=== PATIENT | female | born 1930 | race Caucasian/White ===

== ENCOUNTER 2016-11-30 07:34 | Inpatient (IN) | payer MEDICARE ==
[~2016-11-30] VITALS: Ht 165.1 cm; Wt 72.3 kg
[2016-11-30] VITALS (22 sets, daily range): BP systolic 83–147; BP diastolic 44–88; PULSE 89–102; RESP 12–39; TEMP 97.7–99.1; O2SAT 95–100
[~2016-11-30 07:34] MED LIST: ALPR.25 PO; CETI5CHW PO; FERR324T4 PO; LIPI10TA PO; LISI10 PO; PANT40IN3 PO; SERT100 PO
[2016-11-30] MEDS ORDERED: SERT-129 PO (08:14)
[2016-11-30] MEDS ORDERED: ALPR.25 PO (08:14)
[2016-11-30] MEDS ORDERED: CETI10 PO (08:14)
[2016-11-30] MEDS ORDERED: LISI10TA3 PO (08:14)
[2016-11-30] MEDS ORDERED: PROT40TA PO (08:14)
[2016-11-30] MEDS ORDERED: LIPI10TA PO (08:14)
[2016-11-30 08:30] LABS: BASOPHIL # 0.5 TH/MM3 (0-0.2); BASOPHIL % 4.1 % (0.0-2.0); EOSINOPHIL % 0.4 % (0.0-4.0); LYMPH % 16.6 % (9.0-44.0); LYMPHOCYTE # 1.9 TH/MM3 (1.0-4.8); MEAN CELL VOLUME 90.7 FL (80.0-100.0); MEAN CORPUSCULAR HEMOGLOBIN 28.4 PG (27.0-34.0); MEAN CORPUSCULAR HGB CONC 31.3 % (32.0-36.0); MONO % 6.8 % (0.0-8.0); NEUT % 72.1 % (16.0-70.0); PLATELET COUNT 384 TH/MM3 (150-450); RED BLOOD COUNT 1.63 MIL/MM3 (4.00-5.30); RED CELL DISTRIBUTION WIDTH 17.5 % (11.6-17.2); WHITE BLOOD COUNT 11.2 TH/MM3 (4.0-11.0)
[2016-11-30 08:32] LABS: HEMATOCRIT 14.7 % (35.0-46.0); HEMO FLAGS AUTO DIFF
[2016-11-30 08:33] LABS: CHLORIDE 107 MEQ/L (98-107); POTASSIUM 3.6 MEQ/L (3.5-5.1); SODIUM (NA) 140 MEQ/L (136-145)
[2016-11-30 08:37] LABS: ANION GAP 9 MEQ/L (5-15); BICARBONATE 23.6 MEQ/L (21.0-32.0)
[2016-11-30 08:38] LABS: BLOOD UREA NITROGEN 30 MG/DL (7-18); MAGNESIUM 2.4 MG/DL (1.5-2.5)
[2016-11-30 08:40] LABS: ALT (GPT) 17 U/L (10-53); AST (GOT) 15 U/L (15-37); GLOMERULAR FILTRATION RATE 47 ML/MIN (>89)
[2016-11-30 08:42] LABS: TOTAL BILIRUBIN ADULT 0.4 MG/DL (0.2-1.0)
[2016-11-30 08:43] LABS: ALKALINE PHOSPHATASE 61 U/L (45-117)
[2016-11-30 08:44] LABS: APTT (PATIENT) 19.8 SEC (24.3-30.1); INTERNATIONAL NORMALIZED RATIO 0.9 RATIO; PROTHROMBIN TIME - PATIENT 10.4 SEC (9.8-11.6)
[2016-11-30 08:45] LABS: CREATINE KINASE 42 U/L (26-192)
[2016-11-30] MEDS ORDERED: SODIUM CHLOR 0.9% 250 ML INJ 250 ML IV ONE (08:45)
[2016-11-30 08:53] LABS: ROULEAUX PRESENT (NORMAL); SCAN/DIFF AUTO DIFF CONFIRMED
[2016-11-30] MEDS ORDERED: PANTOPRAZOLE INJ 80 MG in SODIUM CHLORIDE 0.9% INJ 35 ML IV ONE (09:00)
[2016-11-30] MEDS ORDERED: SODIUM CHLORID 0.9% 500 ML INJ 500 ML IV ONE (09:00)
--- NOTE | 2016-11-30 09:05 | RADHPO ---
EXAM DATE/TIME: 11/30/2016 08:36 [facility] COMPARISON: CHEST PA & LAT, March 23, 2016, 15:09. INDICATIONS : Cough, short of breath. MEDICAL HISTORY : None. SURGICAL HISTORY : None. ENCOUNTER: Initial ACUITY: 1 week PAIN SCORE: 0/10 LOCATION: Bilateral chest FINDINGS: There are some increased interstitial markings bilaterally with some prominence of the pulmonary vasc ulature. This is new compared to the prior study. This is suggestive of some mild pulmonary edema. Th e heart size is mildly prominent. There is no pleural effusions. No evidence of pneumothorax. The bon y structures are stable. CONCLUSION: Mild pulmonary edema. Brian Merida MD on November 30, 2016 at 9:03 Board Certified Radiologist. This report was verified electronically.
[2016-11-30 09:10] LABS: BLOOD, URINE NEG (NEG); GLUCOSE,URINE NEG (NEG); KETONE, URINE NEG (NEG); NITRITE,URINE NEG (NEG)
[2016-11-30 09:14] LABS: METHOD OF COLLECTION CLEAN CATCH; URINE COLOR YELLOW (YELLW/STRAW)
--- NOTE | 2016-11-30 09:14 | PD ---
HPI Chief Complaint: Cold / Flu Symptoms Time Seen by Provider: 07:56 Travel History International Travel<30 days: No Contact w/Intl Traveler<30days: No Traveled to known affect area: No History of Present Illness HPI Patient is an 86-year-old female with history of iron deficiency anemia requiring blood transfusions in the past, hypertension, hyperlipidemia, anxiety , depression, GERD who presents to emergency room with multiple complaints. Patient reports that for the past 3 weeks, she has been feeling short of breath on exertion as well as been having generalized weakness. She reports that she has had no energy and for the past few days and has been lying in bed because of her weakness. Reports that she has overall decreased PO intake over the past few days. Patient reports no fevers or chills or any sick contacts. Patient denies any chest pain, reports shortness of breath on exertion. Denies chest pain. Denies abdominal pain. Denies n/v. Denies fever/chills. Reports that she does have a history of anemia, reports that her primary care doctor recently took her off her iron pills as "I did not need them anymore and my labs were fine." Patient also reports that she had a colonoscopy as well as endoscopy last year, reports that everything was negative PFSH Past Medical History Anemia: Yes Arthritis: Yes Autoimmune Disease: No Anxiety: Yes Depression: Yes Heart Rhythm Problems: No Cancer: No Cardiovascular Problems: Yes High Cholesterol: Yes Congestive Heart Failure: No Developmental Delay: Yes Diabetes: No Diminished Hearing: No Endocrine: No GERD: Yes Glaucoma: No Genitourinary: No Hepatitis: No Hiatal Hernia: No Hypertension: Yes Immune Disorder: No Implanted Vascular Access Dvce: Yes Medical other: Yes (arthritis) Musculoskeletal: Yes Neurologic: No Psychiatric: Yes Reproductive: No Respiratory: No Immunizations Current: Yes Thyroid Disease: No Tetanus Vaccination: Unknown Influenza Vaccination: Yes ?: Not Menopausal: Yes Past Surgical History Abdominal Surgery: Yes (HYSTERECTOMY) Body Medical Devices: MARIXA EYE LENS Cardiac Surgery: No Ear Surgery: No Endocrine Surgery: No Eye Surgery: Yes (BILATERAL CATARACT SX; LEFT RETINA SX x2) Genitourinary Surgery: No Gynecologic Surgery: Yes (HYSTERECTOMY) Hysterectomy: Yes Joint Replacement: Yes (Bilateral Knee) Oral Surgery: No Thoracic Surgery: No Other Surgery: Yes (LEFT TOTAL KNEE REPLACEMENT) Social History Alcohol Use: Yes (occas) Tobacco Use: No (QUIT 30 YRS) Substance Use: No Allergies-Medications (Allergen,Severity, Reaction): Coded Allergies: Morphine (Verified Allergy, Intermediate, 11/30/16) Reported Meds & Prescriptions Reported Meds & Active Scripts Active Reported Cetirizine (Cetirizine HCl) 10 Mg Tab 10 Mg PO DAILY Xanax (Alprazolam) 0.25 Mg Tab 0.25 Mg PO DIRECTED PRN Lipitor (Atorvastatin Calcium) 10 Mg Tab 10 Mg PO HS Lisinopril 10 Mg Tab 10 Mg PO DAILY Sertraline (Sertraline HCl) 100 Mg Tab 100 Mg PO DAILY Protonix (Pantoprazole Sodium) 40 Mg Tab 40 Mg PO DAILY Review of Systems General / Constitutional: No: Fever, Chills Eyes: No: Visual changes HENT: No: Headaches, Vertigo, Lightheadedness, Sore Throat Cardiovascular: Positive: Dyspnea on exertion, No: Chest Pain or Discomfort, Palpitations, Irregular Rhythm, Tachycardia, Diaphoresis Respiratory: Positive: Shortness of Breath, No: Cough, Wheezing Gastrointestinal: No: Nausea, Vomiting, Abdominal Pain Genitourinary: No: Dysuria Musculoskeletal: No: Pain Skin: No Rash Neurologic: Positive: Weakness, Dizziness, No: Headache Psychiatric: No: Depression Endocrine: No: Polydipsia Hematologic/Lymphatic: No: Easy Bruising Physical Exam Narrative GENERAL: Moderate distress SKIN: Focused skin assessment warm/dry. Patient pale-appearing HEAD: Atraumatic. Normocephalic. EYES: Pupils equal and round. No scleral icterus. No injection or drainage. ENT: No nasal bleeding or discharge. Mucous membranes pink and moist. NECK: Trachea midline. No JVD. CARDIOVASCULAR: Regular rate and rhythm. No murmur appreciated. RESPIRATORY: No accessory muscle use. Clear to auscultation. Breath sounds equal bilaterally. GASTROINTESTINAL: Abdomen soft, non-tender, nondistended. Hepatic and splenic margins not palpable. Patient with heme positive, black tarry stool MUSCULOSKELETAL: No obvious deformities. No clubbing. No cyanosis. No edema. NEUROLOGICAL: Awake and alert. No obvious cranial nerve deficits. Motor grossly within normal limits. Normal speech. PSYCHIATRIC: Appropriate mood and affect; insight and judgment normal. Data Data Last Documented VS Vital Signs Date Time Temp Pulse Resp B/P Pulse Ox O2 Delivery O2 Flow Rate FiO2 11/30/16 10:26 89 16 96/53 100 Nasal Cannula 2 11/30/16 07:50 97.7 Orders Complete Blood Count With Diff (11/30/16 08:04) Comprehensive Metabolic Panel (11/30/16 08:04) Prothrombin Time / Inr (Pt) (11/30/16 08:04) Act Partial Throm Time (Ptt) (11/30/16 08:04) Lactic Acid Sepsis Protocol (11/30/16 08:04) Magnesium (Mg) (11/30/16 08:04) Lipase (11/30/16 08:04) Ckmb (Isoenzyme) Profile (11/30/16 08:04) Troponin I (11/30/16 08:04) Urinalysis - C+S If Indicated (11/30/16 08:04) Influenzae A/B Antigen (11/30/16 08:04) Blood Culture (11/30/16 08:04) Chest, Single Ap (11/30/16 08:04) Type And Screen (11/30/16 08:04) Red Blood Cells (Rbc) (11/30/16 08:45) Blood Product Administration .UPON TRANSFUSION (11/30/16 08:45) Sodium Chlor 0.9% 250 Ml Inj (Ns 250 Ml (11/30/16 08:45) Sodium Chlorid 0.9% 500 Ml Inj (Ns 500 M (11/30/16 09:00) Pantoprazole Inj (Protonix Inj) (11/30/16 09:00) Pantoprazole Inj (Protonix Inj) (11/30/16 09:00) Electrocardiogram (11/30/16 ) Labs Laboratory Tests Test 11/30/16 11/30/16 11/30/16 11/30/16 07:50 08:25 08:45 09:05 White Blood Count 11.2 TH/MM3 Red Blood Count 1.63 MIL/MM3 Hemoglobin 4.6 GM/DL Hematocrit 14.7 % Mean Corpuscular Volume 90.7 FL Mean Corpuscular Hemoglobin 28.4 PG Mean Corpuscular Hemoglobin 31.3 % Concent Red Cell Distribution Width 17.5 % Platelet Count 384 TH/MM3 Mean Platelet Volume 8.6 FL Neutrophils (%) (Auto) 72.1 % Lymphocytes (%) (Auto) 16.6 % Monocytes (%) (Auto) 6.8 % Eosinophils (%) (Auto) 0.4 % Basophils (%) (Auto) 4.1 % Neutrophils # (Auto) 8.0 TH/MM3 Lymphocytes # (Auto) 1.9 TH/MM3 Monocytes # (Auto) 0.8 TH/MM3 Eosinophils # (Auto) 0.0 TH/MM3 Basophils # (Auto) 0.5 TH/MM3 CBC Comment AUTO DIFF Differential Comment AUTO DIFF CONFIRMED Rouleau PRESENT Prothrombin Time 10.4 SEC Prothromb Time International 0.9 RATIO Ratio Activated Partial 19.8 SEC Thromboplast Time Sodium Level 140 MEQ/L Potassium Level 3.6 MEQ/L Chloride Level 107 MEQ/L Carbon Dioxide Level 23.6 MEQ/L Anion Gap 9 MEQ/L Blood Urea Nitrogen 30 MG/DL Creatinine 1.10 MG/DL Estimat Glomerular Filtration 47 ML/MIN Rate Random Glucose 147 MG/DL Calcium Level 8.2 MG/DL Magnesium Level 2.4 MG/DL Total Bilirubin 0.4 MG/DL Aspartate Amino Transf 15 U/L (AST/SGOT) Alanine Aminotransferase 17 U/L (ALT/SGPT) Alkaline Phosphatase 61 U/L Total Creatine Kinase 42 U/L Troponin I 0.21 NG/ML Total Protein 6.4 GM/DL Albumin 3.1 GM/DL Lipase 84 U/L Blood Type O NEGATIVE Antibody Screen NEGATIVE Lactic Acid Level 2.3 mmol/L Crossmatch Leukocyte-Reduced Red Blood Cells Blood Bank Comment Urine Collection Type CLEAN CATCH Urine Color YELLOW Urine Turbidity CLEAR Urine pH 5.0 Urine Specific Sebastian 1.027 Urine Protein NEG mg/dL Urine Glucose (UA) NEG mg/dL Urine Ketones NEG mg/dL Urine Occult Blood NEG Urine Nitrite NEG Urine Bilirubin NEG Urine Leukocyte Esterase NEG Urine WBC 0-2 /hpf Microscopic Urinalysis Comment CULT NOT INDICATED MDM Medical Decision Making Medical Screen Exam Complete: Yes Emergency Medical Condition: Yes Interpretation(s) EKG at 0749: NSR at 93bpm, qt/qtc: 398/455, nonspecific ST and T-wave changes Vital Signs Date Time Temp Pulse Resp B/P Pulse Ox O2 Delivery O2 Flow Rate FiO2 11/30/16 07:55 90 16 98 Room Air 11/30/16 07:50 97.7 95 16 102/59 98 Room Air 11/30/16 07:36 98.0 94 20 83/44 99 Differential Diagnosis GI bleed, colitis, anemia, esophagitis, pneumonia, ACS, arrhythmia Narrative Course Patient is an 86-year-old female who presents to emergency room with complaints of generalized weakness for the past 3 weeks. Patient reports that she has been having increasingly short of breath on exertion, reports nonproductive cough and malaise weakness. On exam, patient is pale-appearing, she is hypotensive with a blood pressure 83/44 with a pulse ox of 94%. Labs including blood cultures and lactic acid ordered. Patient does have extensive testing T-wave changes on EKG which are nonspecific , cardiac enzymes ordered as well. Patient's hemoglobin is 4.6, hematocrit 14.7, patient does have dark tarry stools which are heme positive. Patient with most likely GI bleed. Patient was started protonix as well as a protonix gtt. 2 units of blood ordered. Patient did give verbal as well as written consent for blood transfusion. Patient's troponin is 0.21, patient with nonspecific ST and T-wave changes on EKG, it is most likely from symptomatic anemia from GI bleed. Lactic acid is 2.3 - patient has been pancultured, elevated lactate most likely from hypoperfusion. Case reviewed with Dr. Brush who accepts pt to service Critical Care Narrative Aggregate critical care time was 30 minutes. Time to perform other separately billable procedures was not included in the critical care time. My time did not include minutes spent treating any other patients simultaneously or on activities that did not directly contribute to the patient's treatment. The services I provided to this patient were to treat and/or prevent clinically significant deterioration that could result in: , decompensation, deterioration I provided critical care services requiring my management, as noted below: Chart data review, documentation time, medication orders and management, vital sign assessments/reviewing monitor data, ordering and reviewing lab tests, ordering and interpreting/reviewing x-rays and diagnostic studies, care of the patient and discussion of the patient with the admitting physicians. Diagnosis Primary Impression: GI bleed Qualified Code: K92.1 - Gastrointestinal hemorrhage with melena Additional Impressions: Anemia Qualified Code: D64.9 - Anemia, unspecified type NSTEMI (non-ST elevation myocardial infarction) Admitting Information Admitting Physician Requests: Mariel Fernandez DO November 30, 2016 09:14
[2016-11-30 09:15] LABS: COMMENT (UR) CULT NOT INDICATED; CULTURE IF INDICATED CULT NOT INDICATED; WBC, URINE 0-2 /hpf (0-5)
[2016-11-30] MEDS: PANTOPRAZOLE INJ 80 MG in SODIUM CHLORIDE 0.9% INJ 100 ML IV SCH (09:43)
[2016-11-30 10:32] LABS: LACTIC ACID GHOST NOT REPORTABLE
--- NOTE | 2016-11-30 10:54 | EKG ---
Date Performed: 11/30/2016 Time Performed: 07:49:34 PTAGE: 86 years EKG: Sinus rhythm Extensive ST-T changes are nonspecific Borderline ECG PREVIOUS TRACING : 03/23/2016 18.57 Compared to previous tracing, nonspecific ST/T changes are now present. DOCTOR: Benji Ayon Interpretating Date/Time 11/30/2016 10:53:18
[2016-11-30] MEDS ORDERED: OCUVTAB PO (11:53)
[2016-11-30] MEDS ORDERED: SODIUM CHLORIDE 0.9% FLUSH 10 ML FLUSH IV FLUSH PRN (12:45)
[2016-11-30] MEDS ORDERED: ONDANSETRON HCL 4 MG/2 ML VIAL IVP PRN (12:45)
[2016-11-30] MEDS ORDERED: NALOXONE HCL 0.4 MG/ML AMP IV PRN (12:45)
[2016-11-30] MEDS ORDERED: CHLORHEXIDINE GLUCONATE 2 % 1 PACK (2 CLOTHS)(extra cloths) TOPICAL PRN (14:00)
[2016-11-30] MEDS ORDERED: ALPRAZolam 0.25 MG TAB PO ONE (14:15)
--- NOTE | 2016-11-30 16:20 | MH ---
cc: KYLE LYLE DATE OF ADMISSION: 11/30/2016 ADMITTING DIAGNOSIS: GI bleed. HISTORY OF PRESENT ILLNESS The patient is a very pleasant 86-year-old female who states that she just has not been feeling well for the last month. She had been having some work done in her house that she attributed it for mold and she attributed her feeling of not feeling quite well secondary to that. She also states that she tripped and fell approximately two weeks, was a little bit sore but really had no obvious bruising at the time. She also at that time had developed a cough that was not improving despite [id number] medications. She did have two nights of sweats that she attributed to her soaked pajamas. She presented to the emergency room secondary to the generalized weakness and the cough. The history is being obtained while her nephew is in the room. He volunteers that she also had been complaining of some shortness of breath while she had the cough and some lightheadedness. She does have a history of iron deficiency anemia in the past requiring transfusions. When I asked her about any abdominal pain or nausea, she denied. She has been eating less but according to her it is because she has been feeling fairly depressed and has just not wanted to cook. She does state that she has an occasional abdominal pain and cramping but according to her she understands that she has irritable bowel and she attributes it to that. She will occasionally sporadically have some diarrhea. She will take some Immodium. She denies noticing any black or tarry stools or blood in her stools. She had been on iron pills which we had stopped earlier in the year as she apparently had been doing better with her anemia. PAST MEDICAL HISTORY: Significant for: 1. Anemia. 2. Diverticulosis. 3. Garcia's esophagus 4. Colon polyps. 5. Hypertension. 6. Hyperlipidemia. 7. She does have lumbar stenosis and macular degeneration. 8. She does have major depressive disorder and is under the care of a psychiatrist. 9. She does have a thyroid nodule that is being investigated. PAST SURGICAL HISTORY: 1. Total abdominal hysterectomy with BSO. 2. Total knee arthroplasty. 3. Cataract surgery. ALLERGIES: MORPHINE. MEDICATIONS: 1. Atorvastatin 20 milligrams daily. 2. Lisinopril 20 milligrams daily. 3. Pantoprazole 40 milligrams daily. 4. Sertraline 150 milligrams daily. 5. Alprazolam 0.25 as needed twice a day. HABITS: She does not smoke. She will have an occasional beer or vodka once or twice a day. 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 She lives by herself in [facility]. REVIEW OF SYSTEMS: See HPI. She denies any chest pain or palpitations, or any lower extremity edema or swelling, just this cough that was nonproductive that would not improve. She does state that she has been urinating well. Aside from some weakness, has essentially also just being feeling depressed with the loss of her partner and the relocation of her friends in the community that she lives in. LABORATORY DATA: On admission, included a white count of 11.2, hemoglobin of 4.6, hematocrit 14.7, platelet count of 384. Sodium 140, potassium 3.6, BUN was 30, creatinine 1.1, lactic acid was 2.3, troponin was 0.21. Albumin was 3.1. INR was 0.9, urine was clear. EKG showed sinus rhythm with extensive nonspecific ST changes. Chest x-ray, some increased interstitial markings with some prominence of the pulmonary vasculature, that was new. PHYSICAL EXAMINATION: VITAL SIGNS: Temperature 98.7, pulse 91, respiratory rate 23, blood pressure was 116/53, pulse ox 99%. She is lying in the ICU. She looks pale. She is alert, and does not appear to be in any acute distress. She is wearing oxygen. She has a clear moist oral mucosa. NECK: Supple. LUNGS: Clear to auscultation. She has no rales, rhonchi or wheezing. HEART: She does have a 2/6 systolic ejection murmur over her precordium. ABDOMEN: Good bowel sounds in all four quadrants. No rebound or guarding. EXTREMITIES: No clubbing, cyanosis or edema. ASSESSMENT AND PLAN: The patient is an 86 year-old female with prior history of iron deficiency anemia with GI bleed. On prior admissions we were not able to identify the source of her bleed. She did have extensive diverticulosis. I am not sure if we may be dealing with repeated diverticular bleed. At this point I have asked GI to see her. She is not too thrilled about undergoing another endoscopy or colonoscopy. For the elevated troponin, I will go ahead and repeat that. That may be secondary to the strain of the anemia on her heart. Will have to see how she does. Again monitor her volume status closely. She may need some diuretics after her transfusion. For her depression, continue her sertraline or alprazolam. We were taking about perhaps relocating once she is done with this hospital admission. She is to continue on a PPI particularly with her history of Garcia's esophagus. She does have hypertension. Will obviously halt her antihypertensives. Further recommendations as the case develops. MD AQUILES Riggs/DAVID /2:15 PM /3:14 PM
[2016-11-30] MEDS: ACETAMINOPHEN 325 MG TAB PO PRN (16:59)
[2016-11-30 18:28] LABS: HEMATOCRIT 22.5 % (35.0-46.0); REVIEW FLAG FINAL
[2016-11-30] MEDS ORDERED: FUROSEMIDE 20 MG/2 ML VIAL IV PUSH ONE (20:45)
[2016-11-30] MEDS: ATORVASTATIN 10 MG TAB PO SCH (20:51)
[2016-11-30] MEDS: DOCUSATE SODIUM 50 MG/SENNA 8.6 MG TAB PO SCH (20:52)
[2016-11-30] MEDS: SODIUM CHLORIDE 0.9% FLUSH 10 ML FLUSH IV FLUSH SCH (20:52)
[2016-11-30] MEDS: ALPRAZolam 0.25 MG TAB PO PRN (20:52)
[2016-12-01] VITALS (28 sets, daily range): BP systolic 107–200; BP diastolic 52–181; PULSE 82–100; RESP 16–43; TEMP 97.3–98.6; O2SAT 93–100
[2016-12-01] MEDS ORDERED: FUROSEMIDE 40 MG/4 ML VIAL ONE (00:40)
[2016-12-01] MEDS ORDERED: FUROSEMIDE 40 MG/4 ML VIAL IV PUSH SCH (00:45)
[2016-12-01 02:16] LABS: HEMATOCRIT 23.7 % (35.0-46.0); REVIEW FLAG FINAL
[2016-12-01] MEDS: ACETAMINOPHEN 325 MG TAB PO PRN (03:51)
[2016-12-01] MEDS: ALPRAZolam 0.25 MG TAB PO PRN ×3 (03:51→23:00)
[2016-12-01] MEDS: CHLORHEXIDINE GLUCONATE 2 % 1 PACK (2 CLOTHS)(taper/protocol) TOPICAL SCH (03:52)
[2016-12-01 04:58] LABS: AUTOMATED NEUTROPHIL # 10.7 TH/MM3 (1.8-7.7); BASOPHIL # 0.6 TH/MM3 (0-0.2); EOSINOPHIL # 0.1 TH/MM3 (0-0.4); EOSINOPHIL % 0.5 % (0.0-4.0); HEMATOCRIT 22.8 % (35.0-46.0); LYMPH % 10.1 % (9.0-44.0); LYMPHOCYTE # 1.4 TH/MM3 (1.0-4.8); MEAN CELL VOLUME 85.5 FL (80.0-100.0); MEAN CORPUSCULAR HEMOGLOBIN 27.9 PG (27.0-34.0); MEAN CORPUSCULAR HGB CONC 32.6 % (32.0-36.0); MONO % 7.9 % (0.0-8.0); NEUT % 77.5 % (16.0-70.0); PLATELET COUNT 307 TH/MM3 (150-450); RED BLOOD COUNT 2.66 MIL/MM3 (4.00-5.30); RED CELL DISTRIBUTION WIDTH 16.4 % (11.6-17.2); WHITE BLOOD COUNT 13.9 TH/MM3 (4.0-11.0)
[2016-12-01 05:03] LABS: CHLORIDE 104 MEQ/L (98-107); HEMO FLAGS DIFF FINAL; POTASSIUM 3.4 MEQ/L (3.5-5.1); SODIUM (NA) 138 MEQ/L (136-145)
[2016-12-01 05:07] LABS: ANION GAP 7 MEQ/L (5-15); BICARBONATE 27.2 MEQ/L (21.0-32.0); BLOOD UREA NITROGEN 25 MG/DL (7-18)
[2016-12-01 05:10] LABS: ALT (GPT) 21 U/L (10-53)
[2016-12-01] MEDS: PANTOPRAZOLE INJ 80 MG in SODIUM CHLORIDE 0.9% INJ 100 ML IV SCH ×2 (05:16→18:34)
[2016-12-01 05:34] LABS: ALKALINE PHOSPHATASE 66 U/L (45-117); AST (GOT) 31 U/L (15-37); GLOMERULAR FILTRATION RATE 60 ML/MIN (>89); TOTAL BILIRUBIN ADULT 1.4 MG/DL (0.2-1.0)
[2016-12-01] MEDS ORDERED: POTASSIUM CHLORIDE 20 MEQ CONTROLLED RELEASE TAB PO ONE ×2 (08:45→13:00)
[2016-12-01] MEDS ORDERED: SERTRALINE HCL 100 MG TAB PO SCH (09:00)
--- NOTE | 2016-12-01 09:48 | RADHPO ---
EXAM DATE/TIME: 12/01/2016 09:26 [facility] COMPARISON: CHEST SINGLE AP, November 30, 2016, 8:36. INDICATIONS : Cough, short of breath. MEDICAL HISTORY : None. SURGICAL HISTORY : None. ENCOUNTER: Subsequent ACUITY: 1 week PAIN SCORE: 0/10 LOCATION: Bilateral chest FINDINGS: Cardiac silhouette is minimally enlarged. Pulmonary vascularity is indistinct with diffuse interstiti al prominence similar to prior exam. There is subtle airspace disease in the left lower lung zone wit h. No significant pleural effusion. Remainder of exam is unchanged. CONCLUSION: 1. Mild cardiomegaly with trace positive fluid balance. 2. Minimal left lower lobe airspace disease, likely atelectasis. However, developing aspiration/pneum onia may have a similar appearance. Saul Fallon MD on December 01, 2016 at 9:44 Board Certified Radiologist. This report was verified electronically.
[2016-12-01] MEDS: MULTIVITAMIN-OPHTHALMIC 1 TAB PO SCH (10:04)
[2016-12-01] MEDS: SERTRALINE HCL 100 MG TAB PO SCH (10:06)
[2016-12-01] MEDS: SODIUM CHLORIDE 0.9% FLUSH 10 ML FLUSH IV FLUSH SCH ×2 (10:10→21:00)
--- NOTE | 2016-12-01 10:58 | MB ---
cc: NOHEMI MCCURDY MD DATE OF CONSULTATION: 12/01/2016 HISTORY OF PRESENT ILLNESS This is an 86-year-old woman who was admitted to the hospital after having problems with fatigue, tiredness and mild confusion. Her niece insisted that she come to the hospital and upon admission to the hospital she was found to have be rather profoundly anemic with a hemoglobin of 4.6. She actually feels that this may have started six weeks ago when her water heater broke and she had been inhaling mold. This was repaired. We have been asked to see her in that two troponins were done with values of 0.21 and 0.38 with normal CPKs. The patient denies any problems with chest pains or shortness of breath. No lightheadedness or dizziness has been present. She denies any palpitations and no prior history of any heart problems have been present. She has had a history of anemia in the past which was felt to be iron deficiency requiring transfusions. She denies any problems with nausea or vomiting. No melena or hematochezia has been present. PAST MEDICAL HISTORY Otherwise significant for: 1. Hypertension. 2. Hyperlipidemia. ALLERGIES MORPHINE. MEDICATIONS Medications at home have included: 1. Atorvastatin 20 mg daily. 2. Lisinopril 20 mg daily. 3. Pantoprazole 40 mg daily. 4. Sertraline 150 mg daily. 5. Alprazolam as needed. SOCIAL HISTORY The patient is a nonsmoker. She occasionally drinks alcohol. She does not use recreational drugs. PHYSICAL EXAMINATION GENERAL: She is awake and alert. She is in no acute distress. VITAL SIGNS: Blood pressure 120/70, pulse 88. NECK: There is no neck vein distension. Carotids are normal. LUNGS: Clear. CARDIOVASCULAR: Regular rate and rhythm. There is a 2/6 systolic murmur at the apex. No diastolic murmur is present. ABDOMEN: Soft. There is no tenderness or organomegaly. EXTREMITIES: No edema. ASSESSMENT AND RECOMMENDATIONS The patient has had elevated troponin. This is likely demand mediated due to her profound anemia. At this point in time she is asymptomatic and resting comfortably. At some point in the future we will entertain an ischemic work-up, but at this point in time she certainly would not be a good candidate for cardiac catheterization and in the absence of significant symptoms do not feel that she urgently needs that work-up. Would favor getting her anemia stable and pursue outpatient examination unless symptoms intervene. I have ordered an echocardiogram to evaluate her murmur. MD HANNA Castaneda/JENI /10:27 AM /10:38 AM
[2016-12-01 12:36] LABS: REVIEW FLAG FINAL
[2016-12-01 12:37] LABS: CHLORIDE 104 MEQ/L (98-107); POTASSIUM 3.3 MEQ/L (3.5-5.1); SODIUM (NA) 140 MEQ/L (136-145)
[2016-12-01 12:41] LABS: ANION GAP 11 MEQ/L (5-15); BICARBONATE 25.4 MEQ/L (21.0-32.0); BLOOD UREA NITROGEN 21 MG/DL (7-18)
[2016-12-01 12:44] LABS: ALT (GPT) 19 U/L (10-53); AST (GOT) 22 U/L (15-37); GLOMERULAR FILTRATION RATE 55 ML/MIN (>89)
[2016-12-01 12:45] LABS: TOTAL BILIRUBIN ADULT 0.8 MG/DL (0.2-1.0)
[2016-12-01 12:47] LABS: ALKALINE PHOSPHATASE 63 U/L (45-117)
--- NOTE | 2016-12-01 12:57 | HHI.PR ---
Subjective Remarks No new complaints, feels good this am Objective Vitals Vital Signs Date Time Temp Pulse Resp B/P Pulse Ox O2 Delivery O2 Flow Rate FiO2 12/01/16 10:39 93 21 12/01/16 06:00 88 12/01/16 06:00 88 25 118/54 100 12/01/16 05:00 90 24 121/54 99 12/01/16 04:00 97.7 92 27 135/63 98 12/01/16 04:00 92 12/01/16 03:00 92 26 137/68 99 12/01/16 02:00 98 28 138/71 99 12/01/16 02:00 98 12/01/16 01:00 100 34 148/74 95 12/01/16 00:00 98.6 98 43 123/66 98 12/01/16 00:00 98 11/30/16 23:25 97 Nasal Cannula 2.00 11/30/16 23:00 102 36 147/75 98 11/30/16 22:00 100 26 140/70 96 11/30/16 22:00 100 11/30/16 21:15 96 27 140/78 95 11/30/16 20:13 99.1 94 12 144/75 98 11/30/16 20:00 96 11/30/16 18:52 96 27 140/85 99 11/30/16 18:00 98.0 96 22 141/73 100 11/30/16 17:59 18 11/30/16 17:00 95 22 145/88 100 11/30/16 16:00 94 26 132/87 100 11/30/16 15:05 100 Nasal Cannula 3.00 11/30/16 15:00 90 26 125/80 100 11/30/16 14:00 98.7 92 39 115/76 100 11/30/16 13:00 92 22 109/56 100 11/30/16 11/30/16 12/01/16 14:59 22:59 06:59 Intake Total 600 ml 390 ml Output Total 450 ml 1850 ml Balance 600 ml -450 ml -1460 ml Intake Oral 240 ml IV Total 600 ml 150 ml Output Urine Total 450 ml 1850 ml # Bowel Movements 1 Result Diagram: 12/01/16 1220 12/01/16 1220 Other Results Last Impressions Chest X-Ray 5/31/17 0000 Signed Impressions: Service Date/Time: Thursday, December 01, 2016 09:26 - CONCLUSION: 1. Mild cardiomegaly with trace positive fluid balance. 2. Minimal left lower lobe airspace disease, likely atelectasis. However, developing aspiration/pneumonia may have a similar appearance. Saul Fallon MD Objective Remarks Lying in bed looks comfortable , off oxygen cta efe 3/6 +bs nontender no edema A/P Problem List: (1) Symptomatic anemia Status: Acute Plan: recieved 2 units of blood last nite, became sob and required diuresis, in view of elevated troponin and murmur, 3rd units was held, her hgb has stablized though it is still low, she is off oxygen will transfurs one more unit followed by furosemide (2) GI bleed Status: Acute Plan: she has had recurrent gi bleeds , she has severe diverticulosis, she denies abdominal pain except for occasional cramping follwed by diarrhea, this is chronic consult pending, cont PP (3) Anxiety Status: Chronic Plan: mouring loss of her and friends, neighbores relocating case management assisting with obtaining help at home, discussed ASSISTED (4) Troponin level elevated Status: Acute Plan: Asked cardiology to see her though suspect related to stress from anemia , they have ordered echo and outpatient ischemic w/u. For now work on correcting anemia Problem Qualifiers (1) GI bleed: Qualified Code: K92.1 - Gastrointestinal hemorrhage with melena Aminata Morales MD December 01, 2016 12:57
[2016-12-01] MEDS ORDERED: FUROSEMIDE 20 MG/2 ML VIAL IV PUSH ONE (13:00)
[2016-12-01] MEDS: DOCUSATE SODIUM 50 MG/SENNA 8.6 MG TAB PO SCH ×2 (14:49→21:01)
[2016-12-01] MEDS ORDERED: PEG (High)/E-LYTE SOLN 4000 ML BTL PO ONE (17:00)
--- NOTE | 2016-12-01 17:22 | EC ---
Study Study Date:12/01/2016 STUDY CONCLUSIONS SUMMARY - Left ventricle: The cavity size was normal. Wall thickness was increased in a pattern of moderate LVH. Systolic function was normal. The estimated ejection fraction was in the range of 55% to 60%. Wall motion was normal; there were no regional wall motion abnormalities. - Aortic valve: Valve area: 0.61cm^2(VTI). Valve area: 0.53cm^2 (Vmax). - Mitral valve: Mildly calcified annulus. Mild regurgitation. - Tricuspid valve: Mild regurgitation. - Pulmonary arteries: PA peak pressure: 41mm Hg (S). If LV function is below 40, please consider prescribing an ACEI or ARB or document rationale for non-use. PROCEDURE DATA STUDY STATUS: Elective. Procedure: Transthoracic echocardiography. Image quality was good. Scanning was performed from the parasternal, apical, and subcostal acoustic windows. Study completion: The patient tolerated the procedure well. Transthoracic echocardiography. M-mode, complete 2D, complete spectral Doppler, and color Doppler. Height: Height: 65in. Weight: Weight: 161.7lb. Body mass index: BMI: 27kg/m^2. Body surface area: BSA: 1.81m^2. Patient status: Inpatient. CARDIAC ANATOMY LEFT VENTRICLE: The cavity size was normal. Wall thickness was increased in a pattern of moderate LVH. Systolic function was normal. The estimated ejection fraction was in the range of 55% to 60%. Wall motion was normal; there were no regional wall motion abnormalities. AORTIC VALVE: thickened, calcified leaflest with restricted motion and mean gradient = 64 mm hg c/w severe aortic valve stenosis Trileaflet; normal thickness leaflets. Doppler: Transvalvular velocity was within the normal range. There was no stenosis. Trace to mild regurgitation. Valve area: 0.61cm^2(VTI). Indexed valve area: 0.34cm^2/m^2 (VTI). Valve area: 0.53cm^2 (Vmax). Indexed valve area: 0.29cm^2/m^2 (Vmax). Mean gradient: 63mm Hg (S). Peak gradient: 113mm Hg (S). AORTA: Aortic root: The aortic root was normal in size. MITRAL VALVE: peak gradient = 6 mm hg suggestive of mild mitral valve stenosis Mildly calcified annulus. Doppler: Transvalvular velocity was within the normal range. There was no evidence for stenosis. Mild regurgitation. Peak gradient: 6mm Hg (D). LEFT ATRIUM: The atrium was normal in size. RIGHT VENTRICLE: The cavity size was normal. Wall thickness was normal. PULMONIC VALVE: Doppler: Transvalvular velocity was within the normal range. There was no evidence for stenosis. No regurgitation. TRICUSPID VALVE: Structurally normal valve. Doppler: Transvalvular velocity was within the normal range. Mild regurgitation. PULMONARY ARTERY: The main pulmonary artery was normal-sized. Systolic pressure was within the normal range. RIGHT ATRIUM: The atrium was normal in size. PERICARDIUM: There was no pericardial effusion. SYSTEMIC VEINS: Inferior vena cava: The vessel was normal in size. Patient weight: 161.7lb _Ejection fraction:_ 65-75% _Fractional shortening:_ 32% up to 5Kg 5-11.5Kg 11.6-22.9Kg 23-45Kg 45-57Kg Aortic Root 7-13 <17 13-22 17-27 17-27 LA diam 6-13 <23 24-38 33-47 37-40 RVID 10-17 7-15 7-15 7-18 8-17 LVIDd 12-22 <32 24-38 33-47 37-40 LVPW 2-4 3-6 5-7 6-8 7-8 IVS 2-4 3-6 5-7 6-8 7-8 BASIC MEASUREMENTS ADULT NORMAL Left ventricle LV internal dimension, ED, chordal *42.6 mm 43-52 level, PLAX LV internal dimension, ES, chordal 31.1 mm 23-38 level, PLAX Fractional shortening, chordal level, *27 % >29 PLAX LV posterior wall thickness, ED 17.2 mm IVS/LVPW ratio, ED 1 <1.3 Ventricular septum Septal thickness, ED 17.2 mm Aorta Root diameter, ED 29 mm Left atrium Anterior-posterior dimension 37 mm Anterior-posterior dimension index 2.04 cm/m^2 <2.2 DOPPLER MEASUREMENTS ADULT NORMAL Main pulmonary artery Pressure, S *41 mm Hg =30 Aortic valve Peak velocity, S 506 cm/s Mean velocity, S 368 cm/s VTI, S 114 cm Mean gradient, S 63 mm Hg Peak gradient, S 113 mm Hg Valve area, VTI 0.61 cm^2 Valve area index, VTI 0.34 cm^2/m^2 Valve area, Vmax 0.53 cm^2 Valve area index, Vmax 0.29 cm^2/m^2 Mitral valve Peak E-wave velocity 118 cm/s Peak A-wave velocity 103 cm/s Deceleration time 165 ms 150-230 Peak gradient, D 6 mm Hg Peak E/A ratio 1.1 Tricuspid valve Regurgitant peak velocity 292 cm/s Peak RV-RA gradient, S 34 mm Hg Maximal regurgitant velocity 292 cm/s Systemic veins Estimated CVP 10 mm Hg Right ventricle RV pressure, S *44 mm Hg <30 Pulmonic valve Peak velocity, S 91.1 cm/s LEGEND: Mean values are shown as u=mean value. Asterisk (*) law values outside specified normal range. Prepared and signed by Grady Willis [id number]
[2016-12-01] MEDS: ATORVASTATIN 10 MG TAB PO SCH (21:01)
[2016-12-01 21:43] LABS: HEMATOCRIT 32.5 % (35.0-46.0); REVIEW FLAG FINAL
[2016-12-01 21:51] LABS: POTASSIUM 3.5 MEQ/L (3.5-5.1)
[2016-12-02] VITALS (21 sets, daily range): BP systolic 103–148; BP diastolic 55–77; PULSE 86–102; RESP 20–41; TEMP 97.7–98.6; O2SAT 93–98
[2016-12-02] MEDS: CHLORHEXIDINE GLUCONATE 2 % 1 PACK (2 CLOTHS)(taper/protocol) TOPICAL SCH ×2 (04:00→22:51)
[2016-12-02] MEDS: PANTOPRAZOLE INJ 80 MG in SODIUM CHLORIDE 0.9% INJ 100 ML IV SCH (04:58)
[2016-12-02 05:07] LABS: HEMATOCRIT 27.3 % (35.0-46.0); MEAN CELL VOLUME 85.7 FL (80.0-100.0); MEAN CORPUSCULAR HEMOGLOBIN 27.9 PG (27.0-34.0); MEAN CORPUSCULAR HGB CONC 32.5 % (32.0-36.0); PLATELET COUNT 281 TH/MM3 (150-450); RED BLOOD COUNT 3.18 MIL/MM3 (4.00-5.30); RED CELL DISTRIBUTION WIDTH 15.6 % (11.6-17.2); WHITE BLOOD COUNT 13.9 TH/MM3 (4.0-11.0)
[2016-12-02 05:18] LABS: HEMO FLAGS AUTO DIFF
[2016-12-02 05:26] LABS: BICARBONATE 27.6 MEQ/L (21.0-32.0)
[2016-12-02 05:30] LABS: BANDS 1 % (0-6); CORRECTED NUCLEATED RBC 1 /100 WBC (0-0); NEUTROPHIL # MANUAL DIFF 11.5 TH/MM3 (1.8-7.7); PLATELET ESTIMATE SMEAR NORMAL (NORMAL); PLATELET MORPHOLOGY NORMAL (NORMAL); POLYS (SEG NEUTROPHILS) 82 % (16-70); SCAN/DIFF FINAL DIFF MANUAL; WBC DIFF SAMPLE 100
[2016-12-02 05:33] LABS: POTASSIUM 2.8 MEQ/L (3.5-5.1)
--- NOTE | 2016-12-02 06:16 | MB ---
cc: TRIPP BONNER M.D. DATE OF [address] Morales. DATE OF CONSULTATION 12/01/2016 REASON FOR REFERRAL Anemia. Thank you for the consultation. HISTORY OF PRESENT ILLNESS An 86-year-old lady who has been doing well until last month. The patient started having weakness and then she was told by her friend that she was very pale. She was short of breath and she came to the emergency room because of that and was found to have severe anemia. She was complaining of shortness breath, dyspnea on exertion and fatigue, found to have hemoglobin of less than 5. The patient is known to have recurrent GI bleed. She had an upper endoscopy and a colonoscopy in the past which was unrevealing. She was supposed to have capsule endoscopy but then she never followed up and apparently, according to her, her colonoscopy was not very clean at the time she was done. The patient stated that she did not see any blood in her stool. She did not have any hematochezia, no nausea, no vomiting, no hematemesis. PAST SURGICAL HISTORY Significant for - 1. Arthroscopy. 2. Cataract surgery. 3. Hysterectomy. PAST MEDICAL HISTORY Significant for - 1. Diverticular disease. 2. Chronic anemia. 3. Garcia esophagus. 4. Colon polyps. 5. Hypertension. 6. Hyperlipidemia. 7. Lumbar stenosis. 8. Major depression. ALLERGIES MORPHINE. MEDICATIONS Reviewed in the chart. SOCIAL HISTORY No tobacco. Rare alcohol. REVIEW OF SYSTEMS All 12-points negative except HPI. PHYSICAL EXAMINATION GENERAL: Alert, oriented, in no acute distress at this time. She feels better since she received 2 units of blood. VITAL SIGNS: Stable. No hypertension. HEENT: Pupils are round, reactive to light. NECK: Supple. CHEST: Clear to auscultation and precaution. CARDIAC: Regular rate and rhythm with a 2/6 systolic ejection murmur. ABDOMEN: Soft, nondistended. Positive bowel sounds. EXTREMITIES: No edema, clubbing or cyanosis. NEUROLOGIC: Intact. PSYCHOLOGIC: Appropriate. LABORATORY DATA White count 13.9, hemoglobin 7.4, on admission was 4.6, platelets 307. INR 0.9. Liver function tests normal. ASSESSMENT AND PLAN 1. An 86-year-old lady with severe anemia causing her to have elevation of troponin. She was seen by Cardiology and felt that the troponin elevation is secondary to stress from the anemia. 2. This could be from the GI source of small bowel but also it could be from upper or the colon. I had a discussion with the patient about doing upper endoscopy and colonoscopy. She is agreeable to have it done. She will have the prep done and we will plan on doing the procedures tomorrow. She feels much better since she received the blood and no chest pain, no shortness of breath and we will proceed with the procedure. MD MARY Shahid/CASE /7:22 PM /6:06 AM
[2016-12-02] MEDS ORDERED: PROPOFOL 200 MG/20 ML AMP IV ONE (07:15)
--- NOTE | 2016-12-02 07:53 | GIPROC ---
[facility] [address] [place] [address], [id number] COLONOSCOPY PROCEDURE REPORT EXAM DATE: 12/02/2016 PATIENT NAME: Ashley Buchanan MR #: [id number] BIRTHDATE: 1930 ENDOSCOPIST: Chandler Carr MD ORDER #: [id number] LIBRARY MEDIA ASSISTANT: Beatris Hanson and Kandice Nelson STATUS: inpatient INDICATIONS: The patient is a 86 yr old female here for a colonoscopy due to anemia, non-specific PROCEDURE PERFORMED: Colonoscopy, incomplete MEDICATIONS: None and Per Anesthesia. PREP QUALITY: good ESTIMATED BLOOD LOSS: None CONSENT: The patient understands the risks and benefits of the procedure and understands that these risks include, but are not limited to: sedation, allergic reaction, infection, perforation and/or bleeding. Alternative means of evaluation and treatment include, among others: physical exam, x-rays, and/or surgical intervention. The patient elects to proceed with this endoscopic procedure. medical equipment was checked for proper function. Hand hygiene and appropriate measures for infection prevention was taken. After the risks, benefits and alternatives of the procedure were thoroughly explained, Informed consent was verified, confirmed and timeout was successfully executed by the treatment team. A digital exam revealed no abnormalities of the rectum The Pentax EC-[id number] endoscope was introduced through the anus and advanced to the sigmoid colon. The instrument was then slowly withdrawn as the colon was fully examined. COLON FINDINGS: I was not able to pass scope byond the sigmoid 25 cm secondary to either twisted colon, spazem or external compression, I did not feel safe to push the scope without seeing the lumen because of fear of perforation so endoscopy was terminated. Retroflexed views revealed no abnormalities The scope was then completely withdrawn from the patient and the procedure terminated. ADVERSE EVENTS: There were no complications. IMPRESSIONS: 1. I was not able to pass scope byond the sigmoid 25 cm secondary to either twisted colon, spazem or external compression, I did not feel safe to push the scope without seeing the lumen because of fear of perforation so endoscopy was terminated 2. Retroflexed views revealed no abnormalities 3. Revealed no abnormalities of the rectum RECOMMENDATIONS: Clear liquid CT of abdomen with IV and PO contrast RECALL: Chandler Carr MD eSigned: Chandler Carr MD 12/02/2016 7:53 AM cc:
--- NOTE | 2016-12-02 07:57 | GIPROC ---
[facility] [address] [place] [address], [id number] ENTEROSCOPY PROCEDURE REPORT EXAM DATE: 12/02/2016 PATIENT NAME: Ashley Buchanan MR#: [id number] BIRTHDATE: 1930 ATTENDING: Chandler Carr MD ORDER #: [id number] SHIRT IRONER: Beatris Hanson and Kandice Nelson STATUS: inpatient INDICATIONS: The patient is a 86 yr old female here for an enteroscopy procedure due to anemia PROCEDURE PERFORMED: Small bowel enteroscopy with biopsy MEDICATIONS: None and Per Anesthesia. CONSENT: The patient understands the risks and benefits of the procedure and understands that these risks include, but are not limited to: sedation, allergic reaction, infection, perforation and/or bleeding. Alternative means of evaluation and treatment include, among others: physical exam, x-rays, and/or surgical intervention. The patient elects to proceed with this endoscopic procedure. medical equipment was checked for proper function. Hand hygiene and appropriate measures for infection prevention was taken. After the risks, benefits and alternatives of the procedure were thoroughly explained, Informed consent was verified, confirmed and timeout was successfully executed by the treatment team. The [id number] (Pedi C) endoscope was introduced through the mouth and advanced to the jejunum. The prep was good. The instrument was then slowly withdrawn while examining the mucosa circumferentially. The scope was then completely withdrawn from the patient and the procedure terminated. The pulse, BP, and O2 saturation were monitored and documented by the physician and the nursing staff throughout the entire procedure. The patient was cared for as planned according to standard protocol, then discharged to recovery in stable condition and with appropriate post procedure care. thickened fold in the duodenum Bx done otherwise normal ADVERSE EVENTS: There were no complications. IMPRESSIONS: RECOMMENDATIONS: Await biopsy results RECALL: procedure as needed Chandler Carr MD eSigned: Chandler Carr MD 12/02/2016 7:56 AM cc:
[2016-12-02] MEDS: SERTRALINE HCL 100 MG TAB PO SCH (08:30)
[2016-12-02] MEDS: DOCUSATE SODIUM 50 MG/SENNA 8.6 MG TAB PO SCH ×2 (08:30→21:00)
[2016-12-02] MEDS: MULTIVITAMIN-OPHTHALMIC 1 TAB PO SCH (08:30)
[2016-12-02] MEDS: SODIUM CHLORIDE 0.9% FLUSH 10 ML FLUSH IV FLUSH SCH ×2 (08:31→22:51)
[2016-12-02] MEDS: ALPRAZolam 0.25 MG TAB PO PRN (08:37)
[2016-12-02] MEDS ORDERED: DO NOT ADM ANY ANTICOAGULANT DRUGS PRN (09:00)
[2016-12-02] MEDS ORDERED: DIATRIZOATE MEGLUM/DIATRIZOATE SOD 9 ML CUP PO ONE ×2 (09:00→17:00)
[2016-12-02] MEDS: POTASSIUM CHLOR 20 MEQ PREMIX 100 ML IV SCH ×2 (10:00→12:00)
[2016-12-02] MEDS ORDERED: POTASSIUM CHLORIDE 20 MEQ CONTROLLED RELEASE TAB PO ONE (12:00)
[2016-12-02 16:56] LABS: AUTOMATED NEUTROPHIL # 7.9 TH/MM3 (1.8-7.7); BASOPHIL # 0.2 TH/MM3 (0-0.2); EOSINOPHIL # 0.3 TH/MM3 (0-0.4); EOSINOPHIL % 2.7 % (0.0-4.0); HEMATOCRIT 26.8 % (35.0-46.0); LYMPH % 10.4 % (9.0-44.0); MEAN CELL VOLUME 86.9 FL (80.0-100.0); MEAN CORPUSCULAR HEMOGLOBIN 27.7 PG (27.0-34.0); MEAN CORPUSCULAR HGB CONC 31.9 % (32.0-36.0); MONO % 6.3 % (0.0-8.0); NEUT % 78.6 % (16.0-70.0); PLATELET COUNT 276 TH/MM3 (150-450); RED BLOOD COUNT 3.09 MIL/MM3 (4.00-5.30); WHITE BLOOD COUNT 10.1 TH/MM3 (4.0-11.0)
[2016-12-02 16:58] LABS: HEMO FLAGS DIFF FINAL
--- NOTE | 2016-12-02 17:05 | HHI.PR ---
Subjective Remarks no new complaints Objective Vitals Vital Signs Date Time Temp Pulse Resp B/P Pulse Ox O2 Delivery O2 Flow Rate FiO2 12/02/16 15:00 86 21 137/63 12/02/16 14:00 90 21 121/68 12/02/16 14:00 90 12/02/16 13:00 90 23 103/55 93 12/02/16 12:00 92 12/02/16 12:00 98.5 92 22 111/62 97 12/02/16 11:00 90 22 132/60 94 12/02/16 10:00 102 12/02/16 10:00 102 12/02/16 09:00 94 41 108/65 12/02/16 08:00 98.0 92 23 132/62 98 12/02/16 08:00 92 12/02/16 06:00 96 12/02/16 06:00 96 30 131/67 97 12/02/16 05:00 92 24 139/72 12/02/16 04:00 94 12/02/16 04:00 98.6 94 22 144/71 12/02/16 03:00 94 25 137/64 12/02/16 02:00 96 12/02/16 02:00 96 26 148/62 97 12/02/16 01:21 92 24 140/64 12/02/16 00:28 88 21 131/59 12/02/16 00:00 96 12/01/16 23:27 98.3 90 24 135/67 95 12/01/16 23:00 88 12/01/16 23:00 88 24 138/77 98 12/01/16 22:15 97 21 12/01/16 22:09 84 21 147/63 96 12/01/16 22:00 90 12/01/16 22:00 90 24 200/181 97 12/01/16 20:00 88 12/01/16 19:21 97.3 88 28 133/67 98 12/01/16 18:00 92 38 114/55 94 12/01/16 18:00 92 12/01/16 17:00 86 29 112/58 96 12/01/16 12/01/16 12/02/16 15:00 23:00 07:00 Intake Total 742 ml 2351 ml 80 ml Output Total 1050 ml 600 ml Balance -308 ml 1751 ml 80 ml Intake Oral 650 ml 2000 ml 0 ml IV Total 92 ml 101 ml 80 ml Packed Cells 250 ml Output Urine Total 1050 ml 600 ml # Voids 3 4 9 # Bowel Movements 1 4 9 Result Diagram: 12/02/16 0440 12/02/16 0440 Imaging Last Impressions Chest X-Ray 12/01/16 0000 Signed Impressions: Service Date/Time: Thursday, December 01, 2016 09:26 - CONCLUSION: 1. Mild cardiomegaly with trace positive fluid balance. 2. Minimal left lower lobe airspace disease, likely atelectasis. However, developing aspiration/pneumonia may have a similar appearance. Saul Fallon MD Objective Remarks Lying in bed looks comfortable , off oxygen cta efe 3/6 +bs nontender no edema A/P Problem List: (1) Symptomatic anemia Status: Acute Plan: received total of 3 units, feels better and stronger , egd/enteroscopsy/ colonoscopy done today, Colonoscopy incomplete and ct scan of abdomen pending h/h dropped this am after prep, repeating cbc , clinically much improved (2) GI bleed Status: Acute Plan: she has had recurrent gi bleeds , she has severe diverticulosis, she denies abdominal pain except for occasional cramping follwed by diarrhea, this is chronic ct scan pending (3) Anxiety Status: Chronic Plan: mouring loss of her and friends, neighbores relocating case management assisting with obtaining help at home, discussed S[facility]IOR [facility]IVING (4) Troponin level elevated Status: Acute Plan: Asked cardiology to see her though suspect related to stress from anemia , they have ordered echo and outpatient ischemic w/u. For now work on correcting anemia (5) Hypokalemia Status: Acute Plan: potassium 2.8 this am, replaced , will recheck to ensure correction Problem Qualifiers (1) GI bleed: Qualified Code: K92.1 - Gastrointestinal hemorrhage with melena Aminata Morales MD Dec 02, 2016 17:05
[2016-12-02] MEDS: ACETAMINOPHEN 325 MG TAB PO PRN (17:10)
[2016-12-02 17:33] LABS: BICARBONATE 26.9 MEQ/L (21.0-32.0); POTASSIUM 4.1 MEQ/L (3.5-5.1)
[2016-12-02] MEDS ORDERED: IOHEXOL 350 MG/ML 10 ML VIAL (for RAD DIAG) IV ONE (21:00)
--- NOTE | 2016-12-02 21:45 | RADHPO ---
EXAM DATE/TIME: 12/02/2016 20:43 [facility] COMPARISON: CT ABDOMEN & PELVIS W CONTRAST, March 26, 2016, 19:35. INDICATIONS : Adhesions in colon IV CONTRAST: 94 cc Omnipaque 350 (iohexol) IV ORAL CONTRAST: Prescribed oral contrast ingested. RADIATION DOSE: 11.53 CTDIvol (mGy) MEDICAL HISTORY : Cardiovascular disease. Hypothyroidism. SURGICAL HISTORY : Hysterectomy. Colonoscopy ENCOUNTER: Initial ACUITY: 1 day PAIN SCALE: 5/10 LOCATION: Abdomen/pelvis TECHNIQUE: Volumetric scanning of the abdomen and pelvis was performed. Using automated exposure control and ad justment of the mA and/or kV according to patient size, radiation dose was kept as low as reasonably achievable to obtain optimal diagnostic quality images. FINDINGS: LOWER LUNGS: A small right-sided pleural effusion and tiny left-sided pleural effusion. There is associated atelec tasis bilaterally. LIVER: There is a 2.1 cm cyst involving the left lobe. Hounsfield units are zero. This is stable from the pr ior study. No solid lesions. Portal vein is patent. Several calcified gallstones are layering within an otherwise normal-appearing gallbladder SPLEEN: A 1.5 cm low-density lesion is stable within the spleen. The spleen is otherwise unremarkable. PANCREAS: Within normal limits. KIDNEYS: Normal in size and shape. There is no mass, stone or hydronephrosis. A 6.2 cm cyst involving the rig ht kidney. ADRENAL GLANDS: Within normal limits. VASCULAR: Diffuse calcified plaque of the aorta and major branches. No aneurysmal change. BOWEL/MESENTERY: Because of thickening is seen involving the sigmoid colon without stranding of the adjacent fat. This is unchanged in the prior study. Numerous colonic diverticuli within the sigmoid region and scattere d throughout the remaining aspects the colon. No free air or free fluid. No dilatation of the bowel. Small bowel is unremarkable. ABDOMINAL WALL: Within normal limits. RETROPERITONEUM: There is no lymphadenopathy. BLADDER: No wall thickening or mass. REPRODUCTIVE: Within normal limits. INGUINAL: There is no lymphadenopathy or hernia. MUSCULOSKELETAL: A degenerative and scoliotic spine. CONCLUSION: 1. No dilatation of the bowel. 2. Chronic wall thickening involving the sigmoid colon with numerous diverticuli. This likely relates to scarring from prior diverticulitis. 3. Cholelithiasis. 4. Tiny left and small right pleural effusion with associated atelectasis. 5. Stable hepatic and splenic cysts. Roosevelt Berg Jr., MD on December 02, 2016 at 21:39 Board Certified Radiologist. This report was verified electronically.
[2016-12-02] MEDS: ATORVASTATIN 10 MG TAB PO SCH (22:51)
[2016-12-03] VITALS (7 sets, daily range): BP systolic 142–146; BP diastolic 76–88; PULSE 86–99; RESP 18; TEMP 96.6–98.2; O2SAT 94–96
[2016-12-03 06:19] LABS: AUTOMATED NEUTROPHIL # 6.9 TH/MM3 (1.8-7.7); BASOPHIL # 0.1 TH/MM3 (0-0.2); BASOPHIL % 1.1 % (0.0-2.0); EOSINOPHIL # 0.4 TH/MM3 (0-0.4); EOSINOPHIL % 4.5 % (0.0-4.0); HEMATOCRIT 26.3 % (35.0-46.0); HEMO FLAGS DIFF FINAL; LYMPH % 15.2 % (9.0-44.0); LYMPHOCYTE # 1.4 TH/MM3 (1.0-4.8); MEAN CELL VOLUME 86.8 FL (80.0-100.0); MEAN CORPUSCULAR HEMOGLOBIN 29.1 PG (27.0-34.0); MEAN CORPUSCULAR HGB CONC 33.5 % (32.0-36.0); MONO % 6.6 % (0.0-8.0); NEUT % 72.6 % (16.0-70.0); PLATELET COUNT 295 TH/MM3 (150-450); RED BLOOD COUNT 3.03 MIL/MM3 (4.00-5.30); RED CELL DISTRIBUTION WIDTH 15.8 % (11.6-17.2); WHITE BLOOD COUNT 9.4 TH/MM3 (4.0-11.0)
[2016-12-03 06:27] LABS: POTASSIUM 3.8 MEQ/L (3.5-5.1)
[2016-12-03 06:32] LABS: BICARBONATE 26.3 MEQ/L (21.0-32.0)
--- NOTE | 2016-12-03 07:44 | PD.CARD.PN ---
Subjective Subjective Remarks Feels well. No chest pain. Echo shows normal LV function with mild MR and TR Objective Vital Signs / I&O Vital Signs Date Time Temp Pulse Resp B/P Pulse Ox O2 Delivery O2 Flow Rate FiO2 12/03/16 04:00 98.2 86 18 142/84 96 12/03/16 00:00 97.7 92 18 144/80 96 12/02/16 20:00 97.7 93 20 131/77 98 12/02/16 20:00 96 12/02/16 19:30 97 21 12/02/16 18:00 90 12/02/16 17:48 94 21 12/02/16 16:00 92 12/02/16 16:00 98.6 92 34 147/75 12/02/16 15:00 86 21 137/63 12/02/16 14:00 90 21 121/68 12/02/16 14:00 90 12/02/16 13:00 90 23 103/55 93 12/02/16 12:00 92 12/02/16 12:00 98.5 92 22 111/62 97 12/02/16 11:00 90 22 132/60 94 12/02/16 10:00 102 12/02/16 10:00 102 12/02/16 09:00 94 41 108/65 12/02/16 08:00 98.0 92 23 132/62 98 12/02/16 08:00 92 I/O 12/02/16 12/02/16 12/02/16 12/03/16 12/03/16 12/03/16 07:00 15:00 23:00 07:00 15:00 23:00 Intake Total 80 ml 320 ml 480 ml 480 ml Balance 80 ml 320 ml 480 ml 480 ml Intake Oral 0 ml 120 ml 480 ml 480 ml IV Total 80 ml 200 ml # Voids 9 4 3 3 # Bowel Movements 9 3 3 3 Physical Exam Lungs clear RRR 1/6 systolic murmur Laboratory Laboratory Tests Test 12/02/16 12/03/16 16:45 05:55 White Blood Count 10.1 TH/MM3 9.4 TH/MM3 Red Blood Count 3.09 MIL/MM3 3.03 MIL/MM3 Hemoglobin 8.5 GM/DL 8.8 GM/DL Hematocrit 26.8 % 26.3 % Mean Corpuscular Volume 86.9 FL 86.8 FL Mean Corpuscular Hemoglobin 27.7 PG 29.1 PG Mean Corpuscular Hemoglobin 31.9 % 33.5 % Concent Red Cell Distribution Width 17.0 % 15.8 % Platelet Count 276 TH/MM3 295 TH/MM3 Mean Platelet Volume 8.7 FL 8.4 FL Neutrophils (%) (Auto) 78.6 % 72.6 % Lymphocytes (%) (Auto) 10.4 % 15.2 % Monocytes (%) (Auto) 6.3 % 6.6 % Eosinophils (%) (Auto) 2.7 % 4.5 % Basophils (%) (Auto) 2.0 % 1.1 % Neutrophils # (Auto) 7.9 TH/MM3 6.9 TH/MM3 Lymphocytes # (Auto) 1.0 TH/MM3 1.4 TH/MM3 Monocytes # (Auto) 0.6 TH/MM3 0.6 TH/MM3 Eosinophils # (Auto) 0.3 TH/MM3 0.4 TH/MM3 Basophils # (Auto) 0.2 TH/MM3 0.1 TH/MM3 CBC Comment DIFF FINAL DIFF FINAL Differential Comment Sodium Level 138 MEQ/L 139 MEQ/L Potassium Level 4.1 MEQ/L 3.8 MEQ/L Chloride Level 104 MEQ/L 106 MEQ/L Carbon Dioxide Level 26.9 MEQ/L 26.3 MEQ/L Anion Gap 7 MEQ/L 7 MEQ/L Blood Urea Nitrogen 11 MG/DL 9 MG/DL Creatinine 0.68 MG/DL 0.66 MG/DL Estimat Glomerular Filtration 82 ML/MIN 85 ML/MIN Rate Random Glucose 111 MG/DL 94 MG/DL Calcium Level 8.1 MG/DL 8.4 MG/DL Assessment and Plan Assessment and Plan Stable CV. Feel troponin elevation secondary to demand. Once patient stable will plan out-patient stress test to r/o occult CAD. Feel intensity of murmur on admission due to hyperdynamic state from her profound anemia. Will sign off and plan to see as out-patient Kingston Moon MD Dec 03, 2016 07:44
[2016-12-03] MEDS: DOCUSATE SODIUM 50 MG/SENNA 8.6 MG TAB PO SCH (09:00)
[2016-12-03] MEDS ORDERED: PANTOPRAZOLE SOD 40 MG DELAYED RELEASE TAB PO SCH (09:00)
[2016-12-03] MEDS: SERTRALINE HCL 100 MG TAB PO SCH (11:05)
[2016-12-03] MEDS: SODIUM CHLORIDE 0.9% FLUSH 10 ML FLUSH IV FLUSH SCH (11:06)
--- NOTE | 2016-12-03 12:29 | HHI.PR ---
Subjective Remarks Hungry, no other complaints. Objective Vitals Vital Signs Date Time Temp Pulse Resp B/P Pulse Ox O2 Delivery O2 Flow Rate FiO2 12/03/16 08:00 96.6 99 18 144/76 94 12/03/16 04:00 98.2 86 18 142/84 96 12/03/16 00:00 97.7 92 18 144/80 96 12/02/16 20:00 97.7 93 20 131/77 98 12/02/16 20:00 96 12/02/16 19:30 97 21 12/02/16 18:00 90 12/02/16 17:48 94 21 12/02/16 16:00 92 12/02/16 16:00 98.6 92 34 147/75 12/02/16 15:00 86 21 137/63 12/02/16 14:00 90 21 121/68 12/02/16 14:00 90 12/02/16 13:00 90 23 103/55 93 12/02/16 12/02/16 12/03/16 15:00 23:00 07:00 Intake Total 320 ml 480 ml 480 ml Balance 320 ml 480 ml 480 ml Intake Oral 120 ml 480 ml 480 ml IV Total 200 ml # Voids 4 3 3 # Bowel Movements 3 3 3 Result Diagram: 12/03/16 0555 12/03/16 0555 Imaging Last Impressions Abdomen/Pelvis CT 12/02/16 0000 Signed Impressions: Service Date/Time: December 20:43 - CONCLUSION: 1. No dilatation of the bowel. 2. Chronic wall thickening involving the sigmoid colon with numerous diverticuli. This likely relates to scarring from prior diverticulitis. 3. Cholelithiasis. 4. Tiny left and small right pleural effusion with associated atelectasis. 5. Stable hepatic and splenic cysts. Roosevelt Berg Jr., MD Chest X-Ray 12/01/16 0000 Signed Impressions: Service Date/Time: Thursday, December 01, 2016 09:26 - CONCLUSION: 1. Mild cardiomegaly with trace positive fluid balance. 2. Minimal left lower lobe airspace disease, likely atelectasis. However, developing aspiration/pneumonia may have a similar appearance. Saul Fallon MD Last Impressions Chest X-Ray 12/01/16 0000 Signed Impressions: Service Date/Time: Thursday, December 01, 2016 09:26 - CONCLUSION: 1. Mild cardiomegaly with trace positive fluid balance. 2. Minimal left lower lobe airspace disease, likely atelectasis. However, developing aspiration/pneumonia may have a similar appearance. Saul Fallon MD Objective Remarks Lying in bed looks comfortable , cta efe 2/6 +bs nontender no edema A/P Problem List: (1) Symptomatic anemia Status: Resolved Plan: received total of 3 units, feels better and stronger , egd/enteroscopsy/ colonoscopy done today, Colonoscopy incomplete and ct scan of abdomen pending h/h dropped this am after prep, cbc stable, ct scan showed colonic wall thickening in sigmoid, gi wants her to get pill endoscopy and she has agreed (2) GI bleed Status: Resolved Plan: she has had recurrent gi bleeds , she has severe diverticulosis, she denies abdominal pain except for occasional cramping follwed by diarrhea, this is chronic ct scan colonic wall thickening, gallstones, small pleural effusions, h/h stable no active bleeding was seen by GI. Will need pill endoscopy as outpatient (3) Anxiety Status: Chronic Plan: mouring loss of her and friends, neighbores relocating case management assisting with obtaining help at home, discussed TANMAY (4) Troponin level elevated Status: Acute Plan: Asked cardiology to see her though suspect related to stress from anemia , they have ordered echo and outpatient ischemic w/u. For now work on correcting anemia (5) Hypokalemia Status: Resolved Plan: potassium 2.8 this am, replaced , potassium 3.8 today Problem Qualifiers (1) GI bleed: Qualified Code: K92.1 - Gastrointestinal hemorrhage with melena Aminata Morales MD Dec 03, 2016 12:29
[2016-12-03] MEDS ORDERED: SERT-129 PO (13:48)
[2016-12-03] MEDS ORDERED: NU-IRON PO (13:48)
[2016-12-03] MEDS ORDERED: POLYSACCHARIDE IRON COMPLEX 150 MG CAP PO ONE (15:00)
--- NOTE | 2016-12-24 18:22 | HHI.DS ---
Discharge Summary Admission Date November 30, 2016 at 10:34 Discharge Date: Dec 03, 2016 Admitting Diagnosis GI Bleed (1) Symptomatic anemia Diagnosis: Principal (2) GI bleed Diagnosis: Principal (3) Anxiety Diagnosis: Secondary (4) Troponin level elevated Diagnosis: Secondary (5) Hypokalemia Diagnosis: Secondary Consultants Dr Moon cardiology Dr Carr G[facility] Procedures colonoscopy Brief History 86 y/o female brought to Er byu family for generalized weakness and cough with sob and decrease oral intake. Prior hx of iron deficiency anemia and gi bleed. In ER found to have hgb of 4.6. Shewas admitted for transfusions and evaluation of possible gi source. She had an initial troponin of .21. Imaging Last Impressions Abdomen/Pelvis CT 12/02/16 0000 Signed Impressions: Service Date/Time: December 20:43 - CONCLUSION: 1. No dilatation of the bowel. 2. Chronic wall thickening involving the sigmoid colon with numerous diverticuli. This likely relates to scarring from prior diverticulitis. 3. Cholelithiasis. 4. Tiny left and small right pleural effusion with associated atelectasis. 5. Stable hepatic and splenic cysts. Roosevelt Berg Jr., MD Chest X-Ray 12/01/16 0000 Signed Impressions: Service Date/Time: Thursday, December 01, 2016 09:26 - CONCLUSION: 1. Mild cardiomegaly with trace positive fluid balance. 2. Minimal left lower lobe airspace disease, likely atelectasis. However, developing aspiration/pneumonia may have a similar appearance. Saul Fallon MD PE at Discharge Lying in bed looks comfortable , cta efe 2/6 +bs nontender no edema Hospital Course Patient admitted to the ICU. Transfused PRBC's. Required diuresis after transfusion due to volume overload. GI was consulted and patient agreed to colonoscopy thart was performed. Incomplete due to narrow lumen. CT scan abd/ pelvis showed thickening of the bowel wall unchanged from before. GI agreed to discharge with outpatient f/u for pill endoscopy. Her second troponin was slievghtly elevated as well .She was seen by cardiology who ordered echo and felt this could be followed up as outpatient once her anemia stabilized. Her echo showed ef of 55-60 with no regional wall motion abnormalities.Her potassium dropped with the diuresis and this required correction prior to discharge. Pt Condition on Discharge: Fair Discharge Disposition: Discharge Home Discharge Instructions DIET: Follow Instructions for: Heart Healthy Diet Activities you can perform: Regular-No Restrictions Follow up Referrals: [facility] - 1 Week with Chandler Carr MD PCP Follow-up - 12/08/16 with Aminata Morales MD New Medications: Polysaccharide Iron Complex (Poly-Iron 150) 150 Mg Cap 150 MG PO ONCE anemia #30 CAP Changed Medications: Sertraline (Sertraline) 100 Mg Tab 150 MG PO DAILY depression #30 Ref 0 TAB (Changed from: 100 MG) Continued Medications: Alprazolam (Xanax) 0.25 Mg Tab 0.25 MG PO DIRECTED PRN ANXIETY Ref 0 TAB Atorvastatin (Lipitor) 10 Mg Tab 10 MG PO HS Cholesterol Management #30 Ref 0 TAB Cetirizine (Cetirizine) 10 Mg Tab 10 MG PO DAILY Allergies Ref 0 TAB Lisinopril (Lisinopril) 10 Mg Tab 10 MG PO DAILY #30 Ref 0 TAB Multiple Vitamins W/ Minerals (Ocuvite) 1 Tab 1 TAB PO DAILY Nutritional Supplement Ref 0 TAB Pantoprazole (Protonix) 40 Mg Tab 40 MG PO DAILY Reflux #30 Ref 0 TAB Aminata Morales MD Dec 24, 2016 18:22
== END 2016-12-03 15:20 | disposition home or self-care (01) | DRG 378 ==
LOC: PHED 07:34 → PHEDA 10:34 → PH3A 12:05 → PHICU 13:15 → PH3A 12-02 20:05
PROVIDERS: ADMIT Legal Medicine; ATTEND Legal Medicine
PROC: 30233N1 Transfusion of Nonautologous Red Blood Cells into Peripheral Vein, Percutaneous Approach (ICD-10-PCS; principal; 2016-11-30)
PROC: 0DJD8ZZ Inspection of Lower Intestinal Tract, Via Natural or Artificial Opening Endoscopic (ICD-10-PCS; 2016-12-02)
PROC: 0DB98ZX Excision of Duodenum, Via Natural or Artificial Opening Endoscopic, Diagnostic (ICD-10-PCS; 2016-12-02 07:00)
DX: K92.1 Melena (principal); J90 Pleural effusion, not elsewhere classified; D50.0 Iron deficiency anemia secondary to blood loss (chronic); K22.70 Barrett's esophagus without dysplasia; I10 Essential (primary) hypertension; E78.00 Pure hypercholesterolemia, unspecified; E78.5 Hyperlipidemia, unspecified; K21.9 Gastro-esophageal reflux disease without esophagitis; M19.90 Unspecified osteoarthritis, unspecified site; F41.9 Anxiety disorder, unspecified; E04.1 Nontoxic single thyroid nodule; F32.9 Major depressive disorder, single episode, unspecified; Z96.653 Presence of artificial knee joint, bilateral; H35.30 Unspecified macular degeneration; M48.06 Spinal stenosis, lumbar region; R74.8 Abnormal levels of other serum enzymes; R01.1 Cardiac murmur, unspecified; E87.6 Hypokalemia; K80.20 Calculus of gallbladder without cholecystitis without obstruction; Z87.891 Personal history of nicotine dependence; Z86.010 Personal history of colon polyps
CPT/HCPCS: 36430; 71010; 74177; 80048; 80053; 81001; 82272; 82550; 83605; 83690; 83735; 84484; 85007; 85014; 85018; 85025; 85027; 85610; 85730; 86850; 86900; 86901; 86920; 87040; 87641; 87804; 88305; 93005; 93306; 96365; C9113; J1940; J3480; J7040; J7050; P9016; P9021; Q9963; Q9967

== ENCOUNTER 2017-01-20 09:24 | Observation (INO) | payer MEDICARE ==
[~2017-01-20] VITALS: Ht 162.6 cm; Wt 74.2 kg
[~2017-01-20 09:24] MED LIST changes: +CETI10 PO; -CETI5CHW PO; -FERR324T4 PO; -LISI10 PO; +LISI10TA3 PO; +NU-IRON PO; +OCUVTAB PO; -PANT40IN3 PO; +PROT40TA PO; +SERT-129 PO; -SERT100 PO
[2017-01-20 09:27] VITALS: BP 131/60; PULSE 100; RESP 17; TEMP 98.1; O2SAT 100
[2017-01-20] MEDS ORDERED: OMEP20TA PO (09:40)
[2017-01-20] MEDS ORDERED: SERT25TA83 PO (09:40)
[2017-01-20] MEDS ORDERED: TRIA1CAP PO (09:40)
--- NOTE | 2017-01-20 09:47 | PD ---
HPI Chief Complaint: Abnormal Results Time Seen by Provider: 09:45 Travel History International Travel<30 days: No Contact w/Intl Traveler<30days: No Traveled to known affect area: No History of Present Illness HPI 86-year-old female patient with previous history of anemia of uncertain etiology with history of transfusion previously, has recently been approved for a GI Study to evaluate for possible causes, presents to the ER today because she has been sent in by her primary care physician due to a follow-up lab work showing hemoglobin of 6. Patient admits she has been having some dyspnea on exertion recently. She denies any current chest pains, dizziness, or other symptoms. She denies any black stools or blood in the stools. Modifying Factors: None Associated Signs & Symptoms: Anemia, shortness of breath Risk Factors: History of previous anemia PFSH Past Medical History Anemia: Yes Arthritis: Yes Autoimmune Disease: No Anxiety: Yes Depression: Yes Heart Rhythm Problems: No Cancer: No Cardiovascular Problems: Yes High Cholesterol: Yes Congestive Heart Failure: No Developmental Delay: Yes Diabetes: No Diminished Hearing: No Endocrine: No GERD: Yes Glaucoma: No Genitourinary: No Hepatitis: No Hiatal Hernia: No Hypertension: Yes Immune Disorder: No Implanted Vascular Access Dvce: Yes Medical other: Yes (arthritis) Musculoskeletal: Yes Neurologic: No Psychiatric: Yes Reproductive: No Respiratory: No Immunizations Current: Yes Thyroid Disease: No Influenza Vaccination: Yes ?: Not Menopausal: Yes Past Surgical History Abdominal Surgery: Yes (HYSTERECTOMY) Body Medical Devices: MARIXA EYE LENS Cardiac Surgery: No Ear Surgery: No Endocrine Surgery: No Eye Surgery: Yes (BILATERAL CATARACT SX; LEFT RETINA SX x2) Genitourinary Surgery: No Gynecologic Surgery: Yes (HYSTERECTOMY) Hysterectomy: Yes Joint Replacement: Yes (Bilateral Knee) Oral Surgery: No Thoracic Surgery: No Other Surgery: Yes (LEFT TOTAL KNEE REPLACEMENT) Social History Alcohol Use: Yes (occas) Tobacco Use: No (QUIT 30 YRS) Substance Use: No Allergies-Medications (Allergen,Severity, Reaction): Coded Allergies: Morphine (Verified Allergy, Intermediate, 01/20/17) Reported Meds & Prescriptions Reported Meds & Active Scripts Active Poly-Iron 150 (Polysaccharide Iron Complex) 150 Mg Cap 150 Mg PO ONCE Reported Triamterene-Hydrochlorothiazide 50-25 Mg Cap 1 Cap PO DAILY Omeprazole 20 Mg Tab 20 Mg PO DAILY Sertraline (Sertraline HCl) 25 Mg Tab 25 Mg PO DAILY Ocuvite (Multiple Vitamins W/ Minerals) 1 Tab 1 Tab PO DAILY Cetirizine (Cetirizine HCl) 10 Mg Tab 10 Mg PO DAILY Xanax (Alprazolam) 0.25 Mg Tab 0.25 Mg PO DIRECTED PRN Lipitor (Atorvastatin Calcium) 10 Mg Tab 10 Mg PO HS Review of Systems Except as stated in HPI: all other systems reviewed are Neg Physical Exam Narrative GENERAL: Well-developed elderly white female patient currently in mild distress. Awake and oriented 3. SKIN: Focused skin assessment warm/dry. HEAD: Atraumatic. Normocephalic. EYES: Pupils equal and round. No scleral icterus. No injection or drainage. ENT: No nasal bleeding or discharge. Mucous membranes pink and moist. NECK: Trachea midline. No JVD. CARDIOVASCULAR: Regular rate and rhythm. No murmur appreciated. RESPIRATORY: No accessory muscle use. Clear to auscultation. Breath sounds equal bilaterally. GASTROINTESTINAL: Abdomen soft, non-tender, nondistended. Hepatic and splenic margins not palpable. MUSCULOSKELETAL: No obvious deformities. No clubbing. No cyanosis. No edema. NEUROLOGICAL: Awake and alert. No obvious cranial nerve deficits. Motor grossly within normal limits. Normal speech. PSYCHIATRIC: Appropriate mood and affect; insight and judgment normal. Data Data Last Documented VS Vital Signs Date Time Temp Pulse Resp B/P Pulse Ox O2 Delivery O2 Flow Rate FiO2 01/20/17 09:27 98.1 100 17 131/60 100 Orders Complete Blood Count With Diff (01/20/17 09:36) Comprehensive Metabolic Panel (01/20/17 09:36) Prothrombin Time / Inr (Pt) (01/20/17 09:36) Act Partial Throm Time (Ptt) (01/20/17 09:36) Type And Screen (01/20/17 09:36) Red Blood Cells (Rbc) (01/20/17 11:32) Blood Product Administration .UPON TRANSFUSION (01/20/17 11:32) Sodium Chlor 0.9% 250 Ml Inj (Ns 250 Ml (01/20/17 11:45) Admit Order (Ed Use Only) (01/20/17 11:43) Labs Laboratory Tests Test 01/20/17 01/20/17 01/20/17 10:10 10:30 11:15 Blood Type O NEGATIVE Antibody Screen NEGATIVE Prothrombin Time 10.0 SEC Prothromb Time International 0.9 RATIO Ratio Activated Partial 22.4 SEC Thromboplast Time White Blood Count 5.6 TH/MM3 Red Blood Count 2.37 MIL/MM3 Hemoglobin 5.8 GM/DL Hematocrit 18.5 % Mean Corpuscular Volume 77.8 FL Mean Corpuscular Hemoglobin 24.3 PG Mean Corpuscular Hemoglobin 31.2 % Concent Red Cell Distribution Width 15.9 % Platelet Count 347 TH/MM3 Mean Platelet Volume 7.9 FL Neutrophils (%) (Auto) 78.0 % Lymphocytes (%) (Auto) 13.1 % Monocytes (%) (Auto) 6.9 % Eosinophils (%) (Auto) 1.6 % Basophils (%) (Auto) 0.4 % Neutrophils # (Auto) 4.4 TH/MM3 Lymphocytes # (Auto) 0.7 TH/MM3 Monocytes # (Auto) 0.4 TH/MM3 Eosinophils # (Auto) 0.1 TH/MM3 Basophils # (Auto) 0.0 TH/MM3 CBC Comment AUTO DIFF Differential Comment AUTO DIFF CONFIRMED Tear Drop Cells 1+ Keratocytes OCC Sodium Level 140 MEQ/L Potassium Level 3.9 MEQ/L Chloride Level 106 MEQ/L Carbon Dioxide Level 26.8 MEQ/L Anion Gap 7 MEQ/L Blood Urea Nitrogen 19 MG/DL Creatinine 0.91 MG/DL Estimat Glomerular Filtration 59 ML/MIN Rate Random Glucose 97 MG/DL Calcium Level 8.2 MG/DL Total Bilirubin 0.3 MG/DL Aspartate Amino Transf 15 U/L (AST/SGOT) Alanine Aminotransferase 17 U/L (ALT/SGPT) Alkaline Phosphatase 67 U/L Total Protein 6.5 GM/DL Albumin 3.2 GM/DL Crossmatch Leukocyte-Reduced Red Blood Cells Blood Bank Comment MDM Medical Decision Making Medical Screen Exam Complete: Yes Emergency Medical Condition: Yes Medical Record Reviewed: Yes Interpretation(s) Laboratory Tests Test 01/20/17 01/20/17 10:30 11:15 Activated Partial 22.4 SEC Thromboplast Time (24.3-30.1) Red Blood Count 2.37 MIL/MM3 (4.00-5.30) Hemoglobin 5.8 GM/DL (11.6-15.3) Hematocrit 18.5 % (35.0-46.0) Mean Corpuscular Volume 77.8 FL (80.0-100.0) Mean Corpuscular Hemoglobin 24.3 PG (27.0-34.0) Mean Corpuscular Hemoglobin 31.2 % Concent (32.0-36.0) Neutrophils (%) (Auto) 78.0 % (16.0-70.0) Lymphocytes # (Auto) 0.7 TH/MM3 (1.0-4.8) Tear Drop Cells 1+ (NORMAL) Keratocytes OCC (NORMAL) Blood Urea Nitrogen 19 MG/DL (7-18) Estimat Glomerular Filtration 59 ML/MIN (>89) Rate Calcium Level 8.2 MG/DL (8.5-10.1) Albumin 3.2 GM/DL (3.4-5.0) Differential Diagnosis Anemiarule out GI bleeding Narrative Course Patient's fecal called was negative. She is severely anemic with hemoglobin of 5. Transfusion order was made for her. At this point, case was discussed with Dr. Quinn for admission. Diagnosis Primary Impression: Anemia Admitting Information Admitting Physician Requests: Admit Yamil Aldrich MD Jan 20, 2017 09:47
[2017-01-20 10:52] LABS: APTT (PATIENT) 22.4 SEC (24.3-30.1); INTERNATIONAL NORMALIZED RATIO 0.9 RATIO
[2017-01-20 11:24] LABS: AUTOMATED NEUTROPHIL # 4.4 TH/MM3 (1.8-7.7); BASOPHIL % 0.4 % (0.0-2.0); EOSINOPHIL # 0.1 TH/MM3 (0-0.4); EOSINOPHIL % 1.6 % (0.0-4.0); LYMPH % 13.1 % (9.0-44.0); LYMPHOCYTE # 0.7 TH/MM3 (1.0-4.8); MEAN CELL VOLUME 77.8 FL (80.0-100.0); MEAN CORPUSCULAR HEMOGLOBIN 24.3 PG (27.0-34.0); MEAN CORPUSCULAR HGB CONC 31.2 % (32.0-36.0); MONO % 6.9 % (0.0-8.0); PLATELET COUNT 347 TH/MM3 (150-450); RED BLOOD COUNT 2.37 MIL/MM3 (4.00-5.30); RED CELL DISTRIBUTION WIDTH 15.9 % (11.6-17.2); WHITE BLOOD COUNT 5.6 TH/MM3 (4.0-11.0)
[2017-01-20 11:28] LABS: HEMO FLAGS AUTO DIFF
[2017-01-20 11:29] LABS: HEMATOCRIT 18.5 % (35.0-46.0)
[2017-01-20 11:32] LABS: CHLORIDE 106 MEQ/L (98-107); POTASSIUM 3.9 MEQ/L (3.5-5.1); SODIUM (NA) 140 MEQ/L (136-145)
[2017-01-20 11:36] LABS: ANION GAP 7 MEQ/L (5-15); BICARBONATE 26.8 MEQ/L (21.0-32.0); BLOOD UREA NITROGEN 19 MG/DL (7-18)
[2017-01-20 11:39] LABS: ALT (GPT) 17 U/L (10-53); AST (GOT) 15 U/L (15-37); GLOMERULAR FILTRATION RATE 59 ML/MIN (>89)
[2017-01-20 11:40] LABS: TOTAL BILIRUBIN ADULT 0.3 MG/DL (0.2-1.0)
[2017-01-20 11:42] LABS: ALKALINE PHOSPHATASE 67 U/L (45-117)
[2017-01-20] MEDS ORDERED: SODIUM CHLOR 0.9% 250 ML INJ 250 ML IV ONE (11:45)
[2017-01-20 11:47] VITALS: BP 138/73; PULSE 94; RESP 18; O2SAT 99
[2017-01-20 11:51] LABS: KERATOCYTES OCC (NORMAL); SCAN/DIFF AUTO DIFF CONFIRMED; TEARDROP RBCS 1+ (NORMAL)
[2017-01-20] MEDS ORDERED: ONDANSETRON HCL 4 MG/2 ML VIAL IVP PRN (12:45)
[2017-01-20] MEDS ORDERED: NALOXONE HCL 0.4 MG/ML AMP IV PRN (12:45)
[2017-01-20] MEDS ORDERED: SENNOSIDES 8.6 MG TAB PO PRN (12:45)
[2017-01-20] MEDS ORDERED: SODIUM CHLORIDE 0.9% FLUSH 10 ML FLUSH IV FLUSH PRN (12:45)
[2017-01-20] MEDS ORDERED: LACTULOSE SYRUP 20 GM/30 ML CUP PO PRN (12:45)
[2017-01-20] MEDS ORDERED: BISACODYL 10 MG SUPP RECTAL PRN (12:45)
[2017-01-20] MEDS ORDERED: MAGNESIUM HYDROXIDE SUSP 30 ML CUP PO PRN (12:45)
--- NOTE | 2017-01-20 12:51 | HHI.HP ---
HPI Service CP Hospitalists Primary Care Physician Aminata Morales MD Admission Diagnosis severe anemia Chief Complaint: sent to hospital from PCP for blood transfusion Travel History International Travel<30 Days: No Contact w/Intl Traveler <30 Da: No Traveled to Known Affected Are: No History of Present Illness 86-year-old female patient with previous history of anemia of uncertain etiology with history of transfusion previously, has recently been approved for a GI Study to evaluate for possible causes, presents to the ER today because she has been sent in by her primary care physician due to a follow-up lab work showing hemoglobin of 6. Patient admits she has been having some dyspnea on exertion recently. She denies any current chest pains, dizziness, or other symptoms. She denies any black stools or blood in the stools. Patient had endoscopy and colon test with some twist in colon and only was able to view to sigmoid and is scheduled for capsle endoscopy to look at small bowel. Has had lightheadedness and has low hemoglobin will transfuse recheck cbc am. Review of Systems Constitutional: COMPLAINS OF: Fatigue Past Family Social History Past Medical History djd ,anemia,hypertension,gerd,hyperlipidemia Past Surgical History hysterectomy,cataract knees Reported Medications xanax .25 prn,atrovastatin 20,[id number] protonix 40,sertraline 50 Allergies: Coded Allergies: Morphine (Verified Allergy, Intermediate, 01/20/17) Social History former smoker,no etoh Physical Exam Vital Signs Vital Signs Date Time Temp Pulse Resp B/P Pulse Ox O2 Delivery O2 Flow Rate FiO2 01/20/17 11:47 94 18 138/73 99 Room Air 01/20/17 09:27 98.1 100 17 131/60 100 Physical Exam GENERAL: This is a well-nourished, well-developed patient, in no apparent distress. SKIN: No rashes, ecchymoses or lesions. Cool and dry. HEAD: Atraumatic. Normocephalic. No temporal or scalp tenderness. EYES: Pupils equal round and reactive. Extraocular motions intact. No scleral icterus. No injection or drainage. ENT: Nose without bleeding, purulent drainage or septal hematoma. Throat without erythema, tonsillar hypertrophy or exudate. Uvula midline. Airway patent. NECK: Trachea midline. No JVD or lymphadenopathy. Supple, nontender, no meningeal signs. CARDIOVASCULAR: Regular rate and rhythm without murmurs, gallops, or rubs. RESPIRATORY: Clear to auscultation. Breath sounds equal bilaterally. No wheezes , rales, or rhonchi. GASTROINTESTINAL: Abdomen soft, non-tender, nondistended. No hepato-splenomegaly , or palpable masses. No guarding. MUSCULOSKELETAL: Extremities without clubbing, cyanosis, or edema. No joint tenderness, effusion, or edema noted. No calf tenderness. Negative Homans sign bilaterally. NEUROLOGICAL: Awake and alert. Cranial nerves II through XII intact. Motor and sensory grossly within normal limits. Five out of 5 muscle strength in all muscle groups. Normal speech. Laboratory Laboratory Tests Test 01/20/17 01/20/17 01/20/17 10:10 10:30 11:15 Blood Type O NEGATIVE Antibody Screen NEGATIVE Prothrombin Time 10.0 Prothromb Time International 0.9 Ratio Activated Partial 22.4 Thromboplast Time White Blood Count 5.6 Red Blood Count 2.37 Hemoglobin 5.8 Hematocrit 18.5 Mean Corpuscular Volume 77.8 Mean Corpuscular Hemoglobin 24.3 Mean Corpuscular Hemoglobin 31.2 Concent Red Cell Distribution Width 15.9 Platelet Count 347 Mean Platelet Volume 7.9 Neutrophils (%) (Auto) 78.0 Lymphocytes (%) (Auto) 13.1 Monocytes (%) (Auto) 6.9 Eosinophils (%) (Auto) 1.6 Basophils (%) (Auto) 0.4 Neutrophils # (Auto) 4.4 Lymphocytes # (Auto) 0.7 Monocytes # (Auto) 0.4 Eosinophils # (Auto) 0.1 Basophils # (Auto) 0.0 CBC Comment AUTO DIFF Differential Comment AUTO DIFF CONFIRMED Tear Drop Cells 1+ Keratocytes OCC Sodium Level 140 Potassium Level 3.9 Chloride Level 106 Carbon Dioxide Level 26.8 Anion Gap 7 Blood Urea Nitrogen 19 Creatinine 0.91 Estimat Glomerular Filtration 59 Rate Random Glucose 97 Calcium Level 8.2 Total Bilirubin 0.3 Aspartate Amino Transf 15 (AST/SGOT) Alanine Aminotransferase 17 (ALT/SGPT) Alkaline Phosphatase 67 Total Protein 6.5 Albumin 3.2 Crossmatch Leukocyte-Reduced Red Blood Cells Blood Bank Comment Result Diagram: 01/20/17 1115 01/20/17 111 Course in er arranging for blood transfusion Assessment and Plan Problem List: (1) Symptomatic anemia Status: Chronic Plan: hgb down to 5.8 will transfuse and follow up hgb does have outpatient procedure scheduled also note has negative CEA once hgb better discharge Assessment and Plan as above Code Status full Discussed Condition With patient Rashard Antonio MD Jan 20, 2017 12:51
[2017-01-20 13:00] VITALS: BP 121/67; PULSE 95; RESP 18; TEMP 97.9; O2SAT 98
[2017-01-20] MEDS: ALPRAZolam 0.25 MG TAB PO PRN (13:37)
[2017-01-20] MEDS ORDERED: PILL SPLITTER OTHER PRN (13:45)
[2017-01-20] MEDS ORDERED: FUROSEMIDE 20 MG/2 ML VIAL IV PUSH SCH (14:15)
[2017-01-20 16:00] VITALS: BP 129/69; PULSE 91; RESP 20; TEMP 98.3; O2SAT 100
[2017-01-20 19:27] VITALS: BP 116/59; PULSE 59; RESP 18; TEMP 98.6; O2SAT 94
[2017-01-20 20:00] VITALS: BP 129/70; PULSE 100; RESP 18; TEMP 97.4; O2SAT 96
[2017-01-20] MEDS: DOCUSATE SODIUM 50 MG/SENNA 8.6 MG TAB PO SCH (21:29)
[2017-01-20] MEDS: ATORVASTATIN 10 MG TAB PO SCH (21:29)
[2017-01-20] MEDS: SODIUM CHLORIDE 0.9% FLUSH 10 ML FLUSH IV FLUSH SCH (21:29)
[2017-01-21] VITALS (12 sets, daily range): BP systolic 109–166; BP diastolic 63–79; PULSE 18–105; RESP 17–20; TEMP 97.2–98.4; O2SAT 92–98
[2017-01-21 06:33] LABS: AUTOMATED NEUTROPHIL # 4.3 TH/MM3 (1.8-7.7); BASOPHIL % 0.5 % (0.0-2.0); EOSINOPHIL # 0.2 TH/MM3 (0-0.4); EOSINOPHIL % 2.7 % (0.0-4.0); HEMATOCRIT 25.6 % (35.0-46.0); HEMO FLAGS DIFF FINAL; LYMPH % 24.2 % (9.0-44.0); LYMPHOCYTE # 1.6 TH/MM3 (1.0-4.8); MEAN CELL VOLUME 79.3 FL (80.0-100.0); MEAN CORPUSCULAR HEMOGLOBIN 26.1 PG (27.0-34.0); MEAN CORPUSCULAR HGB CONC 32.9 % (32.0-36.0); MONO % 9.7 % (0.0-8.0); NEUT % 62.9 % (16.0-70.0); PLATELET COUNT 334 TH/MM3 (150-450); RED BLOOD COUNT 3.24 MIL/MM3 (4.00-5.30); RED CELL DISTRIBUTION WIDTH 15.3 % (11.6-17.2); WHITE BLOOD COUNT 6.8 TH/MM3 (4.0-11.0)
[2017-01-21] MEDS: SERTRALINE HCL 50 MG TAB PO SCH (08:42)
[2017-01-21] MEDS: MULTIVITAMIN-OPHTHALMIC 1 TAB PO SCH (08:42)
[2017-01-21] MEDS: DOCUSATE SODIUM 50 MG/SENNA 8.6 MG TAB PO SCH ×2 (08:42→21:00)
[2017-01-21] MEDS: PANTOPRAZOLE SOD 20 MG DELAYED RELEASE TAB PO SCH (08:42)
[2017-01-21] MEDS: SODIUM CHLORIDE 0.9% FLUSH 10 ML FLUSH IV FLUSH SCH ×2 (08:43→21:12)
[2017-01-21] MEDS: ALPRAZolam 0.25 MG TAB PO PRN ×2 (08:48→21:12)
[2017-01-21] MEDS ORDERED: TRIAMTERENE HYDROCHLOROTHIAZIDE PO SCH (09:00)
--- NOTE | 2017-01-21 11:44 | HHI.PR ---
Subjective Remarks Patient has slight headache hgb improved to 8.4 will give additional unit blood and recheck hgb. Objective Vitals GENERAL: SKIN: Warm and dry. HEAD: Atraumatic. Normocephalic. EYES: Pupils equal and round. No scleral icterus. No injection or drainage. ENT: No nasal bleeding or discharge. Mucous membranes pink and moist. NECK: Trachea midline. No JVD. CARDIOVASCULAR: Regular rate and rhythm. RESPIRATORY: No accessory muscle use. Clear to auscultation. Breath sounds equal bilaterally. GASTROINTESTINAL: Abdomen soft, non-tender, nondistended. Hepatic and splenic margins not palpable. MUSCULOSKELETAL: Extremities without clubbing, cyanosis, or edema. No obvious deformities. NEUROLOGICAL: Awake and alert. No obvious cranial nerve deficits. Motor grossly within normal limits. Five out of 5 muscle strength in the arms and legs. Normal speech. PSYCHIATRIC: Appropriate mood and affect; insight and judgment normal. Vital Signs Date Time Temp Pulse Resp B/P Pulse Ox O2 Delivery O2 Flow Rate FiO2 01/21/17 08:00 97.9 94 17 136/71 92 01/21/17 00:18 98.1 86 20 131/66 94 01/21/17 00:04 98.4 86 18 109/69 95 01/21/17 00:00 97.5 86 18 133/67 96 01/20/17 20:00 97.4 100 18 129/70 96 01/20/17 19:27 98.6 59 18 116/59 94 01/20/17 16:00 98.3 91 20 129/69 100 01/20/17 13:00 97.9 95 18 121/67 98 01/20/17 11:47 94 18 138/73 99 Room Air 01/20/17 01/20/17 01/21/17 14:59 22:59 06:59 Intake Total 425 ml Balance 425 ml Intake Oral 425 ml # Voids 1 Result Diagram: 01/21/17 0620 01/20/17 1115 A/P Problem List: (1) Symptomatic anemia Status: Chronic Plan: hgb down to 5.8 will transfuse and follow up hgb does have outpatient procedure scheduled also note has negative CEA ,hgb up to 8 will give one more unit blood add tylenol for headache Rashard Antonio MD Jan 21, 2017 11:44
[2017-01-21] MEDS ORDERED: FUROSEMIDE 20 MG/2 ML VIAL IV PUSH ONE (11:45)
[2017-01-21] MEDS ORDERED: HYDROmorphone HCL PF 1 MG/ML VIAL IV PUSH ONE (11:45)
[2017-01-21] MEDS: ACETAMINOPHEN 325 MG TAB PO PRN (14:56)
[2017-01-21] MEDS ORDERED: FUROSEMIDE 40 MG/4 ML VIAL ONE (20:41)
[2017-01-21 20:44] LABS: AUTOMATED NEUTROPHIL # 4.8 TH/MM3 (1.8-7.7); BASOPHIL # 0.3 TH/MM3 (0-0.2); BASOPHIL % 4.3 % (0.0-2.0); EOSINOPHIL # 0.2 TH/MM3 (0-0.4); HEMATOCRIT 31.3 % (35.0-46.0); HEMO FLAGS DIFF FINAL; LYMPH % 20.3 % (9.0-44.0); LYMPHOCYTE # 1.5 TH/MM3 (1.0-4.8); MEAN CELL VOLUME 80.9 FL (80.0-100.0); MEAN CORPUSCULAR HEMOGLOBIN 25.7 PG (27.0-34.0); MEAN CORPUSCULAR HGB CONC 31.8 % (32.0-36.0); NEUT % 63.4 % (16.0-70.0); PLATELET COUNT 287 TH/MM3 (150-450); RED BLOOD COUNT 3.87 MIL/MM3 (4.00-5.30); RED CELL DISTRIBUTION WIDTH 15.6 % (11.6-17.2); WHITE BLOOD COUNT 7.6 TH/MM3 (4.0-11.0)
[2017-01-21] MEDS: TEMAZEPAM 15 MG CAP PO PRN (21:12)
[2017-01-21] MEDS: ATORVASTATIN 10 MG TAB PO SCH (21:12)
[2017-01-22] VITALS: BP 114/81; PULSE 89; RESP 20; TEMP 96.9; O2SAT 98
[2017-01-22 08:00] VITALS: BP 165/72; PULSE 96; RESP 18; TEMP 97; O2SAT 98
[2017-01-22] MEDS: PANTOPRAZOLE SOD 20 MG DELAYED RELEASE TAB PO SCH (09:25)
[2017-01-22] MEDS: DOCUSATE SODIUM 50 MG/SENNA 8.6 MG TAB PO SCH ×2 (09:25→21:00)
[2017-01-22] MEDS: MULTIVITAMIN-OPHTHALMIC 1 TAB PO SCH (09:26)
[2017-01-22] MEDS: SERTRALINE HCL 50 MG TAB PO SCH (09:26)
[2017-01-22] MEDS: SODIUM CHLORIDE 0.9% FLUSH 10 ML FLUSH IV FLUSH SCH ×2 (09:26→21:10)
[2017-01-22] MEDS: ALPRAZolam 0.25 MG TAB PO PRN (09:31)
[2017-01-22] MEDS: ACETAMINOPHEN 325 MG TAB PO PRN ×2 (09:31→21:10)
[2017-01-22 12:00] VITALS: BP 129/78; PULSE 86; RESP 18; TEMP 97.9; O2SAT 96
[2017-01-22 13:18] LABS: AUTOMATED NEUTROPHIL # 3.7 TH/MM3 (1.8-7.7); BASOPHIL % 0.8 % (0.0-2.0); EOSINOPHIL # 0.2 TH/MM3 (0-0.4); EOSINOPHIL % 3.9 % (0.0-4.0); HEMATOCRIT 34.7 % (35.0-46.0); HEMO FLAGS DIFF FINAL; LYMPHOCYTE # 1.6 TH/MM3 (1.0-4.8); MEAN CELL VOLUME 80.3 FL (80.0-100.0); MEAN CORPUSCULAR HEMOGLOBIN 25.8 PG (27.0-34.0); MEAN CORPUSCULAR HGB CONC 32.1 % (32.0-36.0); MONO % 9.7 % (0.0-8.0); NEUT % 59.6 % (16.0-70.0); PLATELET COUNT 310 TH/MM3 (150-450); POTASSIUM 3.5 MEQ/L (3.5-5.1); RED BLOOD COUNT 4.32 MIL/MM3 (4.00-5.30); RED CELL DISTRIBUTION WIDTH 15.8 % (11.6-17.2); WHITE BLOOD COUNT 6.1 TH/MM3 (4.0-11.0)
--- NOTE | 2017-01-22 13:20 | HHI.PR ---
Subjective Remarks headache, some cough , has not had her allergy medications, decreased appetite ambulating to bathroom on recheck states she has nausea and that her stools are dark feeling weak,not sure she is strong enough to go home Objective Vitals Vital Signs Date Time Temp Pulse Resp B/P Pulse Ox O2 Delivery O2 Flow Rate FiO2 01/22/17 12:00 97.9 86 18 129/78 96 01/22/17 10:31 20 01/22/17 08:00 97.0 96 18 165/72 98 01/22/17 00:00 96.9 89 20 114/81 98 01/21/17 20:00 97.2 87 20 138/71 97 01/21/17 18:55 97.5 105 18 135/72 98 01/21/17 16:05 97.2 18 18 141/75 97 01/21/17 16:00 97.8 85 18 134/79 93 01/21/17 15:35 98.3 91 20 124/72 97 01/21/17 15:20 98.0 89 18 118/63 97 01/21/17 15:05 97.5 91 18 128/66 97 01/21/17 01/21/17 01/22/17 15:00 23:00 07:00 Intake Total 520 ml 700 ml 60 ml Balance 520 ml 700 ml 60 ml Intake Oral 520 ml 700 ml 60 ml # Voids 5 4 # Bowel Movements 1 0 Result Diagram: 01/21/17201901/20/17 1115 Objective Remarks lying in bed NAD lungs cta heart rrr efe 2/6 through precordium +bs no rebound A/P Problem List: (1) Symptomatic anemia Status: Chronic Plan: hgb imprved last pm after 3 units of blood if hgb repeat at 12 hrs is stable should be able to discharge home with f/u with gi for schedule pill cam. has had egds/colonoscopies w/o source of bleed check potassium as she had furosemide on recheck h/h stable but now complaining og nausea,dark stools will have PT see her recheck h/h, hemocult (2) Hypertension Status: Chronic Plan: blood pressure has been good off medications will continue to hold and f/u in office on tuesday (3) Anxiety Status: Chronic Plan: on alprazolam but has not been on home dose of sertraline will resume Discharge Planning plan for d/c later today or am tommorrAminata Bee MD Jan 22, 2017 13:20
[2017-01-22 13:21] LABS: BICARBONATE 27.4 MEQ/L (21.0-32.0)
[2017-01-22] MEDS: FLUTICASONE PROPIONATE 50 MCG/ACT 16 GM NASAL SPRAY EACH NARE SCH (13:30)
[2017-01-22] MEDS ORDERED: CETIRIZINE HCL 10 MG TAB PO ONE (13:30)
[2017-01-22] MEDS ORDERED: SERTRALINE HCL 100 MG TAB PO ONE (15:30)
[2017-01-22] MEDS ORDERED: ZOLO50TA PO (15:47)
[2017-01-22 16:00] VITALS: BP 133/73; PULSE 86; RESP 18; TEMP 97.1; O2SAT 95
--- NOTE | 2017-01-22 16:31 | RADRPT ---
EXAM DATE/TIME: 01/22/2017 16:13 [facility] COMPARISON: CHEST PA & LAT, March 23, 2016, 15:09. INDICATIONS : Cough for two months. MEDICAL HISTORY : None. SURGICAL HISTORY : None. ENCOUNTER: Initial ACUITY: 2 months PAIN SCORE: 0/10 LOCATION: Bilateral chest FINDINGS: PA and lateral views of the chest demonstrate the lungs to be symmetrically aerated without evidence of mass, infiltrate or effusion. The cardiomediastinal contours are unremarkable. Osseous structure s are intact. CONCLUSION: No acute disease. Vel Gonzalez MD on January 22, 2017 at 16:29 Board Certified Radiologist. This report was verified electronically.
[2017-01-22 20:53] VITALS: BP 144/86; PULSE 85; RESP 18; TEMP 98.1; O2SAT 96
[2017-01-22] MEDS: TEMAZEPAM 15 MG CAP PO PRN (21:09)
[2017-01-22] MEDS: ATORVASTATIN 10 MG TAB PO SCH (21:09)
[2017-01-23 00:04] VITALS: BP 90/72; PULSE 80; RESP 16; TEMP 98.7; O2SAT 97
[2017-01-23 08:00] VITALS: BP 167/75; PULSE 84; RESP 20; TEMP 97; O2SAT 99
[2017-01-23 08:38] LABS: AUTOMATED NEUTROPHIL # 3.4 TH/MM3 (1.8-7.7); BASOPHIL # 0.1 TH/MM3 (0-0.2); BASOPHIL % 0.8 % (0.0-2.0); EOSINOPHIL # 0.3 TH/MM3 (0-0.4); EOSINOPHIL % 3.7 % (0.0-4.0); HEMATOCRIT 35.9 % (35.0-46.0); HEMO FLAGS DIFF FINAL; LYMPH % 35.1 % (9.0-44.0); LYMPHOCYTE # 2.5 TH/MM3 (1.0-4.8); MEAN CELL VOLUME 80.9 FL (80.0-100.0); MEAN CORPUSCULAR HEMOGLOBIN 25.9 PG (27.0-34.0); MONO % 10.1 % (0.0-8.0); NEUT % 50.3 % (16.0-70.0); PLATELET COUNT 319 TH/MM3 (150-450); RED BLOOD COUNT 4.44 MIL/MM3 (4.00-5.30); RED CELL DISTRIBUTION WIDTH 16.1 % (11.6-17.2)
[2017-01-23] MEDS ORDERED: SERTRALINE HCL 50 MG TAB PO SCH (09:00)
[2017-01-23] MEDS: SODIUM CHLORIDE 0.9% FLUSH 10 ML FLUSH IV FLUSH SCH (09:00)
[2017-01-23] MEDS: PANTOPRAZOLE SOD 20 MG DELAYED RELEASE TAB PO SCH (10:09)
[2017-01-23] MEDS: FLUTICASONE PROPIONATE 50 MCG/ACT 16 GM NASAL SPRAY EACH NARE SCH (10:09)
[2017-01-23] MEDS: DOCUSATE SODIUM 50 MG/SENNA 8.6 MG TAB PO SCH (10:10)
[2017-01-23] MEDS: MULTIVITAMIN-OPHTHALMIC 1 TAB PO SCH (10:11)
[2017-01-23] MEDS: ACETAMINOPHEN 325 MG TAB PO PRN (10:16)
[2017-01-23] MEDS: ALPRAZolam 0.25 MG TAB PO PRN (10:17)
[2017-01-23 11:16] VITALS: RESP 20
--- NOTE | 2017-01-23 11:16 | HHI.PR ---
Subjective Remarks No nausea, some headache Objective Vitals Vital Signs Date Time Temp Pulse Resp B/P Pulse Ox O2 Delivery O2 Flow Rate FiO2 01/23/17 08:00 97.0 84 20 167/75 99 01/23/17 04:00 01/23/17 00:04 98.7 80 16 90/72 97 01/22/17 20:53 98.1 85 18 144/86 96 01/22/17 16:00 97.1 86 18 133/73 95 01/22/17 12:00 97.9 86 18 129/78 96 01/22/17 01/22/17 01/23/17 15:00 23:00 07:00 Intake Total 1045 ml Balance 1045 ml Intake Oral 1045 ml # Voids 8 2 3 # Bowel Movements 1 0 Result Diagram: 01/23/17 0834 01/22/17 1253 Objective Remarks lying in bed NAD lungs cta heart rrr efe 2/6 through precordium +bs no rebound A/P Problem List: (1) Symptomatic anemia Status: Chronic Plan: hgb imprved last pm after 3 units of blood if hgb repeat at 12 hrs is stable should be able to discharge home with f/u with gi for schedule pill cam. has had egds/colonoscopies w/o source of bleed no further nausea, tolerating po, h/h stable reassured, did well with PT will use a cane (2) Hypertension Status: Chronic Plan: blood pressure has been good off medications will continue to hold and f/u in office (3) Anxiety Status: Chronic Plan: on alprazolam but has not been on home dose of sertraline will resume she gets very anxious , cont alprazolam reassured follow up with her psychiatrist as outpatient Discharge Planning plan for d/c today Problem Qualifiers (1) Hypertension: Qualified Code: I10 - Essential hypertension Aminata Morales MD Jan 23, 2017 11:16
[2017-01-23 11:17] VITALS: BP 128/70
--- NOTE | 2017-01-23 11:39 | HHI.DS ---
Discharge Summary Admission Date Jan 20, 2017 at 11:45 Discharge Date: Jan 23, 2017 Admitting Diagnosis severe anemia (1) Symptomatic anemia Diagnosis: Principal (2) Hypertension Diagnosis: Secondary (3) Anxiety Diagnosis: Secondary Brief History 86-year-old female patient with previous history of anemia of uncertain etiology with history of transfusion previously, has recently been approved for a GI Study to evaluate for possible causes, presents to the ER today because she has been sent in by her primary care physician due to a follow-up lab work showing hemoglobin of 6. Patient admits she has been having some dyspnea on exertion recently. She denies any current chest pains, dizziness, or other symptoms. She denies any black stools or blood in the stools. Patient had endoscopy and colon test with some twist in colon and only was able to view to sigmoid and is scheduled for capsle endoscopy to look at small bowel. Has had lightheadedness hgb was 5.8 in ER CBC/BMP: 01/23/17 0834 01/22/17 1253 Significant Findings Laboratory Tests Test 01/21/17 01/21/17 01/22/17 01/23/17 06:20 20:20 12:53 08:34 Red Blood Count 3.24 MIL/MM3 3.87 MIL/MM3 (4.00-5.30) (4.00-5.30) Hemoglobin 8.4 GM/DL 10.0 GM/DL 11.1 GM/DL 11.5 GM/DL (11.6-15.3) (11.6-15.3) (11.6-15.3) (11.6-15.3) Hematocrit 25.6 % 31.3 % 34.7 % (35.0-46.0) (35.0-46.0) (35.0-46.0) Mean Corpuscular Volume 79.3 FL (80.0-100.0) Mean Corpuscular Hemoglobin 26.1 PG 25.7 PG 25.8 PG 25.9 PG (27.0-34.0) (27.0-34.0) (27.0-34.0) (27.0-34.0) Monocytes (%) (Auto) 9.7 % (0.0-8.0) 10.0 % 9.7 % (0.0-8.0) 10.1 % (0.0-8.0) (0.0-8.0) Mean Corpuscular Hemoglobin 31.8 % Concent (32.0-36.0) Basophils (%) (Auto) 4.3 % (0.0-2.0) Basophils # (Auto) 0.3 TH/MM3 (0-0.2) Blood Urea Nitrogen 19 MG/DL (7-18) Estimat Glomerular Filtration 65 ML/MIN (>89) Rate Random Glucose 108 MG/DL (74-106) Imaging Last Impressions Chest X-Ray 01/22/17 0000 Signed Impressions: Service Date/Time: Tuesday, January 22, 2017 16:13 - CONCLUSION: No acute disease. Vel Gonzalez MD PE at Discharge lying in bed NAD lungs cta heart rrr efe 2/6 through precordium +bs no rebound Hospital Course Was admitted and transfused 3 units of PRBC's. Her hgb came up nicely . Her lisinopril was held on presentation and her blood pressure remained fairly well controlled. She had complaints of cough and congestion and chest xray was done and showed nothing acute. She was continued on her zyrtec and flonase. She was concerned about dark stools but in view of iron usage and stable h/h opted for discharge w/o obtaining the stool fobt ordered. She will be followed in 2 days with repeat cbc and blood pressure check. She is under the care of a psychiatrist for her anxiety and depression. Her alprazolam and sertraline were continued at her outpatient dosage. Pt Condition on Discharge: Stable Discharge Disposition: Discharge Home Discharge Instructions DIET: Follow Instructions for: Heart Healthy Diet Activities you can perform: Regular-No Restrictions Aminata Morales MD Jan 23, 2017 11:39
== END 2017-01-23 13:24 | disposition home or self-care (01) ==
LOC: PHED 09:24 → PHEDA 11:45 → INTOOBSV 11:45 → PH3A 12:39
PROVIDERS: ADMIT Legal Medicine; ATTEND Legal Medicine
DX: D64.9 Anemia, unspecified (principal); I10 Essential (primary) hypertension; F41.9 Anxiety disorder, unspecified; M19.90 Unspecified osteoarthritis, unspecified site; F32.9 Major depressive disorder, single episode, unspecified; K21.9 Gastro-esophageal reflux disease without esophagitis; E78.00 Pure hypercholesterolemia, unspecified; Z79.899 Other long term (current) drug therapy; Z87.891 Personal history of nicotine dependence
CPT/HCPCS: 36430; 71020; 76937; 80048; 80053; 85025; 85610; 85730; 86850; 86900; 86901; 86920; 97161; 99285; G0378; J1940; J7050; P9016

== ENCOUNTER 2017-02-18 23:16 | Inpatient (IN) | payer MEDICARE ==
[~2017-02-18] VITALS: Ht 165.1 cm; Wt 72.0 kg
[~2017-02-18 23:16] MED LIST changes: -LISI10TA3 PO; +OMEP20TA PO; -PROT40TA PO; -SERT-129 PO; +ZOLO50TA PO
--- NOTE | 2017-02-18 23:21 | PD ---
HPI Chief Complaint: shortness of breath Time Seen by Provider: 23:18 Travel History International Travel<30 days: No Contact w/Intl Traveler<30days: No Traveled to known affect area: No History of Present Illness HPI This 86-year-old female is complaining of shortness of breath. She says she went to bed and was feeling okay. She woke up coughing and was very short of breath. She has not had trouble like this before. She has not smoked for many years. She has a history of hypertension and was recently taken off of her blood pressure medicine. She is not having any chest pain. She was admitted to this hospital in January of this year with severe anemia and a hemoglobin of 5.8. She was transfused at that time. She has been told recently that she has some fluid in her lungs. She had an x-ray at [facility] on Tuesday she She had her hemoglobin checked about a week ago and was told it was 10. Her oxygen saturation at home was 90% PFSH Past Medical History Anemia: Yes Arthritis: Yes Autoimmune Disease: No Anxiety: Yes Depression: Yes Heart Rhythm Problems: No Cancer: No Cardiovascular Problems: Yes High Cholesterol: Yes Chest Pain: No Congestive Heart Failure: No Developmental Delay: Yes Diabetes: No Diminished Hearing: No Endocrine: No GERD: Yes Glaucoma: No Genitourinary: No Hepatitis: No Hiatal Hernia: No Hypertension: Yes Immune Disorder: No Implanted Vascular Access Dvce: Yes Kidney Stones: No Musculoskeletal: Yes Neurologic: No Psychiatric: Yes Reproductive: No Respiratory: No Immunizations Current: Yes Renal Failure: No Thyroid Disease: No Ulcer: No Menopausal: Yes Past Surgical History Abdominal Surgery: Yes (HYSTERECTOMY) Body Medical Devices: MARIXA EYE LENS Cardiac Surgery: No Ear Surgery: No Endocrine Surgery: No Eye Surgery: Yes (BILATERAL CATARACT SX; LEFT RETINA SX x2) Genitourinary Surgery: No Gynecologic Surgery: Yes (HYSTERECTOMY in 1981) Hysterectomy: Yes Joint Replacement: Yes (Bilateral Knee) Oral Surgery: No Thoracic Surgery: No Other Surgery: Yes (LEFT TOTAL KNEE REPLACEMENT) Social History Alcohol Use: Yes (occas) Tobacco Use: No (QUIT 30 YRS) Substance Use: No Allergies-Medications (Allergen,Severity, Reaction): Coded Allergies: morphine (Unverified Allergy, Intermediate, 02/18/17) Reported Meds & Prescriptions Reported Meds & Active Scripts Active Zoloft (Sertraline HCl) 50 Mg Tab 150 Mg PO DAILY Poly-Iron 150 (Polysaccharide Iron Complex) 150 Mg Cap 150 Mg PO ONCE Reported Omeprazole 20 Mg Tab 20 Mg PO DAILY Ocuvite (Multiple Vitamins W/ Minerals) 1 Tab 1 Tab PO DAILY Cetirizine (Cetirizine HCl) 10 Mg Tab 10 Mg PO DAILY Xanax (Alprazolam) 0.25 Mg Tab 0.25 Mg PO DIRECTED PRN Lipitor (Atorvastatin Calcium) 10 Mg Tab 10 Mg PO HS Review of Systems General / Constitutional: No: Fever, Chills Eyes: No: Diploplia, Blurred Vision HENT: No: Headaches, Vertigo Cardiovascular: No: Chest Pain or Discomfort Respiratory: Positive: Cough, Shortness of Breath Gastrointestinal: No: Nausea, Vomiting Genitourinary: No: Urgency, Frequency Musculoskeletal: No: Myalgias Skin: No Rash Neurologic: No: Weakness, Dizziness Hematologic/Lymphatic: No: Easy Bruising Physical Exam Narrative GENERAL: [-] Patient arrives in marked respiratory distress. She is receiving supplemental oxygen. Initial blood pressure is 208/112 SKIN: Focused skin assessment warm/dry. HEAD: Atraumatic. Normocephalic. EYES: Pupils equal and round. No scleral icterus. No injection or drainage. ENT: No nasal bleeding or discharge. Mucous membranes pink and moist. NECK: Trachea midline. No JVD. CARDIOVASCULAR: Regular rate and rhythm. No murmur appreciated. RESPIRATORY: There is accessory muscle use. She has coarse rales bilaterally. There are occasional wheezes GASTROINTESTINAL: Abdomen soft, non-tender, nondistended. Hepatic and splenic margins not palpable. MUSCULOSKELETAL: No obvious deformities. No clubbing. No cyanosis. No edema. NEUROLOGICAL: Awake and alert. No obvious cranial nerve deficits. Motor grossly within normal limits. Normal speech. PSYCHIATRIC: Appropriate mood and affect; insight and judgment normal. Data Data Last Documented VS Vital Signs Date Time Temp Pulse Resp B/P Pulse Ox O2 Delivery O2 Flow Rate FiO2 02/18/17 23:51 103 24 184/90 95 Nasal Cannula 4 02/18/17 23:23 98.0 Orders Complete Blood Count With Diff (02/18/17 23:19) Comprehensive Metabolic Panel (02/18/17 23:19) B-Type Natriuretic Peptide (02/18/17 23:19) Act Partial Throm Time (Ptt) (02/18/17 23:19) Prothrombin Time / Inr (Pt) (02/18/17 23:19) Magnesium (Mg) (02/18/17 23:19) Troponin I (02/18/17 23:19) Ua Includes Microscopic (02/18/17 23:19) Iv Access Insert/Monitor (02/18/17 23:19) Electrocardiogram (02/18/17 23:) Ecg Monitoring (02/18/17 23:) Oximetry (02/18/17 23:) Oxygen Administration (02/18/17 23:19) Chest, Single Ap (02/18/17 23:19) Sodium Chloride 0.9% Flush (Ns Flush) (02/18/17 23:30) Furosemide Inj (Lasix Inj) (02/18/17 23:30) Nitroglycerin 2% Oint (Nitroglycerin 2% (02/18/17 23:30) MDM Medical Decision Making Medical Screen Exam Complete: Yes Emergency Medical Condition: Yes Medical Record Reviewed: Yes Differential Diagnosis Differential includes CHF, acute pulmonary edema, COPD exacerbation, pneumonia Narrative Course EKG shows sinus rhythm. There are nonspecific ST-T wave changes. The EKG is similar to an EKG that was done on November 30, 2016. EKG shows cardiomegaly with bilateral interstitial infiltrates consistent with CHF. EKG is progressed from an EKG of 01/20/17 Diagnosis Primary Impression: Acute pulmonary edema Admitting Information Admitting Physician Requests: Admit Macario Greco MD Feb 18, 2017 23:21
[2017-02-18 23:23] VITALS: BP 208/112; PULSE 112; RESP 30; TEMP 98; O2SAT 90
[2017-02-18 23:29] VITALS: RESP 30; O2SAT 96
[2017-02-18] MEDS ORDERED: SODIUM CHLORIDE 0.9% FLUSH 10 ML FLUSH IVF PRN (23:30)
[2017-02-18] MEDS ORDERED: NITROGLYCERIN 2% OINT 1 GM PACKET TOPICAL ONE (23:30)
[2017-02-18] MEDS ORDERED: FUROSEMIDE 40 MG/4 ML VIAL IVP ONE (23:30)
[2017-02-18 23:50] LABS: AUTOMATED NEUTROPHIL # 6.9 TH/MM3 (1.8-7.7); BASOPHIL % 0.4 % (0.0-2.0); EOSINOPHIL # 0.1 TH/MM3 (0-0.4); EOSINOPHIL % 1.3 % (0.0-4.0); HEMATOCRIT 32.8 % (35.0-46.0); HEMO FLAGS DIFF FINAL; LYMPH % 28.1 % (9.0-44.0); MEAN CELL VOLUME 80.3 FL (80.0-100.0); MEAN CORPUSCULAR HEMOGLOBIN 25.5 PG (27.0-34.0); MEAN CORPUSCULAR HGB CONC 31.8 % (32.0-36.0); MONO % 5.3 % (0.0-8.0); NEUT % 64.9 % (16.0-70.0); PLATELET COUNT 353 TH/MM3 (150-450); RED BLOOD COUNT 4.08 MIL/MM3 (4.00-5.30); RED CELL DISTRIBUTION WIDTH 18.7 % (11.6-17.2); WHITE BLOOD COUNT 10.6 TH/MM3 (4.0-11.0)
[2017-02-18 23:51] VITALS: BP 184/90; PULSE 103; RESP 24; O2SAT 95
--- NOTE | 2017-02-18 23:55 | RADRPT ---
EXAM DATE/TIME: 02/18/2017 23:35 [place] COMPARISON: CHEST SINGLE AP, December 01, 2016, 9:26. INDICATIONS : Shortness of breath. MEDICAL HISTORY : Cardiovascular disease. Hypothyroidism SURGICAL HISTORY : Hysterectomy. Colonoscopy ENCOUNTER: Initial ACUITY: 1 day PAIN SCORE: 0/10 LOCATION: Bilateral chest FINDINGS: Heart size enlarged. Mild edema pattern with small effusions. No pneumothorax. CONCLUSION: 1. Mild congestive heart failure. Hilario Bedolla MD on February 18, 2017 at 23:53 Board Certified Radiologist. This report was verified electronically.
[2017-02-18 23:57] LABS: CHLORIDE 101 MEQ/L (98-107); POTASSIUM 3.5 MEQ/L (3.5-5.1); SODIUM (NA) 135 MEQ/L (136-145)
[2017-02-19] VITALS (14 sets, daily range): BP systolic 109–175; BP diastolic 61–87; PULSE 82–102; RESP 16–22; TEMP 96.4–97.8; O2SAT 94–99
[2017-02-19] LABS: ANION GAP 9 MEQ/L (5-15); BICARBONATE 24.8 MEQ/L (21.0-32.0)
[2017-02-19 00:01] LABS: BLOOD UREA NITROGEN 23 MG/DL (7-18)
[2017-02-19 00:02] LABS: APTT (PATIENT) 23.3 SEC (24.3-30.1); INTERNATIONAL NORMALIZED RATIO 0.9 RATIO; PROTHROMBIN TIME - PATIENT 10.3 SEC (9.8-11.6)
[2017-02-19 00:03] LABS: ALT (GPT) 39 U/L (10-53); AST (GOT) 31 U/L (15-37); GLOMERULAR FILTRATION RATE 57 ML/MIN (>89)
[2017-02-19 00:05] LABS: TOTAL BILIRUBIN ADULT 0.4 MG/DL (0.2-1.0)
[2017-02-19 00:06] LABS: ALKALINE PHOSPHATASE 91 U/L (45-117)
--- NOTE | 2017-02-19 00:24 | PD ---
Physical Exam Time Seen by Provider: 00:[address] Phillips left this patient with me to check the laboratory work, chest x-ray and make a dispositionhe suggested admission. Apparently, Dr. Gonsalo Monique called in a prescription for Lasix at 5 PM yesterday but the patient could not get it filled because [facility] pharmacy closed at about 6. She was unable to fill the prescription. Data Data Last Documented VS Vital Signs Date Time Temp Pulse Resp B/P Pulse Ox O2 Delivery O2 Flow Rate FiO2 02/19/17 00:10 102 20 174/85 96 Nasal Cannula 4 02/18/17 23:23 98.0 Orders Complete Blood Count With Diff (02/18/17 23:19) Comprehensive Metabolic Panel (02/18/17 23:19) B-Type Natriuretic Peptide (02/18/17 23:19) Act Partial Throm Time (Ptt) (02/18/17 23:19) Prothrombin Time / Inr (Pt) (02/18/17 23:19) Magnesium (Mg) (02/18/17 23:19) Troponin I (02/18/17 23:19) Ua Includes Microscopic (02/18/17 23:19) Iv Access Insert/Monitor (02/18/17 23:19) Electrocardiogram (02/18/17 23:19) Ecg Monitoring (02/18/17 23:19) Oximetry (02/18/17 23:19) Oxygen Administration (02/18/17 23:19) Chest, Single Ap (02/18/17 23:19) Sodium Chloride 0.9% Flush (Ns Flush) (02/18/17 23:30) Furosemide Inj (Lasix Inj) (02/18/17 23:30) Nitroglycerin 2% Oint (Nitroglycerin 2% (02/18/17 23:30) Labs Laboratory Tests Test 02/18/17 23:35 White Blood Count 10.6 TH/MM3 Red Blood Count 4.08 MIL/MM3 Hemoglobin 10.4 GM/DL Hematocrit 32.8 % Mean Corpuscular Volume 80.3 FL Mean Corpuscular Hemoglobin 25.5 PG Mean Corpuscular Hemoglobin 31.8 % Concent Red Cell Distribution Width 18.7 % Platelet Count 353 TH/MM3 Mean Platelet Volume 9.0 FL Neutrophils (%) (Auto) 64.9 % Lymphocytes (%) (Auto) 28.1 % Monocytes (%) (Auto) 5.3 % Eosinophils (%) (Auto) 1.3 % Basophils (%) (Auto) 0.4 % Neutrophils # (Auto) 6.9 TH/MM3 Lymphocytes # (Auto) 3.0 TH/MM3 Monocytes # (Auto) 0.6 TH/MM3 Eosinophils # (Auto) 0.1 TH/MM3 Basophils # (Auto) 0.0 TH/MM3 CBC Comment DIFF FINAL Differential Comment Prothrombin Time 10.3 SEC Prothromb Time International 0.9 RATIO Ratio Activated Partial 23.3 SEC Thromboplast Time Sodium Level 135 MEQ/L Potassium Level 3.5 MEQ/L Chloride Level 101 MEQ/L Carbon Dioxide Level 24.8 MEQ/L Anion Gap 9 MEQ/L Blood Urea Nitrogen 23 MG/DL Creatinine 0.93 MG/DL Estimat Glomerular Filtration 57 ML/MIN Rate Random Glucose 157 MG/DL Calcium Level 8.6 MG/DL Magnesium Level 2.0 MG/DL Total Bilirubin 0.4 MG/DL Aspartate Amino Transf 31 U/L (AST/SGOT) Alanine Aminotransferase 39 U/L (ALT/SGPT) Alkaline Phosphatase 91 U/L Troponin I 0.06 NG/ML B-Type Natriuretic Peptide 638 PG/ML Total Protein 7.3 GM/DL Albumin 3.6 GM/DL [facility] Medical Record Reviewed: Yes Supervised Visit with AMI: Yes Interpretation(s) The chest x-ray shows mild edema pattern with small effusions and enlarged heart. Impression is congestive heart failure. The complete metabolic profile shows a sodium of 135, BUN of 23, GFR 57, glucose 157 but is otherwise normal. The CBC shows a hemoglobin of 10.4 and hematocrit of 32.8 but is otherwise unremarkable. The troponin I is 0.06 and the BNP is 638. Differential Diagnosis Congestive heart failure, acute coronary syndrome, electrolyte disorder, pulmonary edema Narrative Course The patient has congestive heart failure. She was fairly severely short of breath when she came in now is doing much better. Physician Communication Physician Communication I discussed the patient with Dr. oGnsalo Monique, she states that she has a chronically elevated troponin I. Also, the patient does have a history of anxiety. We will 23 hour observation the patient and the patient will likely go home tomorrow. The patient does not want to go home now, she is anxious and states she is all alone. Diagnosis Primary Impression: Acute pulmonary edema Additional Impressions: Anxiety Elevated troponin I level Admitting Information Admitting Physician Requests: Observation Kuldeep Ramirez MD Feb 19, 2017 00:24
[2017-02-19 00:43] LABS: BLOOD, URINE NEG (NEG); GLUCOSE,URINE NEG (NEG); KETONE, URINE NEG (NEG); NITRITE,URINE NEG (NEG); PH, URINE 5.5 (5.0-8.5)
[2017-02-19 00:47] LABS: RBC, URINE 0-3 /hpf (0-3); SQUAMOUS EPITHELIAL CELL URINE 0-5 /hpf (0-5); URINE COLOR YELLOW (YELLW/STRAW)
[2017-02-19] MEDS ORDERED: SODIUM CHLORIDE 0.9% FLUSH 10 ML FLUSH IV FLUSH PRN (01:00)
[2017-02-19] MEDS ORDERED: NALOXONE HCL 0.4 MG/ML AMP IV PRN (01:00)
[2017-02-19] MEDS ORDERED: POLYSACCHARIDE IRON COMPLEX 150 MG CAP PO SCH (01:00)
[2017-02-19] MEDS ORDERED: ACETAMINOPHEN 325 MG TAB PO PRN (01:00)
[2017-02-19] MEDS ORDERED: ONDANSETRON HCL 4 MG/2 ML VIAL IVP PRN (01:00)
[2017-02-19] MEDS: LISINOPRIL 10 MG TAB PO SCH ×2 (01:36→08:57)
[2017-02-19] MEDS: ATORVASTATIN 10 MG TAB PO SCH ×2 (01:37→21:06)
[2017-02-19] MEDS: POTASSIUM CHLORIDE 20 MEQ CONTROLLED RELEASE TAB PO SCH ×2 (01:38→09:08)
[2017-02-19 01:52] LABS: MAGNESIUM 1.8 MG/DL (1.5-2.5)
[2017-02-19] MEDS: ALPRAZolam 0.25 MG TAB PO PRN ×2 (02:24→16:05)
[2017-02-19] MEDS: SODIUM CHLORIDE 0.9% FLUSH 10 ML FLUSH IV FLUSH SCH ×2 (07:56→21:07)
[2017-02-19] MEDS ORDERED: FUROSEMIDE 40 MG TAB PO SCH (09:00)
[2017-02-19] MEDS: MULTIVITAMIN-OPHTHALMIC 1 TAB PO SCH (09:00)
[2017-02-19] MEDS: PANTOPRAZOLE SOD 20 MG DELAYED RELEASE TAB PO SCH (09:07)
[2017-02-19] MEDS: CETIRIZINE HCL 10 MG TAB PO SCH (09:07)
[2017-02-19] MEDS: SERTRALINE HCL 50 MG TAB PO SCH (09:08)
[2017-02-19 13:43] LABS: POTASSIUM 3.4 MEQ/L (3.5-5.1)
[2017-02-19 13:46] LABS: BICARBONATE 28.6 MEQ/L (21.0-32.0)
[2017-02-19] MEDS ORDERED: FUROSEMIDE 20 MG TAB PO ONE (14:15)
--- NOTE | 2017-02-19 14:29 | MH ---
cc: KYLE LYLE M.D. DATE OF ADMISSION 02/19/2017 ADMISSION DIAGNOSIS Congestive heart failure, pulmonary edema. HISTORY OF PRESENT ILLNESS The patient is a very pleasant 86-year-old female well known to me for a prior admission for recurrent GI bleeds. Over the several months she has had admissions for profound anemia secondary to GI bleed of which the source is unknown despite colonoscopy, endoscopy, pill endoscopy. The patient typically when she becomes anemic starts complaining of weakness and cough at which time an evaluation her hemoglobin is usually found to be decreased and she is treated with supportive care and transfusions. On prior admission she developed some volume overload during the transfusion. She also had an elevation of her troponin at that time. She was seen by cardiology and secondary to her profound anemia of hemoglobin of 4 it was felt that her cardiac evaluation could take place once she was stabilized in terms of her anemia and possibly determining the source of her GI bleed. At that time an echocardiogram was also done that showed a normal ejection fraction, however, it was read as having severe aortic stenosis. The patient has remained fairly stable with her anemia with hemoglobins at approximately 10, however, this week she presented to the office again complaining of a cough. No shortness of breath, chest pain or lightheadedness. Her blood count at that time was stable. We did discuss getting an x-ray in the office. However, she did not want to do that as she was concerned about spending too much time, so she went home. However, her cough persisted during the rest of the week and a close friend called the office concerned so the x-ray order was placed and the friend made sure she came into the office to get the x-ray. At that time the x-ray showed some mild pulmonary edema. We went ahead and placed orders for Lasix and a repeat echocardiogram as well. However, the patient was not able to obtain the Lasix and that night developed worsening cough and actually shortness of breath. She does suffer from anxiety and this panicked her a great deal. She was brought to the emergency room were her pulse ox was 90%, her blood pressure was elevated 208/112 with respiratory rate of 30 and pulse of 112. Chest x-ray in the emergency room again showed mild pulmonary edema as well as an enlarged heart. She was admitted. On initial troponin that was done was 0.06. She has been admitted for diuresis and evaluation of her cardiac status. She states that aside from the cough she has been doing relatively well. She has had no abdominal pain or change in her bowel movements. However, she does state that since admission during the night she has had some three episodes of diarrhea. She has not noticed any increased weight or swelling of her extremities. PAST MEDICAL HISTORY Past medical history is significant for the iron deficiency anemia, diverticulosis, Garcia's esophagus, colon polyps, hypertension, hyperlipidemia, lumbar stenosis. She also has macular degeneration, major depressive disorder with a significant amount of anxiety, is under the care with psychiatrist. PAST SURGICAL HISTORY Surgical history includes total abdominal hysterectomy with BSO. A total knee arthroplasty, cataract surgeries. ALLERGIES SHE IS ALLERGIC TO MORPHINE. MEDICATIONS Medications include: 1. Atorvastatin 20 milligrams daily. 2. Omeprazole 20 milligrams daily. 3. Sertraline 150 milligrams daily. 4. Alprazolam 0.25 3 times a day. HABITS She has occasionally a beer or vodka. She does not smoke. SOCIAL HISTORY She lives by herself in [facility]. She has friends who are very attentive to her. 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 She is currently . She has a daughter who will be visiting in town shortly. REVIEW OF SYSTEMS See history of present illness. PHYSICAL EXAMINATION VITAL SIGNS: By the time on I see her in the hospital her vital signs her temperature is 97, pulse is 82, respirations 17, blood pressure is 112/70, pulse ox is 96% on 2 liters. She is actually lying flat that in the hospital bed at this point. HEENT: She is normocephalic, atraumatic. EOM is intact. She is wearing glasses. She has a moist oral mucosa. NECK: Her neck is supple. LUNGS: Lungs were clear to auscultation. I hear no rales. HEART: Her heart is regular. She has a holosystolic murmur across her precordium. ABDOMEN: Abdomen has good bowel sounds in all four quadrants. No rebound or guarding. EXTREMITIES: Show no clubbing, cyanosis or edema LABORATORY DATA Lab work that was done when she came in showed a white count of 10.6, hemoglobin of 10.4, hematocrit of 32.8, platelet count of 353. Sodium was 135 with a potassium of 3.5, BUN was 23 with a creatinine of 0.93, random glucose was 157. Electrolytes and liver enzymes were normal. They did initial CK as stated was 0.06. They did a BNP that was 638. PT was 10.3, INR was 0.9. UA was negative except for trace leukocyte esterase. IMAGING STUDIES Chest x-ray read as mild congestive heart failure. ASSESSMENT/PLAN 1. An 86-year-old female presenting to the emergency room with congestive heart failure with mild elevation of troponins. At this time she has been admitted. I have ordered a repeat echocardiogram on her. Will consult cardiology to see if they feel at this point they need to intervene with further cardiac evaluation. 2. For her iron-deficiency anemia and prior GI bleed, at this point her H&H has been stable. She has had some diarrhea today which is a little bit concerning. It might be the potassium that she has been receiving. Will continue to monitor her blood count. 3. For her anxiety will continue on her sertraline and her alprazolam. 4. Hypertension, on prior visits her lisinopril was stopped as her blood pressure was running low. At this time with the Lasix her blood pressure is down to the low 100s. Will monitor prior to resuming her dose of lisinopril. Further recommendations as the case develops. MD AQUILES Riggs/LINA /1:51 PM /2:08 PM TREMAYNE
--- NOTE | 2017-02-19 14:58 | ECHRPT ---
Indication: HEART FAILURE CONCLUSIONS Normal left ventricular size. Mild concentric left ventricular hypertrophy. The left ventricular systolic function is normal with an estimated ejection fraction in the range of 55-60%. No regional wall motion abnormalities are present. Severe aortic valve stenosis. AV Peak Gr AV Mean Gr44.0 mmHg Mild aortic valve regurgitation. Efyk-ha-rnxghmvc mitral valve regurgitation. Mitral annular calcification is present. Severe thickening of the aortic valve leaflets. There is mild tricuspid valve regurgitation. There is estimated mild pulmonary hypertension present (range 40-50 mmHg). The pulmonary valve is not well visualized. BP: / HR: Rhythm: Sinus MEASUREMENTS (Male / Female) Normal Values Technical Quality:Good 2D ECHO LV Diastolic Diameter PLAX 5.0 cm 4.2 - 5.9 / 3.9 - 5.3 cm LV Systolic Diameter PLAX 3.4 cm IVS Diastolic Thickness 1.2 cm 0.6 - 1.0 / 0.6 - 0.9 cm LVPW Diastolic Thickness 1.2 cm 0.6 - 1.0 / 0.6 - 0.9 cm LV Relative Wall Thickness 0.5 RV Internal Dim ED PLAX 2.3 cm LVOT Diameter 1.9 cm MV Area Planimetry 24.3 cm LV Ejection Fraction MOD 4C 57.5 % LV Ejection Fraction 4C AL 57.9 % M-MODE Aortic Root Diameter MM 2.4 cm LA Systolic Diameter MM 4.9 cm LA Ao Ratio MM 2.0 AV Cusp Separation MM 0.6 cm DOPPLER AV Peak Velocity 438.0 cm/s AV Peak Gradient 76.7 mmHg AV Mean Gradient 44.0 mmHg AV Velocity Time Integral 102.4 cm LVOT Peak Velocity 95.8 cm/s LVOT Peak Gradient 3.7 mmHg LVOT Velocity Time Integral 23.6 cm AV Area Cont Eq vti 0.7 cm AV Area Cont Eq pk 0.6 cm MV Area PHT 4.0 cm Mitral E Point Velocity 143.0 cm/s Mitral A Point Velocity 87.9 cm/s Mitral E to A Ratio 1.6 TR Peak Velocity 288.0 cm/s TR Peak Gradient 33.2 mmHg PV Peak Velocity 107.0 cm/s PV Peak Gradient 4.6 mmHg FINDINGS LEFT VENTRICLE Normal left ventricular size. Mild concentric left ventricular hypertrophy. The left ventricular systolic function is normal with an estimated ejection fraction in the range of 55-60%. No regional wall motion abnormalities are present. RIGHT VENTRICLE Normal right ventricular size and systolic function. LEFT ATRIUM The left atrial size is normal. RIGHT ATRIUM The right atrial size is normal. ATRIAL SEPTUM Normal atrial septal thickness without atrial level shunting by limited color doppler interrogation. AORTA The aortic root and proximal ascending aorta are normal in size on limited imaging. MITRAL VALVE Rxym-aj-[id number] mitral valve regurgitation. Mitral annular calcification is present. AORTIC VALVE Mild aortic valve regurgitation. Severe thickening of the aortic valve leaflets. Severe aortic valve stenosis. Aortic valve area is 0.65 cm. TRICUSPID VALVE There is mild tricuspid valve regurgitation. There is estimated mild pulmonary hypertension present (range 40-50 mmHg). PULMONARY VALVE The pulmonary valve is not well visualized. VESSELS The inferior vena cava is normal in size. PERICARDIUM No pericardial effusion. Neville Galeana MD (Electronically Signed) Final Date:19 February 2017 14:57
--- NOTE | 2017-02-19 15:16 | EKG ---
Date Performed: 02/18/2017 Time Performed: 23:34:49 PTAGE: 86 years EKG: SINUS TACHYCARDIA Atrial abnormality Diffuse nonspecific ST-T change Compared to previous t racing, no significant change ABNORMAL ECG PREVIOUS TRACING : 11/30/2016 07.49 DOCTOR: Selvin Field Interpretating Date/Time 02/19/2017 15:15:32
--- NOTE | 2017-02-19 15:16 | EKG ---
Date Performed: 02/19/2017 Time Performed: 01:08:10 PTAGE: 86 years EKG: SINUS TACHYCARDIA Atrial Abnormality Diffuse nonspecific ST-T wave change Compared to prior tracing no significant change ABNORMAL ECG PREVIOUS TRACING : 02/18/2017 23.34 DOCTOR: Selvin Field Interpretating Date/Time 02/19/2017 15:15:58
--- NOTE | 2017-02-19 16:45 | MB ---
cc: NEVILLE ELLIOTT MD DATE OF CONSULTATION: 02/19/2017. REASON FOR CONSULTATION: Congestive heart failure and aortic stenosis. HISTORY OF PRESENT ILLNESS: The patient is a very pleasant 86-year-old woman who had no prior cardiac history but presented with worsening shortness of breath. This was complicated by anemia previously; however, she was found to have a notable murmur and an echocardiogram was ordered, which showed severe aortic stenosis. The patient has been given Lasix, which has made her feel much better. She is now completely asymptomatic denying any residual shortness of breath. She notes chest pain, lightheadedness, dizziness or syncope. PAST MEDICAL HISTORY: 1. Iron deficiency anemia. 2. Diverticulosis. 3. Garcia's esophagus. 4. Hypertension. 5. Hyperlipidemia. 6. Anxiety. CURRENT MEDICATIONS: 1. Zyrtec. 2. Protonix. 3. Potassium. 4. Xanax. 5. Lipitor. ALLERGIES: MORPHINE. PHYSICAL EXAMINATION: VITAL SIGNS: Afebrile, pulse 82, respiratory rate 17, blood pressure 112/70, satting 96 on two liters. GENERAL: A pleasant elderly woman in no distress. NECK: No jugular venous distention. LUNGS: Clear to auscultation bilaterally. CARDIOVASCULAR: Regular rate and rhythm. A 3/6 systolic murmur is appreciated. ABDOMEN: Benign. EXTREMITIES: No edema. LABORATORY DATA: Sodium 137, potassium 3.4, chloride 99, bicarb 20.6, BUN 21, creatinine 0.87, glucose 104. Troponins are flat at 0.06 x3. BNP is 638. CARDIOLOGY TESTING: Echocardiogram is notable for an ejection fraction of 55-60% with severe aortic stenosis with a mean gradient of 44 mmHg. IMPRESSION: CHF with severe stenosis. The patient is now compensated but she will require aortic valve replacement due to the severe nature and now CHF requiring hospitalization. I discussed this at length with the patient and she agrees to being transferred to the [facility] for an AVR workup. This will require cardiac catheterization, which likely will be performed on Tuesday by one my partners. Further recommendations will be based on her clinical course. She does seem well-compensated now from a CHF standpoint. NevilleMD EVERT Sanchez/ASHLYN /4:28 PM /4:38 PM
[2017-02-20] VITALS (29 sets, daily range): BP systolic 104–127; BP diastolic 70–77; PULSE 75–100; RESP 16–17; TEMP 97.3–98.2; O2SAT 92–98
[2017-02-20] MEDS: ALPRAZolam 0.25 MG TAB PO PRN ×3 (00:30→20:12)
[2017-02-20] MEDS: PANTOPRAZOLE SOD 20 MG DELAYED RELEASE TAB PO SCH (09:37)
[2017-02-20] MEDS: SODIUM CHLORIDE 0.9% FLUSH 10 ML FLUSH IV FLUSH SCH ×2 (09:37→20:12)
[2017-02-20] MEDS: POTASSIUM CHLORIDE 20 MEQ CONTROLLED RELEASE TAB PO SCH (09:37)
[2017-02-20] MEDS: CETIRIZINE HCL 10 MG TAB PO SCH (09:37)
[2017-02-20] MEDS: MULTIVITAMIN-OPHTHALMIC 1 TAB PO SCH (09:37)
[2017-02-20] MEDS: SERTRALINE HCL 50 MG TAB PO SCH (09:37)
[2017-02-20] MEDS ORDERED: FUROSEMIDE 20 MG TAB ONE (10:23)
[2017-02-20] MEDS: FUROSEMIDE 20 MG TAB PO SCH (10:30)
--- NOTE | 2017-02-20 15:23 | EKG ---
Date Performed: 02/19/2017 Time Performed: 06:32:32 PTAGE: 86 years EKG: Sinus rhythm Diffuse nonspecific ST-T wave change Atrial abnormality Compared to previous tracing, T wave changes are slightly more prominent anterolaterally, otherwise no significant change ABNORMAL ECG PREVIOUS TRACING : 02/19/2017 01.08 DOCTOR: Selvin Field Interpretating Date/Time 02/20/2017 15:22:16
[2017-02-20 16:42] LABS: AUTOMATED NEUTROPHIL # 5.5 TH/MM3 (1.8-7.7); BASOPHIL # 0.1 TH/MM3 (0-0.2); BASOPHIL % 0.8 % (0.0-2.0); EOSINOPHIL # 0.4 TH/MM3 (0-0.4); EOSINOPHIL % 4.5 % (0.0-4.0); HEMATOCRIT 34.1 % (35.0-46.0); HEMO FLAGS DIFF FINAL; LYMPH % 23.6 % (9.0-44.0); LYMPHOCYTE # 2.1 TH/MM3 (1.0-4.8); MEAN CELL VOLUME 80.6 FL (80.0-100.0); MEAN CORPUSCULAR HEMOGLOBIN 25.2 PG (27.0-34.0); MEAN CORPUSCULAR HGB CONC 31.3 % (32.0-36.0); MONO % 9.8 % (0.0-8.0); NEUT % 61.3 % (16.0-70.0); PLATELET COUNT 330 TH/MM3 (150-450); RED BLOOD COUNT 4.24 MIL/MM3 (4.00-5.30); RED CELL DISTRIBUTION WIDTH 19.5 % (11.6-17.2)
--- NOTE | 2017-02-20 16:48 | HHI.PR ---
Subjective Remarks 86 y/o F admitted with SOB d/t CHF. Pt found to have severe AV stenosis on echocardiogram. Pt transferred from [facility] to [facility]. Pt will need further w/u for consideration of AVR. Today pt's SOB is much improved from admission. Objective Vitals Vital Signs Date Time Temp Pulse Resp B/P (MAP) Pulse Ox O2 Delivery O2 Flow Rate FiO2 02/20/17 15:30 98.0 88 16 117/70 (86) 96 02/20/17 11:30 98.0 80 16 118/77 (91) 96 02/20/17 07:55 97 Nasal Cannula 2.00 02/20/17 07:25 97.3 82 17 104/75 (85) 95 02/20/17 06:38 75 02/20/17 05:16 80 02/20/17 04:29 79 02/20/17 03:00 76 02/20/17 03:00 97.3 84 117/72 (87) 92 02/20/17 02:00 86 02/20/17 01:00 84 02/20/17 00:00 86 02/19/17 23:40 97.7 89 124/76 (92) 94 02/19/17 23:00 90 02/19/17 22:49 95 Nasal Cannula 2.00 02/19/17 20:08 97.8 96 22 111/68 (82) 95 Result Diagram: 02/18/17 9663 02/19/17 1330 Imaging Last Impressions Chest X-Ray 02/18/17 2319 Signed Impressions: Service Date/Time: Saturday, February 18, 2017 23:35 - CONCLUSION: 1. Mild congestive heart failure. Hilario Bedolla MD Objective Remarks GENERAL: This is a well-nourished, well-developed patient, in no apparent distress. CARDIOVASCULAR: Regular rate and rhythm without murmurs, gallops, or rubs. RESPIRATORY: Clear to auscultation. Breath sounds equal bilaterally. No wheezes , rales, or rhonchi. GASTROINTESTINAL: Abdomen soft, non-tender, nondistended. Normal active bowel sounds MUSCULOSKELETAL: Extremities without clubbing, cyanosis, or edema. NEURO: Alert & Oriented x4 to person, place, time, situation. Moves all ext x4 A/P Problem List: (1) CHF (congestive heart failure) ICD Codes: I50.9 - Heart failure, unspecified Status: Acute Plan: - Pt admitted with SOB - Pt clinically improved with lasix - Echocardiogram (02/19/17) --> severe Aortic Valve Stenosis - Pt will require Aortic Valve repair - Pt transferred from formerly [facility] to [facility] - Pt will require C, likely 02/21/17 - NPO after MN - supportive care - SCDs for DVT prophylaxis (2) Aortic valve stenosis, severe ICD Codes: I35.0 - Nonrheumatic aortic (valve) stenosis Status: Acute Plan: - see above (3) Anxiety ICD Codes: F41.9 - Anxiety disorder, unspecified Status: Chronic Plan: - zoloft, xanax (4) H/O: GI bleed ICD Codes: Z87.19 - Personal history of other diseases of the digestive system Plan: - continued PPI - observe Problem Qualifiers (1) CHF (congestive heart failure): Qualified Codes: I50.9 - Heart failure, unspecified Kam Jansen DO Feb 20, 2017 16:48
[2017-02-20] MEDS ORDERED: POTASSIUM CHLORIDE 20 MEQ CONTROLLED RELEASE TAB PO ONE (17:00)
[2017-02-20 17:05] LABS: BICARBONATE 29.2 MEQ/L (21.0-32.0); POTASSIUM 4.1 MEQ/L (3.5-5.1)
[2017-02-20] MEDS: ATORVASTATIN 10 MG TAB PO SCH (20:12)
[2017-02-21] VITALS (27 sets, daily range): BP systolic 119–134; BP diastolic 77–85; PULSE 78–93; RESP 16–18; TEMP 97.8–98; O2SAT 96–99
[2017-02-21 06:51] LABS: AUTOMATED NEUTROPHIL # 3.5 TH/MM3 (1.8-7.7); BASOPHIL % 0.2 % (0.0-2.0); EOSINOPHIL # 0.3 TH/MM3 (0-0.4); EOSINOPHIL % 4.4 % (0.0-4.0); HEMATOCRIT 32.9 % (35.0-46.0); HEMO FLAGS DIFF FINAL; LYMPH % 34.6 % (9.0-44.0); LYMPHOCYTE # 2.3 TH/MM3 (1.0-4.8); MEAN CELL VOLUME 80.4 FL (80.0-100.0); MEAN CORPUSCULAR HEMOGLOBIN 25.6 PG (27.0-34.0); MEAN CORPUSCULAR HGB CONC 31.8 % (32.0-36.0); MONO % 9.4 % (0.0-8.0); NEUT % 51.4 % (16.0-70.0); PLATELET COUNT 277 TH/MM3 (150-450); RED BLOOD COUNT 4.09 MIL/MM3 (4.00-5.30); RED CELL DISTRIBUTION WIDTH 19.9 % (11.6-17.2); WHITE BLOOD COUNT 6.8 TH/MM3 (4.0-11.0)
--- NOTE | 2017-02-21 07:57 | PD.CARD.PN ---
Subjective Subjective Remarks denies chest pain or shortness of breath (Ignacio Barker) Objective Vital Signs / I&O Vital Signs Date Time Temp Pulse Resp B/P (MAP) Pulse Ox O2 Delivery O2 Flow Rate FiO2 02/21/17 06:16 80 02/21/17 05:09 88 02/21/17 04:43 82 02/21/17 04:17 97.8 90 130/77 (94) 96 02/21/17 03:00 88 02/21/17 02:00 84 02/21/17 01:00 84 02/21/17 00:00 88 02/20/17 23:48 98.2 90 116/70 (85) 96 02/20/17 23:34 98 Nasal Cannula 2.00 02/20/17 23:00 89 02/20/17 21:00 88 02/20/17 20:00 100 02/20/17 20:00 98.2 88 127/74 (91) 98 02/20/17 19:00 88 02/20/17 18:13 78 02/20/17 17:00 90 02/20/17 16:00 86 02/20/17 15:30 98.0 88 16 117/70 (86) 96 02/20/17 15:00 85 02/20/17 14:00 90 02/20/17 13:00 94 02/20/17 12:00 80 02/20/17 11:30 98.0 80 16 118/77 (91) 96 02/20/17 11:00 81 02/20/17 10:00 86 02/20/17 09:00 84 02/20/17 08:00 78 02/20/17 07:55 97 Nasal Cannula 2.00 I/O 02/20/17 02/20/17 02/20/17 02/21/17 02/21/17 02/21/17 06:59 14:59 22:59 06:59 14:59 22:59 Intake Total 240 ml 720 ml 240 ml Output Total 400 ml 400 ml Balance 240 ml 320 ml -160 ml Intake Oral 240 ml 720 ml 240 ml Output Urine Total 400 ml 400 ml # Voids 2 Physical Exam GENERAL: Well-nourished, well-developed patient in no apparent distress. NECK: No JVD. No carotid bruit. CARDIOVASCULAR: Regular rate and rhythm. S1/S2, II/ FUNMILAYO LSB, no rub or gallop RESPIRATORY: No accessory muscle use. Clear to auscultation. Breath sounds equal bilaterally. GASTROINTESTINAL: Abdomen soft, non-tender, nondistended. MUSCULOSKELETAL: Extremities without clubbing, cyanosis, or edema. Laboratory Laboratory Tests Test 02/20/17 16:32 02/21/17 03:45 White Blood Count 9.0 TH/MM3 6.8 TH/MM3 Red Blood Count 4.24 MIL/MM3 4.09 MIL/MM3 Hemoglobin 10.7 GM/DL 10.4 GM/DL Hematocrit 34.1 % 32.9 % Mean Corpuscular Volume 80.6 FL 80.4 FL Mean Corpuscular Hemoglobin 25.2 PG 25.6 PG Mean Corpuscular Hemoglobin Concent 31.3 % 31.8 % Red Cell Distribution Width 19.5 % 19.9 % Platelet Count 330 TH/MM3 277 TH/MM3 Mean Platelet Volume 8.1 FL 9.0 FL Neutrophils (%) (Auto) 61.3 % 51.4 % Lymphocytes (%) (Auto) 23.6 % 34.6 % Monocytes (%) (Auto) 9.8 % 9.4 % Eosinophils (%) (Auto) 4.5 % 4.4 % Basophils (%) (Auto) 0.8 % 0.2 % Neutrophils # (Auto) 5.5 TH/MM3 3.5 TH/MM3 Lymphocytes # (Auto) 2.1 TH/MM3 2.3 TH/MM3 Monocytes # (Auto) 0.9 TH/MM3 0.6 TH/MM3 Eosinophils # (Auto) 0.4 TH/MM3 0.3 TH/MM3 Basophils # (Auto) 0.1 TH/MM3 0.0 TH/MM3 CBC Comment DIFF FINAL DIFF FINAL Differential Comment Blood Urea Nitrogen 28 MG/DL Creatinine 0.96 MG/DL Random Glucose 88 MG/DL Calcium Level 8.5 MG/DL Sodium Level 137 MEQ/L Potassium Level 4.1 MEQ/L Chloride Level 99 MEQ/L Carbon Dioxide Level 29.2 MEQ/L Anion Gap 9 MEQ/L Estimat Glomerular Filtration Rate 55 ML/MIN Magnesium Level 2.3 MG/DL (Ignacio Barker) Assessment and Plan Problem List: (1) NSTEMI (non-ST elevation myocardial infarction) ICD Codes: I21.4 - Non-ST elevation (NSTEMI) myocardial infarction Status: Acute (2) Aortic valve stenosis, severe ICD Codes: I35.0 - Nonrheumatic aortic (valve) stenosis Status: Acute (3) Hypertension ICD Codes: I10 - Essential (primary) hypertension Status: Chronic (4) Hyperlipidemia ICD Codes: E78.5 - Hyperlipidemia, unspecified Status: Chronic Assessment and Plan NSTEMI/ - Mean gradient 44 mmHg, schedule left heart cath this afternoon, further recommendations will depend on that outcome Her blood pressure is well controlled (Ignacio Barker) Assessment and Plan newly diagnosed CHF with preserved EF secondary to valular heart disease and severe aortic stenosis clinically improved now. borderline elevated troponin may be demand mediated recent anemia - iron def suggests GI bleeding. Extensive workup negative. will need to determine if it is safe for heparin or antiplatelet therapy should we need it. May need GI input/clearance. severe aortic stenosis - discussed options of AVR vs TAVR. will gather more information and consult CT surgery. plan for [facility] today (Luis Enrique Martínez MD) Ignacio Barker Feb 21, 2017 07:57 Luis Enrique Martínez MD Feb 21, 2017 09:51
[2017-02-21] MEDS ORDERED: MIDAZOLAM HCL 2 MG/2 ML VIAL IV SCH (08:00)
[2017-02-21] MEDS ORDERED: ASPIRIN 325 MG TAB PO SCH (08:00)
[2017-02-21] MEDS: SODIUM CHLOR 0.9% 1000 ML INJ 1,000 ML IV SCH (08:00)
--- NOTE | 2017-02-21 08:06 | HHI.PR ---
Subjective Remarks no cp or sob. nervous about her heart condition Objective Vitals heart reg. efe lung good air entry abd s/nt ext no edema Vital Signs Date Time Temp Pulse Resp B/P (MAP) Pulse Ox O2 Delivery O2 Flow Rate FiO2 02/21/17 06:16 80 02/21/17 05:09 88 02/21/17 04:43 82 02/21/17 04:17 97.8 90 130/77 (94) 96 02/21/17 03:00 88 02/21/17 02:00 84 02/21/17 01:00 84 02/21/17 00:00 88 02/20/17 23:48 98.2 90 116/70 (85) 96 02/20/17 23:34 98 Nasal Cannula 2.00 02/20/17 23:00 89 02/20/17 21:00 88 02/20/17 20:00 100 02/20/17 20:00 98.2 88 127/74 (91) 98 02/20/17 19:00 88 02/20/17 18:13 78 02/20/17 17:00 90 02/20/17 16:00 86 02/20/17 15:30 98.0 88 16 117/70 (86) 96 02/20/17 15:00 85 02/20/17 14:00 90 02/20/17 13:00 94 02/20/17 12:00 80 02/20/17 11:30 98.0 80 16 118/77 (91) 96 02/20/17 11:00 81 02/20/17 10:00 86 02/20/17 09:00 84 Result Diagram: 02/21/17 0345 02/20/17 1632 Imaging Last Impressions Chest X-Ray 02/18/17 2319 Signed Impressions: Service Date/Time: Saturday, February 18, 2017 23:35 - CONCLUSION: 1. Mild congestive heart failure. Hilario Bedolla MD A/P Problem List: (1) CHF (congestive heart failure) ICD Codes: I50.9 - Heart failure, unspecified Status: Acute Plan: - Pt admitted with SOB and felt to have acute chf symptoms related to severe AVS - Echocardiogram (02/19/17) --> severe Aortic Valve Stenosis she was diureses and looks compensated now transferred to [facility] for C and consideration for AVR Pt will require Aortic Valve repair await cardiology decisions scd's (2) Aortic valve stenosis, severe ICD Codes: I35.0 - Nonrheumatic aortic (valve) stenosis Status: Acute Plan: - see above (3) Anxiety ICD Codes: F41.9 - Anxiety disorder, unspecified Status: Chronic Plan: - zoloft, xanax (4) H/O: GI bleed ICD Codes: Z87.19 - Personal history of other diseases of the digestive system Plan: - continued PPI - observe Problem Qualifiers (1) CHF (congestive heart failure): Qualified Codes: I50.9 - Heart failure, unspecified Selvin Juarez MD Feb 21, 2017 08:06
[2017-02-21] MEDS: POTASSIUM CHLORIDE 20 MEQ CONTROLLED RELEASE TAB PO SCH (08:58)
[2017-02-21] MEDS: FUROSEMIDE 20 MG TAB PO SCH (08:58)
[2017-02-21] MEDS: CETIRIZINE HCL 10 MG TAB PO SCH (08:58)
[2017-02-21] MEDS: SERTRALINE HCL 50 MG TAB PO SCH (08:59)
[2017-02-21] MEDS: PANTOPRAZOLE SOD 20 MG DELAYED RELEASE TAB PO SCH (09:00)
[2017-02-21] MEDS: MULTIVITAMIN-OPHTHALMIC 1 TAB PO SCH (09:02)
[2017-02-21] MEDS: SODIUM CHLORIDE 0.9% FLUSH 10 ML FLUSH IV FLUSH SCH ×2 (09:03→20:39)
[2017-02-21] MEDS: ALPRAZolam 0.25 MG TAB PO PRN ×2 (10:59→20:39)
[2017-02-21] MEDS ORDERED: IOHEXOL 350 MG/ML 50 ML BTL (for Cath Lab) OTHER ONE (13:15)
[2017-02-21] MEDS ORDERED: HEPARIN-NS/PF INJ 500 ML ONE (13:26)
[2017-02-21] MEDS ORDERED: MIDAZOLAM HCL 2 MG/2 ML VIAL ONE ×2 (13:26→13:44)
[2017-02-21] MEDS ORDERED: LIDOCAINE HCL 1% 50 ML VIAL INFIL PRN (14:30)
[2017-02-21] MEDS ORDERED: ATROPINE SULFATE 1 MG/ML VIAL IV PRN (14:30)
[2017-02-21] MEDS ORDERED: MISC INFORMATION XX ONE (14:30)
[2017-02-21] MEDS ORDERED: SODIUM CHLOR 0.9% 250 ML INJ 250 ML IV PRN (14:30)
--- NOTE | 2017-02-21 14:39 | CATHPROC ---
[employer] HIS Report Study Information Study Number Admission Scheduled Start Study Start [id number] Feb 20 2017 3:21PM 02/21/2017 Feb 21 2017 12:49PM [facility] Service Cardiac Catheterization Admit Source Facility Department Other [facility] - Business Office Representative Physician and Clinical Staff Initial Luis Enrique Gonsalez Welding Machine Operator Electro Gas Anni Spence,GINGER Recorder Jannie Matthews,(R) Recorder Lorrie Bhatia RCIS TECH2 Scrub Yaya Zhao RCIS(BS) Procedures Performed Procedure Location (Site) Vessel Name Coronary Angiograms LCA Left Coronary Coronary Angiograms RCA Right Coronary Wire insertion Fem Art (right) Femoral Art Equipment Time Family Educator Description Size Mfg Part Number Used/Scraped ARROW INTERNATIONAL CATHETER, FR.7 BALLOON [id number] 13:48 FR 7 Used INC. WEDGE PRESSURE *[id number] TRANSDUCER, TRProximal DataAVE [id number] 13:48 DE [place] ROSA FINN * Used W/STOCKCOCK *[id number] 534-645T *[id number] 534-520T *[id number] 534-620T *2646938 534-521T *[id number] 534-621T *[id number] WIRE, STRT MOVEABLE CORE 502-581 .035 *[id number] 13:48 MEDLINE INDUSTRIES PACK, CCL CUSTOM * Used *[id number] 13:48 MEDLINE PACER PEN, SKIN DUAL W/ RULER * Used *[id number] 13:48 KoolSpan MEDICAL WIRE, 3MMJ .035 180CM 180CM Used *[id number] 13:54 MERIT MEDICAL WIRE, EXCHANGE 260CM 3MMJ 260CM Used *[id number] 13:48 NAMIC MANIFOLD, 2 PORT * Used *[id number] 13:48 NAMIC MANIFOLD, 4 PORT * Used *[id number] 13:48 NYCOMED OMNIPAQUE, 350 MG, 150ML 150ML [id number] Used [id number] 13:48 [employer]AS[employer] MEDICAL BLANKET,WARM AIR CCL * Used *[id number] 13:48 TERUMO MEDICAL SHEATH, FR5 TERUMO (10CM) FR 5 Used *[id number] 13:36 TERUMO MEDICAL SHEATH, FR6 TERUMO (10CM) FR 6 Used *[id number] 13:48 TERUMO MEDICAL SHEATH, FR7 TERUMO (10CM) FR 7 Used *[id number] 14:00 VASCULAR SOLUTIONS PIGTAIL DUAL LUMEN CATHETER FR 6 5540 *[id number] Used History: Current Medications Medication Dosage/Unit Route Frequency Last Date/Time Taken Statins (any) ASA LASIX History: Allergies Allergy Reaction morphine History: Risk Factors Family History of Hypertension Dyslipidemia Previous PR Previous Heart Failure Premature CAD Yes Yes No No No Prior Valve Prior PCI Prior CABG Surgery No No No Cerebrovascular Peripheral Artery Chronic Lung On Dialysis Diabetes Disease Disease Disease No No No No No History: Symptoms/Diagnosis Selection Items SOB History: Stress Tests Stress or Imaging Studies Performed No History: Other Disease Selection Items CHF HTN History: Other Current Smoker Quit No 37 Years Ago Labs Hgb (g/dl) Hct (%) WBC (l/cumm) Platelets (thousands) 11.60-17.00 35.00-51.00 4.00-11.00 150.00-450.00 10.4 32.9 6.8 277 Glucose (mg/dl) BUN (mg/dl) Creatinine (mg/dl) BUN:Creatinine (1:x) 74.00-106.00 7.00-18.00 0.50-1.30 10.00-20.00 88 28 0.9 31.1 Na (meq/l) K (meq/l) 136.00-145.00 3.50-5.10 137 4.1 INR (PTT:PT) 0.90-1.10 0.9 Troponin I (ng/ml) CPK (u/l) CPK-MB (ng/ML) 0.02-0.05 26.00-308.00 0.50-3.60 0.06 104 Not Drawn Medication Medication Total Dose (Bolus/Oral) Medication Total Dosage/Unit 1% XYLOCAINE 20 mL FENTANYL 75 mcg VERSED 2 mg Medications (Bolus/Oral) Medication Time Given Dosage/Unit Administered By Reason FENTANYL 02/21/2017 1:35:57 PM 50 mcg Anni Spence 50 mcg FENTANYL given in lab by Anni Spence RN in Left Forearm via Peripheral IV. Ordered by Luis Enrique Laguna. VERSED 02/21/2017 1:35:59 PM 2 mg Anni Spence 2 mg VERSED given in lab by [place], Anni, RN in Left Forearm via Peripheral IV. Ordered by Luis Enrique Martínez. 1% XYLOCAINE 02/21/2017 1:42:50 PM 20 mL Luis Enrique Martínez 20 mL 1% XYLOCAINE given in lab by Luis Enrique Martínez in Right Groin via Subcutaneous. Ordered by Luis Enrique Martínez. FENTANYL 02/21/2017 1:44:44 PM 25 mcg Anni Spence 25 mcg FENTANYL given in lab by Anni Spence RN in Left Forearm via Peripheral IV. Ordered by Luis Enrique Laguna. Initial Case Assessment Cardiovascular HR Rhythm NIBP Chest Pain 88 sr 159/91 0 Edema Present Skin color Skin None Normal Warm Circulatory - Right Pulses Femoral 1 Scale (0,1,2,3,4,d) Circulatory - Left Pulses Femoral 1 Scale (0,1,2,3,4,d) Neurological State Oriented to time-place- Alert Moves all extremities person Respiration - General Respiration Rate SpO2 (%) (B/min) 13 99 Final Case Assessment Cardiovascular HR Rhythm NIBP Chest Pain 85 sr 140/76 0 Edema Present Skin color Skin None Normal Warm Circulatory - Right Pulses Femoral 1 Scale (0,1,2,3,4,d) Circulatory - Left Pulses Femoral 1 Scale (0,1,2,3,4,d) Neurological State Oriented to time-place- Alert Moves all extremities person Respiration - General Respiration Rate SpO2 (%) (B/min) 15 96 Chronological Log Time Study Chronological Log 13:17:23 Patient arrived via Bed. 13:17:24 Patient Name, D.O.B, / Armband Verified By R.N. 13:17:26 Consent signed by the physician and the patient and verified by the Business Office Representative staff. 13:17:30 Pre-op and post- op instructions given; patient acknowledges understanding of instructions. 13:17:34 Presedation assessment performed by Business Office Representative RN. 13:17:54 Patient has been NPO for More than 6Hrs. 13:17:56 Skin Breakdown- 13:17:57 Patient Warmer Placed on the Table. 13:18:00 Chi Prominences Protected 13:18:04 A # 22 IV was noted in the Forearm (left). Grade = 0 13:18:08 History and physical on the chart or being dictated. Assessment: Initial Case, HR=88 BPM, Rhythm=sr, COGJ=286/91 mmhg, Chest Pain=0, Edema=None, Col or=Normal, Skin = Warm Right Pulses: Femoral=1 13:18:09 Left Pulses: Femoral=1 Neurological: State=Alert, Ox3, THOMPSON Respiration: Resp=13 B/min, SpO2=99 % Vitals capture started with the following parameters, Patient=Adult, Interval=5 min, Initial Pr bxhued=411 mmHg, 13:29:12 Deflation Rate=5 mmHg, Cuff placed on Right Arm 13:29:51 HR=88 bpm, FUWT=233/93 mmhg, SpO2=99.0 %, Resp=18 B/min, Pain=0, Elan=10, Melendez=2 13:34:24 MD arrived. 13:34:54 HR=87 bpm, IUVJ=500/88 mmhg, SpO2=99.0 %, Resp=15 B/min, Pain=0, Elan=10, Melendez=2 13:35:57 50 mcg FENTANYL given in lab by Anni Spence, GINGER in Left Forearm via Peripheral IV. Orde red by Luis Enrique Martínez. 13:35:59 2 mg VERSED given in lab by Anni Spence, GINGER in Left Forearm via Peripheral IV. Ordered by Luis Enrique Martínez. Time Out. Correct patient, correct procedure,correct physician, power injector not loaded with contrast with surgical 13:39:04 team present. Time Out Concurred by MD, individual staff in procedure 13:39:53 HR=88 bpm, UHCV=173/82 mmhg, SpO2=98.0 %, Resp=17 B/min, Pain=0, Elan=10, Melendez=2 13:42:20 Pressure channel 1 zeroed. 13:42:27 Pressure channel 2 zeroed. 13:42:40 Case Start 13:42:50 20 mL 1% XYLOCAINE given in lab by Luis Enrique Martínez in Right Groin via Subcutaneous. Ordered by Luis Enrique Martínez. 13:44:44 25 mcg FENTANYL given in lab by Anni Spence, GINGER in Left Forearm via Peripheral IV. Orde red by Luis Enrique Martínez. 13:44:50 HR=85 bpm, PCSJ=849/77 mmhg, SpO2=97.0 %, Resp=12 B/min, Pain=0, Elan=10, Melendez=2 13:45:52 Access site was Right Femoral Vein. 13:46:43 A SHEATH, FR7 TERUMO (10CM) FR 7 was advanced into the Fem Vein (right) using the Percutane ous technique. 13:49:53 HR=82 bpm, ZZYM=400/71 mmhg, SpO2=93.0 %, Resp=20 B/min, Pain=0, Elan=10, Melendez=2 13:50:39 Access site was Right Femoral Artery. 13:50:48 A SHEATH, FR6 TERUMO (10CM) FR 6 was advanced into the Fem Art (right) using the Percutaneo us technique. 13:51:39 A CATHETER, FR.7 BALLOON WEDGE PRESSURE FR 7 was inserted via Fem Vein (right) Recorded Pressure: RA, HR=82, Condition=Condition 1 13:52:10 (Right Atrium) RA 8/7/6 Recorded Pressure: Ao, RV, HR=83, Condition=Condition 1 13:52:26 (Aorta) Ao 119/119/119, (Right Ventricle) RV 34/7/7 Recorded Pressure: MPA, HR=83, Condition=Condition 1 13:53:23 (Main Pulmonary Artery) MPA 30/06/19 Recorded Pressure: PCW, HR=84, Condition=Condition 1 13:54:18 (Pulmonary Capillary Wedge) PCW 16/06/11 13:54:20 Saturation: Site=FA (Femoral Artery) , O2=88.4 %, Hgb=10.4 gm/dl, Condition=Condition 1. Us ed in calculation. 13:54:52 Saturation: Site=PA (Pulmonary Artery) , O2=62.6 %, Hgb=10.4 gm/dl, Condition=Condition 1. Used in calculation. 13:55:25 HR=84 bpm, OMWP=049/73 mmhg, SpO2=89.0 %, Resp=14 B/min, Pain=0, Elan=10, Melendez=2 A AL 1 INFINITI CATHETER FR 6 was advanced over a wire. OMNIPAQUE, 350 MG, 150ML 150ML was used for 13:56:10 injections. 13:58:40 A WIRE, STRT MOVEABLE CORE .035 * was inserted via Fem Art (right). 13:58:50 Wire removed 13:59:11 A WIRE, EXCHANGE 260CM 3MMJ 260CM was inserted via Fem Art (right). After removing the current catheter a PIGTAIL DUAL LUMEN CATHETER FR 6 was advanced over a WIRE , EXCHANGE 13:59:23 260CM 3MMJ 260CM. 13:59:51 HR=89 bpm, OFJO=015/68 mmhg, SpO2=92.0 %, Resp=16 B/min, Pain=0, Elan=10, Melendez=2 13:59:51 [place] Tory Catheter Removed 14:02:56 Pressure channel 1 zeroed. Recorded Pressure: LV, HR=87, Condition=Condition 1 14:03:35 (Left Ventricle) LV 184/9/15 Recorded Pressure: LV, Ao, HR=88, Condition=Condition 1 14:04:03 (Left Ventricle) LV 184/10/14, (Aorta) Ao 127/64/90 Recorded Pressure: LV, Ao, Ao, HR=88, Condition=Condition 1 (Left Ventricle) LV 186/11/15, 14:04:32 (Aorta) Ao 143/70/99, (Aorta) Ao 135/68/95 14:04:50 HR=87 bpm, HXKI=862/76 mmhg, SpO2=92.0 %, Resp=18 B/min, Pain=0, Elan=10, Melendez=2 After removing the current catheter a JL 4.0 INFINITI CATHETER FR 6 was advanced over a WIRE, 3 MMJ .035 180CM 14:08:44 180CM. 14:09:06 The LCA was injected and visualized at various angles. OMNIPAQUE, 350 MG, 150ML 150ML used . After removing the current catheter a JR 4.0 INFINITI CATHETER FR 6 was advanced over a WIRE, 3 MMJ .035 180CM 14:09:44 180CM. 14:09:51 HR=89 bpm, OEHQ=657/72 mmhg, SpO2=93.0 %, Resp=16 B/min, Pain=0, Elan=10, Melendez=2 14:13:10 The RCA was injected and visualized at various angles. OMNIPAQUE, 350 MG, 150ML 150ML used . 14:13:37 Catheter was removed 14:13:42 Case End 14:14:52 HR=87 bpm, CSVS=495/80 mmhg, SpO2=94.0 %, Resp=13 B/min, Pain=0, Elan=10, Melendez=2 14:19:51 HR=85 bpm, IIIC=386/70 mmhg, SpO2=93.0 %, Resp=12 B/min, Pain=0, Elan=10, Melendez=2 14:24:53 HR=84 bpm, PZFV=509/73 mmhg, SpO2=96.0 %, Resp=19 B/min, Pain=0, Elan=10, Melendez=2 14:29:52 HR=82 bpm, QSUB=085/76 mmhg, SpO2=94.0 %, Resp=15 B/min, Pain=0, Elan=10, Melendez=2 14:30:58 In the Fem Art (right) the sheath was sutured in place by Luis Enrique Martínez. 14:31:02 Sterile dressing applied to site 14:31:04 No case complications noted. 14:31:06 Cine recording checked. 14:31:09 Bedside Report will be given. 14:31:14 Contrast Scanned 14:31:21 A Left and Right Heart Cath was performed. 14:31:23 Patient moved to [facility] Assessment: Final Case, HR=85 BPM, Rhythm=sr, NZBP=808/76 mmhg, Chest Pain=0, Edema=None, Color =Normal, Skin = Warm Right Pulses: Femoral=1 14:31:31 Left Pulses: Femoral=1 Neurological: State=Alert, Ox3, THOMPSON Respiration: Resp=15 B/min, SpO2=96 % 14:35:48 Vitals capture stopped. End Study - Contrast Media Used In Study Contrast Total Opened (mL) Total Used (mL) Total Wasted (mL) Omnipaque 30 30 0 End Study - Maximum Contrast Load Max Contrast Load (mL) 404.5 End Study - Radiation Exposure Fluoro Time (minutes) 4.2 End Study - Patient Disposition Complications Transferred To Interventional Outcome No Telemetry Bed No attempt made
--- NOTE | 2017-02-21 15:02 | MA ---
cc: PRINCETOMMY DATE: 02/21/2017 INDICATION Aortic stenosis. PROCEDURE PERFORMED 1. Fluoroscopy with interpretation. 2. Left heart catheterization. 3. Coronary angiography. 4. Right heart catheterization. METHOD Risks, benefits, and alternatives were discussed with the patient. The patient understood and consented to the procedure. The patient was brought to the catheterization lab and placed on the catheterization table. Right groin was prepped and draped in sterile fashion. Right groin was anesthetized with 2% lidocaine. The right common femoral artery was cannulated and a 6-[place] Islander 11 cm sheath was placed without difficulty. Right femoral vein was accessed and a 7-[place] Island[place] sheath was placed without difficulty. RIGHT HEART CATHETERIZATION A 7-[place] pulmonary arterial catheter was advanced to the right femoral venous sheath to the level of the right atrium under fluoroscopic guidance. Hemodynamics were performed in all chambers while advancing to the pulmonary capillary wedge position. HEMODYNAMIC RESULTS 1. Right atrial pressure measured 8 mmHg. 2. Right ventricular pressure measured 34/7 mmHg. 3. Pulmonary arterial pressure measured 28/12 mmHg. 4. Pulmonary capillary wedge pressure 14 mmHg. 5. Cardiac output 6.4 liters per minute. 6. Cardiac index 3.4 liters per minute per meter squared. LEFT HEART CATHETERIZATION 6-[place] Island[place] AL-1 catheter was advanced to ascending aorta, straight tipped wire was used to navigate across the aortic valve, AL-1 was advanced into the left ventricle and exchanged and J-wire used to exchanged for 6-[place] Islander length and dual-lumen pigtail catheter. Left ventricular pressures measured at 186/11 mmHg, left anterior end-diastolic pressure of 15 mmHg. Simultaneous left ventricular and aortic pressure waveforms were analyzed. There was a mean gradient of 52 mmHg with a calculated aortic valve area at 0.7 cm2. CORONARY ANGIOGRAPHY 1. Left main coronary is angiographically normal. 2. Left anterior descending coronary has mild luminal irregularities throughout its proximal course. Diagonal branch has minor luminal irregularities. 3. Left circumflex is tortuous, has a 30% ostial stenosis and otherwise minor luminal irregularities. 4. Right coronary is a dominant vessel giving rise to posterior descending branch. Right coronary has minor luminal irregularities. CONCLUSION 1. Critical aortic stenosis. 2. Mild nonobstructive coronary disease. 3. Normal left and right-sided filling pressures. 4. Normal pulmonary pressures. 5. Normal cardiac output and index. PLAN Will further discuss options regarding her severe aortic stenosis which includes surgical aortic valve replacement versus percutaneous transcatheter aortic valve replacement. MD NATALYA Mcguire/TONIO /2:23 PM /2:39 PM TREMAYNE
--- NOTE | 2017-02-21 17:27 | PD.CAR.PN ---
CVT Progress Note Subjective/Hospital Course: pt seen and evaluated , full note dictated sts discussed with pt RISK SCORES About the STS Risk Calculator Procedure: AV Replacement Risk of Mortality: 4.887% Morbidity or Mortality: 20.95% Long Length of Stay: 12.424% Short Length of Stay: 19.457% Permanent Stroke: 2.207% Prolonged Ventilation: 15.8% DSW Infection: 0.339% Renal Failure: 4.437% Reoperation: 8.196% Objective: Vital Signs Date Time Temp Pulse Resp B/P (MAP) Pulse Ox O2 Delivery O2 Flow Rate FiO2 02/21/17 17:10 78 02/21/17 16:24 83 02/21/17 15:22 84 02/21/17 15:22 97.9 81 18 134/85 (101) 99 02/21/17 14:46 16 02/21/17 12:46 84 02/21/17 11:34 86 02/21/17 11:32 97.9 81 18 134/85 (101) 99 02/21/17 10:21 93 02/21/17 09:21 96 Nasal Cannula 2.00 02/21/17 09:00 87 02/21/17 08:00 86 02/21/17 07:30 81 02/21/17 07:30 97.9 81 18 134/85 (101) 99 02/21/17 06:16 80 02/21/17 05:09 88 02/21/17 04:43 82 02/21/17 04:17 97.8 90 130/77 (94) 96 02/21/17 03:00 88 02/21/17 02:00 84 02/21/17 01:00 84 02/21/17 00:00 88 02/20/17 23:48 98.2 90 116/70 (85) 96 02/20/17 23:34 98 Nasal Cannula 2.00 02/20/17 23:00 89 02/20/17 21:00 88 02/20/17 20:00 100 02/20/17 20:00 98.2 88 127/74 (91) 98 02/20/17 19:00 88 02/20/17 18:13 78 Result Diagram: 02/21/17 0345 02/20/17 3529 (1) NSTEMI (non-ST elevation myocardial infarction) (2) Aortic valve stenosis, severe (3) Hypertension (4) Hyperlipidemia Vivi Ambriz Feb 21, 2017 17:27
--- NOTE | 2017-02-21 19:14 | RADRPT ---
EXAM DATE/TIME: 02/21/2017 18:11 [place] COMPARISON: No previous studies available for comparison. INDICATIONS : Pre-op transcatheter aortic valve replacement/ aortic valve replacement. MEDICAL HISTORY : Congestive heart failure. Hypercholesterolemia. Gastroesophageal reflux disease. Arthritis. Depressio n. Anxiety. Anemia. SURGICAL HISTORY : Hysterectomy. Bilateral cataract surgery. Bilateral knee replacement. ENCOUNTER: Initial ACUITY: 2 days PAIN SCORE: 3/10 LOCATION: Bilateral neck PEAK SYSTOLIC VELOCITIES (cm/sec): ICA/CCA RATIO: Right: 2.1 Left: 1.7 ICA: Right: 111.3 Left: 112.2 CCA: Right: 52.9 Left: 66.8 ECA: Right: 56.8 Left: 58.0 VERTEBRAL: Right: 88.7 antegrade Left: 66.8 antegrade Elevated flow velocities and ICA/CCA ratios have been found to correlate with increased degrees of vessel stenosis, calculated as percentage of diameter relative to a normal segment of distal ICA/CCA FINDINGS: Mild to moderate calcified and noncalcified plaque is identified in the carotid bifurcations. Proximal internal carotid arteries demonstrates significant tortuosity. RIGHT CAROTID: No significant stenosis is visualized. The waveforms are within normal limits. LEFT CAROTID: No significant stenosis is visualized. The waveforms are within normal limits. VERTEBRAL ARTERIES: Antegrade flow is seen in both vertebral arteries. MISCELLANEOUS: None. CONCLUSION: Mild to moderate bilateral calcified plaque. Proximal ICA tortuosity causing mild ICA/CCA elevation. No evidence of hemodynamically significant stenosis. Antegrade flow both vertebral arteries. Uriah Castorena MD on February 21, 2017 at 19:10 Board Certified Radiologist. This report was verified electronically.
[2017-02-21] MEDS: ATORVASTATIN 10 MG TAB PO SCH (20:39)
[2017-02-22] VITALS (16 sets, daily range): BP systolic 107–150; BP diastolic 62–89; PULSE 81–95; RESP 16; TEMP 97.2–98.5; O2SAT 94–100
[2017-02-22] MEDS: SODIUM CHLOR 0.9% 1000 ML INJ 1,000 ML IV SCH (08:00)
--- NOTE | 2017-02-22 08:32 | MB ---
cc: NARDA MAGALLON DATE OF CONSULTATION 02/21/17 HISTORY OF PRESENT ILLNESS An 86-year-old patient of Dr. Morales, Dr. Martínez, also Dr. Wren who over the last 3-month period she has had three admissions for GI bleed, has had a complete workup to include colonoscopy, endoscopy, pill endoscopy. She has received multiple transfusions in the past. She even had an episode where she got some profound anemia with hemoglobin of 4. A consult to cardiology at that time. Echo was done back in November on her admission which showed an EF of 55%. The aortic valve area 0.61, a mean gradient of 64 mmHg, consistent with severe aortic valve stenosis. On this admission she presented to her primary care office with a congested cough. They wanted to do an x-ray and they finally were able to be complete which showed some pulmonary edema. They wanted to start some Lasix and repeat the echocardiogram, however, she was not able to obtain the Lasix and that night developed worsening cough and shortness of breath so she became very anxious and panicked which brought her into the emergency room. O2 sat was 90%, blood pressure was elevated at 208/112, respiratory rate of 30 and pulse heart rate of 112. The x-ray in the ED also showed mild pulmonary edema also with some enlarged heart and cardiomegaly. Initial troponin was 0.06. She was admitted for diuresis and evaluation of her cardiac status. She underwent cardiac cath by Dr. Martínez today. She had a right and left heart cath. Right sided heart pressures did show an RV pressure of 34/7. Pulmonary artery pressure of 28/12 with a wedge pressure 14. Cardiac output of 6.4 with an index of 3.4. There was aortic pressure waveforms showing a mean gradient of 52 mmHg with a valve area 0.7. Coronary angiography showed nonobstructive coronary disease with a 30% ostial stenosis in the left circ. Repeated echocardiogram showed an EF of 55-60%, some mild concentric LVH. Aortic valve mean gradient of 44 with some mild aortic insufficiency, mild to moderate MR, mild tricuspid valve regurgitation and some mild pulmonary hypertension with PA pressures of 40-50. The aortic peak velocity of 438 cm2. Aortic valve peak gradient of 76, the mean gradient of 44. This was calculated with an aortic valve area of 0.65 cm squared. We were consulted to evaluate for aortic valve replacement versus criteria for transcatheter aortic valve replacement. PAST MEDICAL HISTORY The patient's past medical history of history of GI bleed, iron deficiency anemia, Garcia's esophagus, colon polyps, hypertension, hyperlipidemia. She has a history of macular degeneration, major depressive disorder with significant anxiety. She is also under the care of a psychiatrist. 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 She has no longer been driving due to her partial blindness. PAST SURGICAL HISTORY Her surgeries include total abdominal hysterectomy with bilateral salpingo-oophorectomy, bilateral total knee arthroplasty, cataract surgeries. Her left pupil is irregular versus the right. FAMILY HISTORY Mother at 65 of an [place]. Father from sudden , cardiac 76. SOCIAL HISTORY The patient lives alone. She has two children. She is , retired from [employer]. He smoked for approximately 30 years. She quit in 1984. Again, she lives alone. REVIEW OF SYSTEMS GENERAL: No night sweats, fever, heat or cold intolerance. SKIN: No psoriasis, itching, hives. HEENT: No blurred vision, however, she is partially blind in the left eye. RESPIRATORY: Positive for occasional cough, shortness of breath. CARDIOVASCULAR: No chest pain. 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 No syncope. No lower extremity edema. GASTROINTESTINAL: She has occasional diarrhea. No constipation. GENITOURINARY: No burning, frequency, urgency. FOUNDRY SUPERINTENDANT: No history of TIA, CVA, seizure disorder. ENDOCRINOLOGY: No history of hypothyroidism and diabetes. PHYSICAL EXAMINATION VITAL SIGNS: Blood pressure 134/85, heart rate 80, temperature max 97.9. GENERAL: Patient is awake, alert, no acute distress. HEENT: Head is normocephalic, atraumatic. Pupils, the left is approximately 3 to 4 mm irregular, reactive to light, is approximately a 2 to 3 midline reactive. Oral mucosa pink, moist. She has ___ dental caries. No injection, no erythema. NECK: Supple. No JVD. HEART: Sounds S1-S2. Regular rate and rhythm with a grade 3/6 systolic murmur. LUNGS: Clear to auscultation. No wheezes, rales or rhonchi. ABDOMEN: Obese, soft, nontender, no masses or organomegaly. EXTREMITIES: Reveal no cyanosis, clubbing or edema. LABORATORY FINDINGS Shows hemoglobin of 10, hematocrit of 33, white cell count of 6.8, platelet count of 277, sodium 137, potassium 4.1, BUN 28, creatinine 0.96, magnesium level 2.3. Troponin 0.06. INR 0.9. Urinalysis is unremarkable. IMAGING STUDIES Chest x-ray with mild CHF. IMPRESSION This is an 86-year-old patient, somewhat anxious with her family at the bedside. She has undergone heart catheterization with severe aortic stenosis, normal cardiac output. Aortic mean gradient of 44 mmHg, EF of 55%. Peak gradient of 76, peak velocity of 438. The patient's comorbidities include: 1. Age. 2. Some pulmonary dysfunction. 3. GI dysfunction. At this time her STS score is 4.8. Morbidity, mortality at 20%. Frailty test will be done by the TAVR coordinator. In the meantime, we will order a TAVR CTA, carotid ultrasound and pulmonary function testing. Based upon the above data the patient would deem a good candidate for transcatheter aortic valve replacement. She will also need a second opinion by Dr. Сергей Alvarez. Dictated by: PASCALE Seth MD JORGE Montano/LINA /5:31 PM /8:29 AM
--- NOTE | 2017-02-22 08:37 | PD.CARD.PN ---
Subjective Subjective Remarks no events overnight Objective Medications GENERAL: SKIN: Warm and dry. HEAD: Normocephalic. EYES: No scleral icterus. No injection or drainage. NECK: Supple, trachea midline. No JVD or lymphadenopathy. CARDIOVASCULAR: Regular rate and rhythm without murmurs, gallops, or rubs. RESPIRATORY: Breath sounds equal bilaterally. No accessory muscle use. GASTROINTESTINAL: Abdomen soft, non-tender, nondistended. MUSCULOSKELETAL: No cyanosis, or edema. BACK: Nontender without obvious deformity. No CVA tenderness. Vital Signs / I&O Vital Signs Date Time Temp Pulse Resp B/P (MAP) Pulse Ox O2 Delivery O2 Flow Rate FiO2 02/22/17 06:00 81 02/22/17 05:00 85 02/22/17 04:00 97.2 95 16 150/89 (109) 98 02/22/17 04:00 95 02/22/17 03:00 85 02/22/17 02:00 85 02/22/17 01:00 88 02/22/17 00:00 95 02/22/17 00:00 98.5 95 16 125/80 (95) 94 02/21/17 23:00 89 02/21/17 22:00 84 02/21/17 21:00 86 02/21/17 20:00 98.0 79 16 119/77 (91) 97 02/21/17 20:00 90 02/21/17 19:12 98 21 02/21/17 19:00 86 02/21/17 18:27 93 02/21/17 17:10 78 02/21/17 17:00 80 02/21/17 16:24 83 02/21/17 15:22 84 02/21/17 15:22 97.9 81 18 134/85 (101) 99 02/21/17 14:46 16 02/21/17 12:46 84 02/21/17 11:34 86 02/21/17 11:32 97.9 81 18 134/85 (101) 99 02/21/17 10:21 93 02/21/17 09:21 96 Nasal Cannula 2.00 02/21/17 09:00 87 I/O 02/21/17 02/21/17 02/21/17 02/22/17 02/22/17 02/22/17 06:59 14:59 22:59 06:59 14:59 22:59 Intake Total 240 ml 450 ml 480 ml Output Total 400 ml 800 ml 700 ml Balance -160 ml -350 ml -220 ml Intake Oral 240 ml 240 ml 480 ml IV Total 210 ml Output Urine Total 400 ml 800 ml 700 ml # Voids 2 # Bowel Movements 0 Physical Exam GENERAL: SKIN: Warm and dry. HEAD: Normocephalic. EYES: No scleral icterus. No injection or drainage. NECK: Supple, trachea midline. No JVD or lymphadenopathy. CARDIOVASCULAR: Regular rate and rhythm 3/6 SM RESPIRATORY: Breath sounds equal bilaterally. No accessory muscle use. GASTROINTESTINAL: Abdomen soft, non-tender, nondistended. MUSCULOSKELETAL: No cyanosis, or edema. BACK: Nontender without obvious deformity. No CVA tenderness. Laboratory Laboratory Tests Test 02/21/17 21:45 Nasal Screen MRSA (PCR) MRSA NOT DETECTED Imaging Last Impressions Chest X-Ray 02/18/17 3189 Signed Impressions: Service Date/Time: Saturday, February 18, 2017 23:35 - CONCLUSION: 1. Mild congestive heart failure. Hilario Bedolla MD Assessment and Plan Problem List: (1) NSTEMI (non-ST elevation myocardial infarction) ICD Codes: I21.4 - Non-ST elevation (NSTEMI) myocardial infarction Status: Acute (2) Aortic valve stenosis, severe ICD Codes: I35.0 - Nonrheumatic aortic (valve) stenosis Status: Acute (3) Hypertension ICD Codes: I10 - Essential (primary) hypertension Status: Chronic (4) Hyperlipidemia ICD Codes: E78.5 - Hyperlipidemia, unspecified Status: Chronic Assessment and Plan CHF - clinically compensated. low dose lasix. monitor salt and weight NSTEMI - demand mediated. mild CAD. severe - TAVR workup in progress. tentatively planned for Mar. anemia - no clear source. will need asa plavix post TAVR x 6 months. will need trial of asa plavix now to determine if further bleeding and GI FU. FU CBC in 7 days. monitor closely for bleeding. DC home today FU in office in 2 weeks Luis Enrique Martínez MD Feb 22, 2017 08:37
[2017-02-22] MEDS ORDERED: PILL SPLITTER OTHER PRN (08:45)
[2017-02-22] MEDS ORDERED: ASPIRIN EC 81 MG TABEC PO SCH (09:00)
[2017-02-22] MEDS ORDERED: CLOPIDOGREL 75 MG TAB PO SCH (09:00)
[2017-02-22] MEDS ORDERED: LISINOPRIL 5 MG TAB PO SCH (09:00)
[2017-02-22] MEDS ORDERED: PLAV75TA29 PO (09:21)
[2017-02-22] MEDS ORDERED: LISI-519 PO (09:22)
[2017-02-22] MEDS ORDERED: POTA20TA5 PO (09:22)
[2017-02-22] MEDS ORDERED: ASPI-99 PO (09:22)
[2017-02-22] MEDS ORDERED: FURO20TA PO (09:22)
--- NOTE | 2017-02-22 09:23 | HHI.DCPOC ---
Discharge Care Plan Diagnosis: (1) Aortic valve stenosis, severe (2) NSTEMI (non-ST elevation myocardial infarction) Goals to Promote Your Health * To prevent worsening of your condition and complications * To maintain your health at the optimal level Directions to Meet Your Goals Take your medications as prescribed Follow your dietary instruction Follow activity as directed Keep your appointments as scheduled Take your immunizations and boosters as scheduled If your symptoms worsen call your PCP, if no PCP go to Urgent Care Center or Emergency Room Smoking is Dangerous to Your Health. Avoid second hand smoke Call the 24-hour hour crisis hotline for domestic abuse at Selvin Juarez MD Feb 22, 2017 09:23
--- NOTE | 2017-02-22 09:29 | HHI.DS ---
Discharge Summary Admission Date Feb 20, 2017 at 15:21 Discharge Date: Feb 22, 2017 Admitting Diagnosis congestive heart failure with pulmonary edema (1) CHF (congestive heart failure) Diagnosis: Principal ICD Codes: I50.9 - Heart failure, unspecified Status: Acute (2) Aortic valve stenosis, severe Diagnosis: Principal ICD Codes: I35.0 - Nonrheumatic aortic (valve) stenosis Status: Acute (3) Anxiety Diagnosis: Secondary ICD Codes: F41.9 - Anxiety disorder, unspecified Status: Chronic (4) H/O: GI bleed Diagnosis: Secondary ICD Codes: Z87.19 - Personal history of other diseases of the digestive system CBC/BMP: 02/21/17 0345 02/20/17 1632 Significant Findings Laboratory Tests Test 02/19/17 13:30 02/20/17 16:32 02/21/17 03:45 02/21/17 21:45 Blood Urea Nitrogen 21 MG/DL (7-18) 28 MG/DL (7-18) Calcium Level 8.4 MG/DL (8.5-10.1) Potassium Level 3.4 MEQ/L (3.5-5.1) Estimat Glomerular Filtration Rate 62 ML/MIN (>89) 55 ML/MIN (>89) Hemoglobin 10.7 GM/DL (11.6-15.3) 10.4 GM/DL (11.6-15.3) Hematocrit 34.1 % (35.0-46.0) 32.9 % (35.0-46.0) Mean Corpuscular Hemoglobin 25.2 PG (27.0-34.0) 25.6 PG (27.0-34.0) Mean Corpuscular Hemoglobin Concent 31.3 % (32.0-36.0) 31.8 % (32.0-36.0) Red Cell Distribution Width 19.5 % (11.6-17.2) 19.9 % (11.6-17.2) Monocytes (%) (Auto) 9.8 % (0.0-8.0) 9.4 % (0.0-8.0) Eosinophils (%) (Auto) 4.5 % (0.0-4.0) 4.4 % (0.0-4.0) Hospital Course (1) CHF (congestive heart failure) - Pt admitted with SOB and felt to have acute chf symptoms related to severe AVS - Echocardiogram (02/19/17) --> severe Aortic Valve Stenosis -she was diureses and looks compensated now -transferred to [facility] for LHC and consideration for AVR -LHC on 02/21 showed critical but nonobstructive cad -She was seen by CTS who did the initial evaluation for TAVR vs traditional AVR. -Pt will be sent home on daphne/diuretic....asa/plavix and monitored for bleeding as she has a hx of gib in the past. AVR will be scheduled for later date. f/u 1 week with cardiology and should have a bmp at that time. (2) Aortic valve stenosis, severe see above (3) Anxiety - zoloft, xanax (4) H/O: GI bleed - continued PPI Pt Condition on Discharge: Stable Discharge Disposition: Discharge Home Discharge Instructions DIET: Follow Instructions for: Heart Healthy Diet Activities you can perform: Regular-No Restrictions Follow up Referrals: Cardiology - [address] parker cano PCP Follow-up - [address] mary mejía New Medications: Aspirin (Adult Aspirin EC Low Strength) 81 Mg Tabec 81 MG PO DAILY for heart disease for 90 Days, TAB Clopidogrel (Plavix) 75 Mg Tab 75 MG PO DAILY for heart disease, #30 TAB 3 Refills Furosemide (Furosemide) 20 Mg Tab 20 MG PO DAILY for heart disease, #30 TAB 3 Refills Lisinopril (Lisinopril) 5 Mg Tab 2.5 MG PO DAILY for heart disease, #30 TAB 3 Refills Potassium Chloride Microencaps (Potassium Chloride Microencaps) 20 Meq Tab 20 MEQ PO DAILY for supplement, #30 TAB 3 Refills Continued Medications: Alprazolam (Xanax) 0.25 Mg Tab 0.25 MG PO DIRECTED PRN for ANXIETY, TAB 0 Refills Atorvastatin (Lipitor) 10 Mg Tab 10 MG PO HS for Cholesterol Management, #30 TAB 0 Refills Cetirizine (Cetirizine) 10 Mg Tab 10 MG PO DAILY for Allergies, TAB 0 Refills Multiple Vitamins W/ Minerals (Ocuvite) 1 Tab 1 TAB PO DAILY for Nutritional Supplement, TAB 0 Refills Omeprazole (Omeprazole) 20 Mg Tab 20 MG PO DAILY, #30 TAB 0 Refills Polysaccharide Iron Complex (Poly-Iron 150) 150 Mg Cap 150 MG PO ONCE for anemia, #30 CAP Sertraline (Zoloft) 50 Mg Tab 150 MG PO DAILY for anxiety, #30 TAB Selvin Juarez MD Feb 22, 2017 09:29
[2017-02-22] MEDS: ALPRAZolam 0.25 MG TAB PO PRN (09:54)
[2017-02-22] MEDS: PANTOPRAZOLE SOD 20 MG DELAYED RELEASE TAB PO SCH (09:56)
[2017-02-22] MEDS: CETIRIZINE HCL 10 MG TAB PO SCH (09:56)
[2017-02-22] MEDS: SERTRALINE HCL 50 MG TAB PO SCH (09:56)
[2017-02-22] MEDS: MULTIVITAMIN-OPHTHALMIC 1 TAB PO SCH (09:59)
[2017-02-22] MEDS: POTASSIUM CHLORIDE 20 MEQ CONTROLLED RELEASE TAB PO SCH (09:59)
[2017-02-22] MEDS: SODIUM CHLORIDE 0.9% FLUSH 10 ML FLUSH IV FLUSH SCH (10:00)
[2017-02-22] MEDS: FUROSEMIDE 20 MG TAB PO SCH (10:00)
--- NOTE | 2017-02-22 11:24 | MB ---
cc: LUIS ENRIQUE MARTÍNEZ BEATRICE S. M.D. SERRANO-LOPEZ, CARMEN KHANNA,JUSTIN Douglas MD DATE OF CONSULTATION 02/22/[address] Luis Enrique Martínez REASON FOR CONSULTATION Surgical opinion regarding aortic valve. HISTORY Ms. Buchanan is a very pleasant 86-year-old lady with a known history of significant anemia and GI bleed who has undergone an extensive workup including a colonoscopy, upper endoscopy, as well as pill endoscopy with no identifiable primary source of bleeding, who was admitted with anemia, shortness of breath and a cough with a hemoglobin of 4. She has received a six unit transfusion with resultant rise in her hemoglobin. Further workup including an echocardiogram, has revealed severe aortic stenosis with preserved ventricular function. Her peak aortic valve gradient is 76 with a mean gradient of 44 and an aortic peak velocity of 4.4 mm/sec squared. She has been seen by Dr. Oliver for surgical evaluation of aortic valve and has been given the option of open surgical repair versus TAVR. I am now seeing her for further discussion regarding the above findings. At the present time, she does have significant exertional dyspnea, as well as, her underlying pulmonary edema with congestive heart failure which resulted in her current admission. She also has the above-mentioned anemia which is stable for the current time being. PAST MEDICAL HISTORY Significant for: 1. Significant GI bleed as described above. 2. Iron-deficiency anemia. 3. Garcia's esophagus 4. Diverticulosis 5. Hypertension 6. Hyperlipidemia 7. Macular degeneration 8. Major depressive disorder 9. Anxiety 10. Colonic polyps 11. Aortic stenosis as described above. PAST SURGICAL HISTORY Remarkable for: 1. Total abdominal hysterectomy and bilateral salpingo-oophorectomy. 2. Bilateral total knee arthroplasty 3. Cataract surgeries ALLERGIES The patient reports allergies to MORPHINE. MEDICATIONS ON ADMISSION Include: 1. Cetirizine 2. Iron 3. Clopidogrel 4. Atorvastatin 5. Lisinopril 6. Aspirin 7. Sertraline 8. Alprazolam 9. Potassium 10. Lasix 11. Omeprazole 12. Multivitamins REVIEW OF SYSTEMS The review of systems is as above. All other parameters are negative. PHYSICAL EXAM Today she is 165 cm tall and weighs 72 kg, blood pressure 147/84 with a heart rate 86 and regular, respiratory 18 and she is afebrile. HEENT: Normocephalic, atraumatic. Pupils round and reactive. Extraocular muscles intact. NECK: No cervical lymphadenopathy, carotid bruits or JVD. CARDIOVASCULAR: Regular rate with normal S1 and S2 without gallops or rubs. There is a 4/6 systolic ejection murmur at the right parasternal border. LUNGS: Relatively clear to auscultation with some basilar crackles improving with coughing. ABDOMEN: Obese, otherwise soft, nontender, and nondistended with normoactive bowel sounds. No hepatosplenomegaly. EXTREMITIES: Bilateral femoral pulses are intact with no palpable pedal pulses. No cyanosis, clubbing or edema. No venous varicosities. NEUROLOGIC: Intact with no focal deficit. IMPRESSION 1. Severe aortic stenosis. 2. GI bleed 3. Congestive heart failure with pulmonary edema 4. Hypertension 5. Hyperlipidemia 6. Garcia's esophagus 7. Diverticulosis 8. Depression/anxiety PLAN The clinical and echo findings were reviewed and discussed with the patient. I agree with her provided physicians that she will maximally benefit from aortic valve replacement therapy. Given her significant medical comorbidities, advanced age, as well as her frailty, I think the best option in her case will be TAVR consideration. I think open surgical risk will carry a prohibitive risk in her case because of the above findings. Thank you for allowing me to participate in the care of this patient. Justin KUMARI /10:47 AM /11:07 AM TREMAYNE
[2017-02-22] MEDS ORDERED: IOHEXOL 350 MG/ML 10 ML VIAL (for RAD DIAG) IVCONTRAST ONE (11:57)
[2017-02-22 12:58] LABS: AUTOMATED NEUTROPHIL # 3.9 TH/MM3 (1.8-7.7); BASOPHIL % 0.4 % (0.0-2.0); EOSINOPHIL # 0.2 TH/MM3 (0-0.4); EOSINOPHIL % 4.1 % (0.0-4.0); HEMATOCRIT 31.7 % (35.0-46.0); HEMO FLAGS DIFF FINAL; LYMPH % 19.4 % (9.0-44.0); LYMPHOCYTE # 1.1 TH/MM3 (1.0-4.8); MEAN CELL VOLUME 81.2 FL (80.0-100.0); MEAN CORPUSCULAR HEMOGLOBIN 25.5 PG (27.0-34.0); MEAN CORPUSCULAR HGB CONC 31.4 % (32.0-36.0); NEUT % 67.1 % (16.0-70.0); PLATELET COUNT 245 TH/MM3 (150-450); RED BLOOD COUNT 3.91 MIL/MM3 (4.00-5.30); RED CELL DISTRIBUTION WIDTH 19.8 % (11.6-17.2); WHITE BLOOD COUNT 5.9 TH/MM3 (4.0-11.0)
[2017-02-22 13:25] LABS: BICARBONATE 28.4 MEQ/L (21.0-32.0); POTASSIUM 3.7 MEQ/L (3.5-5.1)
--- NOTE | 2017-02-22 16:32 | RADRPT ---
EXAM DATE/TIME: 02/22/2017 10:53 [facility] COMPARISON: No previous studies available for comparison. INDICATIONS : Congestive heart failure. TAVR evaluation. IV CONTRAST: 100 cc Omnipaque 350 (iohexol) IV RADIATION DOSE: 11.94 CTDIvol (mGy) MEDICAL HISTORY : Congestive heart failure. Hypertension. Gastroesophageal reflux disease. SURGICAL HISTORY : Hysterectomy. ENCOUNTER: Initial ACUITY: 1 day PAIN SCALE: 0/10 LOCATION: chest TECHNIQUE: Volumetric scanning was performed using a multi-row detector CT scanner. The data was post processed with a variety of visualization algorithms including full volume maximum intensity projection, multi -planar sliding thin slab reformation, curved planar reformation, and surface rendering techniques. Using automated exposure control and adjustment of the mA and/or kV according to patient size, radiat ion dose was kept as low as reasonably achievable to obtain optimal diagnostic quality images. DIC OM format image data is available electronically for review and comparison. FINDINGS: CARDIAC: The coronary system is right dominant. Scattered coronary artery atherosclerotic calcifications. The re is no pericardial effusion AORTIC ROOT/VALVE: 3 cusps are evident with calcifications. The sinus of Valsalva measures 2.9 cm in diameter. The sinotubular junction 2.7 cm in diameter. Mid thoracic aorta measures 3.4 cm with no calcifications. THORACIC AORTA: Origin of the great vessels is normal. No evidence of aneurysm, mural thrombus, dissection, mural ca lcification, or stenosis. ABDOMINAL AORTA: No evidence of aneurysm, mural thrombus, dissection, mural calcification, or stenosis. CELIAC ARTERY: Celiac artery is widely patent. SMA: Superior mesenteric artery is widely patent. RIGHT RENAL ARTERY: Calcified plaque involving the origin without hemodynamically significant stenosis.. LEFT RENAL ARTERY: Calcified plaque involving the origin without hemodynamically significant stenosis.. RIGHT COMMON ILIAC: No evidence of aneurysm, mural thrombus, dissection, mural calcification, or stenosis. The common fe moral measures 5 mm at its narrowest point due to an asymmetric calcified plaque. LEFT COMMON ILIAC: No evidence of aneurysm, mural thrombus, dissection, mural calcification, or stenosis. An ulcerated p laque is seen involving the distal left common iliac artery. This does not generate a significant marta nosis. The common femoral measures 5 mm at its narrowest point due to an asymmetric calcified plaque . THORAX: Note is made of an azygos lobe. A small right pleural effusion posteriorly layering with adjacent dep endent atelectasis. Two 6 mm smoothly marginated pulmonary nodules within the right middle lobe. ABDOMEN: A 2 cm cyst is seen involving the left lobe of the liver. Multiple calcified gallstones within an oth erwise normal-appearing gallbladder. A solitary cyst exophytic from the right kidney measuring 6.6 cm . Colonic diverticulosis. No acute inflammatory change observed. Stranding involving the subcutaneous fat of the right groin. PELVIS: Stranding of the subcutaneous fat involving the right groin. Uterus is surgically absent. A degenerat gabriella and scoliotic lumbar spine. CONCLUSION: 1. Measurements as given above. 2. Two 6 mm nodules within the right middle lobe. Current Алек[place]р guidelines suggest a repeat CT of the thorax in 6-12 months. 3. Ulcerated plaque involving the left common iliac artery without significant luminal narrowing. 4. Small right effusion with associated atelectasis. 5. Cholelithiasis. 6. Hepatic and right renal cysts. Roosevelt Berg Jr., MD on February 22, 2017 at 15:07 Board Certified Radiologist. This report was verified electronically.
--- NOTE | 2017-02-24 09:06 | RSPPFT ---
DATE OF PROCEDURE: 02/22/17 COMMENTS: The forced vital capacity is mildly reduced. The FEV1 is mildly reduced. The FEV1/FVC ratio and FEF 25-75 are both normal. IMPRESSION: This is compatible with mild restrictive lung disease.
== END 2017-02-22 14:20 | disposition home or self-care (01) | DRG 282 ==
LOC: PHED 23:16 → PHEDA 02-19 00:52 → PH3B 02-19 02:04 → HCIN 02-19 23:21 → OBSVTOIN 02-20 15:21 → HCIS 02-21 13:01 → HCIN 02-21 13:03 → HCIS 02-22 08:20 → HCIN 02-22 08:23
PROVIDERS: ADMIT Hospitalist; ATTEND Hospitalist
PROC: B2111ZZ Fluoroscopy of Multiple Coronary Arteries using Low Osmolar Contrast (ICD-10-PCS; 2017-02-21)
PROC: 4A023N8 Measurement of Cardiac Sampling and Pressure, Bilateral, Percutaneous Approach (ICD-10-PCS; principal; 2017-02-21 16:00)
DX: I21.4 Non-ST elevation (NSTEMI) myocardial infarction (principal); I11.0 Hypertensive heart disease with heart failure; I27.2 Other secondary pulmonary hypertension; I50.9 Heart failure, unspecified; I35.0 Nonrheumatic aortic (valve) stenosis; F32.9 Major depressive disorder, single episode, unspecified; F41.9 Anxiety disorder, unspecified; Z96.653 Presence of artificial knee joint, bilateral; K21.9 Gastro-esophageal reflux disease without esophagitis; M19.90 Unspecified osteoarthritis, unspecified site; E78.5 Hyperlipidemia, unspecified; K57.90 Diverticulosis of intestine, part unspecified, without perforation or abscess without bleeding; I25.10 Atherosclerotic heart disease of native coronary artery without angina pectoris; K22.70 Barrett's esophagus without dysplasia; M48.06 Spinal stenosis, lumbar region; R19.7 Diarrhea, unspecified; R54 Age-related physical debility; I35.1 Nonrheumatic aortic (valve) insufficiency; I07.1 Rheumatic tricuspid insufficiency; Z87.891 Personal history of nicotine dependence
CPT/HCPCS: 71010; 74174; 76937; 80048; 80053; 81001; 82550; 82810; 83735; 83880; 84484; 85025; 85610; 85730; 87641; 93005; 93306; 93456; 93880; 94010; 96374; C1769; C1893; G0378; J1644; J1940; J2250; J3010; J7030; Q9967

== ENCOUNTER 2017-02-28 16:03 | Inpatient (IN) | payer MEDICARE ==
[~2017-02-28] VITALS: Ht 162.6 cm; Wt 72.5 kg
[2017-02-28] VITALS (7 sets, daily range): BP systolic 117–134; BP diastolic 53–67; PULSE 90–102; RESP 18–20; TEMP 98.4–98.5; O2SAT 95–99
[~2017-02-28 16:03] MED LIST changes: +ASPI-99 PO; +FURO20TA PO; +LISI-519 PO; +PLAV75TA29 PO; +POTA20TA5 PO
[2017-02-28] MEDS ORDERED: SODIUM CHLORIDE 0.9% FLUSH 10 ML FLUSH IVF PRN (16:30)
--- NOTE | 2017-02-28 16:37 | PD ---
HPI Chief Complaint: General Weakness Time Seen by Provider: 16:22 Travel History International Travel<30 days: No Contact w/Intl Traveler<30days: No Traveled to known affect area: No History of Present Illness HPI Patient comes in complaining of weakness and dyspnea on exertion that began yesterday. Patient states she felt dizzy when she was using her walker but has resolved. Patient denies any chest pain, numbness or tingling anywhere, back pain, loss or change in bowel or bladder. States she does have dark stools but she is on iron for anemia. Patient reports she had a cardiac cath done a week ago had no stents placed but recommend aortic valve replacement. Patient states she contacted her insurance manager Dr. Martínez who recommended patient get a chest x-ray. Patient states her completion engineer would not drive her to the emergency department and had to come in by EMS. Patient states she symptoms resolve with rest. He has a chest pain, fevers, headache, numbness or tingling anywhere, or abdominal pain. PFSH Past Medical History Hx Anticoagulant Therapy: Yes Anemia: Yes Arthritis: Yes Autoimmune Disease: No Anxiety: Yes Depression: Yes Heart Rhythm Problems: No Cancer: No Cardiovascular Problems: Yes (HTN) High Cholesterol: Yes Chest Pain: No Congestive Heart Failure: Yes (THIS ADMIT) Developmental Delay: Yes Diabetes: No Diminished Hearing: No Endocrine: No GERD: Yes Glaucoma: No Genitourinary: No Hepatitis: No Hiatal Hernia: No Hypertension: Yes Immune Disorder: No Implanted Vascular Access Dvce: Yes Kidney Stones: No Medical other: Yes (arthritis) Musculoskeletal: Yes Neurologic: No Psychiatric: Yes Reproductive: No Respiratory: No Immunizations Current: Yes Renal Failure: No Thyroid Disease: No Ulcer: No Menopausal: Yes Past Surgical History Abdominal Surgery: Yes (HYSTERECTOMY) Body Medical Devices: MARIXA EYE LENS Cardiac Surgery: No Ear Surgery: No Endocrine Surgery: No Eye Surgery: Yes (BILATERAL CATARACT SX; LEFT RETINA SX x2) Genitourinary Surgery: No Gynecologic Surgery: Yes (HYSTERECTOMY in 1981) Hysterectomy: Yes Joint Replacement: Yes (Bilateral Knee) Oral Surgery: No Thoracic Surgery: No Other Surgery: Yes (BILAT. TOTAL KNEE REPLACEMENTS) Social History Alcohol Use: Yes (occas) Tobacco Use: No (QUIT 30 YRS) Substance Use: No Allergies-Medications (Allergen,Severity, Reaction): Coded Allergies: morphine (Unverified Allergy, Intermediate, 02/28/17) Reported Meds & Prescriptions Reported Meds & Active Scripts Active Potassium Chloride Microencaps 20 Meq Tab 20 Meq PO DAILY Furosemide 20 Mg Tab 20 Mg PO DAILY Adult Aspirin EC Low Strength (Aspirin) 81 Mg Tabec 81 Mg PO DAILY 90 Days Lisinopril 5 Mg Tab 2.5 Mg PO DAILY Plavix (Clopidogrel Bisulfate) 75 Mg Tab 75 Mg PO DAILY Zoloft (Sertraline HCl) 50 Mg Tab 150 Mg PO DAILY Reported Pantoprazole (Pantoprazole Sodium) 40 Mg Tab 40 Mg PO DAILY Poly-Iron 150 (Polysaccharide Iron Complex) 150 Mg Iron Cap 150 Mg PO DAILY Atorvastatin (Atorvastatin Calcium) 20 Mg Tab 20 Mg PO HS Ocuvite (Multiple Vitamins W/ Minerals) 1 Tab 1 Tab PO DAILY Cetirizine (Cetirizine HCl) 10 Mg Tab 10 Mg PO DAILY Xanax (Alprazolam) 0.25 Mg Tab 0.25 Mg PO TID PRN Review of Systems Except as stated in HPI: all other systems reviewed are Neg Physical Exam Narrative GENERAL: Well-developed, well nourished, in no acute distress, and non-ill appearing. SKIN: Focused skin assessment warm and dry. HEAD: Atraumatic. Normocephalic. EYES: Pupils equal and round. EOMI. No scleral icterus. No injection or drainage. ENT: No nasal bleeding or discharge. Mucous membranes pink and moist. NECK: Trachea midline. Supple. No nuclear rigidity. CARDIOVASCULAR: Regular rate and rhythm. Murmur appreciated. RESPIRATORY: No accessory muscle use. No respiratory distress. Decreased breath sounds throughout. MUSCULOSKELETAL: No obvious deformities. No clubbing. No cyanosis. No edema. Full range of motion. NEUROLOGICAL: Awake and alert. No obvious cranial nerve deficits. Motor grossly within normal limits. Normal speech. PSYCHIATRIC: Appropriate mood and affect; insight and judgment normal. Data Data Last Documented VS Vital Signs Date Time Temp Pulse Resp B/P (MAP) Pulse Ox O2 Delivery O2 Flow Rate FiO2 02/28/17 16:20 98.4 90 20 119/53 (75) 97 Room Air Orders Orders Complete Blood Count With Diff (02/28/17 16:29) Basic Metabolic Panel (Bmp) (02/28/17 16:29) B-Type Natriuretic Peptide (02/28/17 16:29) Act Partial Throm Time (Ptt) (02/28/17 16:29) Prothrombin Time / Inr (Pt) (02/28/17 16:29) Magnesium (Mg) (02/28/17 16:29) Urinalysis - C+S If Indicated (02/28/17 16:29) Iv Access Insert/Monitor (02/28/17 16:29) Electrocardiogram (02/28/17 16:29) Ecg Monitoring (02/28/17 16:29) Oximetry (02/28/17 16:29) Oxygen Administration (02/28/17 16:29) Chest, Single Ap (02/28/17 16:29) Sodium Chloride 0.9% Flush (Ns Flush) (02/28/17 16:30) Type And Screen (02/28/17 17:18) Red Blood Cells (Rbc) (02/28/17 17:18) Blood Product Administration .UPON TRANSFUSION (02/28/17 17:18) Sodium Chlor 0.9% 250 Ml Inj (Ns 250 Ml (02/28/17 17:30) Admit To Inpatient (02/28/17 ) Code Status (02/28/17 17:33) Vital Signs (Adult) Q4H (02/28/17 17:33) Activity Oob With Assistance (02/28/17 17:33) [employer] Tender / Telemetry .CONTINUOUS (02/28/17 17:33) Diet Heart Healthy (02/28/17 Dinner) Sodium Chloride 0.9% Flush (Ns Flush) (02/28/17 17:45) Sodium Chloride 0.9% Flush (Ns Flush) (02/28/17 21:00) Acetaminophen (Tylenol) (02/28/17 17:45) Ondansetron Inj (Zofran Inj) (02/28/17 17:45) Temazepam (Restoril) (02/28/17 17:45) Basic Metabolic Panel (Bmp) (03/01/17 06:00) Electrocardiogram (02/28/17 17:33) Pt Request For Service (02/28/17 17:33) Scd Bilateral/Knee High HEATHER.BID (02/28/17 17:33) Naloxone Inj (Narcan Inj) (02/28/17 17:45) Magnesium Hydroxide Liq (Milk Of Magnesi (02/28/17 17:45) Inpatient Certification (02/28/17 ) Complete Blood Count With Diff (02/28/17 17:36) Complete Blood Count With Diff (03/01/17 17:36) Consult Gastroenterology (02/28/17 ) Alprazolam (Xanax) (02/28/17 17:45) Aspirin Ec (Ecotrin Ec) (03/01/17 09:00) Atorvastatin (Lipitor) (02/28/17 21:00) Cetirizine (Zyrtec) (03/01/17 09:00) Clopidogrel (Plavix) (03/01/17 09:00) Furosemide (Lasix) (03/01/17 09:00) Lisinopril (Prinivil) (03/01/17 09:00) Multivit Opth (Ocuvite) (03/01/17 09:00) Polysaccharide Iron Complex (Nu-Iron) (03/01/17 09:00) Potassium Chloride (Kcl) (03/01/17 09:00) Sertraline (Zoloft) (03/01/17 09:00) Pantoprazole Inj (Protonix Inj) (02/28/17 17:45) Admit Order (Ed Use Only) (02/28/17 17:47) Labs Laboratory Tests Test 02/28/17 16:37 White Blood Count 9.2 TH/MM3 Red Blood Count 2.16 MIL/MM3 Hemoglobin 5.6 GM/DL Hematocrit 17.4 % Mean Corpuscular Volume 80.5 FL Mean Corpuscular Hemoglobin 26.0 PG Mean Corpuscular Hemoglobin Concent 32.3 % Red Cell Distribution Width 19.9 % Platelet Count 252 TH/MM3 Mean Platelet Volume 8.7 FL Neutrophils (%) (Auto) 82.3 % Lymphocytes (%) (Auto) 12.3 % Monocytes (%) (Auto) 4.9 % Eosinophils (%) (Auto) 0.1 % Basophils (%) (Auto) 0.4 % Neutrophils # (Auto) 7.6 TH/MM3 Lymphocytes # (Auto) 1.1 TH/MM3 Monocytes # (Auto) 0.5 TH/MM3 Eosinophils # (Auto) 0.0 TH/MM3 Basophils # (Auto) 0.0 TH/MM3 CBC Comment DIFF FINAL Differential Comment Prothrombin Time 10.3 SEC Prothromb Time International Ratio 0.9 RATIO Activated Partial Thromboplast Time 22.6 SEC Blood Urea Nitrogen 45 MG/DL Creatinine 0.84 MG/DL Random Glucose 110 MG/DL Calcium Level 8.1 MG/DL Magnesium Level 2.2 MG/DL Sodium Level 136 MEQ/L Potassium Level 4.2 MEQ/L Chloride Level 103 MEQ/L Carbon Dioxide Level 25.0 MEQ/L Anion Gap 8 MEQ/L Estimat Glomerular Filtration Rate 65 ML/MIN MDM Medical Decision Making Medical Screen Exam Complete: Yes Emergency Medical Condition: Yes Interpretation(s) Chest x-ray read by the radiologist shows: No acute disease. Differential Diagnosis CHF exacerbation, anemia, electrolyte abnormality, UTI, pneumonia, other Narrative Course Patient seen and examined. Initial laboratory radiologic studies were ordered. After patient was found to be a severe anemic. Type and screen along with transfusion was ordered by Dr. Danielle. Discussed patient with Dr. Jansen, who is agreeable to admit the patient. Discussed all findings and plan care of patient who is agreeable for admission. All questions were answered. Physician Communication Physician Communication [id number] Jansen, who is agreeable to admit the patient. Diagnosis Primary Impression: Symptomatic anemia Admitting Information Admitting Physician Requests: Admit Condition: Stable Johnny Zhao Feb 28, 2017 16:37
[2017-02-28] MEDS ORDERED: ATOR20TA15 PO (16:56)
[2017-02-28] MEDS ORDERED: NU-IRON PO (16:56)
[2017-02-28] MEDS ORDERED: PANT40TA3 PO (16:57)
[2017-02-28 17:02] LABS: AUTOMATED NEUTROPHIL # 7.6 TH/MM3 (1.8-7.7); BASOPHIL % 0.4 % (0.0-2.0); EOSINOPHIL % 0.1 % (0.0-4.0); LYMPH % 12.3 % (9.0-44.0); LYMPHOCYTE # 1.1 TH/MM3 (1.0-4.8); MEAN CELL VOLUME 80.5 FL (80.0-100.0); MEAN CORPUSCULAR HGB CONC 32.3 % (32.0-36.0); MONO % 4.9 % (0.0-8.0); NEUT % 82.3 % (16.0-70.0); PLATELET COUNT 252 TH/MM3 (150-450); RED BLOOD COUNT 2.16 MIL/MM3 (4.00-5.30); RED CELL DISTRIBUTION WIDTH 19.9 % (11.6-17.2); WHITE BLOOD COUNT 9.2 TH/MM3 (4.0-11.0)
--- NOTE | 2017-02-28 17:10 | RADRPT ---
EXAM DATE/TIME: 02/28/2017 16:44 [facility] COMPARISON: CHEST SINGLE AP, February 18, 2017, 23:35. INDICATIONS : Shortness of breath. MEDICAL HISTORY : Congestive heart failure. Hypertension Gastroesophageal reflux disease. SURGICAL HISTORY : Hysterectomy. ENCOUNTER: Initial ACUITY: 2 days PAIN SCORE: 0/10 LOCATION: Bilateral chest FINDINGS: A single view of the chest demonstrates the lungs to be symmetrically aerated without evidence of mas s, infiltrate or effusion. The cardiomediastinal contours are unremarkable. Osseous structures are intact. CONCLUSION: No acute disease. Marquis Shields MD FACR on February 28, 2017 at 17:08 Board Certified Radiologist. This report was verified electronically.
[2017-02-28 17:16] LABS: HEMO FLAGS DIFF FINAL
[2017-02-28 17:18] LABS: HEMATOCRIT 17.4 % (35.0-46.0)
[2017-02-28 17:23] LABS: APTT (PATIENT) 22.6 SEC (24.3-30.1); INTERNATIONAL NORMALIZED RATIO 0.9 RATIO; PROTHROMBIN TIME - PATIENT 10.3 SEC (9.8-11.6)
[2017-02-28 17:24] LABS: MAGNESIUM 2.2 MG/DL (1.5-2.5); POTASSIUM 4.2 MEQ/L (3.5-5.1)
[2017-02-28] MEDS ORDERED: SODIUM CHLOR 0.9% 250 ML INJ 250 ML IV ONE (17:30)
[2017-02-28] MEDS ORDERED: NALOXONE HCL 0.4 MG/ML AMP IV PRN (17:45)
[2017-02-28] MEDS ORDERED: MAGNESIUM HYDROXIDE SUSP 30 ML CUP PO PRN (17:45)
[2017-02-28] MEDS ORDERED: ONDANSETRON HCL 4 MG/2 ML VIAL IVP PRN (17:45)
[2017-02-28] MEDS ORDERED: SODIUM CHLORIDE 0.9% FLUSH 10 ML FLUSH IV FLUSH PRN (17:45)
[2017-02-28] MEDS ORDERED: TEMAZEPAM 15 MG CAP PO PRN (17:45)
--- NOTE | 2017-02-28 18:06 | HHI.HP ---
HPI Service [facility] Primary Care Physician Dr. Morales Admission Diagnosis severe anemia, generalized weakness Chief Complaint: SOB, weakness Travel History International Travel<30 Days: No Contact w/Intl Traveler <30 Da: No Traveled to Known Affected Are: No History of Present Illness Mrs. Buchanan is a pleasant 86 y/o WF with iron deficiency anemia/GIB/SB angioectasia, severe aortic stenosis, hx of CHF, HTN, and hyperlipidemia. She has had multiple recent admissions. Her last admission was from 02/18-02/21 for SOB and felt to have acute CHF symptoms related to severe AVS. She had an echocardiogram (02/19/17) which noted severe aortic valve stenosis and she was initially decompensated. Pt was diuresed with improvement. She was evaluated with a LHC and consideration for AVR and this was performed on 02/21 and showed critical but nonobstructive CAD. She was seen by CTS who did the initial evaluation for TAVR vs traditional AVR. It was decided to send the pt home on MEME/diuretic/ASA/Plavix and monitored for bleeding as she has a hx of previous GIB. Pt has had ongoing issues with anemia and possible GIB. She was previously admitted in December 2016 and underwent Small bowel enteroscopy/incomplete colonoscopy (12/02/16) which noted thickened fold in the duodenum, otherwise normal enteroscopy and unfortunately the scope was unable to be passed beyond the sigmoid 25 cm secondary to either twisted colon, spasm or external compression, it was felt to not be safe to push the scope without seeing the lumen because of fear of perforation so endoscopy was terminated. As an outpt she had Capsule endoscopy (02/01/17) which noted multiple angiectasia with active bleeding and pt was sent for antegrade single balloon enteroscopy (02/07/17) but unfortunately there was no active bleeding found and the enteroscopy was found to be normal except for a hiatal hernia. Pts outpt labs had been stable with Hgb ranging between 9-10. Her last labs on 02/24 noted Hgb 9.3. She reports that she developed increased SOB which started yesterday with increased weakness and has required the use of her walker. Pt reports that her stools are always dark as she takes iron supplements. Her labs in the ED noted a drop in her H/H to 5.6 /17.4. She denies any change in her bowel habits, nausea/vomiting, reflux, dysphagia, or BRBPR. Review of Systems Constitutional: DENIES: Fever, Chills Eyes: DENIES: Blurred vision Ears, nose, mouth, throat: DENIES: Hearing loss Respiratory: COMPLAINS OF: Shortness of breath, DENIES: Cough Cardiovascular: COMPLAINS OF: Dyspnea on Exertion, DENIES: Chest pain, Palpitations Gastrointestinal: COMPLAINS OF: Black stools, DENIES: Abdominal pain, Constipation, Diarrhea, Nausea, Reflux, Vomiting Musculoskeletal: DENIES: Back pain, Neck pain Integumentary: DENIES: Rash Neurologic: DENIES: Headache Psychiatric: DENIES: Confusion Past Family Social History Past Medical History Iron deficiency anemia/GIB/SB angiectasia Severe aortic stenosis Barretts esophagus CHF Diverticulosis HTN Hyperlipidemia Lumbar stenosis Macular degeneration Depression/Anxiety Past Surgical History Antegrade single balloon enteroscopy (02/07/17) --> Normal enteroscopy except for a hiatal hernia Capsule endoscopy (02/01/17) --> Multiple angiectasia with active bleeding Small bowel enteroscopy (12/02/16) --> thickened fold in the duodenum Bx done otherwise normal Colonoscopy (12/02/16) --> Scope was unable to be passed beyond the sigmoid 25 cm secondary to either twisted colon, spasm or external compression, it was felt to not be safe to push the scope without seeing the lumen because of fear of perforation so endoscopy was terminated Colonoscopy (03/26/16) --> Severe diverticulosis in the left colon, colitis, hemorrhoids, small polyp EGD/colonoscopy (03/24/16) --> gastritis, HH, esophagitis, diverticulosis, hemorrhoids, polyps, incomplete colonoscopy Colonoscopy (08/13/15) --> Very tortuous, edematous sigmoid colon, possible diverticular colitis, diminutive polyps in the ascending colon, sigmoid diverticulosis, grade I hemorrhoids, decreased sphincter tone. Cataract surgery Knee arthroscopy/arthroplasty KEILA Reported Medications Potassium Chloride Microencaps 20 Meq Tab 20 Meq PO DAILY Furosemide 20 Mg Tab 20 Mg PO DAILY Adult Aspirin EC Low Strength (Aspirin) 81 Mg Tabec 81 Mg PO DAILY 90 Days Lisinopril 5 Mg Tab 2.5 Mg PO DAILY Plavix (Clopidogrel Bisulfate) 75 Mg Tab 75 Mg PO DAILY Zoloft (Sertraline HCl) 50 Mg Tab 150 Mg PO DAILY Pantoprazole (Pantoprazole Sodium) 40 Mg Tab 40 Mg PO DAILY Poly-Iron 150 (Polysaccharide Iron Complex) 150 Mg Iron Cap 150 Mg PO DAILY Atorvastatin (Atorvastatin Calcium) 20 Mg Tab 20 Mg PO HS Ocuvite (Multiple Vitamins W/ Minerals) 1 Tab 1 Tab PO DAILY Cetirizine (Cetirizine HCl) 10 Mg Tab 10 Mg PO DAILY Xanax (Alprazolam) 0.25 Mg Tab 0.25 Mg PO TID PRN Allergies: Coded Allergies: morphine (Unverified Allergy, Intermediate, 02/28/17) Family History Noncontributory Social History Denies any tobacco use Occasionally drinks beer or vodka Pt lives alone, she is a Her children live out of town She has a family friend who looks after her here locally Physical Exam Vital Signs Vital Signs Date Time Temp Pulse Resp B/P (MAP) Pulse Ox O2 Delivery O2 Flow Rate FiO2 02/28/17 16:20 98.4 90 20 119/53 (75) 97 Room Air 02/28/17 16:20 90 20 97 Room Air 02/28/17 16:16 98.4 91 18 119/53 (75) 97 Physical Exam GENERAL: This is a well-nourished, well-developed patient, in no apparent distress. HEENT: Atraumatic. Normocephalic. No temporal or scalp tenderness. Pale conjunctiva. Airway patent. NECK: Trachea midline, supple, nontender. CARDIO: Regular. 4/6 FUNMILAYO RESP: CTA bilaterally. No wheezes, rales, or rhonchi. ABD: +BS, soft, non-tender, nondistended. EXT: Extremities without clubbing, cyanosis, or edema. NEURO: Awake and alert. Motor and sensory grossly within normal limits. Normal speech. Laboratory Laboratory Tests Test 02/28/17 16:37 White Blood Count 9.2 Red Blood Count 2.16 Hemoglobin 5.6 Hematocrit 17.4 Mean Corpuscular Volume 80.5 Mean Corpuscular Hemoglobin 26.0 Mean Corpuscular Hemoglobin Concent 32.3 Red Cell Distribution Width 19.9 Platelet Count 252 Mean Platelet Volume 8.7 Neutrophils (%) (Auto) 82.3 Lymphocytes (%) (Auto) 12.3 Monocytes (%) (Auto) 4.9 Eosinophils (%) (Auto) 0.1 Basophils (%) (Auto) 0.4 Neutrophils # (Auto) 7.6 Lymphocytes # (Auto) 1.1 Monocytes # (Auto) 0.5 Eosinophils # (Auto) 0.0 Basophils # (Auto) 0.0 CBC Comment DIFF FINAL Differential Comment Prothrombin Time 10.3 Prothromb Time International Ratio 0.9 Activated Partial Thromboplast Time 22.6 Blood Urea Nitrogen 45 Creatinine 0.84 Random Glucose 110 Calcium Level 8.1 Magnesium Level 2.2 Sodium Level 136 Potassium Level 4.2 Chloride Level 103 Carbon Dioxide Level 25.0 Anion Gap 8 Estimat Glomerular Filtration Rate 65 Result Diagram: 02/28/17 1637 02/28/17 163 Septic Shock Reassessment Heart: Regular rate and rhythm Lungs: Clear Skin: Warm Caprini VTE Risk Assessment Caprini VTE Risk Assessment: Mod/High Risk (score >= 2) VTE Pharm Contraindication: obscure GIB Caprini Risk Assessment Model Point Value = 1 Point Value = 2 Point Value = 3 Point Value = 5 Age 41-60 Minor surgery BMI > 25 kg/m2 Swollen legs Varicose veins or History of unexplained or recurrent spontaneous Oral contraceptives or hormone replacement Sepsis (< 1 month) Serious lung disease, including pneumonia (< 1 month) Abnormal pulmonary function Acute myocardial infarction Congestive heart failure (< 1 month) History of inflammatory bowel disease Medical patient at bed rest Age 61-74 Arthroscopic surgery Major open surgery (> 45 min) Laparoscopic surgery (> 45 min) Malignancy Confined to bed (> 72 hours) Immobilizing plaster cast Central venous access Age >= 75 History of VTE Family history of VTE Factor V Leiden Prothrombin [id number] Lupus anticoagulant Anticardiolipin antibodies Elevated serum homocysteine Heparin-induced thrombocytopenia Other congenital or acquired thrombophilia Stroke (< 1 month) Elective arthroplasty Hip, pelvis, or leg fracture Acute spinal cord injury (< 1 month) Prophylaxis Regimen Total Risk Factor Score Risk Level Prophylaxis Regimen 0-1 Low Early ambulation 2 Moderate Order ONE of the following: *Sequential Compression Device (SCD) *Heparin 5000 units SQ BID 3-4 Higher Order ONE of the following medications: *Heparin 5000 units SQ TID *Enoxaparin/Lovenox 40 mg SQ daily (WT < 150 kg, CrCl > 30 mL/min) *Enoxaparin/Lovenox 30 mg SQ daily (WT < 150 kg, CrCl > 10-29 mL/min) *Enoxaparin/Lovenox 30 mg SQ BID (WT < 150 kg, CrCl > 30 mL/min) AND/OR *Sequential Compression Device (SCD) 5 or more Highest Order ONE of the following medications: *Heparin 5000 units SQ TID (Preferred with Epidurals) *Enoxaparin/Lovenox 40 mg SQ daily (WT < 150 kg, CrCl > 30 mL/min) *Enoxaparin/Lovenox 30 mg SQ daily (WT < 150 kg, CrCl > 10-29 mL/min) *Enoxaparin/Lovenox 30 mg SQ BID (WT < 150 kg, CrCl > 30 mL/min) AND *Sequential Compression Device (SCD) Assessment and Plan Problem List: (1) Symptomatic anemia ICD Codes: D64.9 - Anemia, unspecified Status: Chronic Plan: - Pt is an 86 y/o WF with iron deficiency anemia/GIB/SB angioectasia, severe aortic stenosis, hx of CHF, HTN, and hyperlipidemia. - Pt has had ongoing issues with anemia and obscure GIB. - She was previously admitted in December 2016 and underwent Small bowel enteroscopy /incomplete colonoscopy (12/02/16) which noted thickened fold in the duodenum, otherwise normal enteroscopy and unfortunately the scope was unable to be passed beyond the sigmoid 25 cm secondary to either twisted colon, spasm or external compression, it was felt to not be safe to push the scope without seeing the lumen because of fear of perforation so endoscopy was terminated. - As an outpt she had Capsule endoscopy (02/01/17) which noted multiple angiectasia with active bleeding and pt was sent for antegrade single balloon enteroscopy (02/07/17) but unfortunately there was no active bleeding found and the enteroscopy was found to be normal except for a hiatal hernia. - Pts outpt labs had been stable with Hgb ranging between 9-10. Her last labs on 02/24 noted Hgb 9.3. - She reports that she developed increased SOB which started yesterday with increased weakness and has required the use of her walker. Pt reports that her stools are always dark as she takes iron supplements. - Her labs in the ED noted a drop in her H/H to 5.6/17.4. - Check iron studies prior to transfusion - Pt to be transfused with 2 units of PRBCs - Monitor H/H - GI consult - Hematology consult requested by family - Monitor closely for any signs of volume overload with transfusion - Hold ASA/Plavix which were started during last admission for severe in anticipation for AV replacement - Supportive care - DVT prophylaxis with SCDs (2) GI bleed ICD Codes: K92.2 - Gastrointestinal hemorrhage, unspecified Status: Resolved Plan: - See above (3) Aortic valve stenosis, severe ICD Codes: I35.0 - Nonrheumatic aortic (valve) stenosis Status: Acute Plan: - Her last admission was from 02/18-02/21 for SOB and felt to have acute CHF symptoms related to severe AVS. - 2D echocardiogram (02/19/17) which noted severe aortic valve stenosis and she was initially decompensated. Pt was diuresed with improvement. - She was evaluated with a LHC and consideration for AVR and this was performed on 02/21 and showed critical but nonobstructive CAD. - She was seen by CTS who did the initial evaluation for TAVR vs traditional AVR. - It was decided to send the pt home on MEME/diuretic/ASA/Plavix and monitored for bleeding as she has a hx of previous GIB. (4) Hypertension ICD Codes: I10 - Essential (primary) hypertension Status: Chronic Plan: - Home meds continued - Monitor (5) Hyperlipidemia ICD Codes: E78.5 - Hyperlipidemia, unspecified Status: Chronic Plan: - Home meds continued (6) CHF (congestive heart failure) ICD Codes: I50.9 - Heart failure, unspecified Status: Acute Assessment and Plan Patient examined. Assessment and plan formulated with Mariel De Luna PA-C. I agree with the above. Physician Certification 2 Midnight Certification Type: Admission for Inpatient Services Order for Inpatient Services The services are ordered in accordance with Medicare regulations or non- Medicare payer requirements, as applicable. In the case of services not specified as inpatient-only, they are appropriately provided as inpatient services in accordance with the 2-midnight benchmark. Estimated LOS (days): 3 3 days is the estimated time the patient will need to remain in the hospital, assuming treatment plan goals are met and no additional complications. Post-Hospital Plan: Not yet determined Problem Qualifiers (1) CHF (congestive heart failure): Mariel De Luna Feb 28, 2017 18:06 Kam Jansen DO Mar 03, 2017 01:36
[2017-02-28 18:27] LABS: BACTERIA, URINE RARE /hpf; BLOOD, URINE SMALL (NEG); COMMENT (UR) CULT NOT INDICATED; CULTURE IF INDICATED CULT NOT INDICATED; GLUCOSE,URINE NEG (NEG); KETONE, URINE NEG (NEG); NITRITE,URINE NEG (NEG); PH, URINE 5.5 (5.0-8.5); SQUAMOUS EPITHELIAL CELL URINE <1 /hpf (0-5); TRANSITIONAL EPI CELLS, URINE 1 /hpf; URINE COLOR YELLOW (YELLW/STRAW)
[2017-02-28] MEDS: PANTOPRAZOLE SODIUM 40 MG VIAL IV PUSH SCH (20:00)
[2017-02-28 20:09] LABS: TRANSFERRIN IRON PROFILE 297 MG/DL (200-360)
[2017-02-28 20:12] LABS: FERRITIN 20 NG/ML (8-252)
[2017-02-28] MEDS: SODIUM CHLORIDE 0.9% FLUSH 10 ML FLUSH IV FLUSH SCH (21:00)
[2017-03-01] VITALS (8 sets, daily range): BP systolic 96–126; BP diastolic 54–71; PULSE 90–93; RESP 17–18; TEMP 95.4–98.1; O2SAT 95–98
[2017-03-01] MEDS: ATORVASTATIN 20 MG TAB PO SCH ×2 (01:27→20:43)
[2017-03-01] MEDS: ALPRAZolam 0.25 MG TAB PO PRN ×3 (01:27→21:40)
[2017-03-01 08:06] LABS: BASOPHIL % 0.5 % (0.0-2.0); EOSINOPHIL # 0.1 TH/MM3 (0-0.4); EOSINOPHIL % 1.5 % (0.0-4.0); HEMATOCRIT 23.1 % (35.0-46.0); HEMO FLAGS DIFF FINAL; LYMPH % 20.4 % (9.0-44.0); LYMPHOCYTE # 1.8 TH/MM3 (1.0-4.8); MEAN CELL VOLUME 83.6 FL (80.0-100.0); MEAN CORPUSCULAR HEMOGLOBIN 28.4 PG (27.0-34.0); MONO % 7.9 % (0.0-8.0); NEUT % 69.7 % (16.0-70.0); PLATELET COUNT 210 TH/MM3 (150-450); RED BLOOD COUNT 2.76 MIL/MM3 (4.00-5.30); RED CELL DISTRIBUTION WIDTH 18.4 % (11.6-17.2); WHITE BLOOD COUNT 8.6 TH/MM3 (4.0-11.0)
[2017-03-01 08:20] LABS: BICARBONATE 23.3 MEQ/L (21.0-32.0); POTASSIUM 3.6 MEQ/L (3.5-5.1)
[2017-03-01] MEDS ORDERED: ASPIRIN EC 81 MG TABEC PO SCH (09:00)
[2017-03-01] MEDS: SODIUM CHLORIDE 0.9% FLUSH 10 ML FLUSH IV FLUSH SCH ×2 (09:00→20:44)
[2017-03-01] MEDS ORDERED: CLOPIDOGREL 75 MG TAB PO SCH (09:00)
[2017-03-01] MEDS: MULTIVITAMIN-OPHTHALMIC 1 TAB PO SCH (09:47)
[2017-03-01] MEDS: SERTRALINE HCL 50 MG TAB PO SCH (09:47)
[2017-03-01] MEDS: POLYSACCHARIDE IRON COMPLEX 150 MG CAP PO SCH (09:48)
[2017-03-01] MEDS: LISINOPRIL 5 MG TAB PO SCH (09:48)
[2017-03-01] MEDS: CETIRIZINE HCL 10 MG TAB PO SCH (09:48)
[2017-03-01] MEDS: FUROSEMIDE 20 MG TAB PO SCH (09:49)
[2017-03-01] MEDS: POTASSIUM CHLORIDE 20 MEQ CONTROLLED RELEASE TAB PO SCH (09:50)
[2017-03-01] MEDS: PANTOPRAZOLE SODIUM 40 MG VIAL IV PUSH SCH ×2 (09:51→20:43)
--- NOTE | 2017-03-01 13:18 | EKG ---
Date Performed: 02/28/2017 Time Performed: 18:22:29 PTAGE: 86 years EKG: Sinus rhythm ST DEVIATION AND MODERATE T-WAVE ABNORMALITY, CONSIDER ANTEROLATERAL ISCHEMIA ABNORMAL ECG PREVIOUS TRACING : 02/19/2017 06.32 Compared to prior tracing no significant change DOCTOR: Vanessa Crump Interpretating Date/Time 03/01/2017 13:16:22
--- NOTE | 2017-03-01 15:18 | HHI.PR ---
Subjective Remarks Pt still feeling quite weak today with ambulation. No active bleeding No abd pain. Objective Vitals Vital Signs Date Time Temp Pulse Resp B/P (MAP) Pulse Ox O2 Delivery O2 Flow Rate FiO2 03/01/17 12:00 97.1 91 17 126/58 (80) 95 03/01/17 08:00 95.4 93 17 126/71 (89) 96 03/01/17 04:00 96.0 90 17 96/54 (68) 96 03/01/17 00:00 97.0 91 17 115/69 (84) 98 02/28/17 21:29 98.4 90 20 131/ 99 02/28/17 21:01 98.4 96 18 134/64 98 02/28/17 20:00 98.5 94 20 122/59 99 02/28/17 19:46 98.5 95 20 117/54 95 02/28/17 19:10 99 Nasal Cannula 2.00 02/28/17 19:10 98.4 102 18 122/67 (85) 99 Room Air 02/28/17 16:20 98.4 90 20 119/53 (75) 97 Room Air 02/28/17 16:20 90 20 97 Room Air 02/28/17 16:16 98.4 91 18 119/53 (75) 97 Result Diagram: 03/01/17 0702 03/01/17 0702 Other Results Laboratory Tests Test 02/28/17 16:37 02/28/17 17:37 03/01/17 07:02 White Blood Count 9.2 TH/MM3 8.6 TH/MM3 Red Blood Count 2.16 MIL/MM3 2.76 MIL/MM3 Hemoglobin 5.6 GM/DL 7.8 GM/DL Hematocrit 17.4 % 23.1 % Mean Corpuscular Volume 80.5 FL 83.6 FL Mean Corpuscular Hemoglobin 26.0 PG 28.4 PG Mean Corpuscular Hemoglobin Concent 32.3 % 34.0 % Red Cell Distribution Width 19.9 % 18.4 % Platelet Count 252 TH/MM3 210 TH/MM3 Mean Platelet Volume 8.7 FL 8.8 FL Neutrophils (%) (Auto) 82.3 % 69.7 % Lymphocytes (%) (Auto) 12.3 % 20.4 % Monocytes (%) (Auto) 4.9 % 7.9 % Eosinophils (%) (Auto) 0.1 % 1.5 % Basophils (%) (Auto) 0.4 % 0.5 % Neutrophils # (Auto) 7.6 TH/MM3 6.0 TH/MM3 Lymphocytes # (Auto) 1.1 TH/MM3 1.8 TH/MM3 Monocytes # (Auto) 0.5 TH/MM3 0.7 TH/MM3 Eosinophils # (Auto) 0.0 TH/MM3 0.1 TH/MM3 Basophils # (Auto) 0.0 TH/MM3 0.0 TH/MM3 CBC Comment DIFF FINAL DIFF FINAL Differential Comment Prothrombin Time 10.3 SEC Prothromb Time International Ratio 0.9 RATIO Activated Partial Thromboplast Time 22.6 SEC Blood Urea Nitrogen 45 MG/DL 48 MG/DL Creatinine 0.84 MG/DL 0.80 MG/DL Random Glucose 110 MG/DL 91 MG/DL Calcium Level 8.1 MG/DL 7.6 MG/DL Magnesium Level 2.2 MG/DL Sodium Level 136 MEQ/L 138 MEQ/L Potassium Level 4.2 MEQ/L 3.6 MEQ/L Chloride Level 103 MEQ/L 105 MEQ/L Carbon Dioxide Level 25.0 MEQ/L 23.3 MEQ/L Anion Gap 8 MEQ/L 10 MEQ/L Estimat Glomerular Filtration Rate 65 ML/MIN 68 ML/MIN Iron Level 35 MCG/DL Total Iron Binding Capacity 416 MCG/DL Percent Iron Saturation 8.4 % Ferritin 20 NG/ML B-Type Natriuretic Peptide 128 PG/ML Urine Color YELLOW Urine Turbidity CLEAR Urine pH 5.5 Urine Specific [place] 1.021 Urine Protein NEG mg/dL Urine Glucose (UA) NEG mg/dL Urine Ketones NEG mg/dL Urine Occult Blood SMALL Urine Nitrite NEG Urine Bilirubin NEG Urine Urobilinogen LESS THAN 2.0 MG/DL Urine Leukocyte Esterase SMALL Urine RBC 1 /hpf Urine WBC 4 /hpf Urine Squamous Epithelial Cells <1 /hpf Urine Transitional Epithelial Cells 1 /hpf Urine Bacteria RARE /hpf Microscopic Urinalysis Comment CULT NOT INDICATED Imaging Last Impressions Chest X-Ray 02/28/17 [id number] Signed Impressions: Service Date/Time: Tuesday, February 28, 2017 16:44 - CONCLUSION: No acute disease. Marquis Shields MD FACR Objective Remarks General: NAD, AAOx3 Chest: CTA Cardiac: Regular Abd: +BS, soft ND/NT Ext: No edema A/P Problem List: (1) Symptomatic anemia ICD Codes: D64.9 - Anemia, unspecified Status: Chronic Plan: - Pt is an 86 y/o WF with iron deficiency anemia/GIB/SB angioectasia, severe aortic stenosis, hx of CHF, HTN, and hyperlipidemia. - Pt has had ongoing issues with anemia and obscure GIB. - She was previously admitted in December 2016 and underwent Small bowel enteroscopy /incomplete colonoscopy (12/02/16) which noted thickened fold in the duodenum, otherwise normal enteroscopy and unfortunately the scope was unable to be passed beyond the sigmoid 25 cm secondary to either twisted colon, spasm or external compression, it was felt to not be safe to push the scope without seeing the lumen because of fear of perforation so endoscopy was terminated. - As an outpt she had Capsule endoscopy (02/01/17) which noted multiple angiectasia with active bleeding and pt was sent for antegrade single balloon enteroscopy (02/07/17) but unfortunately there was no active bleeding found and the enteroscopy was found to be normal except for a hiatal hernia. - Pts outpt labs had been stable with Hgb ranging between 9-10. Her last labs on 02/24 noted Hgb 9.3. - She reports that she developed increased SOB which started yesterday with increased weakness and has required the use of her walker. Pt reports that her stools are always dark as she takes iron supplements. - Her labs in the ED noted a drop in her H/H to 5.6/17.4. - Iron studies prior to transfusion noted Serum Fe 35, TIBC 416, %Sat 8.4, Ferritin 20 - Pt was transfused with 2 units of PRBCs with improvement in her Hgb to 7.8 - Pt to get another 2 units of PRBCs today - Monitor H/H - Await GI consult and Hematology consult - Monitor closely for any signs of volume overload with transfusion - Hold ASA/Plavix which were started during last admission - Supportive care - DVT prophylaxis with SCDs (2) GI bleed ICD Codes: K92.2 - Gastrointestinal hemorrhage, unspecified Status: Resolved Plan: - See above (3) Aortic valve stenosis, severe ICD Codes: I35.0 - Nonrheumatic aortic (valve) stenosis Status: Acute Plan: - Her last admission was from 02/18-02/21 for SOB and felt to have acute CHF symptoms related to severe AVS. Pt was diuresed with improvement. - 2D echocardiogram (02/19/17) which noted severe aortic valve stenosis and she was initially decompensated. - She was evaluated with a C and consideration for AVR and this was performed on 02/21 and showed critical but nonobstructive CAD. - She was seen by CTS who did the initial evaluation for TAVR vs traditional AVR. - It was decided to send the pt home on MEME/diuretic/ASA/Plavix and monitored for bleeding as she has a hx of previous GIB. (4) Hypertension ICD Codes: I10 - Essential (primary) hypertension Status: Chronic Plan: - Home meds continued - Monitor (5) Hyperlipidemia ICD Codes: E78.5 - Hyperlipidemia, unspecified Status: Chronic Plan: - Home meds continued (6) CHF (congestive heart failure) ICD Codes: I50.9 - Heart failure, unspecified Status: Acute Assessment and Plan Patient examined. Assessment and plan formulated with Mariel De Luna PA-C. I agree with the above. Problem Qualifiers (1) CHF (congestive heart failure): Mariel De Luna Mar 01, 2017 15:18 Kam Jansen DO Mar 03, 2017 01:15
--- NOTE | 2017-03-01 16:54 | PD.CONS ---
HPI History of Present Illness This is a 86 year old lady with aortic stenosis, hx SB angioectasia who presented to ER with c/o SOB, weakness, "feeling like my anemia was getting bad again." She was found to have hgb 5.6 on admission. Per her daughter, she has been having black tarry stools for months. She was started on a plavix and ASA combo 1 week ago with subsequent dropping of Hgb from 10 to 9.4 a few days later , and then 2 d ago began feeling tired, SOB. She was so weak she fell yesterday. She was hospitalized in ICU in November for SOB and weakness. She had small bowel enteroscopy 12-02-16 and and incomplete colonoscopy, found thickened fold in duodenmu otherwise normal, limited colonoscopy d/t twisted colon or spasm or external compression. She had capsule endoscopy 02-01-17 found multiple angioectasias with active bleeding and then went to [facility] for balloon enteroscopy but this was not done b/c no active bleeding was seen. No prior hx GIB. (Louise Alan) PFSH Past Medical History severe aortic stenosis CHF HTN YONIS Past Surgical History hysterectomy bilat knee replacement 2 x repair retinal detachment (Louise Alan) Coded Allergies: morphine (Unverified Allergy, Intermediate, 02/28/17) Family History none Social History occasional ETOH no tobacco or illicit drug use (Louise Alan) Review of Systems Constitutional: DENIES: Fever, Weight loss Eyes: DENIES: Blurred vision Ears, nose, mouth, throat: DENIES: Throat pain Respiratory: DENIES: Hemoptysis Gastrointestinal: COMPLAINS OF: Black stools, DENIES: Abdominal pain, Bloody stools, Constipation, Diarrhea, Nausea, Vomiting, Hematemesis Genitourinary: DENIES: Hematuria Musculoskeletal: DENIES: Joint Swelling Immunologic/allergic: DENIES: Eczema Neurologic: DENIES: Headache Psychiatric: DENIES: Confusion (Louise Alan) GI Exam Vitals I&O Vital Signs Date Time Temp Pulse Resp B/P (MAP) Pulse Ox O2 Delivery O2 Flow Rate FiO2 03/01/17 12:00 97.1 91 17 126/58 (80) 95 03/01/17 08:00 95.4 93 17 126/71 (89) 96 03/01/17 04:00 96.0 90 17 96/54 (68) 96 03/01/17 00:00 97.0 91 17 115/69 (84) 98 02/28/17 21:29 98.4 90 20 131/ 99 02/28/17 21:01 98.4 96 18 134/64 98 02/28/17 20:00 98.5 94 20 122/59 99 02/28/17 19:46 98.5 95 20 117/54 95 02/28/17 19:10 99 Nasal Cannula 2.00 02/28/17 19:10 98.4 102 18 122/67 (85) 99 Room Air I/O 02/28/17 02/28/17 02/28/17 03/01/17 03/01/17 03/01/17 06:59 14:59 22:59 06:59 14:59 22:59 Intake Total 520 ml 250 ml Balance 520 ml 250 ml Intake Packed Cells 250 ml 250 ml Blood Product IV Normal Saline Flush 270 ml Imaging Last Impressions Chest X-Ray 02/28/17 1629 Signed Impressions: Service Date/Time: Tuesday, February 28, 2017 16:44 - CONCLUSION: No acute disease. Marquis Shields MD FACR Laboratory Test 02/28/17 17:37 03/01/17 07:02 Urine Color YELLOW Urine Turbidity CLEAR Urine pH 5.5 Urine Specific [place] 1.021 Urine Protein NEG mg/dL Urine Glucose (UA) NEG mg/dL Urine Ketones NEG mg/dL Urine Occult Blood SMALL Urine Nitrite NEG Urine Bilirubin NEG Urine Urobilinogen LESS THAN 2.0 MG/DL Urine Leukocyte Esterase SMALL Urine RBC 1 /hpf Urine WBC 4 /hpf Urine Squamous Epithelial Cells <1 /hpf Urine Transitional Epithelial Cells 1 /hpf Urine Bacteria RARE /hpf Microscopic Urinalysis Comment CULT NOT INDICATED White Blood Count 8.6 TH/MM3 Red Blood Count 2.76 MIL/MM3 Hemoglobin 7.8 GM/DL Hematocrit 23.1 % Mean Corpuscular Volume 83.6 FL Mean Corpuscular Hemoglobin 28.4 PG Mean Corpuscular Hemoglobin Concent 34.0 % Red Cell Distribution Width 18.4 % Platelet Count 210 TH/MM3 Mean Platelet Volume 8.8 FL Neutrophils (%) (Auto) 69.7 % Lymphocytes (%) (Auto) 20.4 % Monocytes (%) (Auto) 7.9 % Eosinophils (%) (Auto) 1.5 % Basophils (%) (Auto) 0.5 % Neutrophils # (Auto) 6.0 TH/MM3 Lymphocytes # (Auto) 1.8 TH/MM3 Monocytes # (Auto) 0.7 TH/MM3 Eosinophils # (Auto) 0.1 TH/MM3 Basophils # (Auto) 0.0 TH/MM3 CBC Comment DIFF FINAL Differential Comment Blood Urea Nitrogen 48 MG/DL Creatinine 0.80 MG/DL Random Glucose 91 MG/DL Calcium Level 7.6 MG/DL Sodium Level 138 MEQ/L Potassium Level 3.6 MEQ/L Chloride Level 105 MEQ/L Carbon Dioxide Level 23.3 MEQ/L Anion Gap 10 MEQ/L Estimat Glomerular Filtration Rate 68 ML/MIN Physical Examination HEENT: PERRL; normocephalic; atraumatic; no jaundice. CHEST: CTA CARDIAC: RRR ABDOMEN: Soft, nondistended, nontender; no hepatosplenomegaly; bowel sounds are present in all four quadrants. EXTREMITIES: No clubbing, cyanosis, or edema. SKIN: PALE; no rash; no jaundice. 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 (Louise Alan) Assessment and Plan Plan ASSESSMENT - anemia - 5.6 on admission. Was 10 a week ago when started on plavix and ASA. low iron. 6 SB enteroscopy/colonoscopy --> thickened fold duodenum, limtied d/t twisted colon or spasm or ext compression. 02-01-17 capsule endoscopy foudn multiple angioectasias and active bleeding but subsequent balloon enteroscopy not done b/ c no active bleed found. She is s/p 2x PRBC and Hgb up to 7.8. - black tarry stool - for last 2-3 months. endoscopy as above. denies NSAID use. has been on plavix and ASA PLAN - monitor HH - transfuse as needed - consider balloon enteroscopy - await hematology consult - supportive care This pt seen by myself and Dr Deluca and this note is written on his behalf (Louise Alan) Physician Comments As above, the patient is known to our service, limited options now, embolization for active significant bleeding vs double balloon endoscopy for chronic intermittent bleeding, will consider transfer to a center with double balloon facility. Will follow up with you for now, transfuse as needed, follow up clinically. (Teo Deluca MD) Louise Alan Mar 01, 2017 16:54 Teo Deluca MD Mar 01, 2017 20:36
[2017-03-02] VITALS (7 sets, daily range): BP systolic 90–116; BP diastolic 50–86; PULSE 85–94; RESP 17–18; TEMP 95.1–98.3; O2SAT 94–100
--- NOTE | 2017-03-02 06:54 | MB ---
cc: BO REYNOLDS DATE OF CONSULTATION 02/20/2017 DATE OF 1930 REASON FOR CONSULTATION Patient with acute anemia. HISTORY OF PRESENT ILLNESS Ms. Buchanan is a pleasant 86-year-old female who has a history of severe aortic stenosis, Garcia's esophagus, CHF, diverticulitis, hypertension, hyperlipidemia, lumbar stenosis, macular degeneration, history of iron deficiency and GI bleed who presents to the emergency department after she became short of breath. She was found to have acute CHF related to aortic stenosis. She had an echocardiogram in 02/19/2017 which revealed severe aortic valve stenosis. The patient has undergone left heart cath which confirmed critical . The patient has been evaluated by Cardiothoracic Surgery. She was then discharged from the hospital but then she presented again to the emergency room with severe shortness of breath. In the emergency department she was found to have a very low hemoglobin of 5.6. There was microcytosis. The patient has been given packed red blood cell transfusion. She has had GI evaluation in December of 2016; she had a small bowel enteroscopy and also incomplete colonoscopy. She was noted to have thickened duodenum. The scope was unable to pass beyond the sigmoid colon due twisted colon, spasm or external compression. She also underwent a capsule endoscopy which showed multiple angioectasias with active bleeding. She had an antegrade single balloon enteroscopy which did not show any active bleeding. Hematology has been consulted to make further recommendations pertaining to her anemia. REVIEW OF SYSTEMS A comprehensive 14-point review of systems was completed which is positive for severe dyspnea, lightheadedness, heart palpitations, black stools, dyspnea on exertion. PAST MEDICAL HISTORY 1. Iron deficiency anemia. 2. GI bleeding. 3. Angioectasias in the small bowel. 4. Severe aortic stenosis. 5. Garcia's esophagus. 6. CHF. 7. Diverticulosis. 8. Hypertension. 9. Hyperlipidemia. 10. Lumbar stenosis. 11. Macular degeneration. 12. Depression, anxiety. PAST SURGICAL HISTORY 1. Antegrade sigmoid balloon enteroscopy. 2. Cardiac cath. 3. Capsule endoscopy. 4. Small bowel endoscopy. 5. Colonoscopy. 6. Cataract surgery. 7. Knee arthroscopic/arthroplasty. 8. KEILA. MEDICATIONS 1. Zyrtec 10 mg p.o. daily. 2. Lasix 20 mg p.o. daily. 3. Lisinopril 2.5 mg p.o. daily. 4. Sertraline 150 p.o. daily. 5. Atorvastatin 20 mg p.o. q.h.s. 6. Pantoprazole 40 mg q.12 hours IV. 7. Tylenol 650 mg p.o. q.4 hours p.r.n. 8. Zofran 4 mg IV q.6 hours p.r.n. 9. Restoril 15 mg p.o. q.h.s. p.r.n. 10. Naloxone 0.4 mg IV p.r.n. 11. Milk of magnesia 30 cc p.o. q.12 hours p.r.n. 12. Xanax 0.25 mg p.o. t.i.d. p.r.n. ALLERGIES SHE IS ALLERGIC TO MORPHINE. FAMILY HISTORY Reviewed and it is noncontributory to this admission. SOCIAL HISTORY Does not have a history of tobacco abuse. Occasionally drinks alcohol. She is . PHYSICAL EXAMINATION VITAL SIGNS: Blood pressure is 109/56, pulse is a 90, temperature is 97.8, O2 sats are 97% on room air. GENERAL: Pale-appearing, weak elderly female in no apparent distress. HEENT: Pupils are equal, round, reactive to light. Conjunctivae pale. No oral lesions. No oral thrush. NECK: Supple. No JVD, no bruits, no lymphadenopathy. CHEST: Clear to auscultation bilaterally. CARDIAC: S1-S2, tachycardiac. ABDOMEN: Soft, nontender, nondistended. Bowel sounds are present. EXTREMITIES: Without any edema, erythema or cyanosis. SKIN: Without any petechiae, lesion or bruises. NEURO: No focal deficits. PSYCHIATRIC: Mood and affect is appropriate. LYMPH NODE EXAM: No cervical, epitrochlear, axillary, inguinal or supraclavicular lymphadenopathy on exam. LABORATORY DATA WBC is 8.6, hemoglobin is 7.8, MCV is 83.6, platelet count is 210. Serum chemistries show a sodium of 138, potassium 3.6, chloride 105, CO2 23.3, anion gap 10, BUN 48, creatinine 0.8, GFR 68, calcium is 7.6. Iron is 35, TIBC is 416, % saturation is 8.4, ferritin is 20. BNP is 128. IMAGING STUDIES Chest x-ray Was reviewed and does not show any acute cardiopulmonary disease. ASSESSMENT AND PLAN This is an 86-year-old female who has a past medical history of severe aortic stenosis, hypertension, hyperlipidemia, iron deficiency anemia, history of GI bleed who presents to the emergency department with acute dyspnea and was found to have severe anemia. 1. Severe anemia which appears to be secondary to iron deficiency with a history of GI bleeding. She has been transfused 3 units of packed red blood cells. I have reviewed her iron studies. Her iron levels are low. She had microcytosis. She has symptomatic anemia. I agree with blood transfusions. She will benefit from an iron infusion. We will check LDH and haptoglobin. Check B12 and Folate levels. We have also checked bilirubin fractions. She has severe aortic stenosis which can cause hemolysis and can contribute to anemia. 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 Severe aortic stenosis. Evaluation per Cardiothoracic Surgery. Thank you for allowing me to participate in the care of this patient. I will continue to follow this patient along. MD CESILIA Flynn/CASE /1:18 AM /6:21 AM TREMAYNE
--- NOTE | 2017-03-02 07:31 | RADRPT ---
EXAM DATE/TIME: 03/02/2017 06:22 [facility] COMPARISON: No previous studies available for comparison. INDICATIONS : Short of breath. MEDICAL HISTORY : Congestive heart failure. Hypertension Gastroesophageal reflux disease. SURGICAL HISTORY : Hysterectomy. ENCOUNTER: Subsequent ACUITY: 2 weeks PAIN SCORE: Non-responsive. LOCATION: Bilateral chest FINDINGS: Cardiomegaly. Aortic calcification. Clear lungs. Osseous structures are intact. CONCLUSION: No acute disease. Michael Tate MD on March 02, 2017 at 7:14 Board Certified Radiologist. This report was verified electronically.
[2017-03-02 07:52] LABS: AUTOMATED NEUTROPHIL # 7.1 TH/MM3 (1.8-7.7); BASOPHIL % 0.4 % (0.0-2.0); EOSINOPHIL # 0.2 TH/MM3 (0-0.4); EOSINOPHIL % 1.8 % (0.0-4.0); HEMATOCRIT 25.4 % (35.0-46.0); LYMPH % 16.6 % (9.0-44.0); LYMPHOCYTE # 1.6 TH/MM3 (1.0-4.8); MAGNESIUM 2.2 MG/DL (1.5-2.5); MEAN CELL VOLUME 80.3 FL (80.0-100.0); MEAN CORPUSCULAR HEMOGLOBIN 27.7 PG (27.0-34.0); MEAN CORPUSCULAR HGB CONC 34.5 % (32.0-36.0); MONO % 7.7 % (0.0-8.0); NEUT % 73.5 % (16.0-70.0); PLATELET COUNT 170 TH/MM3 (150-450); POTASSIUM 3.4 MEQ/L (3.5-5.1); RED BLOOD COUNT 3.16 MIL/MM3 (4.00-5.30); RED CELL DISTRIBUTION WIDTH 23.6 % (11.6-17.2); WHITE BLOOD COUNT 9.7 TH/MM3 (4.0-11.0)
[2017-03-02 07:53] LABS: INDIRECT BILIRUBIN 0.9 MG/DL (0.0-0.8); TOTAL BILIRUBIN ADULT 1.2 MG/DL (0.2-1.0)
[2017-03-02 07:59] LABS: HEMO FLAGS AUTO DIFF
--- NOTE | 2017-03-02 08:53 | HHI.PR ---
Subjective Remarks anxious. no bleeding Objective Vitals heart reg/efe lung cta abd s/nt ext no edema Vital Signs Date Time Temp Pulse Resp B/P (MAP) Pulse Ox O2 Delivery O2 Flow Rate FiO2 03/02/17 04:15 97.0 93 17 116/86 100 03/02/17 01:20 98.3 88 18 98/51 97 03/02/17 01:20 98.3 88 18 98/51 (67) 97 03/02/17 00:35 97.6 92 18 106/64 (78) 99 03/02/17 00:35 97.6 92 18 106/64 (78) 99 03/01/17 22:33 97 03/01/17 20:50 98.0 91 18 100/55 96 03/01/17 20:50 98.1 91 18 100/55 (70) 96 03/01/17 20:05 97.8 93 17 109/56 (73) 97 03/01/17 20:05 97.8 93 17 109/56 (73) 97 03/01/17 16:00 97.4 90 17 107/54 (71) 97 03/01/17 12:00 97.1 91 17 126/58 (80) 95 03/02/17 03/02/17 03/03/17 15:00 23:00 07:00 Intake Total 240 ml Balance 240 ml Intake Oral 240 ml # Voids 4 # Bowel Movements 0 Result Diagram: 03/02/17 0715 03/02/17 0715 Imaging Last Impressions Chest X-Ray 02/28/17 1629 Signed Impressions: Service Date/Time: Tuesday, February 28, 2017 16:44 - CONCLUSION: No acute disease. Marquis Shields MD FACR A/P Problem List: (1) Symptomatic anemia ICD Codes: D64.9 - Anemia, unspecified Status: Chronic Plan: - Pt is an 86 y/o WF with iron deficiency anemia/GIB/SB angioectasia, severe aortic stenosis, hx of CHF, HTN, and hyperlipidemia. - Pt has had ongoing issues with anemia and obscure GIB. - She was previously admitted in December 2016 and underwent Small bowel enteroscopy /incomplete colonoscopy (12/02/16) which noted thickened fold in the duodenum, otherwise normal enteroscopy and unfortunately the scope was unable to be passed beyond the sigmoid 25 cm secondary to either twisted colon, spasm or external compression, it was felt to not be safe to push the scope without seeing the lumen because of fear of perforation so endoscopy was terminated. - As an outpt she had Capsule endoscopy (02/01/17) which noted multiple angiectasia with active bleeding and pt was sent for antegrade single balloon enteroscopy (02/07/17) but unfortunately there was no active bleeding found and the enteroscopy was found to be normal except for a hiatal hernia. - Pts outpt labs had been stable with Hgb ranging between 9-10. Her last labs on 02/24 noted Hgb 9.3. - She reports that she developed increased SOB with increased weakness and has required the use of her walker. Pt reports that her stools are always dark as she takes iron supplements. - Her labs in the ED noted a drop in her H/H to 5.6/17.4. - Iron studies prior to transfusion noted Serum Fe 35, TIBC 416, %Sat 8.4, Ferritin 20 - Pt was transfused with 4 units of PRBCs with improvement - Monitor closely for any signs of volume overload with transfusion - Hold ASA/Plavix which were started during last admission for trial before TAVR - Supportive care - DVT prophylaxis with SCDs GI and Hematology following. 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 (2) GI bleed ICD Codes: K92.2 - Gastrointestinal hemorrhage, unspecified Status: Resolved Plan: - See above (3) Aortic valve stenosis, severe ICD Codes: I35.0 - Nonrheumatic aortic (valve) stenosis Status: Acute Plan: - Her last admission was from 02/18-02/21 for SOB and felt to have acute CHF symptoms related to severe AVS. Pt was diuresed with improvement. - 2D echocardiogram (02/19/17) which noted severe aortic valve stenosis and she was initially decompensated. - She was evaluated with a LHC and consideration for AVR and this was performed on 02/21 and showed critical but nonobstructive CAD. - She was seen by CTS who did the initial evaluation for TAVR vs traditional AVR. - It was decided to send the pt home on MEME/diuretic/ASA/Plavix and monitored for bleeding as she has a hx of previous GIB. (4) Hypertension ICD Codes: I10 - Essential (primary) hypertension Status: Chronic Plan: - Home meds continued - Monitor (5) Hyperlipidemia ICD Codes: E78.5 - Hyperlipidemia, unspecified Status: Chronic Plan: - Home meds continued (6) CHF (congestive heart failure) ICD Codes: I50.9 - Heart failure, unspecified Status: Acute Problem Qualifiers (1) CHF (congestive heart failure): Selvin Juarez MD Mar 02, 2017 08:53
[2017-03-02] MEDS: CETIRIZINE HCL 10 MG TAB PO SCH (09:00)
[2017-03-02] MEDS: FUROSEMIDE 20 MG TAB PO SCH (09:00)
[2017-03-02] MEDS: SERTRALINE HCL 50 MG TAB PO SCH (09:00)
[2017-03-02] MEDS: LISINOPRIL 5 MG TAB PO SCH (09:01)
[2017-03-02] MEDS: POTASSIUM CHLORIDE 20 MEQ CONTROLLED RELEASE TAB PO SCH (09:01)
[2017-03-02] MEDS: MULTIVITAMIN-OPHTHALMIC 1 TAB PO SCH (09:01)
[2017-03-02] MEDS: POLYSACCHARIDE IRON COMPLEX 150 MG CAP PO SCH (09:01)
[2017-03-02] MEDS: ALPRAZolam 0.25 MG TAB PO PRN ×2 (09:01→17:22)
[2017-03-02] MEDS: ACETAMINOPHEN 325 MG TAB PO PRN (09:06)
[2017-03-02] MEDS: PANTOPRAZOLE SODIUM 40 MG VIAL IV PUSH SCH ×2 (09:08→20:38)
[2017-03-02] MEDS: SODIUM CHLORIDE 0.9% FLUSH 10 ML FLUSH IV FLUSH SCH ×2 (09:08→20:38)
[2017-03-02 09:18] LABS: ACANTHOCYTES OCC (NORMAL)
[2017-03-02 09:19] LABS: OVALOCYTES 1+ (NORMAL); PLATELET ESTIMATE SMEAR NORMAL (NORMAL); PLATELET MORPHOLOGY ENLARGED (NORMAL); SCAN/DIFF AUTO DIFF CONFIRMED
[2017-03-02] MEDS ORDERED: POTASSIUM CHLORIDE 20 MEQ CONTROLLED RELEASE TAB PO ONE (09:30)
[2017-03-02] MEDS ORDERED: PNEUMOCOCCAL POLYVALENT INJ 25 MCG/0.5 ML SYR IM ONE (10:00)
--- NOTE | 2017-03-02 16:58 | HHI.GIFU ---
Subjective Remarks Pt resting in bed, daughter at bedside. Awaiting iron transfusion. Still with black stool. (Louise Alan) Objective Vitals I&O Vital Signs Date Time Temp Pulse Resp B/P (MAP) Pulse Ox O2 Delivery O2 Flow Rate FiO2 03/02/17 12:00 97.9 85 17 101/53 (69) 98 03/02/17 08:00 95.1 94 17 97/56 (70) 99 03/02/17 04:15 97.0 93 17 116/86 100 03/02/17 01:20 98.3 88 18 98/51 97 03/02/17 01:20 98.3 88 18 98/51 (67) 97 03/02/17 00:35 97.6 92 18 106/64 (78) 99 03/02/17 00:35 97.6 92 18 106/64 (78) 99 03/01/17 22:33 97 03/01/17 20:50 98.0 91 18 100/55 96 03/01/17 20:50 98.1 91 18 100/55 (70) 96 03/01/17 20:05 97.8 93 17 109/56 (73) 97 03/01/17 20:05 97.8 93 17 109/56 (73) 97 I/O 03/01/17 03/01/17 03/01/17 03/02/17 03/02/17 03/02/17 07:00 15:00 23:00 07:00 15:00 23:00 Intake Total 250 ml 250 ml 520 ml 840 ml Balance 250 ml 250 ml 520 ml 840 ml Intake Oral 240 ml 840 ml Packed Cells 250 ml 500 ml Blood Product IV Normal Saline Flush 10 ml 20 ml # Voids 2 6 # Bowel Movements 0 2 Laboratory Laboratory Tests Test 03/02/17 07:15 White Blood Count 9.7 Red Blood Count 3.16 Hemoglobin 8.8 Hematocrit 25.4 Mean Corpuscular Volume 80.3 Mean Corpuscular Hemoglobin 27.7 Mean Corpuscular Hemoglobin Concent 34.5 Red Cell Distribution Width 23.6 Platelet Count 170 Mean Platelet Volume 8.6 Neutrophils (%) (Auto) 73.5 Lymphocytes (%) (Auto) 16.6 Monocytes (%) (Auto) 7.7 Eosinophils (%) (Auto) 1.8 Basophils (%) (Auto) 0.4 Neutrophils # (Auto) 7.1 Lymphocytes # (Auto) 1.6 Monocytes # (Auto) 0.8 Eosinophils # (Auto) 0.2 Basophils # (Auto) 0.0 CBC Comment AUTO DIFF Differential Comment AUTO DIFF CONFIRMED Platelet Estimate NORMAL Platelet Morphology Comment ENLARGED Polychromasia 2.0 Ovalocytes 1+ Acanthocytes OCC Haptoglobin 128 Blood Urea Nitrogen 41 Creatinine 0.70 Random Glucose 97 Calcium Level 7.6 Magnesium Level 2.2 Lactate Dehydrogenase 155 Total Bilirubin 1.2 Direct Bilirubin 0.3 Sodium Level 140 Potassium Level 3.4 Chloride Level 108 Carbon Dioxide Level 23.0 Anion Gap 9 Estimat Glomerular Filtration Rate 80 Indirect Bilirubin 0.9 Imaging Last Impressions Chest X-Ray 03/02/17 0600 Signed Impressions: Service Date/Time: Tuesday, March 02, 2017 06:22 - CONCLUSION: No acute disease. Michael Tate MD Physical Exam HEENT: PERRL; normocephalic; atraumatic; no jaundice. CHEST: CTA CARDIAC: RRR +murmur ABDOMEN: Soft, nondistended, nontender; no hepatosplenomegaly; bowel sounds are present in all four quadrants. EXTREMITIES: No clubbing, cyanosis, or edema. SKIN: Normal; no rash; no jaundice. 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 (Louise Alan [facility]) Assessment and Plan Plan ASSESSMENT - anemia - 5.6 on admission. Was 10 a week ago when started on plavix and ASA. low iron. 12-02-16 SB enteroscopy/colonoscopy --> thickened fold duodenum, limtied d/t twisted colon or spasm or ext compression. 02-01-17 capsule endoscopy foudn multiple angioectasias and active bleeding but subsequent balloon enteroscopy not done b/ c no active bleed found. She is s/p 4 x PRBC and hgb 8.8. hematology now following, iron transfusion pending - black tarry stool - for last 2-3 months. endoscopy as above. denies NSAID use. has been on plavix and ASA PLAN - monitor HH - transfuse as needed - consider double balloon enteroscopy at other facility, can be arranged as outpt - await iron transfusions - embolization for active significant bleeding - supportive care This pt seen by myself and Dr Deluca and this note is written on his behalf (Louise Alan) Physician Comments Plan as above, will follow up with you. (Teo Deluca MD) Louise Alan Mar 02, 2017 16:58 Teo Deluca MD Mar 02, 2017 22:51
--- NOTE | 2017-03-02 18:26 | PD.ONC.PN ---
Subjective Subjective Remarks Pt anxious to find out where she's bleeding from "How are we going to fix it?" Denies dizziness or SOB. Objective Data Date Time Temp Pulse Resp B/P (MAP) Pulse Ox O2 Delivery O2 Flow Rate FiO2 03/02/17 16:00 97.6 88 17 90/51 (64) 94 03/02/17 12:00 97.9 85 17 101/53 (69) 98 03/02/17 08:00 95.1 94 17 97/56 (70) 99 03/02/17 04:15 97.0 93 17 116/86 100 03/02/17 01:20 98.3 88 18 98/51 97 03/02/17 01:20 98.3 88 18 98/51 (67) 97 03/02/17 00:35 97.6 92 18 106/64 (78) 99 03/02/17 00:35 97.6 92 18 106/64 (78) 99 03/01/17 22:33 97 03/01/17 20:50 98.0 91 18 100/55 96 03/01/17 20:50 98.1 91 18 100/55 (70) 96 03/01/17 20:05 97.8 93 17 109/56 (73) 97 03/01/17 20:05 97.8 93 17 109/56 (73) 97 03/02/17 03/02/17 03/02/17 07:00 15:00 23:00 Intake Total 520 ml 840 ml Balance 520 ml 840 ml Result Diagram: 03/02/1715 03/02/17 0715 Laboratory Results Laboratory Tests Test 03/02/17 07:15 White Blood Count 9.7 TH/MM3 Red Blood Count 3.16 MIL/MM3 Hemoglobin 8.8 GM/DL Hematocrit 25.4 % Mean Corpuscular Volume 80.3 FL Mean Corpuscular Hemoglobin 27.7 PG Mean Corpuscular Hemoglobin Concent 34.5 % Red Cell Distribution Width 23.6 % Platelet Count 170 TH/MM3 Mean Platelet Volume 8.6 FL Neutrophils (%) (Auto) 73.5 % Lymphocytes (%) (Auto) 16.6 % Monocytes (%) (Auto) 7.7 % Eosinophils (%) (Auto) 1.8 % Basophils (%) (Auto) 0.4 % Neutrophils # (Auto) 7.1 TH/MM3 Lymphocytes # (Auto) 1.6 TH/MM3 Monocytes # (Auto) 0.8 TH/MM3 Eosinophils # (Auto) 0.2 TH/MM3 Basophils # (Auto) 0.0 TH/MM3 CBC Comment AUTO DIFF Differential Comment AUTO DIFF CONFIRMED Platelet Estimate NORMAL Platelet Morphology Comment ENLARGED Polychromasia 2.0 % Ovalocytes 1+ Acanthocytes OCC Haptoglobin 128 MG/DL Blood Urea Nitrogen 41 MG/DL Creatinine 0.70 MG/DL Random Glucose 97 MG/DL Calcium Level 7.6 MG/DL Magnesium Level 2.2 MG/DL Lactate Dehydrogenase 155 U/L Total Bilirubin 1.2 MG/DL Direct Bilirubin 0.3 MG/DL Sodium Level 140 MEQ/L Potassium Level 3.4 MEQ/L Chloride Level 108 MEQ/L Carbon Dioxide Level 23.0 MEQ/L Anion Gap 9 MEQ/L Estimat Glomerular Filtration Rate 80 ML/MIN Indirect Bilirubin 0.9 MG/DL Vitamin B12 Level 543 PG/ML Folate GREATER THAN 20.0 NG/ML Imaging Studies Last 24 hours Impressions Chest X-Ray 03/02/17 0600 Signed Impressions: Service Date/Time: Thursday, March 02, 2017 06:22 - CONCLUSION: No acute disease. Michael Tate MD Administered Medications Medications (Trade) Dose Ordered Sig/Brian Route PRN Reason Start Time Stop Time Status Last Admin Dose Admin Sodium Chloride (NS Flush) 2 ml BID IV FLUSH 02/28/17 21:00 03/02/17 09:08 Acetaminophen (Tylenol) 650 mg Q4H PRN PO TEMP > 100.4 02/28/17 17:45 03/02/17 09:06 Alprazolam (Xanax) 0.25 mg TID PRN PO ANXIETY 02/28/17 17:45 03/02/17 17:22 Atorvastatin Calcium (Lipitor) 20 mg HS PO 02/28/17 21:00 03/01/17 20:43 Cetirizine HCl (ZyrTEC) 10 mg DAILY PO 03/01/17 09:00 03/02/17 09:00 Furosemide (Lasix) 20 mg DAILY PO 03/01/17 09:00 03/02/17 09:00 Lisinopril (Prinivil) 2.5 mg DAILY PO 03/01/17 09:00 03/02/17 09:01 Vit C/Vit E/Zinc/ Copper/Lutein (Ocuvite) 1 tab DAILY PO 03/01/17 09:00 03/02/17 09:01 Polysaccharide Iron Complex (Nu-Iron) 150 mg DAILY PO 03/01/17 09:00 03/02/17 09:01 Potassium Chloride (KCl) 20 meq DAILY PO 03/01/17 09:00 03/02/17 09:01 Sertraline HCl (Zoloft) 150 mg DAILY PO 03/01/17 09:00 03/02/17 09:00 Pantoprazole Sodium (Protonix Inj) 40 mg Q12H IV PUSH 02/28/17 20:00 03/02/17 09:08 Objective Remarks GENERAL: Pale appearing elderly female resting in bed in no acute distress. SKIN: Warm and dry. HEAD: Normocephalic. EYES: No scleral icterus. No injection or drainage. NECK: Supple, trachea midline. No JVD or lymphadenopathy. CARDIOVASCULAR: Regular rate and rhythm without murmurs. RESPIRATORY: Breath sounds equal bilaterally. No accessory muscle use. GASTROINTESTINAL: Abdomen soft, non-tender, nondistended. EXTREMITIES: No cyanosis, or edema. NEUROLOGICAL: No obvious focal deficit. Awake, alert, and oriented x3. Assessment/Plan Problem List: (1) Anemia ICD Codes: D64.9 - Anemia, unspecified Status: Acute Plan: -- Iron deficiency likely due to GI bleed -- Microcytosis noted -- Will transfuse iron sucrose x 3 days (2) GI bleed ICD Codes: K92.2 - Gastrointestinal hemorrhage, unspecified Status: Resolved Plan: -- GI evaluation in December 2016; she was found to have thickened duodenum. -- Capsule endoscopy showed multiple angiectasia with active bleeding -- After that she had antegrade single enteroscopy that did not show any active bleeding -- GI following (3) Aortic valve stenosis, severe ICD Codes: I35.0 - Nonrheumatic aortic (valve) stenosis Status: Acute Plan: -- Echocardiogram on 02/19/17 showed severe aortic valve stenosis -- The patient has been evaluated by cardiothoracic surgery Assessment 86 y/o female with history of Garcia's esophagus and aortic stenosis presents to the ER with dark stools and SOB and found to have a hgb of 5.6. Plan 1. Check B12, folate. 2. Evidence of iron deficiency; likely secondary to GI bleed. 3. Will iron sucrose x 3 doses. 4. Monitor CBC; transfuse PRBC's as needed to keep hgb greater than 8.0 or for any symptoms of severe anemia. Attending Statement The exam, history, and the medical decision-making described in the above note were completed with the assistance of the mid-level provider. I reviewed and agree with the findings presented. I attest that I had a [id number] encounter with the patient on the same day, and personally performed and documented my assessment and findings in the medical record Anemia of iron deficiency Will give iron sucrose check b12/folate d/w rn o/n events reviewed Cherelle Fernandez Mar 02, 2017 18:26 Darrin Russo MD Mar 02, 2017 22:53
[2017-03-02] MEDS: ATORVASTATIN 20 MG TAB PO SCH (20:36)
[2017-03-02] MEDS: IRON SUCROSE INJ 200 MG in SODIUM CHLORIDE 0.9% INJ 100 ML IV SCH (20:36)
[2017-03-03] VITALS (8 sets, daily range): BP systolic 90–116; BP diastolic 48–60; PULSE 72–92; RESP 16–18; TEMP 96.8–98.8; O2SAT 95–97
[2017-03-03] MEDS: ALPRAZolam 0.25 MG TAB PO PRN ×3 (02:05→20:55)
[2017-03-03] MEDS: LISINOPRIL 5 MG TAB PO SCH (09:00)
[2017-03-03] MEDS: FUROSEMIDE 20 MG TAB PO SCH (09:00)
[2017-03-03] MEDS: SERTRALINE HCL 50 MG TAB PO SCH (09:18)
[2017-03-03] MEDS: MULTIVITAMIN-OPHTHALMIC 1 TAB PO SCH (09:18)
[2017-03-03] MEDS: CETIRIZINE HCL 10 MG TAB PO SCH (09:19)
[2017-03-03] MEDS: POTASSIUM CHLORIDE 20 MEQ CONTROLLED RELEASE TAB PO SCH (09:19)
[2017-03-03] MEDS: IRON SUCROSE INJ 200 MG in SODIUM CHLORIDE 0.9% INJ 100 ML IV SCH (09:19)
[2017-03-03] MEDS: POLYSACCHARIDE IRON COMPLEX 150 MG CAP PO SCH (09:19)
[2017-03-03] MEDS: SODIUM CHLORIDE 0.9% FLUSH 10 ML FLUSH IV FLUSH SCH ×2 (09:20→20:55)
[2017-03-03] MEDS: PANTOPRAZOLE SODIUM 40 MG VIAL IV PUSH SCH ×2 (09:20→20:55)
--- NOTE | 2017-03-03 13:33 | HHI.PR ---
Subjective Remarks Patient frustrated regarding the possibility of further GI workup at tertiary care center for double-balloon enteroscopy Patient reports continued black tarry stools but no bright red blood- also patient on iron PO and IV Denies abdominal pain, shortness of breath, chest pain, feeling lightheaded or dizzy Objective Vitals Vital Signs Date Time Temp Pulse Resp B/P (MAP) Pulse Ox O2 Delivery O2 Flow Rate FiO2 03/03/17 08:00 97.0 85 18 104/53 (70) 96 03/03/17 04:30 97.0 84 17 90/50 (63) 96 03/02/17 19:50 97.1 85 18 99/50 (66) 95 03/02/17 16:00 97.6 88 17 90/51 (64) 94 Result Diagram: 03/02/17 0715 03/02/17 0715 Other Results Laboratory Tests Test 02/28/17 16:37 02/28/17 17:37 03/01/17 07:02 03/02/17 07:15 White Blood Count 9.2 TH/MM3 8.6 TH/MM3 9.7 TH/MM3 Red Blood Count 2.16 MIL/MM3 2.76 MIL/MM3 3.16 MIL/MM3 Hemoglobin 5.6 GM/DL 7.8 GM/DL 8.8 GM/DL Hematocrit 17.4 % 23.1 % 25.4 % Mean Corpuscular Volume 80.5 FL 83.6 FL 80.3 FL Mean Corpuscular Hemoglobin 26.0 PG 28.4 PG 27.7 PG Mean Corpuscular Hemoglobin Concent 32.3 % 34.0 % 34.5 % Red Cell Distribution Width 19.9 % 18.4 % 23.6 % Platelet Count 252 TH/MM3 210 TH/MM3 170 TH/MM3 Mean Platelet Volume 8.7 FL 8.8 FL 8.6 FL Neutrophils (%) (Auto) 82.3 % 69.7 % 73.5 % Lymphocytes (%) (Auto) 12.3 % 20.4 % 16.6 % Monocytes (%) (Auto) 4.9 % 7.9 % 7.7 % Eosinophils (%) (Auto) 0.1 % 1.5 % 1.8 % Basophils (%) (Auto) 0.4 % 0.5 % 0.4 % Neutrophils # (Auto) 7.6 TH/MM3 6.0 TH/MM3 7.1 TH/MM3 Lymphocytes # (Auto) 1.1 TH/MM3 1.8 TH/MM3 1.6 TH/MM3 Monocytes # (Auto) 0.5 TH/MM3 0.7 TH/MM3 0.8 TH/MM3 Eosinophils # (Auto) 0.0 TH/MM3 0.1 TH/MM3 0.2 TH/MM3 Basophils # (Auto) 0.0 TH/MM3 0.0 TH/MM3 0.0 TH/MM3 CBC Comment DIFF FINAL DIFF FINAL AUTO DIFF Differential Comment AUTO DIFF CONFIRMED Prothrombin Time 10.3 SEC Prothromb Time International Ratio 0.9 RATIO Activated Partial Thromboplast Time 22.6 SEC Blood Urea Nitrogen 45 MG/DL 48 MG/DL 41 MG/DL Creatinine 0.84 MG/DL 0.80 MG/DL 0.70 MG/DL Random Glucose 110 MG/DL 91 MG/DL 97 MG/DL Calcium Level 8.1 MG/DL 7.6 MG/DL 7.6 MG/DL Magnesium Level 2.2 MG/DL 2.2 MG/DL Sodium Level 136 MEQ/L 138 MEQ/L 140 MEQ/L Potassium Level 4.2 MEQ/L 3.6 MEQ/L 3.4 MEQ/L Chloride Level 103 MEQ/L 105 MEQ/L 108 MEQ/L Carbon Dioxide Level 25.0 MEQ/L 23.3 MEQ/L 23.0 MEQ/L Anion Gap 8 MEQ/L 10 MEQ/L 9 MEQ/L Estimat Glomerular Filtration Rate 65 ML/MIN 68 ML/MIN 80 ML/MIN Iron Level 35 MCG/DL Total Iron Binding Capacity 416 MCG/DL Percent Iron Saturation 8.4 % Ferritin 20 NG/ML B-Type Natriuretic Peptide 128 PG/ML Urine Color YELLOW Urine Turbidity CLEAR Urine pH 5.5 Urine Specific [place] 1.021 Urine Protein NEG mg/dL Urine Glucose (UA) NEG mg/dL Urine Ketones NEG mg/dL Urine Occult Blood SMALL Urine Nitrite NEG Urine Bilirubin NEG Urine Urobilinogen LESS THAN 2.0 MG/DL Urine Leukocyte Esterase SMALL Urine RBC 1 /hpf Urine WBC 4 /hpf Urine Squamous Epithelial Cells <1 /hpf Urine Transitional Epithelial Cells 1 /hpf Urine Bacteria RARE /hpf Microscopic Urinalysis Comment CULT NOT INDICATED Platelet Estimate NORMAL Platelet Morphology Comment ENLARGED Polychromasia 2.0 % Ovalocytes 1+ Acanthocytes OCC Haptoglobin 128 MG/DL Lactate Dehydrogenase 155 U/L Total Bilirubin 1.2 MG/DL Direct Bilirubin 0.3 MG/DL Indirect Bilirubin 0.9 MG/DL Vitamin B12 Level 543 PG/ML Folate GREATER THAN 20.0 NG/ML Imaging Last Impressions Chest X-Ray 02/28/17 1629 Signed Impressions: Service Date/Time: Tuesday, February 28, 2017 16:44 - CONCLUSION: No acute disease. Marquis Shields MD FACR Objective Remarks General: in NAD Cardiac: Regular rate and rhythm 4/6 systolic ejection murmur Respiratory: cta GI: abd soft nontender Extremities: ext no edema A/P Problem List: (1) Symptomatic anemia ICD Codes: D64.9 - Anemia, unspecified Status: Chronic Plan: - Pt is an 86 y/o WF with iron deficiency anemia/GIB/SB angioectasia, severe aortic stenosis, hx of CHF, HTN, and hyperlipidemia. - Pt has had ongoing issues with anemia and obscure GIB. - She was previously admitted in December 2016 and underwent Small bowel enteroscopy /incomplete colonoscopy (12/02/16) which noted thickened fold in the duodenum, otherwise normal enteroscopy and unfortunately the scope was unable to be passed beyond the sigmoid 25 cm secondary to either twisted colon, spasm or external compression, it was felt to not be safe to push the scope without seeing the lumen because of fear of perforation so endoscopy was terminated. - As an outpt she had Capsule endoscopy (02/01/17) which noted multiple angiectasia with active bleeding and pt was sent for antegrade single balloon enteroscopy (02/07/17) but unfortunately there was no active bleeding found and the enteroscopy was found to be normal except for a hiatal hernia. - Pts outpt labs had been stable with Hgb ranging between 9-10. Her last labs on 02/24 noted Hgb 9.3. - She reports that she developed increased SOB with increased weakness and has required the use of her walker. Pt reports that her stools are always dark as she takes iron supplements. - Her labs in the ED noted a drop in her H/H to 5.6/17.4. - Iron studies prior to transfusion noted Serum Fe 35, TIBC 416, %Sat 8.4, Ferritin 20 - Pt was transfused with 4 units of PRBCs with improvement - Monitor closely for any signs of volume overload with transfusion - Hold ASA/Plavix which were started during last admission for trial before TAVR - Discussed with Dr. Martínez will discontinue aspirin and Plavix - DVT prophylaxis with SCDs - GI and Hematology following also following - GI recommending double balloon enteroscopy at other facility, can be arranged as outpt - Hematology recommending transfuse iron sucrose x 3 days total - repeat CBC for today ordered and pending - recheck labs in AM (2) GI bleed ICD Codes: K92.2 - Gastrointestinal hemorrhage, unspecified Status: Resolved Plan: - See above (3) Aortic valve stenosis, severe ICD Codes: I35.0 - Nonrheumatic aortic (valve) stenosis Status: Acute Plan: - Her last admission was from 02/18-02/21 for SOB and felt to have acute CHF symptoms related to severe AVS. Pt was diuresed with improvement. - 2D echocardiogram (02/19/17) which noted severe aortic valve stenosis and she was initially decompensated. - She was evaluated with a LHC and consideration for AVR and this was performed on 02/21 and showed critical but nonobstructive CAD. - She was seen by CTS who did the initial evaluation for TAVR vs traditional AVR. - It was decided to send the pt home on MEEM/diuretic/ASA/Plavix and monitored for bleeding as she has a hx of previous GIB. (4) Hypertension ICD Codes: I10 - Essential (primary) hypertension Status: Chronic Plan: - Home meds continued with hold parameters - currently with asymptomatic hypotension- request nursing to recheck BP manually with proper size cuff (5) Hyperlipidemia ICD Codes: E78.5 - Hyperlipidemia, unspecified Status: Chronic Plan: - Home meds continued (6) CHF (congestive heart failure) ICD Codes: I50.9 - Heart failure, unspecified Status: Acute Plan: continue lasix 20 mg daily Assessment and Plan Patient examined. Assessment and plan formulated with Elina Bray PA-C. I agree with the above. Problem Qualifiers (1) CHF (congestive heart failure): Elina Bray Mar 03, 2017 13:33 Kam Jansen DO Mar 05, 2017 00:55
[2017-03-03] MEDS ORDERED: PILL SPLITTER OTHER PRN (13:45)
--- NOTE | 2017-03-03 15:01 | PD.ONC.PN ---
Subjective Subjective Remarks Still having dark stools- Pt reports she has always had dark stool because of taking oral iron and did not notice a difference with the bleed Tolerating IV iron Objective Data Date Time Temp Pulse Resp B/P (MAP) Pulse Ox O2 Delivery O2 Flow Rate FiO2 03/03/17 08:00 97.0 85 18 104/53 (70) 96 03/03/17 04:30 97.0 84 17 90/50 (63) 96 03/02/17 19:50 97.1 85 18 99/50 (66) 95 03/02/17 16:00 97.6 88 17 90/51 (64) 94 03/03/17 03/03/17 03/03/17 07:00 15:00 23:00 Intake Total 240 ml Balance 240 ml Result Diagram: 03/02/1771403/02/17 0715 Administered Medications Medications (Trade) Dose Ordered Sig/Brian Route PRN Reason Start Time Stop Time Status Last Admin Dose Admin Sodium Chloride (NS Flush) 2 ml BID IV FLUSH 02/28/17 21:00 03/03/17 09:20 Acetaminophen (Tylenol) 650 mg Q4H PRN PO TEMP > 100.4 02/28/17 17:45 03/02/17 09:06 Alprazolam (Xanax) 0.25 mg TID PRN PO ANXIETY 02/28/17 17:45 03/03/17 11:03 Atorvastatin Calcium (Lipitor) 20 mg HS PO 02/28/17 21:00 03/02/17 20:36 Cetirizine HCl (ZyrTEC) 10 mg DAILY PO 03/01/17 09:00 03/03/17 09:19 Furosemide (Lasix) 20 mg DAILY PO 03/01/17 09:00 03/02/17 09:00 Lisinopril (Prinivil) 2.5 mg DAILY PO 03/01/17 09:00 03/02/17 09:01 Vit C/Vit E/Zinc/ Copper/Lutein (Ocuvite) 1 tab DAILY PO 03/01/17 09:00 03/03/17 09:18 Polysaccharide Iron Complex (Nu-Iron) 150 mg DAILY PO 03/01/17 09:00 03/03/17 09:19 Potassium Chloride (KCl) 20 meq DAILY PO 03/01/17 09:00 03/03/17 09:19 Sertraline HCl (Zoloft) 150 mg DAILY PO 03/01/17 09:00 03/03/17 09:18 Pantoprazole Sodium (Protonix Inj) 40 mg Q12H IV PUSH 02/28/17 20:00 03/03/17 09:20 Iron Sucrose 200 mg/Sodium Chloride 110 ml @ 110 mls/hr DAILY IV 03/02/17 18:00 03/04/17 09:59 03/03/17 09:19 Objective Remarks GENERAL: Elderly female resting in bed in no acute distress. SKIN: Warm and dry. HEAD: Normocephalic. EYES: No scleral icterus. No injection or drainage. NECK: Supple, trachea midline. No JVD or lymphadenopathy. CARDIOVASCULAR: Regular rate and rhythm without murmurs. RESPIRATORY: Breath sounds equal bilaterally. No accessory muscle use. GASTROINTESTINAL: Abdomen soft, non-tender, nondistended. EXTREMITIES: No cyanosis, or edema. NEUROLOGICAL: No obvious focal deficit. Awake, alert, and oriented x3. Assessment/Plan Problem List: (1) Anemia ICD Codes: D64.9 - Anemia, unspecified Status: Acute Plan: -- Iron deficiency likely due to GI bleed -- Microcytosis noted -- Will transfuse iron sucrose x 3 days (2) GI bleed ICD Codes: K92.2 - Gastrointestinal hemorrhage, unspecified Status: Resolved Plan: -- GI evaluation in December 2016; she was found to have thickened duodenum. 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 Plan 1. No evidence of B12 or folate deficiency 2. Patient is tolerating IV iron without difficulty 3. Last dose of iron sucrose tomorrow 4. Continue to monitor CBC Discussed with GI Attending Statement The exam, history, and the medical decision-making described in the above note were completed with the assistance of the mid-level provider. I reviewed and agree with the findings presented. I attest that I had a [id number] encounter with the patient on the same day, and personally performed and documented my assessment and findings in the medical record. tolerating iron being seen by cardiology Hb up f/u in oncology clinic in 2-3 weeks outpatient Cherelle Fernandez Mar 03, 2017 15:01 Darrin Russo MD Mar 03, 2017 23:50
[2017-03-03 15:13] LABS: AUTOMATED NEUTROPHIL # 7.9 TH/MM3 (1.8-7.7); BASOPHIL % 0.5 % (0.0-2.0); EOSINOPHIL # 0.2 TH/MM3 (0-0.4); EOSINOPHIL % 2.3 % (0.0-4.0); HEMATOCRIT 22.1 % (35.0-46.0); LYMPH % 14.6 % (9.0-44.0); LYMPHOCYTE # 1.5 TH/MM3 (1.0-4.8); MEAN CORPUSCULAR HEMOGLOBIN 27.5 PG (27.0-34.0); MEAN CORPUSCULAR HGB CONC 32.7 % (32.0-36.0); MONO % 5.1 % (0.0-8.0); NEUT % 77.5 % (16.0-70.0); PLATELET COUNT 198 TH/MM3 (150-450); RED BLOOD COUNT 2.62 MIL/MM3 (4.00-5.30); RED CELL DISTRIBUTION WIDTH 23.7 % (11.6-17.2); WHITE BLOOD COUNT 10.2 TH/MM3 (4.0-11.0)
[2017-03-03 15:15] LABS: HEMO FLAGS AUTO DIFF
[2017-03-03] MEDS: ACETAMINOPHEN 325 MG TAB PO PRN (15:24)
[2017-03-03 15:46] LABS: SCAN/DIFF AUTO DIFF CONFIRMED
--- NOTE | 2017-03-03 16:43 | HHI.GIFU ---
Subjective Remarks OOB to chair, daughter at bedside. No new complaints. (Louise Alan) Objective Vitals I&O Vital Signs Date Time Temp Pulse Resp B/P (MAP) Pulse Ox O2 Delivery O2 Flow Rate FiO2 03/03/17 12:00 96.8 80 18 98/55 (69) 97 03/03/17 08:00 97.0 85 18 104/53 (70) 96 03/03/17 04:30 97.0 84 17 90/50 (63) 96 03/02/17 19:50 97.1 85 18 99/50 (66) 95 I/O 03/02/17 03/02/17 03/02/17 03/03/17 03/03/17 03/03/17 07:00 15:00 23:00 07:00 15:00 23:00 Intake Total 520 ml 840 ml 780 ml 240 ml Balance 520 ml 840 ml 780 ml 240 ml Intake Oral 840 ml 780 ml 240 ml Packed Cells 500 ml Blood Product IV Normal Saline Flush 20 ml # Voids 6 3 4 # Bowel Movements 2 0 0 Laboratory Laboratory Tests Test 03/03/17 14:45 White Blood Count 10.2 Red Blood Count 2.62 Hemoglobin 7.2 Hematocrit 22.1 Mean Corpuscular Volume 84.0 Mean Corpuscular Hemoglobin 27.5 Mean Corpuscular Hemoglobin Concent 32.7 Red Cell Distribution Width 23.7 Platelet Count 198 Mean Platelet Volume 8.5 Neutrophils (%) (Auto) 77.5 Lymphocytes (%) (Auto) 14.6 Monocytes (%) (Auto) 5.1 Eosinophils (%) (Auto) 2.3 Basophils (%) (Auto) 0.5 Neutrophils # (Auto) 7.9 Lymphocytes # (Auto) 1.5 Monocytes # (Auto) 0.5 Eosinophils # (Auto) 0.2 Basophils # (Auto) 0.0 CBC Comment AUTO DIFF Differential Comment AUTO DIFF CONFIRMED Physical Exam HEENT: PERRL; normocephalic; atraumatic; no jaundice. CHEST: CTA CARDIAC: RRR +murmur ABDOMEN: Soft, nondistended, nontender; no hepatosplenomegaly; bowel sounds are present in all four quadrants. EXTREMITIES: No clubbing, cyanosis, or edema. SKIN: Normal; no rash; no jaundice. LOCAL COORDINATOR: No focal deficits; alert and oriented times three. (Louise Alan) Assessment and Plan Plan ASSESSMENT - anemia - 5.6 on admission. Was 10 a week ago when started on plavix and ASA. low iron. 12-02-16 SB enteroscopy/colonoscopy --> thickened fold duodenum, limtied d/t twisted colon or spasm or ext compression. 02-01-17 capsule endoscopy foudn multiple angioectasias and active bleeding but subsequent balloon enteroscopy not done b/ c no active bleed found. She is s/p 4 x PRBC and hgb up to 8.8 but today dropped to 7.2. hematology now following, s/p iron transfusion - black tarry stool - for last 2-3 months. endoscopy as above. denies NSAID use. has been on plavix and ASA PLAN - monitor HH - transfuse as needed - repeat capsule endoscopy as outpatient - consider double balloon enteroscopy at other facility, can be arranged as outpt - embolization for active significant bleeding - supportive care - further recs to follow - d/w daughter further recs tomorrow, if she is not here she would like us to contact her Mariel [phone] This pt seen by myself and Dr Deluca and this note is written on his behalf (Louise Alan) Physician Comments Seen with Virgie, assessment and plan as above, given the continues drop in HH without gross bleeding, and lack of DBE in [facility], will arrange for reprat capsule endoscopy again and possible enteroscopy. Further recommendations to follow. (Teo Deluca MD) Louise Alan Mar 03, 2017 16:43 Teo Deluca MD Mar 03, 2017 17:51
--- NOTE | 2017-03-03 17:38 | MB ---
cc: TOMMY MORRISON DATE OF CONSULTATION: 03/03/2017 REASON FOR CONSULTATION: Aortic stenosis. HISTORY OF PRESENT ILLNESS: Ashley is a 86-year-old female. She has known severe aortic stenosis and in addition a small bowel angiectasia. We evaluated her recently in the hospital due to progressive shortness of breath, anemia. She has had extensive workup for GI bleed but did not undergo any cauterization due to no active bleeding. We had discuss consideration of a transaortic percutaneous valve replacement, but she would require aspirin and Plavix postprocedurally. Her Hemoglobin had stabilized and was cleared by GI we initiate antiplatelet therapy to see how she would tolerate that and possible anticipation of undergoing a percutaneous valve replacement. Obviously she presented now with progressive shortness of breath and weakness and found to be severely anemic due to the GI bleed. There is discussion with the gastrointestinal hematology for further recommendations from that perspective. We were asked to get involved for any recommendations related to her aortic valve. PAST MEDICAL HISTORY 1. Severe aortic stenosis. 2. Congestive heart terribly 3. Hypertension nightly ALLERGIES MORPHINE FAMILY HISTORY None SOCIAL HISTORY Denies any tobacco or drug use. Occasional alcohol use. REVIEW OF SYSTEMS 12-point review of systems were performed, negative unless otherwise noted in history of present illness. FAMILY HISTORY: Denies any family history of coronary disease and cardiac . REVIEW OF SYSTEMS 12-point review of some was performed unless otherwise noted is present illness. PHYSICAL EXAMINATION VITAL SIGNS: Temperature 97, pulse 85, blood pressure 104/53 mmHg. IN GENERAL: Alert and oriented times three. No acute distress. HEAD, EYES, EARS, NOSE, AND THROAT: Exam shows pupils reactive to light, and accommodation, the extraocular muscles intact, elevation in venous distension. No thyromegaly or lymphadenopathy. No carotid bruits. LUNGS: Clear auscultation bilaterally. CARDIOVASCULAR: Regular rate and rhythm without rubs or gallops. 3/6 crescendo decrescendo murmur in the cardiovascular exam. ABDOMEN: The abdomen is nontender, nondistended. Good bowel sounds. No hepatosplenomegaly. EXTREMITIES: The Extremities showed no clubbing, cyanosis or edema. Good peripheral pulses. NEUROLOGIC: Cranial nerves intact. LABORATORY FINDINGS: WBC 9.7, hemoglobin 8.8, hematocrit 75.4, platelet count 170, INR of 0.9, sodium 140, potassium 3.4, BUN is 41, creatinine 0.7. ASSESSMENT Severe aortic stenosis. GI bleed PLAN Right now she is fairly well-compensated from a cardiac perspective, she has severe aortic stenosis which will require intervention. Unfortunately due to her GI bleed, anemia were not able to move forward. Will have to discuss with GI for what their plan will be, we need to be able to administer antiplatelet therapy. Posterior valve replacement and until she shows stability from that perspective will be unable to proceed from a cardiac procedural standpoint. There is some discussion of either trans for outpatient double enteroscopy. She is currently hemodynamically stable. Hemoglobin is up to 8.8. She will need outpatient followup once she is discharged. Call with any further questions. When she was discharged we will then evaluate her candidacy for transesophageal echocardiogram. MD NATALYA Mcguire/federico /12:37 PM /5:19 PM
[2017-03-03] MEDS: ATORVASTATIN 20 MG TAB PO SCH (20:55)
[2017-03-04] VITALS (8 sets, daily range): BP systolic 99–130; BP diastolic 56–76; PULSE 64–94; RESP 16–18; TEMP 97.1–98.1; O2SAT 94–99
[2017-03-04 07:26] LABS: AUTOMATED NEUTROPHIL # 8.2 TH/MM3 (1.8-7.7); BASOPHIL % 0.5 % (0.0-2.0); EOSINOPHIL # 0.4 TH/MM3 (0-0.4); EOSINOPHIL % 3.5 % (0.0-4.0); HEMATOCRIT 28.6 % (35.0-46.0); LYMPH % 15.8 % (9.0-44.0); LYMPHOCYTE # 1.7 TH/MM3 (1.0-4.8); MEAN CELL VOLUME 85.4 FL (80.0-100.0); MEAN CORPUSCULAR HEMOGLOBIN 29.1 PG (27.0-34.0); MEAN CORPUSCULAR HGB CONC 34.1 % (32.0-36.0); MONO % 6.1 % (0.0-8.0); NEUT % 74.1 % (16.0-70.0); PLATELET COUNT 187 TH/MM3 (150-450); RED BLOOD COUNT 3.35 MIL/MM3 (4.00-5.30); RED CELL DISTRIBUTION WIDTH 22.5 % (11.6-17.2)
[2017-03-04 07:31] LABS: HEMO FLAGS AUTO DIFF
[2017-03-04 08:00] LABS: BICARBONATE 24.1 MEQ/L (21.0-32.0)
[2017-03-04] MEDS: FUROSEMIDE 20 MG TAB PO SCH (09:00)
[2017-03-04] MEDS: LISINOPRIL 5 MG TAB PO SCH (09:00)
[2017-03-04] MEDS: SERTRALINE HCL 50 MG TAB PO SCH (09:05)
[2017-03-04] MEDS: MULTIVITAMIN-OPHTHALMIC 1 TAB PO SCH (09:05)
[2017-03-04] MEDS: POTASSIUM CHLORIDE 20 MEQ CONTROLLED RELEASE TAB PO SCH (09:07)
[2017-03-04] MEDS: ACETAMINOPHEN 325 MG TAB PO PRN ×3 (09:07→21:19)
[2017-03-04] MEDS: POLYSACCHARIDE IRON COMPLEX 150 MG CAP PO SCH (09:08)
[2017-03-04] MEDS: CETIRIZINE HCL 10 MG TAB PO SCH (09:09)
[2017-03-04 09:10] LABS: ACANTHOCYTES OCC (NORMAL); BANDS 6 % (0-6); EOSINOPHILS 3 % (0-4); MYELOCYTES 2 % (0-0); NEUTROPHIL # MANUAL DIFF 8.4 TH/MM3 (1.8-7.7); PLATELET ESTIMATE SMEAR NORMAL (NORMAL); PLATELET MORPHOLOGY NORMAL (NORMAL); POLYS (SEG NEUTROPHILS) 68 % (16-70); SCAN/DIFF FINAL DIFF MANUAL; WBC DIFF SAMPLE 100
[2017-03-04] MEDS: IRON SUCROSE INJ 200 MG in SODIUM CHLORIDE 0.9% INJ 100 ML IV SCH (09:10)
[2017-03-04] MEDS: PANTOPRAZOLE SODIUM 40 MG VIAL IV PUSH SCH ×2 (09:10→21:18)
[2017-03-04] MEDS: SODIUM CHLORIDE 0.9% FLUSH 10 ML FLUSH IV FLUSH SCH ×2 (09:10→21:18)
[2017-03-04] MEDS: ALPRAZolam 0.25 MG TAB PO PRN ×2 (09:10→17:37)
[2017-03-04 09:11] LABS: POLYCHROMASIA 2.9 % (0.0-1.9)
--- NOTE | 2017-03-04 12:02 | PD.ONC.PN ---
Subjective Subjective Remarks feels more energetic GI evaluation ongoing Will need additional iron infusions outpatient Clinic information given to the patient for f/u d/w rn overnight events reviewed Objective Data Date Time Temp Pulse Resp B/P (MAP) Pulse Ox O2 Delivery O2 Flow Rate FiO2 03/04/17 08:00 97.4 64 17 108/68 (81) 94 03/04/17 05:25 97.8 91 16 108/60 99 03/04/17 04:00 97.4 94 17 130/70 (90) 96 03/04/17 02:43 98.1 90 17 104/62 97 03/04/17 02:15 97.6 90 18 99/56 97 03/04/17 02:05 97.6 90 18 99/56 97 03/03/17 23:38 98.2 92 17 94/52 95 03/03/17 23:20 97.9 87 17 97/48 96 03/03/17 20:00 90 03/03/17 19:00 98.8 92 17 99/54 (69) 96 03/03/17 16:00 97.6 86 16 106/60 (75) 96 03/04/17 03/04/17 03/04/17 07:00 15:00 23:00 Intake Total 1010 ml Balance 1010 ml Result Diagram: 03/04/1770503/04/17 07 Laboratory Results Laboratory Tests Test 03/03/17 14:45 03/04/17 07:06 White Blood Count 10.2 TH/MM3 11.0 TH/MM3 Red Blood Count 2.62 MIL/MM3 3.35 MIL/MM3 Hemoglobin 7.2 GM/DL 9.8 GM/DL Hematocrit 22.1 % 28.6 % Mean Corpuscular Volume 84.0 FL 85.4 FL Mean Corpuscular Hemoglobin 27.5 PG 29.1 PG Mean Corpuscular Hemoglobin Concent 32.7 % 34.1 % Red Cell Distribution Width 23.7 % 22.5 % Platelet Count 198 TH/MM3 187 TH/MM3 Mean Platelet Volume 8.5 FL 8.7 FL Neutrophils (%) (Auto) 77.5 % 74.1 % Lymphocytes (%) (Auto) 14.6 % 15.8 % Monocytes (%) (Auto) 5.1 % 6.1 % Eosinophils (%) (Auto) 2.3 % 3.5 % Basophils (%) (Auto) 0.5 % 0.5 % Neutrophils # (Auto) 7.9 TH/MM3 8.2 TH/MM3 Lymphocytes # (Auto) 1.5 TH/MM3 1.7 TH/MM3 Monocytes # (Auto) 0.5 TH/MM3 0.7 TH/MM3 Eosinophils # (Auto) 0.2 TH/MM3 0.4 TH/MM3 Basophils # (Auto) 0.0 TH/MM3 0.0 TH/MM3 CBC Comment AUTO DIFF AUTO DIFF Differential Comment AUTO DIFF CONFIRMED FINAL DIFF MANUAL Differential Total Cells Counted 100 Neutrophils % (Manual) 68 % Band Neutrophils % 6 % Lymphocytes % 16 % Monocytes % 5 % Eosinophils % 3 % Neutrophils # (Manual) 8.4 TH/MM3 Myelocytes 2 % Platelet Estimate NORMAL Platelet Morphology Comment NORMAL Polychromasia 2.9 % Acanthocytes OCC Blood Urea Nitrogen 22 MG/DL Creatinine 0.89 MG/DL Random Glucose 91 MG/DL Calcium Level 8.0 MG/DL Sodium Level 138 MEQ/L Potassium Level 4.0 MEQ/L Chloride Level 106 MEQ/L Carbon Dioxide Level 24.1 MEQ/L Anion Gap 8 MEQ/L Estimat Glomerular Filtration Rate 60 ML/MIN Administered Medications Medications (Trade) Dose Ordered Sig/Brian Route PRN Reason Start Time Stop Time Status Last Admin Dose Admin Sodium Chloride (NS Flush) 2 ml BID IV FLUSH 02/28/17 21:00 03/04/17 09:10 Acetaminophen (Tylenol) 650 mg Q4H PRN PO TEMP > 100.4 02/28/17 17:45 03/04/17 09:07 Alprazolam (Xanax) 0.25 mg TID PRN PO ANXIETY 02/28/17 17:45 03/04/17 09:10 Atorvastatin Calcium (Lipitor) 20 mg HS PO 02/28/17 21:00 03/03/17 20:55 Cetirizine HCl (ZyrTEC) 10 mg DAILY PO 03/01/17 09:00 03/04/17 09:09 Furosemide (Lasix) 20 mg DAILY PO 03/01/17 09:00 03/02/17 09:00 Lisinopril (Prinivil) 2.5 mg DAILY PO 03/01/17 09:00 03/02/17 09:01 Vit C/Vit E/Zinc/ Copper/Lutein (Ocuvite) 1 tab DAILY PO 03/01/17 09:00 03/04/17 09:05 Polysaccharide Iron Complex (Nu-Iron) 150 mg DAILY PO 03/01/17 09:00 03/04/17 09:08 Potassium Chloride (KCl) 20 meq DAILY PO 03/01/17 09:00 03/04/17 09:07 Sertraline HCl (Zoloft) 150 mg DAILY PO 03/01/17 09:00 03/04/17 09:05 Pantoprazole Sodium (Protonix Inj) 40 mg Q12H IV PUSH 02/28/17 20:00 03/04/17 09:10 Objective Remarks GENERAL: nad. SKIN: Warm and dry. LYMPHATIC: No adenopathy. CARDIOVASCULAR: Regular rate and rhythm without murmurs. RESPIRATORY: Breath sounds equal bilaterally. No accessory muscle use. GASTROINTESTINAL: Abdomen soft, non-tender, nondistended. EXTREMITIES: No cyanosis, or edema. Assessment/Plan Problem List: (1) Anemia ICD Codes: D64.9 - Anemia, unspecified Status: Acute Plan: -- Iron deficiency likely due to GI bleed -- Microcytosis noted -- Will transfuse iron sucrose x 3 days (2) GI bleed ICD Codes: K92.2 - Gastrointestinal hemorrhage, unspecified Status: Resolved Plan: -- GI evaluation in December 2016; she was found to have thickened duodenum. -- Capsule endoscopy showed multiple angiectasia with active bleeding -- After that she had antegrade single enteroscopy that did not show any active bleeding -- GI recommend that she has a double balloon enteroscopy as an outpatient at another facility (3) Aortic valve stenosis, severe ICD Codes: I35.0 - Nonrheumatic aortic (valve) stenosis Status: Acute Plan: -- Echocardiogram on 02/19/17 showed severe aortic valve stenosis --Per her software verification engineer, there'll be no intervention until cleared by GI Assessment 86-year-old female who has a past medical history of severe aortic stenosis, hypertension, hyperlipidemia, iron deficiency anemia, history of GI bleed who presents to the emergency department with acute dyspnea and was found to have severe anemia. 1. Severe anemia which secondary to iron deficiency/GI bleeding with a - no evidence of hemolysis - Will give additional iron infusion tomorrow - OK to d/c from hematology standpoint and f/u with me in clinic in 1 week 2. Severe aortic stenosis. Evaluation per Cardiothoracic Surgery. 3. GI bleeding: on going eval Long discussion with patient and her daughter Plan Darrin Rusos MD Mar 04, 2017 12:02
--- NOTE | 2017-03-04 15:35 | HHI.PR ---
Subjective Remarks Pt has not had any active bleeding. She is very upset and frustrated about her issues with the obscure GIB Objective Vitals Vital Signs Date Time Temp Pulse Resp B/P (MAP) Pulse Ox O2 Delivery O2 Flow Rate FiO2 03/04/17 08:00 97.4 64 17 108/68 (81) 94 03/04/17 05:25 97.8 91 16 108/60 99 03/04/17 04:00 97.4 94 17 130/70 (90) 96 03/04/17 02:43 98.1 90 17 104/62 97 03/04/17 02:15 97.6 90 18 99/56 97 03/04/17 02:05 97.6 90 18 99/56 97 03/03/17 23:38 98.2 92 17 94/52 95 03/03/17 23:20 97.9 87 17 97/48 96 03/03/17 20:00 90 03/03/17 19:00 98.8 92 17 99/54 (69) 96 03/03/17 16:00 97.6 86 16 106/60 (75) 96 Result Diagram: 03/04/17 0706 03/04/17 0706 Other Results Laboratory Tests Test 03/03/17 14:45 03/04/17 07:06 White Blood Count 10.2 TH/MM3 11.0 TH/MM3 Red Blood Count 2.62 MIL/MM3 3.35 MIL/MM3 Hemoglobin 7.2 GM/DL 9.8 GM/DL Hematocrit 22.1 % 28.6 % Mean Corpuscular Volume 84.0 FL 85.4 FL Mean Corpuscular Hemoglobin 27.5 PG 29.1 PG Mean Corpuscular Hemoglobin Concent 32.7 % 34.1 % Red Cell Distribution Width 23.7 % 22.5 % Platelet Count 198 TH/MM3 187 TH/MM3 Mean Platelet Volume 8.5 FL 8.7 FL Neutrophils (%) (Auto) 77.5 % 74.1 % Lymphocytes (%) (Auto) 14.6 % 15.8 % Monocytes (%) (Auto) 5.1 % 6.1 % Eosinophils (%) (Auto) 2.3 % 3.5 % Basophils (%) (Auto) 0.5 % 0.5 % Neutrophils # (Auto) 7.9 TH/MM3 8.2 TH/MM3 Lymphocytes # (Auto) 1.5 TH/MM3 1.7 TH/MM3 Monocytes # (Auto) 0.5 TH/MM3 0.7 TH/MM3 Eosinophils # (Auto) 0.2 TH/MM3 0.4 TH/MM3 Basophils # (Auto) 0.0 TH/MM3 0.0 TH/MM3 CBC Comment AUTO DIFF AUTO DIFF Differential Comment AUTO DIFF CONFIRMED FINAL DIFF MANUAL Differential Total Cells Counted 100 Neutrophils % (Manual) 68 % Band Neutrophils % 6 % Lymphocytes % 16 % Monocytes % 5 % Eosinophils % 3 % Neutrophils # (Manual) 8.4 TH/MM3 Myelocytes 2 % Platelet Estimate NORMAL Platelet Morphology Comment NORMAL Polychromasia 2.9 % Acanthocytes OCC Blood Urea Nitrogen 22 MG/DL Creatinine 0.89 MG/DL Random Glucose 91 MG/DL Calcium Level 8.0 MG/DL Sodium Level 138 MEQ/L Potassium Level 4.0 MEQ/L Chloride Level 106 MEQ/L Carbon Dioxide Level 24.1 MEQ/L Anion Gap 8 MEQ/L Estimat Glomerular Filtration Rate 60 ML/MIN Imaging Last Impressions Chest X-Ray 02/28/17 1629 Signed Impressions: Service Date/Time: Tuesday, February 28, 2017 16:44 - CONCLUSION: No acute disease. Marquis Shields MD FACR Objective Remarks General: in NAD Cardiac: Regular rate and rhythm 4/6 systolic ejection murmur Respiratory: cta GI: abd soft nontender Extremities: ext no edema A/P Problem List: (1) Symptomatic anemia ICD Codes: D64.9 - Anemia, unspecified Status: Chronic Plan: - Pt is an 86 y/o WF with iron deficiency anemia/GIB/SB angioectasia, severe aortic stenosis, hx of CHF, HTN, and hyperlipidemia. - Pt has had ongoing issues with anemia and obscure GIB. - She was previously admitted in December 2016 and underwent Small bowel enteroscopy /incomplete colonoscopy (12/02/16) which noted thickened fold in the duodenum, otherwise normal enteroscopy and unfortunately the scope was unable to be passed beyond the sigmoid 25 cm secondary to either twisted colon, spasm or external compression, it was felt to not be safe to push the scope without seeing the lumen because of fear of perforation so endoscopy was terminated. - As an outpt she had Capsule endoscopy (02/01/17) which noted multiple angiectasia with active bleeding and pt was sent for antegrade single balloon enteroscopy (02/07/17) but unfortunately there was no active bleeding found and the enteroscopy was found to be normal except for a hiatal hernia. - Pts outpt labs had been stable with Hgb ranging between 9-10. Her last labs on 02/24 noted Hgb 9.3. - She reports that she developed increased SOB with increased weakness and has required the use of her walker. Pt reports that her stools are always dark as she takes iron supplements. - Her labs in the ED noted a drop in her H/H to 5.6/17.4. - Iron studies prior to transfusion noted Serum Fe 35, TIBC 416, %Sat 8.4, Ferritin 20 - Pt was transfused with 4 units of PRBCs with improvement - Monitor closely for any signs of volume overload with transfusion - Hold ASA/Plavix which were started during last admission for trial before TAVR - Discussed with Dr. Martínez will discontinue aspirin and Plavix - DVT prophylaxis with SCDs - GI and Hematology following also following - GI recommending double balloon enteroscopy to be performed at a tertiary center, can be arranged as outpt - Hematology recommending transfuse iron sucrose x 3 days total - Pt received another 2 units of PRBCs on 03/04/17 - Repeat H/H is 9.8/28.6 - recheck labs in AM (2) GI bleed ICD Codes: K92.2 - Gastrointestinal hemorrhage, unspecified Status: Resolved Plan: - See above (3) Aortic valve stenosis, severe ICD Codes: I35.0 - Nonrheumatic aortic (valve) stenosis Status: Acute Plan: - Her last admission was from 02/18-02/21 for SOB and felt to have acute CHF symptoms related to severe AVS. Pt was diuresed with improvement. - 2D echocardiogram (02/19/17) which noted severe aortic valve stenosis and she was initially decompensated. - She was evaluated with a LHC and consideration for AVR and this was performed on 02/21 and showed critical but nonobstructive CAD. - She was seen by CTS who did the initial evaluation for TAVR vs traditional AVR. - It was decided to send the pt home on MEME/diuretic/ASA/Plavix and monitored for bleeding as she has a hx of previous GIB. (4) Hypertension ICD Codes: I10 - Essential (primary) hypertension Status: Chronic Plan: - Home meds continued with hold parameters - BP better today (5) Hyperlipidemia ICD Codes: E78.5 - Hyperlipidemia, unspecified Status: Chronic Plan: - Home meds continued (6) CHF (congestive heart failure) ICD Codes: I50.9 - Heart failure, unspecified Status: Acute Plan: continue lasix 20 mg daily Assessment and Plan Patient examined. Assessment and plan formulated with Mariel De Luna PA-C. I agree with the above. Pt will need ref[place] [facility] [place] double [place] enter[place]. Can not resume ASA/plavix at this time. If pt's Hg remains stable in AM, then will d/c to home with [facility] repeat CBC with [facility] on 03/07/17 Problem Qualifiers (1) CHF (congestive heart failure): Mariel De Luna Mar 04, 2017 15:35 Kam Jansen DO Mar 05, 2017 00:57
--- NOTE | 2017-03-04 15:51 | HHI.GIFU ---
Subjective Remarks Resting in bed. No n/v. No abdominal pain. C/O dark stool, but otherwise no GI symptoms. (Myrtle Farr) Objective Vitals I&O Vital Signs Date Time Temp Pulse Resp B/P (MAP) Pulse Ox O2 Delivery O2 Flow Rate FiO2 03/04/17 08:00 97.4 64 17 108/68 (81) 94 03/04/17 05:25 97.8 91 16 108/60 99 03/04/17 04:00 97.4 94 17 130/70 (90) 96 03/04/17 02:43 98.1 90 17 104/62 97 03/04/17 02:15 97.6 90 18 99/56 97 03/04/17 02:05 97.6 90 18 99/56 97 03/03/17 23:38 98.2 92 17 94/52 95 03/03/17 23:20 97.9 87 17 97/48 96 03/03/17 20:00 90 03/03/17 19:00 98.8 92 17 99/54 (69) 96 03/03/17 16:00 97.6 86 16 106/60 (75) 96 I/O 03/03/17 03/03/17 03/03/17 03/04/17 03/04/17 03/04/17 07:00 15:00 23:00 07:00 15:00 23:00 Intake Total 240 ml 590 ml 480 ml 1010 ml Balance 240 ml 590 ml 480 ml 1010 ml Intake Oral 240 ml 480 ml 480 ml 480 ml IV Total 110 ml Packed Cells 500 ml Blood Product IV Normal Saline Flush 30 ml # Voids 4 4 3 3 # Bowel Movements 0 1 0 0 Laboratory Laboratory Tests Test 03/04/17 07:06 White Blood Count 11.0 Red Blood Count 3.35 Hemoglobin 9.8 Hematocrit 28.6 Mean Corpuscular Volume 85.4 Mean Corpuscular Hemoglobin 29.1 Mean Corpuscular Hemoglobin Concent 34.1 Red Cell Distribution Width 22.5 Platelet Count 187 Mean Platelet Volume 8.7 Neutrophils (%) (Auto) 74.1 Lymphocytes (%) (Auto) 15.8 Monocytes (%) (Auto) 6.1 Eosinophils (%) (Auto) 3.5 Basophils (%) (Auto) 0.5 Neutrophils # (Auto) 8.2 Lymphocytes # (Auto) 1.7 Monocytes # (Auto) 0.7 Eosinophils # (Auto) 0.4 Basophils # (Auto) 0.0 CBC Comment AUTO DIFF Differential Total Cells Counted 100 Neutrophils % (Manual) 68 Band Neutrophils % 6 Lymphocytes % 16 Monocytes % 5 Eosinophils % 3 Neutrophils # (Manual) 8.4 Myelocytes 2 Differential Comment FINAL DIFF MANUAL Platelet Estimate NORMAL Platelet Morphology Comment NORMAL Polychromasia 2.9 Acanthocytes OCC Blood Urea Nitrogen 22 Creatinine 0.89 Random Glucose 91 Calcium Level 8.0 Sodium Level 138 Potassium Level 4.0 Chloride Level 106 Carbon Dioxide Level 24.1 Anion Gap 8 Estimat Glomerular Filtration Rate 60 Imaging Last Impressions Chest X-Ray 03/02/17 0600 Signed Impressions: Service Date/Time: Tuesday, March 02, 2017 06:22 - CONCLUSION: No acute disease. Michael Tate MD Physical Exam HEENT: Normocephalic; atraumatic CHEST: CTA CARDIAC: RRR, systolic murmur ABDOMEN: Soft, nondistended, nontender; no hepatosplenomegaly; bowel sounds are present in all four quadrants. EXTREMITIES: No clubbing, cyanosis, or edema. SKIN: Normal; no rash; no jaundice. SKILLED LABORER: No focal deficits; alert and oriented times three. ([facility]) Assessment and Plan Plan ASSESSMENT - GIB, Melena. Recent started on plavix/asa. S/P Extensive GI workup. Colonoscopy (08/13/15) --> Very tortuous, edematous sigmoid colon, possible diverticular colitis, diminutive polyps in the ascending colon, sigmoid diverticulosis, grade I hemorrhoids, decreased sphincter tone. EGD/colonoscopy ( 03/24/16) --> gastritis, HH, esophagitis, diverticulosis, hemorrhoids, polyps, incomplete colonoscopy. Colonoscopy (03/26/16) --> Severe diverticulosis in the left colon , colitis, hemorrhoids, small polyp. Colonoscopy (12/02/16) --> Scope was unable to be passed beyond the sigmoid 25 cm secondary to either twisted colon, spasm or external compression, it was felt to not be safe to push the scope without seeing the lumen because of fear of perforation so endoscopy was terminated. Small bowel enteroscopy (12/02/16) --> thickened fold in the duodenum Bx done otherwise normal. Capsule endoscopy (02/01/17) --> Multiple angiectasia with active bleeding. Antegrade single balloon enteroscopy (02/07/17) --> Normal enteroscopy except for a hiatal hernia. Pt continues to have dark stools. Presented with severe anemia, 5.6/17.4 on admission, S/P 6 units PRBC. HH stable 9.8/28.6. On PPI with BID dosing. Off plavix/ASA. - Severe anemia. 5.6/17.4 on admission, S/P 6 units PRBC. HH stable 9.8/28.6. Hematology following - Severe aortic stenosis, CHF, HTN. per cardiology PLAN: - [facility] - Cont. PPI - Monitor HH - If no significant drop in Hgb overnight, okay for patient to be discharged tomorrow with outpt follow up - Plan for referral to tertiary as outpatient for Double balloon enteroscopy - Pt seen and examined by Dr. Parkinson and myself and this note is written on his behalf (Myrtle Farr) Plan I have a contact at [facility]. I will try to contact him tomorrow to arrange for double balloon enteroscopy. (King Parkinson MD) Myrtle Farr Mar 04, 2017 15:51 King Parkinson MD Mar 04, 2017 21:20
[2017-03-04] MEDS: ATORVASTATIN 20 MG TAB PO SCH (21:18)
[2017-03-05 00:26] VITALS: BP 101/57; PULSE 85; RESP 18; TEMP 97; O2SAT 97
[2017-03-05 04:15] VITALS: BP 119/63; PULSE 83; RESP 18; TEMP 96.9; O2SAT 96
[2017-03-05] MEDS ORDERED: IRON SUCROSE INJ 200 MG in SODIUM CHLORIDE 0.9% INJ 100 ML IV ONE (07:00)
[2017-03-05] MEDS: ALPRAZolam 0.25 MG TAB PO PRN (07:30)
[2017-03-05] MEDS: ACETAMINOPHEN 325 MG TAB PO PRN (07:31)
[2017-03-05] MEDS: PANTOPRAZOLE SODIUM 40 MG VIAL IV PUSH SCH (08:00)
[2017-03-05 08:28] VITALS: BP 130/72; PULSE 84; RESP 17; TEMP 97.4; O2SAT 93
[2017-03-05] MEDS: LISINOPRIL 5 MG TAB PO SCH (08:33)
[2017-03-05] MEDS: SERTRALINE HCL 50 MG TAB PO SCH (08:33)
[2017-03-05] MEDS: CETIRIZINE HCL 10 MG TAB PO SCH (08:33)
[2017-03-05] MEDS: MULTIVITAMIN-OPHTHALMIC 1 TAB PO SCH (08:33)
[2017-03-05] MEDS: POLYSACCHARIDE IRON COMPLEX 150 MG CAP PO SCH (08:33)
[2017-03-05] MEDS: FUROSEMIDE 20 MG TAB PO SCH (08:33)
[2017-03-05] MEDS: POTASSIUM CHLORIDE 20 MEQ CONTROLLED RELEASE TAB PO SCH (08:33)
[2017-03-05] MEDS: SODIUM CHLORIDE 0.9% FLUSH 10 ML FLUSH IV FLUSH SCH (08:35)
[2017-03-05 09:16] LABS: AUTOMATED NEUTROPHIL # 6.9 TH/MM3 (1.8-7.7); BASOPHIL % 0.4 % (0.0-2.0); EOSINOPHIL # 0.5 TH/MM3 (0-0.4); EOSINOPHIL % 4.7 % (0.0-4.0); HEMATOCRIT 28.8 % (35.0-46.0); LYMPH % 18.1 % (9.0-44.0); LYMPHOCYTE # 1.8 TH/MM3 (1.0-4.8); MEAN CELL VOLUME 87.2 FL (80.0-100.0); MEAN CORPUSCULAR HEMOGLOBIN 29.9 PG (27.0-34.0); MEAN CORPUSCULAR HGB CONC 34.3 % (32.0-36.0); MONO % 6.6 % (0.0-8.0); NEUT % 70.2 % (16.0-70.0); PLATELET COUNT 205 TH/MM3 (150-450); RED CELL DISTRIBUTION WIDTH 22.6 % (11.6-17.2); WHITE BLOOD COUNT 9.9 TH/MM3 (4.0-11.0)
[2017-03-05 09:17] LABS: HEMO FLAGS AUTO DIFF
--- NOTE | 2017-03-05 09:44 | HHI.GIFU ---
Subjective Remarks Patient is resting in bed, talking on the phone, in no acute distress, no bm today, no N/V or abd pain. She tells me Dr. Parkinson has good news for me " knows some one that can do double balloon enteroscopy" Objective Vitals I&O Vital Signs Date Time Temp Pulse Resp B/P (MAP) Pulse Ox O2 Delivery O2 Flow Rate FiO2 03/05/17 08:28 97.4 84 17 130/72 (91) 93 03/05/17 04:15 96.9 83 18 119/63 (81) 96 03/05/17 00:26 97.0 85 18 101/57 (72) 97 03/04/17 20:35 97.3 88 18 114/60 (78) 98 03/04/17 12:00 97.1 80 17 120/76 (91) 97 I/O 03/04/17 03/04/17 03/04/17 03/05/17 03/05/17 03/05/17 07:00 15:00 23:00 07:00 15:00 23:00 Intake Total 1010 ml 530 ml 240 ml 120 ml Balance 1010 ml 530 ml 240 ml 120 ml Intake Oral 480 ml 420 ml 240 ml 120 ml IV Total 110 ml Packed Cells 500 ml Blood Product IV Normal Saline Flush 30 ml # Voids 3 3 3 3 # Bowel Movements 0 1 1 0 Laboratory Laboratory Tests Test 03/05/17 08:20 White Blood Count 9.9 Red Blood Count 3.30 Hemoglobin 9.9 Hematocrit 28.8 Mean Corpuscular Volume 87.2 Mean Corpuscular Hemoglobin 29.9 Mean Corpuscular Hemoglobin Concent 34.3 Red Cell Distribution Width 22.6 Platelet Count 205 Mean Platelet Volume 8.9 Neutrophils (%) (Auto) 70.2 Lymphocytes (%) (Auto) 18.1 Monocytes (%) (Auto) 6.6 Eosinophils (%) (Auto) 4.7 Basophils (%) (Auto) 0.4 Neutrophils # (Auto) 6.9 Lymphocytes # (Auto) 1.8 Monocytes # (Auto) 0.6 Eosinophils # (Auto) 0.5 Basophils # (Auto) 0.0 CBC Comment AUTO DIFF Imaging Last Impressions Chest X-Ray 03/02/17 0600 Signed Impressions: Service Date/Time: Thursday, March 02, 2017 06:22 - CONCLUSION: No acute disease. Michael Tate MD Physical Exam HEENT: Normocephalic; atraumatic CHEST: CTA CARDIAC: RRR, systolic murmur ABDOMEN: Soft, nondistended, nontender; no hepatosplenomegaly; bowel sounds are present in all four quadrants. EXTREMITIES: No clubbing, cyanosis, or edema. SKIN: Normal; no rash; no jaundice. SUSTAINABLE AGRICULTURE FACULTY: No focal deficits; alert and oriented times three. Assessment and Plan Plan ASSESSMENT - GIB, Melena. Recent started on plavix/asa. S/P Extensive GI workup. Colonoscopy (08/13/15) --> Very tortuous, edematous sigmoid colon, possible diverticular colitis, diminutive polyps in the ascending colon, sigmoid diverticulosis, grade I hemorrhoids, decreased sphincter tone. EGD/colonoscopy ( 03/24/16) --> gastritis, HH, esophagitis, diverticulosis, hemorrhoids, polyps, incomplete colonoscopy. Colonoscopy (03/26/16) --> Severe diverticulosis in the left colon , colitis, hemorrhoids, small polyp. Colonoscopy (12/02/16) --> Scope was unable to be passed beyond the sigmoid 25 cm secondary to either twisted colon, spasm or external compression, it was felt to not be safe to push the scope without seeing the lumen because of fear of perforation so endoscopy was terminated. Small bowel enteroscopy (12/02/16) --> thickened fold in the duodenum Bx done otherwise normal. Capsule endoscopy (02/01/17) --> Multiple angiectasia with active bleeding. Antegrade single balloon enteroscopy (02/07/17) --> Normal enteroscopy except for a hiatal hernia. Presented with severe anemia, 5.6/17.4 on admission, S/P 6 units PRBC. HH stable 9.8/28.6. On PPI with BID dosing. Off plavix/ASA. - Severe anemia. 5.6/17.4 on admission, S/P 6 units PRBC. HH stable 9.9/28.8, no bleeding today. Hematology following - Severe aortic stenosis, CHF, HTN. per cardiology PLAN: - [facility] - Cont. PPI - Monitor HH - Hgb is stable, no melena today. okay to sd home and f/u as an OP in [facility] per Dr. Parkinson recommendations who is going to arrange for double balloon enteroscopy. - Plan for referral to tertiary as outpatient for Double balloon enteroscopy - Pt seen and examined by Dr. Parkinson and myself and this note is written on his behalf Becca Love Mar 05, 2017 09:44
[2017-03-05 09:46] LABS: PLATELET ESTIMATE SMEAR NORMAL (NORMAL); PLATELET MORPHOLOGY NORMAL (NORMAL); SCAN/DIFF AUTO DIFF CONFIRMED
[2017-03-05 11:28] VITALS: BP 100/56; PULSE 87; RESP 16; TEMP 97.7; O2SAT 94
--- NOTE | 2017-03-05 13:24 | HHI.FF ---
Face to Face Verification Diagnosis: (1) Macular degeneration (2) Gastritis (3) Anemia Physical Therapy Order: Evaluate and Treat, Improve ambulation, Strength and gait training Home Health Nursing Order: Medical education Signs/symptoms of disease process Nursing assessment with vital signs I have seen patient Ashley Buchanan on 03/05/17. My clinical findings support the need for the requested home health care services because: Limited ability to care for self high fall risk Limited ability to care for self High risk of falls I certify that my clinical findings support that this patient is homebound because: Unsteady gate/balance Unsteady gait/balance Elina Bray Mar 05, 2017 13:24
--- NOTE | 2017-03-05 13:30 | HHI.PR ---
Subjective Remarks Hgb today 9.9- stable no active signs of bleeding reports feeling well Objective Vitals Vital Signs Date Time Temp Pulse Resp B/P (MAP) Pulse Ox O2 Delivery O2 Flow Rate FiO2 03/05/17 11:28 97.7 87 16 100/56 (71) 94 03/05/17 08:28 97.4 84 17 130/72 (91) 93 03/05/17 04:15 96.9 83 18 119/63 (81) 96 03/05/17 00:26 97.0 85 18 101/57 (72) 97 03/04/17 20:35 97.3 88 18 114/60 (78) 98 Result Diagram: 03/05/17 0820 03/04/17 0706 Other Results Laboratory Tests Test 03/03/17 14:45 03/04/17 07:06 03/05/17 08:20 White Blood Count 10.2 TH/MM3 11.0 TH/MM3 9.9 TH/MM3 Red Blood Count 2.62 MIL/MM3 3.35 MIL/MM3 3.30 MIL/MM3 Hemoglobin 7.2 GM/DL 9.8 GM/DL 9.9 GM/DL Hematocrit 22.1 % 28.6 % 28.8 % Mean Corpuscular Volume 84.0 FL 85.4 FL 87.2 FL Mean Corpuscular Hemoglobin 27.5 PG 29.1 PG 29.9 PG Mean Corpuscular Hemoglobin Concent 32.7 % 34.1 % 34.3 % Red Cell Distribution Width 23.7 % 22.5 % 22.6 % Platelet Count 198 TH/MM3 187 TH/MM3 205 TH/MM3 Mean Platelet Volume 8.5 FL 8.7 FL 8.9 FL Neutrophils (%) (Auto) 77.5 % 74.1 % 70.2 % Lymphocytes (%) (Auto) 14.6 % 15.8 % 18.1 % Monocytes (%) (Auto) 5.1 % 6.1 % 6.6 % Eosinophils (%) (Auto) 2.3 % 3.5 % 4.7 % Basophils (%) (Auto) 0.5 % 0.5 % 0.4 % Neutrophils # (Auto) 7.9 TH/MM3 8.2 TH/MM3 6.9 TH/MM3 Lymphocytes # (Auto) 1.5 TH/MM3 1.7 TH/MM3 1.8 TH/MM3 Monocytes # (Auto) 0.5 TH/MM3 0.7 TH/MM3 0.6 TH/MM3 Eosinophils # (Auto) 0.2 TH/MM3 0.4 TH/MM3 0.5 TH/MM3 Basophils # (Auto) 0.0 TH/MM3 0.0 TH/MM3 0.0 TH/MM3 CBC Comment AUTO DIFF AUTO DIFF AUTO DIFF Differential Comment AUTO DIFF CONFIRMED FINAL DIFF MANUAL AUTO DIFF CONFIRMED Differential Total Cells Counted 100 Neutrophils % (Manual) 68 % Band Neutrophils % 6 % Lymphocytes % 16 % Monocytes % 5 % Eosinophils % 3 % Neutrophils # (Manual) 8.4 TH/MM3 Myelocytes 2 % Platelet Estimate NORMAL NORMAL Platelet Morphology Comment NORMAL NORMAL Polychromasia 2.9 % Acanthocytes OCC Blood Urea Nitrogen 22 MG/DL Creatinine 0.89 MG/DL Random Glucose 91 MG/DL Calcium Level 8.0 MG/DL Sodium Level 138 MEQ/L Potassium Level 4.0 MEQ/L Chloride Level 106 MEQ/L Carbon Dioxide Level 24.1 MEQ/L Anion Gap 8 MEQ/L Estimat Glomerular Filtration Rate 60 ML/MIN Imaging Last Impressions Chest X-Ray 02/28/17 1629 Signed Impressions: Service Date/Time: Tuesday, February 28, 2017 16:44 - CONCLUSION: No acute disease. Marquis Shields MD FACR Objective Remarks General: in NAD Cardiac: Regular rate and rhythm 4/6 systolic ejection murmur Respiratory: cta GI: abd soft nontender Extremities: ext no edema A/P Problem List: (1) Symptomatic anemia ICD Codes: D64.9 - Anemia, unspecified Status: Chronic Plan: - Pt is an 86 y/o WF with iron deficiency anemia/GIB/SB angioectasia, severe aortic stenosis, hx of CHF, HTN, and hyperlipidemia. - Pt has had ongoing issues with anemia and obscure GIB. - She was previously admitted in December 2016 and underwent Small bowel enteroscopy /incomplete colonoscopy (12/02/16) which noted thickened fold in the duodenum, otherwise normal enteroscopy and unfortunately the scope was unable to be passed beyond the sigmoid 25 cm secondary to either twisted colon, spasm or external compression, it was felt to not be safe to push the scope without seeing the lumen because of fear of perforation so endoscopy was terminated. - As an outpt she had Capsule endoscopy (02/01/17) which noted multiple angiectasia with active bleeding and pt was sent for antegrade single balloon enteroscopy (02/07/17) but unfortunately there was no active bleeding found and the enteroscopy was found to be normal except for a hiatal hernia. - Pts outpt labs had been stable with Hgb ranging between 9-10. Her last labs on 02/24 noted Hgb 9.3. - She reports that she developed increased SOB with increased weakness and has required the use of her walker. Pt reports that her stools are always dark as she takes iron supplements. - Her labs in the ED noted a drop in her H/H to 5.6/17.4. - Iron studies prior to transfusion noted Serum Fe 35, TIBC 416, %Sat 8.4, Ferritin 20 - Pt was transfused with 4 units of PRBCs with improvement - Monitor closely for any signs of volume overload with transfusion - Hold ASA/Plavix which were started during last admission for trial before TAVR - Discussed with Dr. Martínez will discontinue aspirin and Plavix - DVT prophylaxis with SCDs - GI and Hematology following also following - GI recommending double balloon enteroscopy to be performed at a tertiary center, can be arranged as outpt - Hematology recommending transfuse iron sucrose x 3 days total - Pt received another 2 units of PRBCs on 03/04/17 - Repeat H/H is 9.9/28.8, stable (2) GI bleed ICD Codes: K92.2 - Gastrointestinal hemorrhage, unspecified Status: Resolved Plan: - See above (3) Aortic valve stenosis, severe ICD Codes: I35.0 - Nonrheumatic aortic (valve) stenosis Status: Acute Plan: - Her last admission was from 02/18-02/21 for SOB and felt to have acute CHF symptoms related to severe AVS. Pt was diuresed with improvement. - 2D echocardiogram (02/19/17) which noted severe aortic valve stenosis and she was initially decompensated. - She was evaluated with a LHC and consideration for AVR and this was performed on 02/21 and showed critical but nonobstructive CAD. - She was seen by CTS who did the initial evaluation for TAVR vs traditional AVR. - It was decided to send the pt home on MEME/diuretic/ASA/Plavix and monitored for bleeding as she has a hx of previous GIB. (4) Hypertension ICD Codes: I10 - Essential (primary) hypertension Status: Chronic Plan: - Initially Home meds continued- lisinopril 2.5 mg daily - hypotensive will DC Lisinopril (5) Hyperlipidemia ICD Codes: E78.5 - Hyperlipidemia, unspecified Status: Chronic Plan: - Home meds continued (6) CHF (congestive heart failure) ICD Codes: I50.9 - Heart failure, unspecified Status: Acute Plan: continue lasix 20 mg daily Assessment and Plan Patient examined. Assessment and plan formulated with Elina Bray PA-C. I agree with the above. Problem Qualifiers (1) CHF (congestive heart failure): Elina Bray Mar 05, 2017 13:30 Kam Jansen DO Mar 05, 2017 22:55
[2017-03-05 13:51] VITALS: BP 87/59
[2017-03-05 14:09] VITALS: BP 100/56; PULSE 61; RESP 18; O2SAT 96
--- NOTE | 2017-03-05 14:27 | HHI.DS ---
Discharge Summary Admission Date Feb 28, 2017 at 17:49 Discharge Date: Mar 05, 2017 Admitting Diagnosis severe anemia, generalized weakness (1) Symptomatic anemia ICD Codes: D64.9 - Anemia, unspecified Status: Chronic (2) GI bleed ICD Codes: K92.2 - Gastrointestinal hemorrhage, unspecified Status: Resolved (3) Aortic valve stenosis, severe ICD Codes: I35.0 - Nonrheumatic aortic (valve) stenosis Status: Acute (4) Hypertension ICD Codes: I10 - Essential (primary) hypertension Status: Chronic (5) Hyperlipidemia ICD Codes: E78.5 - Hyperlipidemia, unspecified Status: Chronic (6) CHF (congestive heart failure) ICD Codes: I50.9 - Heart failure, unspecified Status: Acute Consultants Dr. Russo hematology Dr. Deluca Gastroenterology Dr. Martínez Cardiology Brief History Mrs. Buchanan is a pleasant 86 y/o WF with iron deficiency anemia/GIB/SB angioectasia, severe aortic stenosis, hx of CHF, HTN, and hyperlipidemia. She has had multiple recent admissions. Her last admission was from 02/18-02/21 for SOB and felt to have acute CHF symptoms related to severe AVS. She had an echocardiogram (02/19/17) which noted severe aortic valve stenosis and she was initially decompensated. Pt was diuresed with improvement. She was evaluated with a LHC and consideration for AVR and this was performed on 02/21 and showed critical but nonobstructive CAD. She was seen by CTS who did the initial evaluation for TAVR vs traditional AVR. It was decided to send the pt home on MEME/diuretic/ASA/Plavix and monitored for bleeding as she has a hx of previous GIB. Pt has had ongoing issues with anemia and possible GIB. She was previously admitted in December 2016 and underwent Small bowel enteroscopy/incomplete colonoscopy (12/02/16) which noted thickened fold in the duodenum, otherwise normal enteroscopy and unfortunately the scope was unable to be passed beyond the sigmoid 25 cm secondary to either twisted colon, spasm or external compression, it was felt to not be safe to push the scope without seeing the lumen because of fear of perforation so endoscopy was terminated. As an outpt she had Capsule endoscopy (02/01/17) which noted multiple angiectasia with active bleeding and pt was sent for antegrade single balloon enteroscopy (02/07/17) but unfortunately there was no active bleeding found and the enteroscopy was found to be normal except for a hiatal hernia. Pts outpt labs had been stable with Hgb ranging between 9-10. Her last labs on 02/24 noted Hgb 9.3. She reports that she developed increased SOB which started yesterday with increased weakness and has required the use of her walker. Pt reports that her stools are always dark as she takes iron supplements. Her labs in the ED noted a drop in her H/H to 5.6 /17.4. She denies any change in her bowel habits, nausea/vomiting, reflux, dysphagia, or BRBPR. CBC/BMP: 03/05/17 0820 03/04/17 0706 Significant Findings Laboratory Tests Test 03/03/17 14:45 03/04/17 07:06 03/05/17 08:20 Red Blood Count 2.62 MIL/MM3 (4.00-5.30) 3.35 MIL/MM3 (4.00-5.30) 3.30 MIL/MM3 (4.00-5.30) Hemoglobin 7.2 GM/DL (11.6-15.3) 9.8 GM/DL (11.6-15.3) 9.9 GM/DL (11.6-15.3) Hematocrit 22.1 % (35.0-46.0) 28.6 % (35.0-46.0) 28.8 % (35.0-46.0) Red Cell Distribution Width 23.7 % (11.6-17.2) 22.5 % (11.6-17.2) 22.6 % (11.6-17.2) Neutrophils (%) (Auto) 77.5 % (16.0-70.0) 74.1 % (16.0-70.0) 70.2 % (16.0-70.0) Neutrophils # (Auto) 7.9 TH/MM3 (1.8-7.7) 8.2 TH/MM3 (1.8-7.7) Neutrophils # (Manual) 8.4 TH/MM3 (1.8-7.7) Myelocytes 2 % (0-0) Polychromasia 2.9 % (0.0-1.9) Acanthocytes OCC (NORMAL) Blood Urea Nitrogen 22 MG/DL (7-18) Calcium Level 8.0 MG/DL (8.5-10.1) Estimat Glomerular Filtration Rate 60 ML/MIN (>89) Eosinophils (%) (Auto) 4.7 % (0.0-4.0) Eosinophils # (Auto) 0.5 TH/MM3 (0-0.4) Imaging Last Impressions Chest X-Ray 03/02/17 0600 Signed Impressions: Service Date/Time: Thursday, March 02, 2017 06:22 - CONCLUSION: No acute disease. Michael Tate MD PE at Discharge General: in NAD Cardiac: Regular rate and rhythm 4/6 systolic ejection murmur Respiratory: cta GI: abd soft nontender Extremities: ext no edema Hospital Course Symptomatic anemia - Pt is an 86 y/o WF with iron deficiency anemia/GIB/SB angioectasia, severe aortic stenosis, hx of CHF, HTN, and hyperlipidemia. - Pt has had ongoing issues with anemia and obscure GIB. - She was previously admitted in December 2016 and underwent Small bowel enteroscopy /incomplete colonoscopy (12/02/16) which noted thickened fold in the duodenum, otherwise normal enteroscopy and unfortunately the scope was unable to be passed beyond the sigmoid 25 cm secondary to either twisted colon, spasm or external compression, it was felt to not be safe to push the scope without seeing the lumen because of fear of perforation so endoscopy was terminated. - As an outpt she had Capsule endoscopy (02/01/17) which noted multiple angiectasia with active bleeding and pt was sent for antegrade single balloon enteroscopy (02/07/17) but unfortunately there was no active bleeding found and the enteroscopy was found to be normal except for a hiatal hernia. - Pts outpt labs had been stable with Hgb ranging between 9-10. Her last labs on 02/24 noted Hgb 9.3. - She reports that she developed increased SOB with increased weakness and has required the use of her walker. Pt reports that her stools are always dark as she takes iron supplements. - Her labs in the ED noted a drop in her H/H to 5.6/17.4. - Iron studies prior to transfusion noted Serum Fe 35, TIBC 416, %Sat 8.4, Ferritin 20 - Pt was transfused with 4 units of PRBCs with improvement - Monitor closely for any signs of volume overload with transfusion - Hold ASA/Plavix which were started during last admission for trial before TAVR - Discussed with Dr. Martínez will discontinue aspirin and Plavix - DVT prophylaxis with SCDs - GI and Hematology following also following - GI recommending double balloon enteroscopy to be performed at a tertiary center, can be arranged as outpt - Hematology recommending transfuse iron sucrose x 3 days total - Pt received another 2 units of PRBCs on 03/04/17 - Repeat H/H is 9.9/28.8, stable - Given patient's age, recurrent GI bleed in difficult location and need for double balloon enteroscopy she has a high risk for return to the hospital GI bleed - See above Aortic valve stenosis, severe - Her last admission was from 02/18-02/21 for SOB and felt to have acute CHF symptoms related to severe AVS. Pt was diuresed with improvement. - 2D echocardiogram (02/19/17) which noted severe aortic valve stenosis and she was initially decompensated. - She was evaluated with a LHC and consideration for AVR and this was performed on 02/21 and showed critical but nonobstructive CAD. - She was seen by CTS who did the initial evaluation for TAVR vs traditional AVR. - It was decided to send the pt home on MEME/diuretic/ASA/Plavix and monitored for bleeding as she has a hx of previous GIB. Hypertension - Initially Home meds continued- lisinopril 2.5 mg daily - hypotensive will DC Lisinopril Hyperlipidemia - Home meds continued CHF (congestive heart failure) continue lasix 20 mg daily Pt Condition on Discharge: Stable Discharge Disposition: Disch w/ Home Health Serv Discharge Instructions DIET: Follow Instructions for: Heart Healthy Diet Activities you can perform: Regular-No Restrictions Follow up Referrals: Gastroenterology - [address] Wren Oncology/Hematology - [address] Russo PCP Follow-up - [address] Shantelle Monique Continued Medications: Alprazolam (Xanax) 0.25 Mg Tab 0.25 MG PO TID PRN for ANXIETY, TAB 0 Refills Atorvastatin (Atorvastatin) 20 Mg Tab 20 MG PO HS for Cholesterol Management, #30 TAB 0 Refills Cetirizine (Cetirizine) 10 Mg Tab 10 MG PO DAILY for Allergies, TAB 0 Refills Furosemide (Furosemide) 20 Mg Tab 20 MG PO DAILY for heart disease, #30 TAB 3 Refills Multiple Vitamins W/ Minerals (Ocuvite) 1 Tab 1 TAB PO DAILY for Nutritional Supplement, TAB 0 Refills Pantoprazole (Pantoprazole) 40 Mg Tab 40 MG PO DAILY for Reflux, #30 TAB 0 Refills Polysaccharide Iron Complex (Poly-Iron 150) 150 Mg Iron Cap 150 MG PO DAILY for Nutritional Supplement, #30 CAP 0 Refills Potassium Chloride Microencaps (Potassium Chloride Microencaps) 20 Meq Tab 20 MEQ PO DAILY for supplement, #30 TAB 3 Refills Sertraline (Zoloft) 50 Mg Tab 150 MG PO DAILY for anxiety, #30 TAB Discontinued Medications: Aspirin DR (Adult Aspirin EC Low Strength) 81 Mg Tabec 81 MG PO DAILY for heart disease for 90 Days, TAB Clopidogrel (Plavix) 75 Mg Tab 75 MG PO DAILY for heart disease, #30 TAB 3 Refills Lisinopril (Lisinopril) 5 Mg Tab 2.5 MG PO DAILY for heart disease, #30 TAB 3 Refills Additional Information Patient examined. Assessment and plan formulated with Elina Bray PA-C. I agree with the above. Elina Bray Mar 05, 2017 14:27 Kam Jansen DO Mar 05, 2017 22:56
== END 2017-03-05 16:18 | disposition home health service (06) | DRG 812 ==
LOC: NEPE 16:03 → NEDA 17:49 → N06A 21:55
PROVIDERS: ADMIT Hospitalist; ATTEND Hospitalist
PROC: 30253N1 (ICD-10-PCS; principal; 2017-02-28)
DX: D50.9 Iron deficiency anemia, unspecified (principal); I11.0 Hypertensive heart disease with heart failure; I50.9 Heart failure, unspecified; I35.0 Nonrheumatic aortic (valve) stenosis; E78.5 Hyperlipidemia, unspecified; K44.9 Diaphragmatic hernia without obstruction or gangrene; K21.0 Gastro-esophageal reflux disease with esophagitis; K22.70 Barrett's esophagus without dysplasia; K29.70 Gastritis, unspecified, without bleeding; K52.9 Noninfective gastroenteritis and colitis, unspecified; W19.XXXA Unspecified fall, initial encounter; Z95.2 Presence of prosthetic heart valve; Z96.653 Presence of artificial knee joint, bilateral; H35.30 Unspecified macular degeneration
CPT/HCPCS: 36430; 71010; 76937; 80048; 81001; 82247; 82248; 82607; 82728; 82746; 83010; 83540; 83550; 83615; 83735; 83880; 85007; 85025; 85027; 85610; 85730; 86850; 86900; 86901; 86920; 90471; 90732; 93005; C9113; G0009; J1756; J7050; P9016

== ENCOUNTER 2017-05-29 13:15 | Observation (INO) | payer MEDICARE ==
[~2017-05-29] VITALS: Ht 162.6 cm; Wt 73.0 kg
[2017-05-29] VITALS (10 sets, daily range): BP systolic 102–130; BP diastolic 52–74; PULSE 68–90; RESP 16–18; TEMP 98.2–98.4; O2SAT 93–100
[~2017-05-29 13:15] MED LIST changes: -ASPI-99 PO; +ATOR20TA15 PO; -LIPI10TA PO; -LISI-519 PO; -OMEP20TA PO; +PANT40TA3 PO; -PLAV75TA29 PO; +RESP: ALBUTEROL 2.5 MG/IPRATROPIUM 0.5 MG NEB (PRN) NEB
--- NOTE | 2017-05-29 13:42 | PD ---
HPI Chief Complaint: Cardiac Complaint Time Seen by Provider: 13:27 Travel History International Travel<30 days: No Contact w/Intl Traveler<30days: No Traveled to known affect area: No History of Present Illness HPI 87 y/o female presents with chest pressure over the past day after she's been experiencing cold symptoms over the past week. She states that Dr. Lauren is her commercial appraiser and he catheter recently and found of valve issue and thinks the rest was okay. She states she hasn't had an aspirin yet today because she has history of bleeding. She states that she has no other concurrent complaints. History is limited from patient and given she has difficulty remembering further details. PFSH Past Medical History Hx Anticoagulant Therapy: Yes Anemia: Yes Arthritis: Yes Autoimmune Disease: No Anxiety: Yes Depression: Yes Heart Rhythm Problems: No Cancer: No Cardiovascular Problems: Yes (HTN) High Cholesterol: Yes Chest Pain: No Congestive Heart Failure: Yes (THIS ADMIT) Developmental Delay: Yes Diabetes: No Diminished Hearing: No Endocrine: No GERD: Yes Glaucoma: No Genitourinary: No Hepatitis: No Hiatal Hernia: No Hypertension: Yes Immune Disorder: No Implanted Vascular Access Dvce: Yes Kidney Stones: No Musculoskeletal: Yes Neurologic: No Psychiatric: Yes Reproductive: No Respiratory: No Immunizations Current: Yes Renal Failure: No Thyroid Disease: No Ulcer: No Menopausal: Yes Past Surgical History Abdominal Surgery: Yes (HYSTERECTOMY) Body Medical Devices: MARIXA EYE LENS Cardiac Surgery: No Ear Surgery: No Endocrine Surgery: No Eye Surgery: Yes (BILATERAL CATARACT SX; LEFT RETINA SX x2) Genitourinary Surgery: No Gynecologic Surgery: Yes (HYSTERECTOMY in 1981) Hysterectomy: Yes Joint Replacement: Yes (Bilateral Knee) Oral Surgery: No Thoracic Surgery: No Other Surgery: Yes (BILAT. TOTAL KNEE REPLACEMENTS) Social History Alcohol Use: Yes (occas) Tobacco Use: No (QUIT 30 YRS) Substance Use: No Allergies-Medications (Allergen,Severity, Reaction): Coded Allergies: morphine (Unverified Allergy, Intermediate, 05/29/17) Reported Meds & Prescriptions Reported Meds & Active Scripts Active Potassium Chloride Microencaps 20 Meq Tab 20 Meq PO DAILY Furosemide 20 Mg Tab 20 Mg PO DAILY Zoloft (Sertraline HCl) 50 Mg Tab 150 Mg PO DAILY Reported Vitamin [id number] Acid (Cobalamine Combinations) 500-400 Mcg Tab 1 Tab PO DAILY Pantoprazole (Pantoprazole Sodium) 40 Mg Tab 40 Mg PO DAILY Poly-Iron 150 (Polysaccharide Iron Complex) 150 Mg Iron Cap 150 Mg PO DAILY Atorvastatin (Atorvastatin Calcium) 20 Mg Tab 20 Mg PO HS Ocuvite (Multiple Vitamins W/ Minerals) 1 Tab 1 Tab PO DAILY Cetirizine (Cetirizine HCl) 10 Mg Tab 10 Mg PO DAILY Xanax (Alprazolam) 0.25 Mg Tab 0.25 Mg PO TID PRN Review of Systems Except as stated in HPI: all other systems reviewed are Neg Physical Exam Narrative GENERAL: Well-nourished, well-developed patient. SKIN: Warm and dry. HEAD: Normocephalic and atraumatic. EYES: No injection or drainage. ENT: No nasal drainage noted. NECK: Supple, trachea midline. CARDIOVASCULAR: Regular rate and rhythm RESPIRATORY: Breath sounds equal bilaterally at apices. No accessory muscle use. GASTROINTESTINAL: Abdomen soft, non-tender, nondistended. EXTREMITIES: No edema. NEUROLOGICAL: Awake. moves all extremities and sensory grossly within normal limits. Normal speech. Data Data Last Documented VS Vital Signs Date Time Temp Pulse Resp B/P (MAP) Pulse Ox O2 Delivery O2 Flow Rate FiO2 05/29/17 13:35 98.3 85 16 128/63 (84) 100 Room Air Orders Orders Electrocardiogram (05/29/17 ) Electrocardiogram (05/29/17 13:33) B-Type Natriuretic Peptide (05/29/17 13:33) Ckmb (Isoenzyme) Profile (05/29/17 13:33) Complete Blood Count With Diff (05/29/17 13:33) Comprehensive Metabolic Panel (05/29/17 13:33) Magnesium (Mg) (05/29/17 13:33) Prothrombin Time / Inr (Pt) (05/29/17 13:33) Act Partial Throm Time (Ptt) (05/29/17 13:33) Troponin I (05/29/17 13:33) Lipase (05/29/17 13:33) Chest, Single Ap (05/29/17 13:33) Ecg Monitoring (05/29/17 13:33) Bilateral Bp Monitoring (05/29/17 13:33) Iv Access Insert/Monitor (05/29/17 13:33) Oximetry (05/29/17 13:33) Aspirin (Aspirin) (05/29/17 13:45) Sodium Chloride 0.9% Flush (Ns Flush) (05/29/17 13:45) Admit Order (Ed Use Only) (05/29/17 15:28) Labs Laboratory Tests Test 05/29/17 14:00 White Blood Count 6.4 TH/MM3 Red Blood Count 3.16 MIL/MM3 Hemoglobin 8.6 GM/DL Hematocrit 26.9 % Mean Corpuscular Volume 85.0 FL Mean Corpuscular Hemoglobin 27.2 PG Mean Corpuscular Hemoglobin Concent 32.0 % Red Cell Distribution Width 20.3 % Platelet Count 379 TH/MM3 Mean Platelet Volume 8.3 FL Neutrophils (%) (Auto) 70.0 % Lymphocytes (%) (Auto) 21.1 % Monocytes (%) (Auto) 6.8 % Eosinophils (%) (Auto) 1.5 % Basophils (%) (Auto) 0.6 % Neutrophils # (Auto) 4.5 TH/MM3 Lymphocytes # (Auto) 1.3 TH/MM3 Monocytes # (Auto) 0.4 TH/MM3 Eosinophils # (Auto) 0.1 TH/MM3 Basophils # (Auto) 0.0 TH/MM3 CBC Comment DIFF FINAL Differential Comment Prothrombin Time 10.2 SEC Prothromb Time International Ratio 0.9 RATIO Activated Partial Thromboplast Time 22.2 SEC Blood Urea Nitrogen 19 MG/DL Creatinine 0.81 MG/DL Random Glucose 95 MG/DL Total Protein 6.9 GM/DL Albumin 3.4 GM/DL Calcium Level 8.7 MG/DL Magnesium Level 2.2 MG/DL Alkaline Phosphatase 76 U/L Aspartate Amino Transf (AST/SGOT) 35 U/L Alanine Aminotransferase (ALT/SGPT) 27 U/L Total Bilirubin 0.3 MG/DL Sodium Level 138 MEQ/L Potassium Level 4.6 MEQ/L Chloride Level 103 MEQ/L Carbon Dioxide Level 28.5 MEQ/L Anion Gap 7 MEQ/L Estimat Glomerular Filtration Rate 67 ML/MIN Total Creatine Kinase 64 U/L Troponin I LESS THAN 0.02 NG/ML B-Type Natriuretic Peptide 113 PG/ML Lipase 110 U/L MDM Medical Decision Making Medical Screen Exam Complete: Yes Emergency Medical Condition: Yes Medical Record Reviewed: Yes (pmh confirmed, recent complex hospitalization reviewed, catheter from 2017 noted) Interpretation(s) EKG is sinus rhythm at [address] segment elevation or depression when compared to prior CBC & BMP Diagram 05/29/17 14:00 Total Protein 6.9, Albumin 3.4, Calcium Level 8.7, Magnesium Level 2.2, Alkaline Phosphatase 76, Aspartate Amino Transf (AST/SGOT) 35, Alanine Aminotransferase (ALT/SGPT) 27, Total Bilirubin 0.3 cxr small area ?atelectasis given no fever or URI symptoms Differential Diagnosis Pneumonia, pneumothorax, anemia, renal failure, cardiac Narrative Course Will check blood work, chest x-ray and dose with aspirin and reevaluate ed workup with persistent anemia, first set of cardiac markers are negative, will discuss with her commercial appraiser Will admit to the hospital Physician Communication Physician Communication dr rachael thornton to monitor lab work in the hospital Dr. Juarez agrees to admission Diagnosis Primary Impression: Chest pain Qualified Codes: R07.9 - Chest pain, unspecified Additional Impressions: Anemia Qualified Codes: D64.9 - Anemia, unspecified Aortic valve stenosis, severe Admitting Information Admitting Physician Requests: Lou Cerna MD May 29, 2017 13:42
[2017-05-29] MEDS ORDERED: ASPIRIN 325 MG TAB PO ONE (13:45)
[2017-05-29] MEDS ORDERED: SODIUM CHLORIDE 0.9% FLUSH 10 ML FLUSH IVF PRN (13:45)
[2017-05-29] MEDS ORDERED: VITATAB43 PO (13:49)
[2017-05-29 14:17] LABS: AUTOMATED NEUTROPHIL # 4.5 TH/MM3 (1.8-7.7); BASOPHIL % 0.6 % (0.0-2.0); EOSINOPHIL # 0.1 TH/MM3 (0-0.4); EOSINOPHIL % 1.5 % (0.0-4.0); HEMATOCRIT 26.9 % (35.0-46.0); HEMO FLAGS DIFF FINAL; LYMPH % 21.1 % (9.0-44.0); LYMPHOCYTE # 1.3 TH/MM3 (1.0-4.8); MEAN CORPUSCULAR HEMOGLOBIN 27.2 PG (27.0-34.0); MONO % 6.8 % (0.0-8.0); PLATELET COUNT 379 TH/MM3 (150-450); RED BLOOD COUNT 3.16 MIL/MM3 (4.00-5.30); RED CELL DISTRIBUTION WIDTH 20.3 % (11.6-17.2); WHITE BLOOD COUNT 6.4 TH/MM3 (4.0-11.0)
[2017-05-29 14:18] LABS: APTT (PATIENT) 22.2 SEC (24.3-30.1); INTERNATIONAL NORMALIZED RATIO 0.9 RATIO; PROTHROMBIN TIME - PATIENT 10.2 SEC (9.8-11.6)
[2017-05-29 14:32] LABS: ALKALINE PHOSPHATASE 76 U/L (45-117); ALT (GPT) 27 U/L (10-53); ANION GAP 7 MEQ/L (5-15); AST (GOT) 35 U/L (15-37); BICARBONATE 28.5 MEQ/L (21.0-32.0); CHLORIDE 103 MEQ/L (98-107); GLOMERULAR FILTRATION RATE 67 ML/MIN (>89); MAGNESIUM 2.2 MG/DL (1.5-2.5); POTASSIUM 4.6 MEQ/L (3.5-5.1); SODIUM (NA) 138 MEQ/L (136-145); TOTAL BILIRUBIN ADULT 0.3 MG/DL (0.2-1.0)
[2017-05-29 14:33] LABS: BLOOD UREA NITROGEN 19 MG/DL (7-18); CREATINE KINASE 64 U/L (26-192)
--- NOTE | 2017-05-29 14:50 | RADRPT ---
EXAM DATE/TIME: 05/29/2017 13:44 [facility] COMPARISON: CHEST SINGLE AP, May 10, 2017, 18:02. CHEST SINGLE AP, May 11, 2017, 5:11. INDICATIONS : Chest pain MEDICAL HISTORY : Hypertension. Congestive heart failure. Gastroesophageal reflux disease SURGICAL HISTORY : None. ENCOUNTER: Initial ACUITY: 1 day PAIN SCORE: 3/10 LOCATION: chest FINDINGS: There is some oblique linear opacities in the lower lateral left lung with l; this is a new finding w hen compared to prior chest x-rays.oss of delineation the left hemidiaphragm. The right lung is tiara r the heart is normal in size. CONCLUSION: Oblique linear atelectasis, infiltrate, or scarring in the lower lateral left lung. Roosevelt Knox MD on May 29, 2017 at 14:48 Board Certified Radiologist. This report was verified electronically.
--- NOTE | 2017-05-29 15:31 | HHI.HP ---
HPI Service [facility] Primary Care Physician Aminata Morales MD Admission Diagnosis chest pain, anemia Chief Complaint: chest pain Travel History International Travel<30 Days: No Contact w/Intl Traveler <30 Da: No Traveled to Known Affected Are: No History of Present Illness Mrs. Buchanan is a pleasant 87 y/o WF with iron deficiency anemia/GIB/SB angiectasia, severe aortic stenosis, hx of CHF, HTN, and hyperlipidemia. She has had multiple recent admissions. Previous admission from 02/18-02/21 for SOB and felt to have acute CHF symptoms related to severe AVS. She had an echocardiogram (02/19/17) which noted severe aortic valve stenosis and she was initially decompensated. Pt was diuresed with improvement. She was evaluated with a LHC and consideration for AVR and this was performed on 02/21 and showed critical but nonobstructive CAD. She was seen by CTS who did the initial evaluation for TAVR vs traditional AVR. It was decided to send the pt home on MEME/diuretic/ASA/Plavix and monitored for bleeding as she has a hx of previous GIB. Pt has had ongoing issues with anemia and possible GIB. She was previously admitted in December 2016 and underwent Small bowel enteroscopy/incomplete colonoscopy (12/02/16) which noted thickened fold in the duodenum, otherwise normal enteroscopy and unfortunately the scope was unable to be passed beyond the sigmoid 25 cm secondary to either twisted colon, spasm or external compression, it was felt to not be safe to push the scope without seeing the lumen because of fear of perforation so endoscopy was terminated. As an outpt she had Capsule endoscopy (02/01/17) which noted multiple angiectasia with active bleeding and pt was sent for antegrade single balloon enteroscopy (02/07/17) but unfortunately there was no active bleeding found and the enteroscopy was found to be normal except for a hiatal hernia. Pt was readmitted from 02/28/17 to with anemia. During that admission she was transfused with a total of 6 units of PRBCs with improvement. Her ASA/Plavix were stopped at that time. She was seen by GI and Hematology during that admission and GI recommended double balloon enteroscopy to be performed at a tertiary center as an outpt. Hematology recommended transfusing iron sucrose which she received. Pt [place] [facility] [place] with complaints of weakness and chest discomfort. Per patient she woke up weak and some chest discomfort. She follows with Dr. Russo and was seen in 05/04. Pt is reportedly supposed to have an iron replacement therapy tomorrow. She denies any obvious GIB. Her H/H at admission was 7.4/23.7. Prior to that her labs on 05/04 were Hgb 8.6/Hct 26.6. CXR in the ED with no acute disease. At the time of our evaluation in the ED pt found to be in respiratory distress. She had been given one unit of PRBCs and appears to be in some degree of volume overload. Pt to be given IV Lasix and a breathing treatment STAT and we will repeat CXR. Patient presents to the ER today 05/29/17 with complaints of chest pain. Chest pressure/heaviness located across anterior chest. Patient endorses shortness of breath with exertion. Patient also has had nonproductive cough mostly in the morning for the past 4-5 days associated with wheezing. Patient reports feeling, "woozy," with standing. Patient denies bright red blood per rectum, black tarry stools or vomiting. Review of Systems Constitutional: DENIES: Fatigue, Fever, Chills Respiratory: COMPLAINS OF: Cough, Shortness of breath, DENIES: Sputum production Cardiovascular: COMPLAINS OF: Chest pain, Dyspnea on Exertion, DENIES: Palpitations, Lower Extremity Edema Gastrointestinal: DENIES: Abdominal pain, Black stools, Bloody stools, BRB per rectum, Nausea, Vomiting Neurologic: DENIES: Abnormal gait, Headache, Localized weakness Psychiatric: DENIES: Anxiety, Confusion, Depression Past Family Social History Past Medical History Iron deficiency anemia/GIB/SB angiectasia Severe aortic stenosis, LHC was performed on 02/21 and showed critical but nonobstructive CAD. She was seen by CTS who did the initial evaluation for TAVR vs traditional AVR. Garcia's esophagus CHF Diverticulosis HTN Hyperlipidemia Lumbar stenosis Macular degeneration Depression/Anxiety 2D echocardiogram (02/19/17) which noted severe aortic valve stenosis Past Surgical History Antegrade single balloon enteroscopy (02/07/17) --> Normal enteroscopy except for a hiatal hernia Capsule endoscopy (02/01/17) --> Multiple angiectasia with active bleeding Small bowel enteroscopy (12/02/16) --> thickened fold in the duodenum Bx done otherwise normal Colonoscopy (12/02/16) --> Scope was unable to be passed beyond the sigmoid 25 cm secondary to either twisted colon, spasm or external compression, it was felt to not be safe to push the scope without seeing the lumen because of fear of perforation so endoscopy was terminated Colonoscopy (03/26/16) --> Severe diverticulosis in the left colon, colitis, hemorrhoids, small polyp EGD/colonoscopy (03/24/16) --> gastritis, HH, esophagitis, diverticulosis, hemorrhoids, polyps, incomplete colonoscopy Colonoscopy (08/13/15) --> Very tortuous, edematous sigmoid colon, possible diverticular colitis, diminutive polyps in the ascending colon, sigmoid diverticulosis, grade I hemorrhoids, decreased sphincter tone. Cataract surgery Knee arthroscopy/arthroplasty KEILA Reported Medications Potassium Chloride Microencaps 20 Meq Tab 20 Meq PO DAILY Furosemide 20 Mg Tab 20 Mg PO DAILY Zoloft (Sertraline HCl) 50 Mg Tab 150 Mg PO DAILY Vitamin O95-[place] Acid (Cobalamine Combinations) 500-400 Mcg Tab 1 Tab PO DAILY Pantoprazole (Pantoprazole Sodium) 40 Mg Tab 40 Mg PO DAILY Poly-Iron 150 (Polysaccharide Iron Complex) 150 Mg Iron Cap 150 Mg PO DAILY Atorvastatin (Atorvastatin Calcium) 20 Mg Tab 20 Mg PO HS Ocuvite (Multiple Vitamins W/ Minerals) 1 Tab 1 Tab PO DAILY Cetirizine (Cetirizine HCl) 10 Mg Tab 10 Mg PO DAILY Xanax (Alprazolam) 0.25 Mg Tab 0.25 Mg PO TID PRN Allergies: Coded Allergies: morphine (Unverified Allergy, Intermediate, 05/29/17) Active Ordered Medications Current Medications Medications (Trade) Dose Ordered Sig/Brian Route Start Time Stop Time Status Last Admin (NS Flush) 2 ml UNSCH PRN IVF 05/29/17 13:45 Family History Noncontributory Social History Denies any tobacco use Occasionally drinks beer or vodka Pt lives alone, she is a Her children live out of town She has a family friend who looks after her here locally Physical Exam Vital Signs Vital Signs Date Time Temp Pulse Resp B/P (MAP) Pulse Ox O2 Delivery O2 Flow Rate FiO2 05/29/17 13:35 98.3 85 16 128/63 (84) 100 Room Air 05/29/17 13:35 82 16 97 Room Air 05/29/17 13:35 125/61 (82) 128/63 (84) 05/29/17 13:35 16 97 Room Air 05/29/17 13:29 97 Physical Exam GENERAL: This is a well-nourished, well-developed patient, in no apparent distress. SKIN: No rashes, ecchymoses or lesions. Cool and dry. HEAD: Atraumatic. Normocephalic. No temporal or scalp tenderness. EYES: Extraocular motions intact. No scleral icterus. No injection or drainage. ENT: Nose without bleeding, purulent drainage or septal hematoma. Throat without erythema, tonsillar hypertrophy or exudate. Uvula midline. Airway patent. NECK: Trachea midline. No JVD or lymphadenopathy. Supple, nontender, no meningeal signs. CARDIOVASCULAR: Regular rate and rhythm murmur present RESPIRATORY: Clear to auscultation. Breath sounds equal bilaterally. GASTROINTESTINAL: Abdomen soft, non-tender, nondistended. MUSCULOSKELETAL: Extremities without clubbing, cyanosis, or edema. No joint tenderness, effusion, or edema noted. No calf tenderness. Negative Homans sign bilaterally. NEUROLOGICAL: Awake and alert. No focal deficits noted. Motor and sensory grossly within normal limits. Five out of 5 muscle strength in all muscle groups. Normal speech. Laboratory Laboratory Tests Test 05/29/17 14:00 White Blood Count 6.4 Red Blood Count 3.16 Hemoglobin 8.6 Hematocrit 26.9 Mean Corpuscular Volume 85.0 Mean Corpuscular Hemoglobin 27.2 Mean Corpuscular Hemoglobin Concent 32.0 Red Cell Distribution Width 20.3 Platelet Count 379 Mean Platelet Volume 8.3 Neutrophils (%) (Auto) 70.0 Lymphocytes (%) (Auto) 21.1 Monocytes (%) (Auto) 6.8 Eosinophils (%) (Auto) 1.5 Basophils (%) (Auto) 0.6 Neutrophils # (Auto) 4.5 Lymphocytes # (Auto) 1.3 Monocytes # (Auto) 0.4 Eosinophils # (Auto) 0.1 Basophils # (Auto) 0.0 CBC Comment DIFF FINAL Differential Comment Prothrombin Time 10.2 Prothromb Time International Ratio 0.9 Activated Partial Thromboplast Time 22.2 Blood Urea Nitrogen 19 Creatinine 0.81 Random Glucose 95 Total Protein 6.9 Albumin 3.4 Calcium Level 8.7 Magnesium Level 2.2 Alkaline Phosphatase 76 Aspartate Amino Transf (AST/SGOT) 35 Alanine Aminotransferase (ALT/SGPT) 27 Total Bilirubin 0.3 Sodium Level 138 Potassium Level 4.6 Chloride Level 103 Carbon Dioxide Level 28.5 Anion Gap 7 Estimat Glomerular Filtration Rate 67 Total Creatine Kinase 64 Troponin I LESS THAN 0.02 B-Type Natriuretic Peptide 113 Lipase 110 Result Diagram: 05/29/17 1400 05/29/17 1400 Caprini VTE Risk Assessment Caprini VTE Risk Assessment: Mod/High Risk (score >= 2) Caprini Risk Assessment Model Point Value = 1 Point Value = 2 Point Value = 3 Point Value = 5 Age 41-60 Minor surgery BMI > 25 kg/m2 Swollen legs Varicose veins or History of unexplained or recurrent spontaneous Oral contraceptives or hormone replacement Sepsis (< 1 month) Serious lung disease, including pneumonia (< 1 month) Abnormal pulmonary function Acute myocardial infarction Congestive heart failure (< 1 month) History of inflammatory bowel disease Medical patient at bed rest Age 61-74 Arthroscopic surgery Major open surgery (> 45 min) Laparoscopic surgery (> 45 min) Malignancy Confined to bed (> 72 hours) Immobilizing plaster cast Central venous access Age >= 75 History of VTE Family history of VTE Factor V Leiden Prothrombin [id number] Lupus anticoagulant Anticardiolipin antibodies Elevated serum homocysteine Heparin-induced thrombocytopenia Other congenital or acquired thrombophilia Stroke (< 1 month) Elective arthroplasty Hip, pelvis, or leg fracture Acute spinal cord injury (< 1 month) Prophylaxis Regimen Total Risk Factor Score Risk Level Prophylaxis Regimen 0-1 Low Early ambulation 2 Moderate Order ONE of the following: *Sequential Compression Device (SCD) *Heparin 5000 units SQ BID 3-4 Higher Order ONE of the following medications: *Heparin 5000 units SQ TID *Enoxaparin/Lovenox 40 mg SQ daily (WT < 150 kg, CrCl > 30 mL/min) *Enoxaparin/Lovenox 30 mg SQ daily (WT < 150 kg, CrCl > 10-29 mL/min) *Enoxaparin/Lovenox 30 mg SQ BID (WT < 150 kg, CrCl > 30 mL/min) AND/OR *Sequential Compression Device (SCD) 5 or more Highest Order ONE of the following medications: *Heparin 5000 units SQ TID (Preferred with Epidurals) *Enoxaparin/Lovenox 40 mg SQ daily (WT < 150 kg, CrCl > 30 mL/min) *Enoxaparin/Lovenox 30 mg SQ daily (WT < 150 kg, CrCl > 10-29 mL/min) *Enoxaparin/Lovenox 30 mg SQ BID (WT < 150 kg, CrCl > 30 mL/min) AND *Sequential Compression Device (SCD) Assessment and Plan Problem List: (1) Chest pain ICD Codes: R07.9 - Chest pain, unspecified Status: Acute Plan: Chest pain- unlikely ACS initial troponin <0.02, will trend serial troponin and serial EKG continuous telemetry Recent cardiac catheterization 02/21/17 showed: 1. Left main coronary is angiographically normal. 2. Left anterior descending coronary has mild luminal irregularities throughout its proximal course. Diagonal branch has minor luminal irregularities. 3. Left circumflex is tortuous, has a 30% ostial stenosis and otherwise minor luminal irregularities. 4. Right coronary is a dominant vessel giving rise to posterior descending branch. Right coronary has minor luminal irregularities. hgb 8.4 today this maybe contributing to patient's chest pressure, SOB with exertion and lightheaded feeling when standing transfuse 1 unit PRBC- slowly as patient had volume overload on last admission after PRBC transfusion followed by Lasix IV recheck H&H in AM Anemia recurrent GI bleed - Pt is an 87 y/o female with iron deficiency anemia/GIB/SB angiectasia, severe aortic stenosis, hx of CHF, HTN, and hyperlipidemia. - She has had multiple recent admissions. Pt has had ongoing issues with anemia and possible GIB. She was previously admitted in December 2016 and underwent Small bowel enteroscopy/incomplete colonoscopy (12/02/16 ) which noted thickened fold in the duodenum, otherwise normal enteroscopy and unfortunately the scope was unable to be passed beyond the sigmoid 25 cm secondary to either twisted colon, spasm or external compression, it was felt to not be safe to push the scope without seeing the lumen because of fear of perforation so endoscopy was terminated. As an outpt she had Capsule endoscopy (02/01/17) which noted multiple angiectasia with active bleeding and pt was sent for antegrade single balloon enteroscopy () but unfortunately there was no active bleeding found and the enteroscopy was found to be normal except for a hiatal hernia. Pt was readmitted from 02/28/17 to 03/05/17 with anemia. During that admission she was transfused with a total of 6 units of PRBCs with improvement. Her ASA/Plavix (which were started during last admission for trial before TAVR) were stopped. She was seen by GI and Hematology during that admission and GI recommended double balloon enteroscopy to be performed at a tertiary center as an outpt. Hematology recommended transfusing iron sucrose which she received. - She denies any obvious GIB. - Per pt she now follows with Hematology, Dr. Russo. - Case d/w Dr. Russo (05/11). Pt to receive weekly iron infusions x 3 weeks. - first infusion of IV iron was given in the hospital (05/11) - Recheck CBC in AM - Pt has an appt at [facility] 06/01/17 for Double balloon enteroscopy. CHF (congestive heart failure) - see above Aortic valve stenosis, severe - Previous admission from 02/18-02/21 for SOB and felt to have acute CHF symptoms related to severe AVS. - 2D echocardiogram (02/19/17) which noted severe aortic valve stenosis and she was initially decompensated. - She was seen by CTS who did the initial evaluation for TAVR vs traditional AVR but due to her issues with GIB this has been put on hold. - She is no longer on any anticoagulants Hypertension - Cont. home meds - Monitor Hyperlipidemia - Cont. home meds - Anticipate d/c to home tomorrow, if stable so patient will be able to keep appointment with [facility] 06/01/[address] Juarez discussed the case with patient's friend and patient's daughter over the phone DVT prophylaxis with SCDs avoid chemical DVT prophylaxis due to recurrent GI bleeding (2) Anemia ICD Codes: D64.9 - Anemia, unspecified Status: Acute (3) GI bleed ICD Codes: K92.2 - Gastrointestinal hemorrhage, unspecified Status: Resolved (4) CHF (congestive heart failure) ICD Codes: I50.9 - Heart failure, unspecified Status: Acute (5) Hypertension ICD Codes: I10 - Essential (primary) hypertension Status: Chronic (6) Hyperlipidemia ICD Codes: E78.5 - Hyperlipidemia, unspecified Status: Chronic Assessment and Plan Patient examined. Assessment and plan formulated with Elina Bray PA-C. I agree with the above. pt with severe AVS and recurrent gib and symptomatic anemia. extensive gi w/up and had previously noted small bowel avm's that were oozing on capsule. Pt developed a cold and mild cough. She describes sob/chest pressure along with some lightheaded/dizzy type symptoms. Pt is very sure these are the same sx's she gets with worsening anemia. Her hgb has dropped slightly since last admission. she has a [facility] appt with GI this week on Tuesday. Plan was for possible double balloon enteroscopy. source of bleeding needs to be identified before proceeding with TAVR, I spoke to her daughter and son in law by phone. They have plans of flying from [place] to [place] on Tuesday to assist our pt to the [facility].....We will fax our records to [facility] tomorrow. The plan would be for d/c tomorrow if pt stable. Problem Qualifiers (1) Chest pain: Qualified Codes: R07.9 - Chest pain, unspecified (2) Anemia: Qualified Codes: D64.9 - Anemia, unspecified Elina Bray May 29, 2017 15:31 Selvin Juarez MD May 29, 2017 16:47
[2017-05-29] MEDS ORDERED: SODIUM CHLOR 0.9% 250 ML INJ 250 ML IV ONE (16:15)
[2017-05-29] MEDS ORDERED: SODIUM CHLORIDE 0.9% FLUSH 10 ML FLUSH IV FLUSH PRN (16:15)
[2017-05-29] MEDS ORDERED: NALOXONE HCL 0.4 MG/ML AMP IV PUSH PRN (16:15)
[2017-05-29] MEDS ORDERED: MAGNESIUM HYDROXIDE SUSP 30 ML CUP PO PRN (17:00)
[2017-05-29] MEDS ORDERED: FUROSEMIDE 40 MG/4 ML VIAL IV PUSH ONE (17:00)
[2017-05-29] MEDS ORDERED: ACETAMINOPHEN 325 MG TAB PO PRN (17:00)
[2017-05-29] MEDS ORDERED: FUROSEMIDE 20 MG/2 ML VIAL IV PUSH ONE (17:00)
[2017-05-29] MEDS ORDERED: ONDANSETRON HCL 4 MG/2 ML VIAL IVP PRN (18:00)
[2017-05-29] MEDS: RESP: ALBUTEROL 2.5 MG/IPRATROPIUM 0.5 MG NEB (SCH) NEB (20:00)
[2017-05-29] MEDS ORDERED: ATORVASTATIN 20 MG TAB PO SCH (21:00)
[2017-05-29] MEDS: DOCUSATE SODIUM 50 MG/SENNA 8.6 MG TAB PO SCH (21:02)
[2017-05-29] MEDS: SODIUM CHLORIDE 0.9% FLUSH 10 ML FLUSH IV FLUSH SCH (21:02)
[2017-05-29] MEDS: ALPRAZolam 0.25 MG TAB PO PRN (21:06)
--- NOTE | 2017-05-29 21:09 | EKG ---
Date Performed: 05/29/2017 Time Performed: 13:31:26 PTAGE: 87 years EKG: Sinus rhythm ST/T-WAVE ABNORMALITY, CONSIDER LATERAL ISCHEMIA ABNORMAL ECG PREVIOUS TRACING : 05/10/2017 16.18 No significant change from previous tracing noted. DOCTOR: Benji Ayon Interpretating Date/Time 05/29/2017 21:07:38
[2017-05-30] VITALS (9 sets, daily range): BP systolic 120–135; BP diastolic 58–73; PULSE 75–88; RESP 15–18; TEMP 96.5–98.8; O2SAT 93–97
[2017-05-30 03:40] LABS: AUTOMATED NEUTROPHIL # 3.6 TH/MM3 (1.8-7.7); BASOPHIL % 0.7 % (0.0-2.0); EOSINOPHIL # 0.1 TH/MM3 (0-0.4); EOSINOPHIL % 2.4 % (0.0-4.0); HEMATOCRIT 26.7 % (35.0-46.0); HEMO FLAGS DIFF FINAL; LYMPH % 28.4 % (9.0-44.0); LYMPHOCYTE # 1.7 TH/MM3 (1.0-4.8); MEAN CELL VOLUME 84.2 FL (80.0-100.0); MEAN CORPUSCULAR HEMOGLOBIN 27.2 PG (27.0-34.0); MEAN CORPUSCULAR HGB CONC 32.3 % (32.0-36.0); MONO % 10.4 % (0.0-8.0); NEUT % 58.1 % (16.0-70.0); PLATELET COUNT 314 TH/MM3 (150-450); RED BLOOD COUNT 3.17 MIL/MM3 (4.00-5.30); RED CELL DISTRIBUTION WIDTH 19.6 % (11.6-17.2); WHITE BLOOD COUNT 6.1 TH/MM3 (4.0-11.0)
[2017-05-30 04:02] LABS: ANION GAP 7 MEQ/L (5-15); BICARBONATE 29.9 MEQ/L (21.0-32.0); BLOOD UREA NITROGEN 29 MG/DL (7-18); CHLORIDE 102 MEQ/L (98-107); GLOMERULAR FILTRATION RATE 64 ML/MIN (>89); POTASSIUM 3.4 MEQ/L (3.5-5.1); SODIUM (NA) 139 MEQ/L (136-145)
[2017-05-30] MEDS: DOCUSATE SODIUM 50 MG/SENNA 8.6 MG TAB PO SCH (07:57)
[2017-05-30] MEDS: SODIUM CHLORIDE 0.9% FLUSH 10 ML FLUSH IV FLUSH SCH (07:57)
[2017-05-30] MEDS: ALPRAZolam 0.25 MG TAB PO PRN (08:06)
[2017-05-30] MEDS: RESP: ALBUTEROL 2.5 MG/IPRATROPIUM 0.5 MG NEB (SCH) NEB ×2 (08:10→13:26)
[2017-05-30] MEDS ORDERED: FUROSEMIDE 20 MG/2 ML VIAL IV PUSH PRN ×2 (08:30→14:00)
[2017-05-30] MEDS ORDERED: SODIUM CHLOR 0.9% 250 ML INJ 250 ML IV ONE (08:30)
--- NOTE | 2017-05-30 08:36 | HHI.PR ---
Subjective Remarks Patient reports chest pain and lightheaded feeling after standing has resolved patient now reports extreme fatigue Offers no other complaints at this time denies s/s of active GI bleeding Objective Vitals Vital Signs Date Time Temp Pulse Resp B/P (MAP) Pulse Ox O2 Delivery O2 Flow Rate FiO2 05/30/17 07:51 96.8 86 18 120/58 (78) 94 05/30/17 07:17 84 05/30/17 05:32 98.7 87 18 135/73 (93) 94 05/29/17 23:59 88 05/29/17 23:18 98.2 78 18 113/74 (87) 97 05/29/17 21:00 86 05/29/17 20:15 97 05/29/17 20:07 98.4 68 18 129/69 (89) 98 05/29/17 19:07 83 18 102/52 93 05/29/17 18:41 98.3 85 16 107/66 95 05/29/17 17:20 05/29/17 17:07 90 16 130/57 (81) 99 Room Air 05/29/17 13:35 98.3 85 16 128/63 (84) 100 Room Air 05/29/17 13:35 82 16 97 Room Air 05/29/17 13:35 125/61 (82) 128/63 (84) 05/29/17 13:35 16 97 Room Air 05/29/17 13:29 97 Result Diagram: 05/30/17 0303 05/30/17 0303 Other Results Laboratory Tests Test 05/29/17 14:00 05/29/17 20:00 05/30/17 03:03 White Blood Count 6.4 TH/MM3 6.1 TH/MM3 Red Blood Count 3.16 MIL/MM3 3.17 MIL/MM3 Hemoglobin 8.6 GM/DL 8.6 GM/DL Hematocrit 26.9 % 26.7 % Mean Corpuscular Volume 85.0 FL 84.2 FL Mean Corpuscular Hemoglobin 27.2 PG 27.2 PG Mean Corpuscular Hemoglobin Concent 32.0 % 32.3 % Red Cell Distribution Width 20.3 % 19.6 % Platelet Count 379 TH/MM3 314 TH/MM3 Mean Platelet Volume 8.3 FL 7.9 FL Neutrophils (%) (Auto) 70.0 % 58.1 % Lymphocytes (%) (Auto) 21.1 % 28.4 % Monocytes (%) (Auto) 6.8 % 10.4 % Eosinophils (%) (Auto) 1.5 % 2.4 % Basophils (%) (Auto) 0.6 % 0.7 % Neutrophils # (Auto) 4.5 TH/MM3 3.6 TH/MM3 Lymphocytes # (Auto) 1.3 TH/MM3 1.7 TH/MM3 Monocytes # (Auto) 0.4 TH/MM3 0.6 TH/MM3 Eosinophils # (Auto) 0.1 TH/MM3 0.1 TH/MM3 Basophils # (Auto) 0.0 TH/MM3 0.0 TH/MM3 CBC Comment DIFF FINAL DIFF FINAL Differential Comment Prothrombin Time 10.2 SEC Prothromb Time International Ratio 0.9 RATIO Activated Partial Thromboplast Time 22.2 SEC Blood Urea Nitrogen 19 MG/DL 29 MG/DL Creatinine 0.81 MG/DL 0.84 MG/DL Random Glucose 95 MG/DL 91 MG/DL Total Protein 6.9 GM/DL Albumin 3.4 GM/DL Calcium Level 8.7 MG/DL 8.2 MG/DL Magnesium Level 2.2 MG/DL Alkaline Phosphatase 76 U/L Aspartate Amino Transf (AST/SGOT) 35 U/L Alanine Aminotransferase (ALT/SGPT) 27 U/L Total Bilirubin 0.3 MG/DL Sodium Level 138 MEQ/L 139 MEQ/L Potassium Level 4.6 MEQ/L 3.4 MEQ/L Chloride Level 103 MEQ/L 102 MEQ/L Carbon Dioxide Level 28.5 MEQ/L 29.9 MEQ/L Anion Gap 7 MEQ/L 7 MEQ/L Estimat Glomerular Filtration Rate 67 ML/MIN 64 ML/MIN Total Creatine Kinase 64 U/L Troponin I LESS THAN 0.02 NG/ML LESS THAN 0.02 NG/ML LESS THAN 0.02 NG/ML B-Type Natriuretic Peptide 113 PG/ML Lipase 110 U/L Imaging Last Impressions Chest X-Ray 05/29/17 1333 Signed Impressions: Service Date/Time: Monday, May 29, 2017 13:44 - CONCLUSION: Oblique linear atelectasis, infiltrate, or scarring in the lower lateral left lung. Roosevelt Knox MD Objective Remarks GENERAL: This is a well-nourished, well-developed patient, in no apparent distress. SKIN: No rashes, ecchymoses or lesions. Cool and dry. appears pale CARDIOVASCULAR: Regular rate and rhythm murmur present RESPIRATORY: Clear to auscultation. Breath sounds equal bilaterally. GASTROINTESTINAL: Abdomen soft, non-tender, nondistended. MUSCULOSKELETAL: Extremities without clubbing, cyanosis, or edema. No joint tenderness, effusion, or edema noted. No calf tenderness. Negative Homans sign bilaterally. NEUROLOGICAL: Awake and alert. No focal deficits noted. Motor and sensory grossly within normal limits. Five out of 5 muscle strength in all muscle groups. Normal speech. A/P Problem List: (1) Chest pain ICD Codes: R07.9 - Chest pain, unspecified Status: Acute Plan: Chest pain- unlikely ACS initial troponin <0.02, will trend serial troponin and serial EKG continuous telemetry Recent cardiac catheterization 02/21/17 showed: 1. Left main coronary is angiographically normal. 2. Left anterior descending coronary has mild luminal irregularities throughout its proximal course. Diagonal branch has minor luminal irregularities. 3. Left circumflex is tortuous, has a 30% ostial stenosis and otherwise minor luminal irregularities. 4. Right coronary is a dominant vessel giving rise to posterior descending branch. Right coronary has minor luminal irregularities. hgb 8.4 today this maybe contributing to patient's chest pressure, SOB with exertion and lightheaded feeling when standing transfuse 1 unit PRBC- slowly as patient had volume overload on last admission after PRBC transfusion followed by Lasix IV recheck H&H hemoglobin 8.6 on admission -> 8.6 (05/30) patient reports extreme fatigue will transfuse addition 1 unit PRBC with Lasix 20 mg IV after unit Plan to DC after blood given Anemia recurrent GI bleed - Pt is an 87 y/o female with iron deficiency anemia/GIB/SB angiectasia, severe aortic stenosis, hx of CHF, HTN, and hyperlipidemia. - She has had multiple recent admissions. Pt has had ongoing issues with anemia and possible GIB. She was previously admitted in December 2016 and underwent Small bowel enteroscopy/incomplete colonoscopy (12/02/16 ) which noted thickened fold in the duodenum, otherwise normal enteroscopy and unfortunately the scope was unable to be passed beyond the sigmoid 25 cm secondary to either twisted colon, spasm or external compression, it was felt to not be safe to push the scope without seeing the lumen because of fear of perforation so endoscopy was terminated. As an outpt she had Capsule endoscopy (02/01/17) which noted multiple angiectasia with active bleeding and pt was sent for antegrade single balloon enteroscopy () but unfortunately there was no active bleeding found and the enteroscopy was found to be normal except for a hiatal hernia. Pt was readmitted from 02/28/17 to 03/05/17 with anemia. During that admission she was transfused with a total of 6 units of PRBCs with improvement. Her ASA/Plavix (which were started during last admission for trial before TAVR) were stopped. She was seen by GI and Hematology during that admission and GI recommended double balloon enteroscopy to be performed at a tertiary center as an outpt. Hematology recommended transfusing iron sucrose which she received. - She denies any obvious GIB. - Per pt she now follows with Hematology, Dr. Russo. - Case d/w Dr. Russo (05/11). Pt to receive weekly iron infusions x 3 weeks. - first infusion of IV iron was given in the hospital (05/11) - Pt has an appt at [facility] 06/01/17 in preparation for Double balloon enteroscopy. CHF (congestive heart failure) - see above Aortic valve stenosis, severe - Previous admission from 02/18-02/21 for SOB and felt to have acute CHF symptoms related to severe AVS. - 2D echocardiogram (02/19/17) which noted severe aortic valve stenosis and she was initially decompensated. - She was seen by CTS who did the initial evaluation for TAVR vs traditional AVR but due to her issues with GIB this has been put on hold. - She is no longer on any anticoagulants Hypertension - Cont. home meds - Monitor Hyperlipidemia - Cont. home meds - Anticipate d/c to home after additional unit of blood, if stable so patient will be able to keep appointment with [facility] 06/01/17 DVT prophylaxis with SCDs avoid chemical DVT prophylaxis due to recurrent GI bleeding (2) Anemia ICD Codes: D64.9 - Anemia, unspecified Status: Acute (3) GI bleed ICD Codes: K92.2 - Gastrointestinal hemorrhage, unspecified Status: Resolved (4) CHF (congestive heart failure) ICD Codes: I50.9 - Heart failure, unspecified Status: Acute (5) Hypertension ICD Codes: I10 - Essential (primary) hypertension Status: Chronic (6) Hyperlipidemia ICD Codes: E78.5 - Hyperlipidemia, unspecified Status: Chronic Assessment and Plan Patient examined. Assessment and plan formulated with Elina Bray PA-C. I agree with the above. feels overall better with blood transfusion. d/c later today after complete has [facility] appt Wed. to arrange further gi w/up and identify source of bleeding..prior to TAVR for severe AVS Problem Qualifiers (1) Chest pain: Qualified Codes: R07.9 - Chest pain, unspecified (2) Anemia: Qualified Codes: D64.9 - Anemia, unspecified Elina Bray May 30, 2017 08:36 Selvin Juarez MD May 30, 2017 12:44
[2017-05-30] MEDS ORDERED: POTASSIUM CHLORIDE 20 MEQ CONTROLLED RELEASE TAB PO SCH (09:00)
[2017-05-30] MEDS ORDERED: POLYSACCHARIDE IRON COMPLEX 150 MG CAP PO SCH (09:00)
[2017-05-30] MEDS ORDERED: SERTRALINE HCL 50 MG TAB PO SCH (09:00)
[2017-05-30] MEDS ORDERED: POTASSIUM CHLORIDE 10 MEQ CONTROLLED RELEASE TAB PO ONE (09:00)
[2017-05-30] MEDS ORDERED: PANTOPRAZOLE SOD 40 MG DELAYED RELEASE TAB PO SCH (09:00)
[2017-05-30] MEDS ORDERED: FUROSEMIDE 20 MG TAB PO SCH (09:00)
[2017-05-30] MEDS ORDERED: CETIRIZINE HCL 10 MG TAB PO SCH (09:00)
== END 2017-05-30 16:01 | disposition home or self-care (01) ==
LOC: NEPE 13:15 → NEDA 15:30 → NEPFCDU 17:29
PROVIDERS: ADMIT Hospitalist; ATTEND Hospitalist
DX: R07.9 Chest pain, unspecified (principal); D50.9 Iron deficiency anemia, unspecified; I50.9 Heart failure, unspecified; I11.0 Hypertensive heart disease with heart failure; I35.0 Nonrheumatic aortic (valve) stenosis; R06.02 Shortness of breath; K92.2 Gastrointestinal hemorrhage, unspecified; I25.10 Atherosclerotic heart disease of native coronary artery without angina pectoris; J00 Acute nasopharyngitis [common cold]; Z79.01 Long term (current) use of anticoagulants; M19.90 Unspecified osteoarthritis, unspecified site; F41.9 Anxiety disorder, unspecified; F32.9 Major depressive disorder, single episode, unspecified; E78.00 Pure hypercholesterolemia, unspecified; K21.9 Gastro-esophageal reflux disease without esophagitis; Z79.899 Other long term (current) drug therapy; K44.9 Diaphragmatic hernia without obstruction or gangrene; I99.8 Other disorder of circulatory system; R06.03 Acute respiratory distress; R06.2 Wheezing; R05 Cough; M48.061 Spinal stenosis, lumbar region without neurogenic claudication
CPT/HCPCS: 36430; 71010; 80048; 80053; 82550; 83690; 83735; 83880; 84484; 85025; 85610; 85730; 86850; 86900; 86901; 86920; 93005; 96361; 96374; 96376; 99285; G0378; J1940; J7050; P9016

== ENCOUNTER 2017-07-23 18:03 | Inpatient (IN) | payer MEDICARE ==
[~2017-07-23] VITALS: Ht 162.6 cm; Wt 78.0 kg
[~2017-07-23 18:03] MED LIST changes: -RESP: ALBUTEROL 2.5 MG/IPRATROPIUM 0.5 MG NEB (PRN) NEB; +VITATAB43 PO
[2017-07-23 18:12] VITALS: BP 144/74; PULSE 99; RESP 18; TEMP 97.7; O2SAT 98
[2017-07-23] MEDS ORDERED: SODIUM CHLOR 0.9% 1000 ML INJ 1,000 ML IV SCH (18:40)
[2017-07-23 18:44] VITALS: O2SAT 98
[2017-07-23] MEDS ORDERED: SODIUM CHLORIDE 0.9% FLUSH 10 ML FLUSH IV FLUSH PRN (18:45)
[2017-07-23] MEDS ORDERED: ONDANSETRON HCL 4 MG/2 ML VIAL IVP ONE (18:45)
[2017-07-23 19:01] LABS: AUTOMATED NEUTROPHIL # 20.2 TH/MM3 (1.8-7.7); BASOPHIL % 0.1 % (0.0-2.0); LYMPH % 1.8 % (9.0-44.0); LYMPHOCYTE # 0.4 TH/MM3 (1.0-4.8); MEAN CELL VOLUME 86.8 FL (80.0-100.0); MEAN CORPUSCULAR HGB CONC 33.3 % (32.0-36.0); MEAN PLATELET VOLUME 8.6 FL (7.0-11.0); MONO % 9.9 % (0.0-8.0); MONOCYTE # 2.3 TH/MM3 (0-0.9); NEUT % 88.2 % (16.0-70.0); PLATELET COUNT 424 TH/MM3 (150-450); RED BLOOD COUNT 4.49 MIL/MM3 (4.00-5.30); RED CELL DISTRIBUTION WIDTH 20.4 % (11.6-17.2); WHITE BLOOD COUNT 22.9 TH/MM3 (4.0-11.0)
--- NOTE | 2017-07-23 19:16 | PD ---
HPI Chief Complaint: GI Complaint Time Seen by Provider: 18:15 Travel History International Travel<30 days: No Contact w/Intl Traveler<30days: No Traveled to known affect area: No History of Present Illness HPI Patient is an 87-year-old female who comes in complaining of diarrhea and dehydration. She says since , she has had multiple episodes of diarrhea. She complains of pain to the left side of her abdomen. She denies recent antibiotic use. She has not noticed any blood in her stool. She said some nausea, but no vomiting. She says she feels dehydrated. She denies fever or chills. She has not taken anything for her symptoms. Nothing seems to worsen her symptoms. PFSH Past Medical History Hx Anticoagulant Therapy: Yes Anemia: Yes Arthritis: Yes Autoimmune Disease: No Anxiety: Yes Depression: Yes Heart Rhythm Problems: No Cancer: No Cardiovascular Problems: Yes High Cholesterol: Yes Chest Pain: No Congestive Heart Failure: Yes (THIS ADMIT) Developmental Delay: Yes Diabetes: No Diminished Hearing: Yes Endocrine: No GERD: Yes Glaucoma: No Genitourinary: No Hepatitis: No Hiatal Hernia: No Hypertension: Yes Immune Disorder: No Implanted Vascular Access Dvce: Yes Kidney Stones: No Medical other: Yes (arthritis) Musculoskeletal: Yes Neurologic: No Psychiatric: Yes Reproductive: No Respiratory: No Immunizations Current: Yes Renal Failure: No Thyroid Disease: No Ulcer: No Tetanus Vaccination: < 5 Years Influenza Vaccination: Yes ?: Not Menopausal: Yes Past Surgical History Abdominal Surgery: Yes (HYSTERECTOMY) Body Medical Devices: MARIXA EYE LENS Cardiac Surgery: No Ear Surgery: No Endocrine Surgery: No Eye Surgery: Yes (BILATERAL CATARACT SX; LEFT RETINA SX x2) Genitourinary Surgery: No Gynecologic Surgery: Yes (HYSTERECTOMY in 1981) Hysterectomy: Yes Joint Replacement: Yes (Bilateral Knee) Oral Surgery: No Thoracic Surgery: No Other Surgery: Yes (BILAT. TOTAL KNEE REPLACEMENTS) Social History Alcohol Use: Yes (occas) Tobacco Use: No (QUIT 30 YRS) Substance Use: No Allergies-Medications (Allergen,Severity, Reaction): Coded Allergies: morphine (Unverified Allergy, Intermediate, 05/29/17) Reported Meds & Prescriptions Reported Meds & Active Scripts Active Potassium Chloride Microencaps 20 Meq Tab 20 Meq PO DAILY Furosemide 20 Mg Tab 20 Mg PO DAILY Zoloft (Sertraline HCl) 50 Mg Tab 150 Mg PO DAILY Reported Vitamin X80-Perji Acid (Cobalamine Combinations) 500-400 Mcg Tab 1 Tab PO DAILY Pantoprazole (Pantoprazole Sodium) 40 Mg Tab 40 Mg PO DAILY Poly-Iron 150 (Polysaccharide Iron Complex) 150 Mg Iron Cap 150 Mg PO DAILY Atorvastatin (Atorvastatin Calcium) 20 Mg Tab 20 Mg PO HS Ocuvite (Multiple Vitamins W/ Minerals) 1 Tab 1 Tab PO DAILY Cetirizine (Cetirizine HCl) 10 Mg Tab 10 Mg PO DAILY Xanax (Alprazolam) 0.25 Mg Tab 0.25 Mg PO TID PRN Review of Systems Except as stated in HPI: all other systems reviewed are Neg General / Constitutional: No: Fever, Chills HENT: No: Headaches, Lightheadedness Cardiovascular: No: Chest Pain or Discomfort Respiratory: No: Shortness of Breath Gastrointestinal: Positive: Nausea, Diarrhea, Abdominal Pain, No: Vomiting Genitourinary: No: Dysuria Musculoskeletal: No: Myalgias, Edema Skin: No Rash, No Change in Pigmentation Neurologic: No: Weakness, Dizziness Physical Exam Narrative GENERAL: Awake and alert, in no acute distress. SKIN: Focused skin assessment warm/dry. HEAD: Atraumatic. Normocephalic. EYES: Pupils equal and round. No scleral icterus. ENT: Dry mucous membranes. NECK: Trachea midline. No JVD. CARDIOVASCULAR: Regular rate and rhythm. No murmur appreciated. RESPIRATORY: No accessory muscle use. Clear to auscultation. Breath sounds equal bilaterally. GASTROINTESTINAL: Abdomen soft, tender to palpation of the left side of the abdomen, nondistended. No rebound or guarding. MUSCULOSKELETAL: No obvious deformities. No clubbing. No cyanosis. No edema. NEUROLOGICAL: Awake and alert. No obvious cranial nerve deficits. Motor grossly within normal limits. Normal speech. PSYCHIATRIC: Appropriate mood and affect; insight and judgment normal. Data Data Last Documented VS Vital Signs Date Time Temp Pulse Resp B/P (MAP) Pulse Ox O2 Delivery O2 Flow Rate FiO2 07/23/17 18:44 98 Room Air 07/23/17 18:12 97.7 99 18 Orders Orders Complete Blood Count With Diff (07/23/17 18:40) Comprehensive Metabolic Panel (07/23/17 18:40) Lactic Acid (07/23/17 18:40) Prothrombin Time / Inr (Pt) (07/23/17 18:40) Act Partial Throm Time (Ptt) (07/23/17 18:40) Urinalysis - C+S If Indicated (07/23/17 18:40) Ct Abd/Pel W Iv Contrast(Rout) (07/23/17 18:40) Iv Access Insert/Monitor (07/23/17 18:40) Ecg Monitoring (07/23/17 18:40) Oximetry (07/23/17 18:40) Ondansetron Inj (Zofran Inj) (07/23/17 18:45) Sodium Chlor 0.9% 1000 Ml Inj (Ns 1000 M (07/23/17 18:40) Sodium Chloride 0.9% Flush (Ns Flush) (07/23/17 18:45) Labs Laboratory Tests Test 07/23/17 18:47 White Blood Count 22.9 TH/MM3 Red Blood Count 4.49 MIL/MM3 Hemoglobin 13.0 GM/DL Hematocrit 39.0 % Mean Corpuscular Volume 86.8 FL Mean Corpuscular Hemoglobin 29.0 PG Mean Corpuscular Hemoglobin Concent 33.3 % Red Cell Distribution Width 20.4 % Platelet Count 424 TH/MM3 Mean Platelet Volume 8.6 FL Neutrophils (%) (Auto) 88.2 % Lymphocytes (%) (Auto) 1.8 % Monocytes (%) (Auto) 9.9 % Eosinophils (%) (Auto) 0.0 % Basophils (%) (Auto) 0.1 % Neutrophils # (Auto) 20.2 TH/MM3 Lymphocytes # (Auto) 0.4 TH/MM3 Monocytes # (Auto) 2.3 TH/MM3 Eosinophils # (Auto) 0.0 TH/MM3 Basophils # (Auto) 0.0 TH/MM3 CBC Comment AUTO DIFF Lactic Acid Level 2.8 mmol/L MDM Medical Decision Making Medical Screen Exam Complete: Yes Emergency Medical Condition: Yes Medical Record Reviewed: Yes Differential Diagnosis Colitis versus diverticulitis versus UTI versus electrolyte abnormality versus dehydration Narrative Course Patient is an 87-year-old female comes in complaining of diarrhea and abdominal pain. Exam shows tenderness to left side of the abdomen. IV established, labs sent. Patient given IV fluids and Zofran. Patient signed out to Dr. Joe to follow up testing and disposition the patient. Jovana Strauss MD Jul 23, 2017 19:16
[2017-07-23 19:23] LABS: ALBUMIN 2.5 GM/DL (3.4-5.0); ALKALINE PHOSPHATASE 146 U/L (45-117); ALT (GPT) 17 U/L (10-53); AST (GOT) 21 U/L (15-37); BICARBONATE 26.1 MEQ/L (21.0-32.0); BLOOD UREA NITROGEN 32 MG/DL (7-18); CALCIUM 8.4 MG/DL (8.5-10.1); CHLORIDE 95 MEQ/L (98-107); CREATININE 0.91 MG/DL (0.50-1.00); GLOMERULAR FILTRATION RATE 59 ML/MIN (>89); GLUCOSE,RANDOM 149 MG/DL (74-106); SODIUM (NA) 133 MEQ/L (136-145); TOTAL BILIRUBIN ADULT 0.5 MG/DL (0.2-1.0); TOTAL PROTEIN 6.3 GM/DL (6.4-8.2)
[2017-07-23 19:24] LABS: INTERNATIONAL NORMALIZED RATIO 1.1 RATIO
[2017-07-23 19:38] LABS: BANDS 20 % (0-6); KERATOCYTES 1+ (NORMAL); LYMPHOCYTES 1 % (9-44); MONOCYTES 5 % (0-8); MYELOCYTES 1 % (0-0); NEUTROPHIL # MANUAL DIFF 21.5 TH/MM3 (1.8-7.7); OVALOCYTES 1+ (NORMAL); POLYS (SEG NEUTROPHILS) 73 % (16-70)
[2017-07-23 20:00] VITALS: PULSE 107
[2017-07-23] MEDS ORDERED: IOHEXOL 350 MG/ML 10 ML VIAL (for RAD DIAG) IVCONTRAST ONE (20:19)
[2017-07-23] MEDS ORDERED: CIPROFLOXACIN 400 MG PREMIX 200 ML IV ONE (20:30)
[2017-07-23] MEDS ORDERED: metroNIDAZOLE 500 MG INJ 100 ML IV ONE (20:30)
[2017-07-23] MEDS ORDERED: SODIUM CHLOR 0.9% 1000 ML INJ 1,000 ML IV ONE (20:30)
--- NOTE | 2017-07-23 20:30 | RADRPT ---
EXAM DATE/TIME: 07/23/2017 20:06 [facility] COMPARISON: CT ABDOMEN & PELVIS W CONTRAST, December 02, 2016, 20:43. INDICATIONS : Diarrhea X 3 days. IV CONTRAST: 72 cc Omnipaque 350 (iohexol) IV ORAL CONTRAST: No oral contrast ingested. RADIATION DOSE: 6.91 CTDIvol (mGy) MEDICAL HISTORY : Cardiovascular disease. Congestive heart failure. Hypertension. SURGICAL HISTORY : Hysterectomy. ENCOUNTER: Initial ACUITY: 3 days PAIN SCALE: 5/10 LOCATION: abdomen TECHNIQUE: Volumetric scanning of the abdomen and pelvis was performed. Using automated exposure control and ad justment of the mA and/or kV according to patient size, radiation dose was kept as low as reasonably achievable to obtain optimal diagnostic quality images. DICOM format image data is available electro nically for review and comparison. FINDINGS: LOWER LUNGS: The visualized lower lungs are clear. LIVER: Homogeneous density without lesion. There is no dilation of the biliary tree. Calcified gallstones s een. Hepatic low density in the left lobe. SPLEEN: Normal size without lesion. PANCREAS: Within normal limits. KIDNEYS: Normal in size and shape. There is no mass, stone or hydronephrosis. Right renal cyst. ADRENAL GLANDS: Within normal limits. VASCULAR: There is no aortic aneurysm. BOWEL/MESENTERY: Diffuse wall thickening throughout the large bowel. Scattered diverticulosis. There is no free intra peritoneal air. Minimal fluid adjacent to the liver. Small hiatal hernia. ABDOMINAL WALL: Within normal limits. RETROPERITONEUM: There is no lymphadenopathy. BLADDER: No wall thickening or mass. REPRODUCTIVE: Within normal limits. INGUINAL: There is no lymphadenopathy or hernia. MUSCULOSKELETAL: Within normal limits for patient age. CONCLUSION: 1. Diffuse colitis with slight inflammatory changes. There is also scattered diverticulosis. No perfo ration. 2. Minimal ascites. 3. Calcified gallstones. 4. Hepatic and right renal densities likely cysts Vel Gonzalez MD on July 23, 2017 at 20:25 Board Certified Radiologist. This report was verified electronically.
--- NOTE | 2017-07-23 20:40 | PD ---
Data Data Last Documented VS Vital Signs Date Time Temp Pulse Resp B/P (MAP) Pulse Ox O2 Delivery O2 Flow Rate FiO2 07/23/17 18:44 98 Room Air 07/23/17 18:12 97.7 99 18 Orders Orders Complete Blood Count With Diff (07/23/17 18:40) Comprehensive Metabolic Panel (07/23/17 18:40) Lactic Acid (07/23/17 18:40) Prothrombin Time / Inr (Pt) (07/23/17 18:40) Act Partial Throm Time (Ptt) (07/23/17 18:40) Urinalysis - C+S If Indicated (07/23/17 18:40) Ct Abd/Pel W Iv Contrast(Rout) (07/23/17 18:40) Iv Access Insert/Monitor (07/23/17 18:40) Ecg Monitoring (07/23/17 18:40) Oximetry (07/23/17 18:40) Ondansetron Inj (Zofran Inj) (07/23/17 18:45) Sodium Chlor 0.9% 1000 Ml Inj (Ns 1000 M (07/23/17 18:40) Sodium Chloride 0.9% Flush (Ns Flush) (07/23/17 18:45) Electrocardiogram (07/23/17 18:14) Iohexol 350 Inj (Omnipaque 350 Inj) (07/23/17 20:19) C Diff Toxin Pcr (07/23/17 20:21) Enteric Path (Stool) (07/23/17 20:21) Ciprofloxacin 400 Mg Premix (Cipro 400 M (07/23/17 20:30) Metronidazole 500 Mg Inj (Flagyl 500 Mg (07/23/17 20:30) Sodium Chlor 0.9% 1000 Ml Inj (Ns 1000 M (07/23/17 20:30) Potassium Chlor 20 Meq Premix (Kcl 20 Me (07/23/17 20:45) Admit To Inpatient (07/23/17 ) Code Status (07/23/17 21:18) Vital Signs (Adult) Q4H (07/23/17 21:18) Activity Oob With Assistance (07/23/17 21:18) Diet Heart Healthy (07/24/17 Breakfast) Sodium Chloride 0.9% Flush (Ns Flush) (07/23/17 21:30) Sodium Chloride 0.9% Flush (Ns Flush) (07/24/17 09:00) Acetaminophen (Tylenol) (07/23/17 21:30) Ondansetron Inj (Zofran Inj) (07/23/17 21:30) Basic Metabolic Panel (Bmp) (07/24/17 06:00) Complete Blood Count With Diff (07/24/17 06:00) Chest, Single Ap (07/23/17:18) Electrocardiogram (07/23/17 21:18) Pt Request For Service (07/23/17 21:18) Scd Bilateral/Knee High HEATHER.BID (07/23/17 21:18) Naloxone Inj (Narcan Inj) (07/23/17 21:30) Magnesium Hydroxide Liq (Milk Of Magnesi (07/23/17 21:30) Inpatient Certification (07/23/17 ) Ns + Kcl 20 Meq Inj (Ns + Kcl 20 Meq Inj (07/23/17 21:30) Potassium Chloride (Kcl) (07/23/17 21:30) Metronidazole (Flagyl) (07/24/17 08:00) Admit Order (Ed Use Only) (07/23/17 ) Alprazolam (Xanax) (07/23/17 21:30) Atorvastatin (Lipitor) (07/24/17 21:00) Cetirizine (Zyrtec) (07/24/17 09:00) Multivit Opth (Ocuvite) (07/24/17 09:00) Pantoprazole (Protonix) (07/24/17 09:00) Polysaccharide Iron Complex (Nu-Iron) (07/24/17 09:00) Potassium Chloride (Kcl) (07/24/17 09:00) Sertraline (Zoloft) (07/24/17 09:00) (Nf) Cobalamine Combinations (Vitamin B1 (07/24/17 09:00) Labs Laboratory Tests Test 07/23/17 18:47 White Blood Count 22.9 TH/MM3 Red Blood Count 4.49 MIL/MM3 Hemoglobin 13.0 GM/DL Hematocrit 39.0 % Mean Corpuscular Volume 86.8 FL Mean Corpuscular Hemoglobin 29.0 PG Mean Corpuscular Hemoglobin Concent 33.3 % Red Cell Distribution Width 20.4 % Platelet Count 424 TH/MM3 Mean Platelet Volume 8.6 FL Neutrophils (%) (Auto) 88.2 % Lymphocytes (%) (Auto) 1.8 % Monocytes (%) (Auto) 9.9 % Eosinophils (%) (Auto) 0.0 % Basophils (%) (Auto) 0.1 % Neutrophils # (Auto) 20.2 TH/MM3 Lymphocytes # (Auto) 0.4 TH/MM3 Monocytes # (Auto) 2.3 TH/MM3 Eosinophils # (Auto) 0.0 TH/MM3 Basophils # (Auto) 0.0 TH/MM3 CBC Comment AUTO DIFF Differential Total Cells Counted 100 Neutrophils % (Manual) 73 % Band Neutrophils % 20 % Lymphocytes % 1 % Monocytes % 5 % Neutrophils # (Manual) 21.5 TH/MM3 Myelocytes 1 % Differential Comment FINAL DIFF MANUAL Platelet Estimate HIGH Platelet Morphology Comment NORMAL Ovalocytes 1+ Keratocytes 1+ Prothrombin Time 11.0 SEC Prothromb Time International Ratio 1.1 RATIO Activated Partial Thromboplast Time 20.9 SEC Blood Urea Nitrogen 32 MG/DL Creatinine 0.91 MG/DL Random Glucose 149 MG/DL Total Protein 6.3 GM/DL Albumin 2.5 GM/DL Calcium Level 8.4 MG/DL Alkaline Phosphatase 146 U/L Aspartate Amino Transf (AST/SGOT) 21 U/L Alanine Aminotransferase (ALT/SGPT) 17 U/L Total Bilirubin 0.5 MG/DL Sodium Level 133 MEQ/L Potassium Level 2.6 MEQ/L Chloride Level 95 MEQ/L Carbon Dioxide Level 26.1 MEQ/L Anion Gap 12 MEQ/L Estimat Glomerular Filtration Rate 59 ML/MIN Lactic Acid Level 2.8 mmol/L [facility] Supervised Visit with AMI: No Interpretation(s) LAB: CBC remarkable for leukocytosis, white count 22,000, 20% bands CMP remarkable for potassium of 2.6, BUN [address] abdomen pelvis: Diffuse colitis with slight inflammatory changes. Scattered diverticulosis. No perforation. Narrative Course 87-year-old woman presents with 2 days, diarrhea left-sided abdominal pain. No blood. No fevers. Feels dehydrated. Initially seen by Dr. Scott signed out to me to follow on the results of diagnostic testing. No recent antibiotic exposures. No recent hospitalizations. On exam, mild left-sided tenderness. No guarding or peritonitis. Lab show significant leukocytosis, elevated BUN likely dehydration, as well as low potassium. CT scan shows diffuse colitis. Stool sent for C. difficile testing. Patient will be admitted. Cipro Flagyl for possible colitis or abdominal sepsis. Physician Communication Physician Communication Spoke with Dr. Jansen, will admit patient. Diagnosis Primary Impression: Colitis Admitting Information Admitting Physician Requests: Admit Luis Enrique Joe MD Jul 23, 2017 20:40
[2017-07-23] MEDS ORDERED: NALOXONE HCL 0.4 MG/ML AMP IV PUSH PRN (21:30)
[2017-07-23] MEDS ORDERED: MAGNESIUM HYDROXIDE SUSP 30 ML CUP PO PRN (21:30)
[2017-07-23] MEDS ORDERED: NS + KCL 20 MEQ INJ 1,000 ML IV SCH (21:30)
--- NOTE | 2017-07-23 22:03 | RADRPT ---
EXAM DATE/TIME: 07/23/2017 21:52 [facility] COMPARISON: CHEST SINGLE AP, May 29, 2017, 13:44. INDICATIONS : Shortness of breath. MEDICAL HISTORY : Cardiovascular disease. Congestive heart failure. Hypertension. SURGICAL HISTORY : Hysterectomy. ENCOUNTER: Initial ACUITY: 1 day PAIN SCORE: 0/10 LOCATION: Bilateral chest FINDINGS: A single view of the chest demonstrates the lungs to be symmetrically aerated without evidence of mas s, infiltrate or effusion. Left basilar scarring. The cardiomediastinal contours are unremarkable. O sseous structures are intact. CONCLUSION: 1. Left basilar scarring. 2. No pneumonia. Vel Gonzalez MD on July 23, 2017 at 22:00 Board Certified Radiologist. This report was verified electronically.
[2017-07-23] MEDS: POTASSIUM CHLORIDE 20 MEQ CONTROLLED RELEASE TAB PO SCH (23:01)
[2017-07-23] MEDS: POTASSIUM CHLOR 20 MEQ PREMIX 100 ML IV SCH (23:06)
[2017-07-23] MEDS: ALPRAZolam 0.25 MG TAB PO PRN (23:10)
[2017-07-23 23:50] VITALS: BP 154/79; PULSE 106; RESP 18; TEMP 96.9; O2SAT 99
[2017-07-24] VITALS (9 sets, daily range): BP systolic 128–188; BP diastolic 73–99; PULSE 102–116; RESP 16–20; TEMP 96–98.6; O2SAT 91–96
[2017-07-24] MEDS: POTASSIUM CHLORIDE 20 MEQ CONTROLLED RELEASE TAB PO SCH ×2 (01:29→08:07)
[2017-07-24 02:18] LABS: AMORPHOUS SEDIMENT, URINE RARE; BACTERIA, URINE MANY /hpf; BILIRUBIN, URINE NEG (NEG); BLOOD, URINE NEG (NEG); GLUCOSE,URINE NEG (NEG); KETONE, URINE NEG (NEG); NITRITE,URINE POS (NEG); PH, URINE 6.5 (5.0-8.5); SQUAMOUS EPITHELIAL CELL URINE 1 /hpf (0-5); URINE COLOR YELLOW (YELLW/STRAW); URINE LEUKOCYTE ESTERASE SMALL (NEG)
[2017-07-24] MEDS: ONDANSETRON HCL 4 MG/2 ML VIAL IVP PRN ×2 (02:26→08:04)
[2017-07-24] MEDS: POTASSIUM CHLOR 20 MEQ PREMIX 100 ML IV SCH (03:28)
[2017-07-24] MEDS: metroNIDAZOLE 500 MG TAB PO SCH ×3 (08:06→20:14)
[2017-07-24] MEDS: SERTRALINE HCL 50 MG TAB PO SCH (08:06)
[2017-07-24] MEDS: CETIRIZINE HCL 10 MG TAB PO SCH (08:07)
[2017-07-24] MEDS: PANTOPRAZOLE SOD 40 MG DELAYED RELEASE TAB PO SCH (08:07)
[2017-07-24] MEDS: VITAMIN B COMPLEX/VIT C TAB PO SCH (08:09)
[2017-07-24] MEDS: SODIUM CHLORIDE 0.9% FLUSH 10 ML FLUSH IV FLUSH SCH ×2 (08:09→20:13)
[2017-07-24] MEDS: POLYSACCHARIDE IRON COMPLEX 150 MG CAP PO SCH (08:09)
[2017-07-24] MEDS: MULTIVITAMIN-OPHTHALMIC 1 TAB PO SCH (08:10)
--- NOTE | 2017-07-24 08:54 | HHI.HP ---
HPI Service [facility] Hospitalists Primary Care Physician Aminata Morales MD Admission Diagnosis Colitis, hypokalemia Chief Complaint: Diarrhea 4 days Travel History International Travel<30 Days: No Contact w/Intl Traveler <30 Da: No Traveled to Known Affected Are: No History of Present Illness Mrs. Buchanan is a 87 y/o WF with iron deficiency anemia/GIB/SB angiectasia, Garcia's esophagitis, diverticulosis, severe aortic stenosis, CHF, HTN, severe aortic stenosis and hyperlipidemia. She has had multiple prior admissions. Previous admission from 02/18-02/21 for SOB and felt to have acute CHF symptoms related to severe AVS. She had an echocardiogram (02/19/17) which noted severe aortic valve stenosis and she was initially decompensated. Pt was diuresed with improvement. She was evaluated with a LHC and consideration for AVR and this was performed on 02/21 and showed critical but nonobstructive CAD. She was seen by CTS who did the initial evaluation for TAVR vs traditional AVR. It was decided to send the pt home on MEME/diuretic/ASA/Plavix and monitored for bleeding as she has a hx of previous GIB. Pt has had ongoing issues with anemia and possible GIB. She was previously admitted in December 2016 and underwent Small bowel enteroscopy/incomplete colonoscopy (12/02/16) which noted thickened fold in the duodenum, otherwise normal enteroscopy and unfortunately the scope was unable to be passed beyond the sigmoid 25 cm secondary to either twisted colon, spasm or external compression, it was felt to not be safe to push the scope without seeing the lumen because of fear of perforation so endoscopy was terminated. As an outpt she had Capsule endoscopy (02/01/17) which noted multiple angiectasia with active bleeding and pt was sent for antegrade single balloon enteroscopy (02/07/17) but unfortunately there was no active bleeding found and the enteroscopy was found to be normal except for a hiatal hernia. Pt was readmitted from 02/28/17 to 03/05/17 with anemia. During that admission she was transfused with a total of 6 units of PRBCs with improvement. Her ASA/Plavix were stopped at that time. She was seen by GI and Hematology during that admission and GI recommended double balloon enteroscopy to be performed at a tertiary center as an outpt. Hematology recommended transfusing iron sucrose which she received. Pt reported back to the ED at [facility] on 05/10/17 with complaints of weakness and chest discomfort. Per patient she woke up weak and some chest discomfort. She follows with Dr. Russo and was seen in 05/04. Pt is reportedly supposed to have an iron replacement therapy tomorrow. She denies any obvious GIB. Her H/H at admission was 7.4/23.7. Prior to that her labs on 05/04 were Hgb 8.6/Hct 26.6. CXR in the ED with no acute disease. At the time of our evaluation in the ED pt found to be in respiratory distress. She had been given one unit of PRBCs and appears to be in some degree of volume overload. Pt to be given IV Lasix and a breathing treatment STAT. Patient presents to the ER 05/29/17 with complaints of chest pain. Chest pressure/heaviness located across anterior chest. Serial troponins negative patient was given packed red blood cells symptomatic symptoms improved, the patient was discharged that she should keep her scheduled appointment at the [facility]. 06/01/2017 patient was seen at [facility] evaluated with recommendations for double-balloon enteroscopy which was tentatively scheduled for June 09, 2017. Patient declined double-balloon enteroscopy and has not the procedure completed. 07/23/2017 patient presents to the emergency department with complaints of multiple episodes of diarrhea for the past 4 days associated with left sided abdominal pain. Patient describes the pain as a intermittent cramping sensation moderate in severity. Patient denies recent antibiotic use or evidence of bleeding in the stool. Patient does endorse nausea but no vomiting. Patient denies fevers chills chest pain or shortness of breath. CT of abdomen (07/23/17) reviewed and reveals: Diffuse colitis with slight inflammatory changes. There is also scattered diverticulosis. No perforation. Mild ascites. Also had gallstones. Hepatic and right renal disease likely cyst. Stool positive for C. difficile patient started on Flagyl Laboratory data reviewed. Blood cell count 22.5 potassium 2.6 magnesium pending , lactic acid 2.8 initially 1.1 after hydration, sodium 133, BUN 32 creatinine 0.91 this may GFR 59 Urinalysis reviewed positive for nitrates with small amount leukocyte esterase culture indicated and pending Review of Systems Constitutional: COMPLAINS OF: Fatigue, DENIES: Fever, Chills Eyes: DENIES: Blurred vision, Diplopia, Vision loss Respiratory: DENIES: Cough, Sputum production, Shortness of breath Cardiovascular: COMPLAINS OF: Dyspnea on Exertion, DENIES: Chest pain, Palpitations, Lower Extremity Edema Gastrointestinal: COMPLAINS OF: Abdominal pain, Diarrhea, Nausea, DENIES: Black stools, Bloody stools, BRB per rectum, Constipation, Vomiting Neurologic: DENIES: Abnormal gait, Headache, Localized weakness, Speech Problems Psychiatric: DENIES: Anxiety, Confusion, Depression Past Family Social History Past Medical History Iron deficiency anemia/GIB/SB angiectasia Severe aortic stenosis, LHC was performed on 02/21 and showed critical but nonobstructive CAD. She was seen by CTS who did the initial evaluation for TAVR vs traditional AVR. Garcia's esophagus CHF Diverticulosis HTN Hyperlipidemia Lumbar stenosis Macular degeneration Depression/Anxiety 2D echocardiogram (02/19/17) which noted severe aortic valve stenosis Past Surgical History Antegrade single balloon enteroscopy (02/07/17) --> Normal enteroscopy except for a hiatal hernia Capsule endoscopy (02/01/17) --> Multiple angiectasia with active bleeding Small bowel enteroscopy (12/02/16) --> thickened fold in the duodenum Bx done otherwise normal Colonoscopy (12/02/16) --> Scope was unable to be passed beyond the sigmoid 25 cm secondary to either twisted colon, spasm or external compression, it was felt to not be safe to push the scope without seeing the lumen because of fear of perforation so endoscopy was terminated Colonoscopy (03/26/16) --> Severe diverticulosis in the left colon, colitis, hemorrhoids, small polyp EGD/colonoscopy (03/24/16) --> gastritis, HH, esophagitis, diverticulosis, hemorrhoids, polyps, incomplete colonoscopy Colonoscopy (08/13/15) --> Very tortuous, edematous sigmoid colon, possible diverticular colitis, diminutive polyps in the ascending colon, sigmoid diverticulosis, grade I hemorrhoids, decreased sphincter tone. Cataract surgery Knee arthroscopy/arthroplasty [facility] Reported Medications Potassium Chloride Microencaps 20 Meq Tab 20 Meq PO DAILY Furosemide 20 Mg Tab 20 Mg PO DAILY Zoloft (Sertraline HCl) 50 Mg Tab 150 Mg PO DAILY Vitamin P70-Ibsbw Acid (Cobalamine Combinations) 500-400 Mcg Tab 1 Tab PO DAILY Pantoprazole (Pantoprazole Sodium) 40 Mg Tab 40 Mg PO DAILY Poly-Iron 150 (Polysaccharide Iron Complex) 150 Mg Iron Cap 150 Mg PO DAILY Atorvastatin (Atorvastatin Calcium) 20 Mg Tab 20 Mg PO HS Ocuvite (Multiple Vitamins W/ Minerals) 1 Tab 1 Tab PO DAILY Cetirizine (Cetirizine HCl) 10 Mg Tab 10 Mg PO DAILY Xanax (Alprazolam) 0.25 Mg Tab 0.25 Mg PO TID PRN Allergies: Coded Allergies: morphine (Unverified Allergy, Intermediate, 07/23/17) Active Ordered Medications Current Medications Medications (Trade) Dose Ordered Sig/Brian Route Start Time Stop Time Status Last Admin (NS Flush) 2 ml UNSCH PRN IV FLUSH 07/23/17 21:30 (NS Flush) 2 ml BID IV FLUSH 07/24/17 09:00 07/24/17 08:09 (Tylenol) 650 mg Q4H PRN PO 07/23/17 21:30 (Zofran Inj) 4 mg Q6H PRN IVP 07/23/17 21:30 07/24/17 08:04 (Narcan Inj) 0.4 mg UNSCH PRN IV PUSH 07/23/17 21:30 (Milk Of Magnesia Liq) 30 ml Q12H PRN PO 07/23/17 21:30 Potassium Chloride/Sodium Chloride 1,000 ml @ 50 mls/hr Q20H IV 07/23/17 21:30 (Flagyl) 500 mg Q8HR PO 07/24/17 08:00 07/24/17 08:06 (Xanax) 0.25 mg TID PRN PO 07/23/17 21:30 07/23/17 23:10 (Lipitor) 20 mg HS PO 07/24/17 21:00 (ZyrTEC) 10 mg DAILY PO 07/24/17 09:00 07/24/17 08:07 (Ocuvite) 1 tab DAILY PO 07/24/17 09:00 07/24/17 08:10 (Protonix) 40 mg DAILY PO 07/24/17 09:00 07/24/17 08:07 (Nu-Iron) 150 mg DAILY PO 07/24/17 09:00 07/24/17 08:09 (KCl) 20 meq DAILY PO 07/24/17 09:00 07/24/17 08:07 (Zoloft) 150 mg DAILY PO 07/24/17 09:00 07/24/17 08:06 (Allbee C) 1 tab DAILY PO 07/24/17 09:00 07/24/17 08:09 Family History Noncontributory Social History Denies any tobacco use Occasionally drinks beer or vodka Pt lives alone, she is a Her children live out of town She has a family friend who looks after her here locally Physical Exam Vital Signs Vital Signs Date Time Temp Pulse Resp B/P (MAP) Pulse Ox O2 Delivery O2 Flow Rate FiO2 07/24/17 05:30 98.6 106 18 136/73 (94) 93 07/24/17 04:05 96.5 104 18 128/75 (92) 96 07/24/17 03:50 102 07/24/17 00:51 105 07/24/17 00:46 105 07/23/17 23:50 96.9 106 18 154/79 (104) 99 07/23/17 22:41 07/23/17 18:44 98 Room Air 07/23/17 18:12 97.7 99 18 144/74 (97) 98 Room Air 07/23/17 18:12 18 Physical Exam GENERAL: This is an 87 year old female patient, well-developed patient, appears fatigued SKIN: No rashes, ecchymoses or lesions. Cool and dry. HEAD: Atraumatic. Normocephalic. No temporal or scalp tenderness. EYES: Extraocular motions intact. No scleral icterus. No injection or drainage. CARDIOVASCULAR: Regular rate and rhythm with 4/6 systolic murmur RESPIRATORY: Clear to auscultation. Breath sounds equal bilaterally. GASTROINTESTINAL: Abdomen soft, tender mostly LLQ, nondistended. MUSCULOSKELETAL: Extremities without clubbing, cyanosis, or edema. No joint tenderness, effusion, or edema noted. No calf tenderness. Negative Homans sign bilaterally. NEUROLOGICAL: Awake and alert. No focal deficits noted. Motor and sensory grossly within normal limits. 4 out of 5 muscle strength in all muscle groups. Normal speech. Laboratory Laboratory Tests Test 07/23/17 18:47 07/23/17 21:45 07/24/17 01:25 07/24/17 02:00 White Blood Count 22.9 Red Blood Count 4.49 Hemoglobin 13.0 Hematocrit 39.0 Mean Corpuscular Volume 86.8 Mean Corpuscular Hemoglobin 29.0 Mean Corpuscular Hemoglobin Concent 33.3 Red Cell Distribution Width 20.4 Platelet Count 424 Mean Platelet Volume 8.6 Neutrophils (%) (Auto) 88.2 Lymphocytes (%) (Auto) 1.8 Monocytes (%) (Auto) 9.9 Eosinophils (%) (Auto) 0.0 Basophils (%) (Auto) 0.1 Neutrophils # (Auto) 20.2 Lymphocytes # (Auto) 0.4 Monocytes # (Auto) 2.3 Eosinophils # (Auto) 0.0 Basophils # (Auto) 0.0 CBC Comment AUTO DIFF Differential Total Cells Counted 100 Neutrophils % (Manual) 73 Band Neutrophils % 20 Lymphocytes % 1 Monocytes % 5 Neutrophils # (Manual) 21.5 Myelocytes 1 Differential Comment FINAL DIFF MANUAL Platelet Estimate HIGH Platelet Morphology Comment NORMAL Ovalocytes 1+ Keratocytes 1+ Prothrombin Time 11.0 Prothromb Time International Ratio 1.1 Activated Partial Thromboplast Time 20.9 Blood Urea Nitrogen 32 Creatinine 0.91 Random Glucose 149 Total Protein 6.3 Albumin 2.5 Calcium Level 8.4 Alkaline Phosphatase 146 Aspartate Amino Transf (AST/SGOT) 21 Alanine Aminotransferase (ALT/SGPT) 17 Total Bilirubin 0.5 Sodium Level 133 Potassium Level 2.6 Chloride Level 95 Carbon Dioxide Level 26.1 Anion Gap 12 Estimat Glomerular Filtration Rate 59 Lactic Acid Level 2.8 1.1 Stool C. difficile Toxin (PCR) POSITIVE Stl C. difficile Toxin Epiderm 027 PRESUMPTIVE NEGATIVE Urine Color YELLOW Urine Turbidity CLEAR Urine pH 6.5 Urine Specific [place] GREATER THAN 1.050 Urine Protein 30 Urine Glucose (UA) NEG Urine Ketones NEG Urine Occult Blood NEG Urine Nitrite POS Urine Bilirubin NEG Urine Urobilinogen 2.0 Urine Leukocyte Esterase SMALL Urine RBC 1 Urine WBC 8 Urine Squamous Epithelial Cells 1 Urine Amorphous Sediment RARE Urine Bacteria MANY Microscopic Urinalysis Comment CULTURE INDICATED Date/Time Source Procedure Growth Status 07/23/17 21:45 Stool Stool Pending Received 07/24/17 02:00 Urine Random Urine Urine Culture Pending Received Result Diagram: [id number] Imaging Last Impressions Chest X-Ray [id number]/[id number] Signed Impressions: Service Date/Time: Sunday, July 23, 2017 21:52 - CONCLUSION: 1. Left basilar scarring. 2. No pneumonia. Vel Gonzalez MD Abdomen/Pelvis CT 07/23/17 1840 Signed Impressions: Service Date/Time: Sunday, July 23, 2017 20:06 - CONCLUSION: 1. Diffuse colitis with slight inflammatory changes. There is also scattered diverticulosis. No perforation. 2. Minimal ascites. 3. Calcified gallstones. 4. Hepatic and right renal densities likely cysts MD Eva Cai VTE Risk Assessment Caprini VTE Risk Assessment: Mod/High Risk (score >= 2) Caprini Risk Assessment Model Point Value = 1 Point Value = 2 Point Value = 3 Point Value = 5 Age 41-60 Minor surgery BMI > 25 kg/m2 Swollen legs Varicose veins or History of unexplained or recurrent spontaneous Oral contraceptives or hormone replacement Sepsis (< 1 month) Serious lung disease, including pneumonia (< 1 month) Abnormal pulmonary function Acute myocardial infarction Congestive heart failure (< 1 month) History of inflammatory bowel disease Medical patient at bed rest Age 61-74 Arthroscopic surgery Major open surgery (> 45 min) Laparoscopic surgery (> 45 min) Malignancy Confined to bed (> 72 hours) Immobilizing plaster cast Central venous access Age >= 75 History of VTE Family history of VTE Factor V Leiden Prothrombin [id number] Lupus anticoagulant Anticardiolipin antibodies Elevated serum homocysteine Heparin-induced thrombocytopenia Other congenital or acquired thrombophilia Stroke (< 1 month) Elective arthroplasty Hip, pelvis, or leg fracture Acute spinal cord injury (< 1 month) Prophylaxis Regimen Total Risk Factor Score Risk Level Prophylaxis Regimen 0-1 Low Early ambulation 2 Moderate Order ONE of the following: *Sequential Compression Device (SCD) *Heparin 5000 units SQ BID 3-4 Higher Order ONE of the following medications: *Heparin 5000 units SQ TID *Enoxaparin/Lovenox 40 mg SQ daily (WT < 150 kg, CrCl > 30 mL/min) *Enoxaparin/Lovenox 30 mg SQ daily (WT < 150 kg, CrCl > 10-29 mL/min) *Enoxaparin/Lovenox 30 mg SQ BID (WT < 150 kg, CrCl > 30 mL/min) AND/OR *Sequential Compression Device (SCD) 5 or more Highest Order ONE of the following medications: *Heparin 5000 units SQ TID (Preferred with Epidurals) *Enoxaparin/Lovenox 40 mg SQ daily (WT < 150 kg, CrCl > 30 mL/min) *Enoxaparin/Lovenox 30 mg SQ daily (WT < 150 kg, CrCl > 10-29 mL/min) *Enoxaparin/Lovenox 30 mg SQ BID (WT < 150 kg, CrCl > 30 mL/min) AND *Sequential Compression Device (SCD) Assessment and Plan Problem List: (1) C. difficile colitis ICD Codes: A04.72 - Enterocolitis due to Clostridium difficile, not specified as recurrent Plan: Patient presents to the emergency department with complaints of multiple episodes of diarrhea for the past 4 days associated with left sided abdominal pain. Patient describes the pain as a intermittent cramping sensation moderate in severity. Patient denies recent antibiotic use or evidence of bleeding in the stool. Patient does endorse nausea but no vomiting. Patient denies fevers chills chest pain or shortness of breath. - CT of abdomen (07/23/17) reviewed and reveals: Diffuse colitis with slight inflammatory changes. There is also scattered diverticulosis. No perforation. Mild ascites. Also had gallstones. Hepatic and right renal disease likely cyst. - Stool positive for C. difficile patient started on Flagyl - Supportive care - Request physical therapy evaluation (2) Hypokalemia ICD Codes: E87.6 - Hypokalemia Status: Resolved Plan: Potassium 2.6 on admission replaced recheck pending Magnesium pending (3) Dehydration ICD Codes: E86.0 - Dehydration Plan: BUN 32, creatinine 0.91, estimated GFR 59 Dehydration likely secondary to diarrhea IV fluids Supportive care Monitor renal function (4) Possible urinary tract infection ICD Codes: R39.89 - Other symptoms and signs involving the genitourinary system Plan: Urinalysis reviewed and reveals positive nitrates small amount of leukocyte esterase culture indicated and pending Will hold off on antibiotics in light of C. difficile colitis await culture results to determine further treatment of UTI (5) Anxiety ICD Codes: F41.9 - Anxiety disorder, unspecified Status: Chronic Plan: Continue patient's home Zoloft 150 mg by mouth daily next line also continue patient's home Xanax 0.25 mg by mouth 3 times a day as needed for anxiety (6) Aortic valve stenosis, severe ICD Codes: I35.0 - Nonrheumatic aortic (valve) stenosis Status: Acute Plan: - Previous admission from 02/18-02/21 for SOB and felt to have acute CHF symptoms related to severe AVS. - 2D echocardiogram (02/19/17) which noted severe aortic valve stenosis and she was initially decompensated. - She was seen by CTS who did the initial evaluation for TAVR vs traditional AVR but due to her issues with GIB this has been put on hold. - She is no longer on any anticoagulants - Patient appears compensated at this point (7) CHF (congestive heart failure) ICD Codes: I50.9 - Heart failure, unspecified Status: Acute Plan: Patient is regularly on Lasix 20 mg by mouth daily we'll hold at this time secondary to dehydration Once patient is hydrated and diarrhea is improved may need to resume 2-D echocardiogram 02/19/2017 revealed normal left ventricular size Mild concentric left ventricular hypertrophy Estimated ejection fraction 55-60% No regional wall motion upper maladies are present Severe aortic valve stenosis AV mean gradient 44.0 mmHg Mild aortic valve regurgitation Mild/moderate mitral valve regurgitation Mitral annular calcification is present Severe thickening of the aortic valve leaflets There is mild tricuspid valve regurgitation There's estimated pulmonary hypertension present range of 40-50 mmHg Pulmonary valve is not well visualized. (8) Hyperlipidemia ICD Codes: E78.5 - Hyperlipidemia, unspecified Status: Chronic Plan: To patient's home atorvastatin 20 BY mouth daily at bedtime Assessment and Plan Patient examined. Assessment and plan formulated with Elina Bray PA-C. I agree with the above. Physician Certification 2 Midnight Certification Type: Admission for Inpatient Services Order for Inpatient Services The services are ordered in accordance with Medicare regulations or non- Medicare payer requirements, as applicable. In the case of services not specified as inpatient-only, they are appropriately provided as inpatient services in accordance with the 2-midnight benchmark. Estimated LOS (days): 3 days is the estimated time the patient will need to remain in the hospital, assuming treatment plan goals are met and no additional complications. Post-Hospital Plan: Not yet determined Elina Bray Jul 24, 2017 08:54 Kam Jansen DO Jul 27, 2017 22:27
[2017-07-24 11:42] LABS: AUTOMATED NEUTROPHIL # 25.5 TH/MM3 (1.8-7.7); BASOPHIL % 0.1 % (0.0-2.0); EOSINOPHIL % 0.1 % (0.0-4.0); HEMATOCRIT 37.1 % (35.0-46.0); LYMPH % 2.2 % (9.0-44.0); LYMPHOCYTE # 0.6 TH/MM3 (1.0-4.8); MEAN CELL VOLUME 86.2 FL (80.0-100.0); MEAN CORPUSCULAR HGB CONC 32.4 % (32.0-36.0); MEAN PLATELET VOLUME 8.5 FL (7.0-11.0); MONO % 6.1 % (0.0-8.0); MONOCYTE # 1.7 TH/MM3 (0-0.9); NEUT % 91.5 % (16.0-70.0); PLATELET COUNT 398 TH/MM3 (150-450); RED CELL DISTRIBUTION WIDTH 20.7 % (11.6-17.2); WHITE BLOOD COUNT 27.8 TH/MM3 (4.0-11.0)
[2017-07-24 11:52] LABS: BICARBONATE 26.9 MEQ/L (21.0-32.0); CREATININE 0.63 MG/DL (0.50-1.00); MAGNESIUM 2.5 MG/DL (1.5-2.5)
[2017-07-24 12:16] LABS: BANDS 13 % (0-6); MONOCYTES 5 % (0-8); NEUTROPHIL # MANUAL DIFF 26.4 TH/MM3 (1.8-7.7); POLYS (SEG NEUTROPHILS) 82 % (16-70)
[2017-07-24 12:19] LABS: OVALOCYTES 1+ (NORMAL)
[2017-07-24] MEDS: ONDANSETRON INJ 8 MG in DEXTROSE 5% IN WATER INJ 50 ML IV PRN ×2 (12:47)
--- NOTE | 2017-07-24 12:59 | EKG ---
Date Performed: 07/23/2017 Time Performed: 18:14:41 PTAGE: 87 years EKG: Sinus rhythm POSSIBLE LEFT ATRIAL ENLARGEMENT LEFT VENTRICULAR HYPERTROPHY AND ST-T CHANGE ABNORMAL ECG Compared to PREVIOUS TRACING , previously seen ST changes have improved somewhat. PREVIOUS TRACIN 07/29/2016 13.31 DOCTOR: Neville Galeana Interpretating Date/Time 07/24/2017 12:57:18
[2017-07-24] MEDS: ALPRAZolam 0.25 MG TAB PO PRN (13:03)
[2017-07-24] MEDS: SODIUM CHLOR 0.9% 1000 ML INJ 1,000 ML IV SCH (13:47)
[2017-07-24] MEDS ORDERED: ONDANSETRON HCL 4 MG/2 ML VIAL IVP PRN (15:30)
[2017-07-24] MEDS: ACETAMINOPHEN 325 MG TAB PO PRN (20:14)
[2017-07-24] MEDS: ATORVASTATIN 20 MG TAB PO SCH (20:14)
[2017-07-25] VITALS (7 sets, daily range): BP systolic 139–157; BP diastolic 68–85; PULSE 98–118; RESP 17–22; TEMP 95.6–98.6; O2SAT 93–99
[2017-07-25] MEDS: ALPRAZolam 0.25 MG TAB PO PRN ×3 (03:13→17:57)
[2017-07-25] MEDS: ACETAMINOPHEN 325 MG TAB PO PRN ×3 (06:04→22:17)
[2017-07-25] MEDS: metroNIDAZOLE 500 MG TAB PO SCH ×3 (06:04→22:13)
[2017-07-25] MEDS: SODIUM CHLOR 0.9% 1000 ML INJ 1,000 ML IV SCH (06:29)
[2017-07-25 08:27] LABS: AUTOMATED NEUTROPHIL # 16.9 TH/MM3 (1.8-7.7); EOSINOPHIL % 0.2 % (0.0-4.0); HEMATOCRIT 37.9 % (35.0-46.0); HEMOGLOBIN 12.5 GM/DL (11.6-15.3); LYMPH % 3.2 % (9.0-44.0); LYMPHOCYTE # 0.6 TH/MM3 (1.0-4.8); MEAN CELL VOLUME 86.1 FL (80.0-100.0); MEAN CORPUSCULAR HEMOGLOBIN 28.4 PG (27.0-34.0); MONOCYTE # 1.3 TH/MM3 (0-0.9); NEUT % 89.6 % (16.0-70.0); PLATELET COUNT 362 TH/MM3 (150-450); RED CELL DISTRIBUTION WIDTH 20.6 % (11.6-17.2); WHITE BLOOD COUNT 18.8 TH/MM3 (4.0-11.0)
[2017-07-25] MEDS: SODIUM CHLORIDE 0.9% FLUSH 10 ML FLUSH IV FLUSH SCH ×2 (08:44→22:20)
[2017-07-25] MEDS: PANTOPRAZOLE SOD 40 MG DELAYED RELEASE TAB PO SCH (08:44)
[2017-07-25] MEDS: SERTRALINE HCL 50 MG TAB PO SCH (08:44)
[2017-07-25] MEDS: MULTIVITAMIN-OPHTHALMIC 1 TAB PO SCH (08:44)
[2017-07-25] MEDS: POLYSACCHARIDE IRON COMPLEX 150 MG CAP PO SCH (08:45)
[2017-07-25] MEDS: VITAMIN B COMPLEX/VIT C TAB PO SCH (08:45)
[2017-07-25] MEDS: POTASSIUM CHLORIDE 20 MEQ CONTROLLED RELEASE TAB PO SCH (08:45)
[2017-07-25] MEDS: CETIRIZINE HCL 10 MG TAB PO SCH (08:45)
--- NOTE | 2017-07-25 08:46 | HHI.PR ---
Subjective Remarks Patient reports feeling, "extremity tired." Patient was up often through the night passing stool She has had approximately 6 BMs in the past 24 hours Reports that the stool is becoming more formed Objective Vitals Vital Signs Date Time Temp Pulse Resp B/P (MAP) Pulse Ox O2 Delivery O2 Flow Rate FiO2 07/25/17 04:00 98.6 98 17 142/68 (92) 98 07/25/17 00:00 97.9 101 19 139/79 (99) 99 07/24/17 20:00 96.4 109 18 136/78 (97) 91 07/24/17 16:00 98.0 113 16 140/82 (101) 92 07/24/17 12:00 96.0 105 17 138/79 (98) 93 Result Diagram: 07/25/17 0610 07/24/17 1128 Other Results Laboratory Tests Test 07/23/17 18:47 07/23/17 21:45 07/24/17 01:25 07/24/17 02:00 White Blood Count 22.9 TH/MM3 Red Blood Count 4.49 MIL/MM3 Hemoglobin 13.0 GM/DL Hematocrit 39.0 % Mean Corpuscular Volume 86.8 FL Mean Corpuscular Hemoglobin 29.0 PG Mean Corpuscular Hemoglobin Concent 33.3 % Red Cell Distribution Width 20.4 % Platelet Count 424 TH/MM3 Mean Platelet Volume 8.6 FL Neutrophils (%) (Auto) 88.2 % Lymphocytes (%) (Auto) 1.8 % Monocytes (%) (Auto) 9.9 % Eosinophils (%) (Auto) 0.0 % Basophils (%) (Auto) 0.1 % Neutrophils # (Auto) 20.2 TH/MM3 Lymphocytes # (Auto) 0.4 TH/MM3 Monocytes # (Auto) 2.3 TH/MM3 Eosinophils # (Auto) 0.0 TH/MM3 Basophils # (Auto) 0.0 TH/MM3 CBC Comment AUTO DIFF Differential Total Cells Counted 100 Neutrophils % (Manual) 73 % Band Neutrophils % 20 % Lymphocytes % 1 % Monocytes % 5 % Neutrophils # (Manual) 21.5 TH/MM3 Myelocytes 1 % Differential Comment FINAL DIFF MANUAL Platelet Estimate HIGH Platelet Morphology Comment NORMAL Ovalocytes 1+ Keratocytes 1+ Prothrombin Time 11.0 SEC Prothromb Time International Ratio 1.1 RATIO Activated Partial Thromboplast Time 20.9 SEC Blood Urea Nitrogen 32 MG/DL Creatinine 0.91 MG/DL Random Glucose 149 MG/DL Total Protein 6.3 GM/DL Albumin 2.5 GM/DL Calcium Level 8.4 MG/DL Alkaline Phosphatase 146 U/L Aspartate Amino Transf (AST/SGOT) 21 U/L Alanine Aminotransferase (ALT/SGPT) 17 U/L Total Bilirubin 0.5 MG/DL Sodium Level 133 MEQ/L Potassium Level 2.6 MEQ/L Chloride Level 95 MEQ/L Carbon Dioxide Level 26.1 MEQ/L Anion Gap 12 MEQ/L Estimat Glomerular Filtration Rate 59 ML/MIN Lactic Acid Level 2.8 mmol/L 1.1 mmol/L Stool C. difficile Toxin (PCR) POSITIVE Stl C. difficile Toxin Epiderm 027 PRESUMPTIVE NEGATIVE Urine Color YELLOW Urine Turbidity CLEAR Urine pH 6.5 Urine Specific [place] GREATER THAN 1.050 Urine Protein 30 mg/dL Urine Glucose (UA) NEG mg/dL Urine Ketones NEG mg/dL Urine Occult Blood NEG Urine Nitrite POS Urine Bilirubin NEG Urine Urobilinogen 2.0 MG/DL Urine Leukocyte Esterase SMALL Urine RBC 1 /hpf Urine WBC 8 /hpf Urine Squamous Epithelial Cells 1 /hpf Urine Amorphous Sediment RARE Urine Bacteria MANY /hpf Microscopic Urinalysis Comment CULTURE INDICATED Test 07/24/17 11:28 07/25/17 06:10 White Blood Count 27.8 TH/MM3 18.8 TH/MM3 Red Blood Count 4.30 MIL/MM3 4.40 MIL/MM3 Hemoglobin 12.0 GM/DL 12.5 GM/DL Hematocrit 37.1 % 37.9 % Mean Corpuscular Volume 86.2 FL 86.1 FL Mean Corpuscular Hemoglobin 28.0 PG 28.4 PG Mean Corpuscular Hemoglobin Concent 32.4 % 33.0 % Red Cell Distribution Width 20.7 % 20.6 % Platelet Count 398 TH/MM3 362 TH/MM3 Mean Platelet Volume 8.5 FL 9.0 FL Neutrophils (%) (Auto) 91.5 % 89.6 % Lymphocytes (%) (Auto) 2.2 % 3.2 % Monocytes (%) (Auto) 6.1 % 7.0 % Eosinophils (%) (Auto) 0.1 % 0.2 % Basophils (%) (Auto) 0.1 % 0.0 % Neutrophils # (Auto) 25.5 TH/MM3 16.9 TH/MM3 Lymphocytes # (Auto) 0.6 TH/MM3 0.6 TH/MM3 Monocytes # (Auto) 1.7 TH/MM3 1.3 TH/MM3 Eosinophils # (Auto) 0.0 TH/MM3 0.0 TH/MM3 Basophils # (Auto) 0.0 TH/MM3 0.0 TH/MM3 CBC Comment AUTO DIFF DIFF FINAL Differential Total Cells Counted 100 Neutrophils % (Manual) 82 % Band Neutrophils % 13 % Monocytes % 5 % Neutrophils # (Manual) 26.4 TH/MM3 Differential Comment FINAL DIFF MANUAL Platelet Estimate NORMAL Platelet Morphology Comment NORMAL Ovalocytes 1+ Blood Urea Nitrogen 25 MG/DL Creatinine 0.63 MG/DL Random Glucose 143 MG/DL Calcium Level 8.0 MG/DL Magnesium Level 2.5 MG/DL Sodium Level 135 MEQ/L Potassium Level 4.8 MEQ/L Chloride Level 103 MEQ/L Carbon Dioxide Level 26.9 MEQ/L Anion Gap 5 MEQ/L Estimat Glomerular Filtration Rate 90 ML/MIN Imaging Last Impressions Chest X-Ray 07/23/172117 Signed Impressions: Service Date/Time: Sunday, July 23, 2017 21:52 - CONCLUSION: 1. Left basilar scarring. 2. No pneumonia. Vel Gonzalez MD Abdomen/Pelvis CT 07/23/17 1840 Signed Impressions: Service Date/Time: Sunday, July 23, 2017 20:06 - CONCLUSION: 1. Diffuse colitis with slight inflammatory changes. There is also scattered diverticulosis. No perforation. 2. Minimal ascites. 3. Calcified gallstones. 4. Hepatic and right renal densities likely cysts Vel Gonzalez MD Objective Remarks GENERAL: This is an 87 year old female patient, well-developed patient, appears fatigued CARDIOVASCULAR: Regular rate and rhythm with murmur present RESPIRATORY: Clear to auscultation. Breath sounds equal bilaterally. GASTROINTESTINAL: Abdomen soft, nontender, mildly distended. normoactive bowel sounds x 4 quadrats MUSCULOSKELETAL: Extremities without clubbing, cyanosis, or edema. No joint tenderness, effusion, or edema noted. No calf tenderness. Negative Homans sign bilaterally. NEUROLOGICAL: Awake and alert. No focal deficits noted. Motor and sensory grossly within normal limits. 3-4 out of 5 muscle strength in all muscle groups. Normal speech. Procedures none A/P Problem List: (1) C. difficile colitis ICD Codes: A04.72 - Enterocolitis due to Clostridium difficile, not specified as recurrent Plan: Patient presents to the emergency department with complaints of multiple episodes of diarrhea for the past 4 days associated with left sided abdominal pain. Patient describes the pain as a intermittent cramping sensation moderate in severity. Patient denies recent antibiotic use or evidence of bleeding in the stool. Patient does endorse nausea but no vomiting. Patient denies fevers chills chest pain or shortness of breath. - CT of abdomen (07/23/17) reviewed and reveals: Diffuse colitis with slight inflammatory changes. There is also scattered diverticulosis. No perforation. Mild ascites. Also had gallstones. Hepatic and right renal disease likely cyst. - Stool positive for C. difficile patient started on Flagyl - Supportive care - Physical therapy recommends rehab at time of DC (2) Hypokalemia ICD Codes: E87.6 - Hypokalemia Status: Resolved Plan: Potassium 2.6 on admission -> 4.8 (07/24) -> pending (07/25) Magnesium 2.5 (07/24) (3) Dehydration ICD Codes: E86.0 - Dehydration Plan: BUN 32, creatinine 0.91, estimated GFR 59 on admission Dehydration likely secondary to diarrhea IV fluids- patient has CHF monitor for ss of fluid overload CXR requested (07/25) pending Supportive care Monitor renal function (4) Possible urinary tract infection ICD Codes: R39.89 - Other symptoms and signs involving the genitourinary system Plan: Urinalysis reviewed and reveals positive nitrates small amount of leukocyte esterase culture indicated and pending Will hold off on antibiotics in light of C. difficile colitis await culture results to determine further treatment of UTI (5) Anxiety ICD Codes: F41.9 - Anxiety disorder, unspecified Status: Chronic Plan: Continue patient's home Zoloft 150 mg by mouth daily next line also continue patient's home Xanax 0.25 mg by mouth 3 times a day as needed for anxiety (6) Aortic valve stenosis, severe ICD Codes: I35.0 - Nonrheumatic aortic (valve) stenosis Status: Acute Plan: - Previous admission from 02/18-02/21 for SOB and felt to have acute CHF symptoms related to severe AVS. - 2D echocardiogram (02/19/17) which noted severe aortic valve stenosis and she was initially decompensated. - She was seen by CTS who did the initial evaluation for TAVR vs traditional AVR but due to her issues with GIB this has been put on hold. - She is no longer on any anticoagulants - Patient appears compensated at this point (7) CHF (congestive heart failure) ICD Codes: I50.9 - Heart failure, unspecified Status: Acute Plan: Patient is regularly on Lasix 20 mg by mouth daily we'll hold at this time secondary to dehydration Once patient is hydrated and diarrhea is improved may need to resume 2-D echocardiogram 02/19/2017 revealed normal left ventricular size Mild concentric left ventricular hypertrophy Estimated ejection fraction 55-60% No regional wall motion upper maladies are present Severe aortic valve stenosis AV mean gradient 44.0 mmHg Mild aortic valve regurgitation Mild/moderate mitral valve regurgitation Mitral annular calcification is present Severe thickening of the aortic valve leaflets There is mild tricuspid valve regurgitation There's estimated pulmonary hypertension present range of 40-50 mmHg Pulmonary valve is not well visualized. (8) Hyperlipidemia ICD Codes: E78.5 - Hyperlipidemia, unspecified Status: Chronic Plan: To patient's home atorvastatin 20 BY mouth daily at bedtime Assessment and Plan Patient examined. Assessment and plan formulated with Elina Bray PA-C. I agree with the above. 'c.diff colitis gnr positive u/a...denies uti sx's. monitor. recheck. rx if necessary. Elina Bray Jul 25, 2017 08:46 Selvin Juarez MD Jul 25, 2017 17:14
--- NOTE | 2017-07-25 10:02 | RADRPT ---
EXAM DATE/TIME: 07/25/2017 09:33 [facility] COMPARISON: CHEST SINGLE AP, May 10, 2017, 12:06. CHEST SINGLE AP, July 23, 2017, 21:52. INDICATIONS : Short of breath, evaluate congestive heart failure MEDICAL HISTORY : Cardiovascular disease. Congestive heart failure. Hypertension. SURGICAL HISTORY : Hysterectomy. ENCOUNTER: Subsequent ACUITY: 2 days PAIN SCORE: 0/10 LOCATION: Bilateral chest FINDINGS: Slightly progressed left lower lobe pleural-parenchymal disease. Cardiomediastinal contours are stabl e. Bony thorax is intact. CONCLUSION: 1. Slightly progressed left lower lobe airspace disease and associated trace pleural effusion. Saul Fallon MD on July 25, 2017 at 9:58 Board Certified Radiologist. This report was verified electronically.
[2017-07-25 10:29] LABS: BICARBONATE 21.4 MEQ/L (21.0-32.0); CALCIUM 7.6 MG/DL (8.5-10.1); CREATININE 0.48 MG/DL (0.50-1.00)
[2017-07-25] MEDS: ONDANSETRON INJ 8 MG in DEXTROSE 5% IN WATER INJ 50 ML IV PRN ×2 (15:58)
[2017-07-25] MEDS: ATORVASTATIN 20 MG TAB PO SCH (22:13)
[2017-07-26] VITALS (9 sets, daily range): BP systolic 119–171; BP diastolic 58–87; PULSE 102–112; RESP 17–20; TEMP 96.5–97.6; O2SAT 94–97
[2017-07-26] MEDS: metroNIDAZOLE 500 MG TAB PO SCH ×3 (04:08→20:52)
[2017-07-26] MEDS: ALPRAZolam 0.25 MG TAB PO PRN ×2 (04:08→17:05)
[2017-07-26] MEDS: ACETAMINOPHEN 325 MG TAB PO PRN ×2 (04:25→20:52)
[2017-07-26 04:39] LABS: BACTERIA, URINE RARE /hpf; BLOOD, URINE NEG (NEG); GLUCOSE,URINE NEG (NEG); HYALINE CAST, URINE 4 /lpf (RARE); KETONE, URINE 10 mg/dL (NEG); MUCUS URINE FEW /lpf (OCC); NITRITE,URINE NEG (NEG); SQUAMOUS EPITHELIAL CELL URINE 1 /hpf (0-5); TRANSITIONAL EPI CELLS, URINE 1 /hpf; URINE LEUKOCYTE ESTERASE MOD (NEG)
[2017-07-26 04:40] LABS: BILIRUBIN, URINE NEG (NEG); URINE COLOR DARK-BROWN (YELLW/STRAW)
[2017-07-26] MEDS: SODIUM CHLOR 0.9% 1000 ML INJ 1,000 ML IV SCH (05:30)
--- NOTE | 2017-07-26 09:13 | HHI.PR ---
Subjective Remarks Patient continues to report nausea Lost IV site through the night reports one one BM through the night telemetry reveals ST 1 teens Objective Vitals Vital Signs Date Time Temp Pulse Resp B/P (MAP) Pulse Ox O2 Delivery O2 Flow Rate FiO2 07/26/17 04:00 97.0 112 20 136/83 (100) 94 07/26/17 00:00 97.4 102 18 119/69 (86) 95 07/25/17 23:40 109 07/25/17 20:00 96.4 114 20 142/85 (104) 94 07/25/17 16:00 97.1 110 21 156/74 (101) 95 07/25/17 12:00 95.6 118 20 148/68 (94) 96 Result Diagram: 07/25/17 0610 07/25/17 06 Other Results Laboratory Tests Test 07/23/17 18:47 07/23/17 21:45 07/24/17 01:25 07/24/17 02:00 White Blood Count 22.9 TH/MM3 Red Blood Count 4.49 MIL/MM3 Hemoglobin 13.0 GM/DL Hematocrit 39.0 % Mean Corpuscular Volume 86.8 FL Mean Corpuscular Hemoglobin 29.0 PG Mean Corpuscular Hemoglobin Concent 33.3 % Red Cell Distribution Width 20.4 % Platelet Count 424 TH/MM3 Mean Platelet Volume 8.6 FL Neutrophils (%) (Auto) 88.2 % Lymphocytes (%) (Auto) 1.8 % Monocytes (%) (Auto) 9.9 % Eosinophils (%) (Auto) 0.0 % Basophils (%) (Auto) 0.1 % Neutrophils # (Auto) 20.2 TH/MM3 Lymphocytes # (Auto) 0.4 TH/MM3 Monocytes # (Auto) 2.3 TH/MM3 Eosinophils # (Auto) 0.0 TH/MM3 Basophils # (Auto) 0.0 TH/MM3 CBC Comment AUTO DIFF Differential Total Cells Counted 100 Neutrophils % (Manual) 73 % Band Neutrophils % 20 % Lymphocytes % 1 % Monocytes % 5 % Neutrophils # (Manual) 21.5 TH/MM3 Myelocytes 1 % Differential Comment FINAL DIFF MANUAL Platelet Estimate HIGH Platelet Morphology Comment NORMAL Ovalocytes 1+ Keratocytes 1+ Prothrombin Time 11.0 SEC Prothromb Time International Ratio 1.1 RATIO Activated Partial Thromboplast Time 20.9 SEC Blood Urea Nitrogen 32 MG/DL Creatinine 0.91 MG/DL Random Glucose 149 MG/DL Total Protein 6.3 GM/DL Albumin 2.5 GM/DL Calcium Level 8.4 MG/DL Alkaline Phosphatase 146 U/L Aspartate Amino Transf (AST/SGOT) 21 U/L Alanine Aminotransferase (ALT/SGPT) 17 U/L Total Bilirubin 0.5 MG/DL Sodium Level 133 MEQ/L Potassium Level 2.6 MEQ/L Chloride Level 95 MEQ/L Carbon Dioxide Level 26.1 MEQ/L Anion Gap 12 MEQ/L Estimat Glomerular Filtration Rate 59 ML/MIN Lactic Acid Level 2.8 mmol/L 1.1 mmol/L Stool C. difficile Toxin (PCR) POSITIVE Stl C. difficile Toxin Epiderm 027 PRESUMPTIVE NEGATIVE Urine Color YELLOW Urine Turbidity CLEAR Urine pH 6.5 Urine Specific [place] GREATER THAN 1.050 Urine Protein 30 mg/dL Urine Glucose (UA) NEG mg/dL Urine Ketones NEG mg/dL Urine Occult Blood NEG Urine Nitrite POS Urine Bilirubin NEG Urine Urobilinogen 2.0 MG/DL Urine Leukocyte Esterase SMALL Urine RBC 1 /hpf Urine WBC 8 /hpf Urine Squamous Epithelial Cells 1 /hpf Urine Amorphous Sediment RARE Urine Bacteria MANY /hpf Microscopic Urinalysis Comment CULTURE INDICATED Test 07/24/17 11:28 07/25/17 06:10 07/26/17 04:20 White Blood Count 27.8 TH/MM3 18.8 TH/MM3 Red Blood Count 4.30 MIL/MM3 4.40 MIL/MM3 Hemoglobin 12.0 GM/DL 12.5 GM/DL Hematocrit 37.1 % 37.9 % Mean Corpuscular Volume 86.2 FL 86.1 FL Mean Corpuscular Hemoglobin 28.0 PG 28.4 PG Mean Corpuscular Hemoglobin Concent 32.4 % 33.0 % Red Cell Distribution Width 20.7 % 20.6 % Platelet Count 398 TH/MM3 362 TH/MM3 Mean Platelet Volume 8.5 FL 9.0 FL Neutrophils (%) (Auto) 91.5 % 89.6 % Lymphocytes (%) (Auto) 2.2 % 3.2 % Monocytes (%) (Auto) 6.1 % 7.0 % Eosinophils (%) (Auto) 0.1 % 0.2 % Basophils (%) (Auto) 0.1 % 0.0 % Neutrophils # (Auto) 25.5 TH/MM3 16.9 TH/MM3 Lymphocytes # (Auto) 0.6 TH/MM3 0.6 TH/MM3 Monocytes # (Auto) 1.7 TH/MM3 1.3 TH/MM3 Eosinophils # (Auto) 0.0 TH/MM3 0.0 TH/MM3 Basophils # (Auto) 0.0 TH/MM3 0.0 TH/MM3 CBC Comment AUTO DIFF DIFF FINAL Differential Total Cells Counted 100 Neutrophils % (Manual) 82 % Band Neutrophils % 13 % Monocytes % 5 % Neutrophils # (Manual) 26.4 TH/MM3 Differential Comment FINAL DIFF MANUAL Platelet Estimate NORMAL Platelet Morphology Comment NORMAL Ovalocytes 1+ Blood Urea Nitrogen 25 MG/DL 19 MG/DL Creatinine 0.63 MG/DL 0.48 MG/DL Random Glucose 143 MG/DL 68 MG/DL Calcium Level 8.0 MG/DL 7.6 MG/DL Magnesium Level 2.5 MG/DL Sodium Level 135 MEQ/L 136 MEQ/L Potassium Level 4.8 MEQ/L 4.1 MEQ/L Chloride Level 103 MEQ/L 104 MEQ/L Carbon Dioxide Level 26.9 MEQ/L 21.4 MEQ/L Anion Gap 5 MEQ/L 11 MEQ/L Estimat Glomerular Filtration Rate 90 ML/MIN 123 ML/MIN Urine Color DARK[place] Urine Turbidity CLEAR Urine pH 6.0 Urine Specific [place] 1.030 Urine Protein 30 mg/dL Urine Glucose (UA) NEG mg/dL Urine Ketones 10 mg/dL Urine Occult Blood NEG Urine Nitrite NEG Urine Bilirubin NEG Urine Urobilinogen 2.0 MG/DL Urine Leukocyte Esterase MOD Urine RBC 1 /hpf Urine WBC 6 /hpf Urine Squamous Epithelial Cells 1 /hpf Urine Transitional Epithelial Cells 1 /hpf Urine Bacteria RARE /hpf Urine Hyaline Casts 4 /lpf Urine Mucus FEW /lpf Microscopic Urinalysis Comment CATH-CULTURE IND Imaging Last Impressions Chest X-Ray 07/23/172117 Signed Impressions: Service Date/Time: Sunday, July 23, 2017 21:52 - CONCLUSION: 1. Left basilar scarring. 2. No pneumonia. Vel Gonzalez MD Abdomen/Pelvis CT 07/23/170 Signed Impressions: Service Date/Time: Sunday, July 23, 2017 20:06 - CONCLUSION: 1. Diffuse colitis with slight inflammatory changes. There is also scattered diverticulosis. No perforation. 2. Minimal ascites. 3. Calcified gallstones. 4. Hepatic and right renal densities likely cysts Vel Gonzalez MD Objective Remarks GENERAL: This is an 87 year old female patient, well-developed patient, appears fatigued CARDIOVASCULAR: tachycardic RESPIRATORY: Clear to auscultation. Breath sounds equal bilaterally. GASTROINTESTINAL: Abdomen soft, nontender, mildly distended. normoactive bowel sounds x 4 quadrats MUSCULOSKELETAL: Extremities without clubbing, cyanosis, or edema. No joint tenderness, effusion, or edema noted. No calf tenderness. Negative Homans sign bilaterally. NEUROLOGICAL: Awake and alert. No focal deficits noted. Motor and sensory grossly within normal limits. 3-4 out of 5 muscle strength in all muscle groups. Normal speech. Procedures none A/P Problem List: (1) C. difficile colitis ICD Codes: A04.72 - Enterocolitis due to Clostridium difficile, not specified as recurrent Plan: Patient presents to the emergency department with complaints of multiple episodes of diarrhea for the past 4 days associated with left sided abdominal pain. Patient describes the pain as a intermittent cramping sensation moderate in severity. Patient denies recent antibiotic use or evidence of bleeding in the stool. Patient does endorse nausea but no vomiting. Patient denies fevers chills chest pain or shortness of breath. - CT of abdomen (07/23/17) reviewed and reveals: Diffuse colitis with slight inflammatory changes. There is also scattered diverticulosis. No perforation. Mild ascites. Also had gallstones. Hepatic and right renal disease likely cyst. - Stool positive for C. difficile patient started on Flagyl - Supportive care - Physical therapy recommends rehab at time of DC (2) Hypokalemia ICD Codes: E87.6 - Hypokalemia Status: Resolved Plan: Potassium 2.6 on admission -> 4.8 (07/24) -> 4.1 (07/25) Magnesium 2.5 (07/24) (3) Dehydration ICD Codes: E86.0 - Dehydration Plan: BUN 32, creatinine 0.91, estimated GFR 59 on admission Dehydration likely secondary to diarrhea IV fluids- patient has CHF monitor for ss of fluid overload CXR requested (07/25) pending Supportive care Monitor renal function 07/[address] in the 1 teens likely secondary to dehydration Patient lost IV through the night and RN unable to place IV Request IV placed with US, then 500 ml NS at 100 ml/hour followed by 50ml per hour continue to monitor telemetry (4) Possible urinary tract infection ICD Codes: R39.89 - Other symptoms and signs involving the genitourinary system Plan: Urinalysis reviewed and reveals positive nitrates small amount of leukocyte esterase culture indicated and pending Will hold off on antibiotics in light of C. difficile colitis await culture results to determine further treatment of UTI Urine culture reveals: Citrobacter Amalonaticus sensitive to Rocephin. Will start Rocephin IV (5) Anxiety ICD Codes: F41.9 - Anxiety disorder, unspecified Status: Chronic Plan: Continue patient's home Zoloft 150 mg by mouth daily next line also continue patient's home Xanax 0.25 mg by mouth 3 times a day as needed for anxiety (6) Aortic valve stenosis, severe ICD Codes: I35.0 - Nonrheumatic aortic (valve) stenosis Status: Acute Plan: - Previous admission from 02/18-02/21 for SOB and felt to have acute CHF symptoms related to severe AVS. - 2D echocardiogram (02/19/17) which noted severe aortic valve stenosis and she was initially decompensated. - She was seen by CTS who did the initial evaluation for TAVR vs traditional AVR but due to her issues with GIB this has been put on hold. - She is no longer on any anticoagulants - Patient appears compensated at this point (7) CHF (congestive heart failure) ICD Codes: I50.9 - Heart failure, unspecified Status: Acute Plan: Patient is regularly on Lasix 20 mg by mouth daily we'll hold at this time secondary to dehydration Once patient is hydrated and diarrhea is improved may need to resume 2-D echocardiogram 02/19/2017 revealed normal left ventricular size Mild concentric left ventricular hypertrophy Estimated ejection fraction 55-60% No regional wall motion upper maladies are present Severe aortic valve stenosis AV mean gradient 44.0 mmHg Mild aortic valve regurgitation Mild/moderate mitral valve regurgitation Mitral annular calcification is present Severe thickening of the aortic valve leaflets There is mild tricuspid valve regurgitation There's estimated pulmonary hypertension present range of 40-50 mmHg Pulmonary valve is not well visualized. (8) Hyperlipidemia ICD Codes: E78.5 - Hyperlipidemia, unspecified Status: Chronic Plan: To patient's home atorvastatin 20 BY mouth daily at bedtime Assessment and Plan Patient examined. Assessment and plan formulated with Elina Bray PA-C. I agree with the above. c.diff colitis uti. feels alot of nausea and weakness poor po intake. gentle ivf given AVS prn zofran. needs picc. Elina Bray Jul 26, 2017 09:12 Selvin Juarez MD Jul 26, 2017 13:33
[2017-07-26] MEDS ORDERED: SODIUM CHLORID 0.9% 500 ML INJ 500 ML IV SCH (09:15)
[2017-07-26] MEDS: MULTIVITAMIN-OPHTHALMIC 1 TAB PO SCH (10:10)
[2017-07-26] MEDS: PANTOPRAZOLE SOD 40 MG DELAYED RELEASE TAB PO SCH (10:10)
[2017-07-26] MEDS: SERTRALINE HCL 50 MG TAB PO SCH (10:11)
[2017-07-26] MEDS: POTASSIUM CHLORIDE 20 MEQ CONTROLLED RELEASE TAB PO SCH (10:11)
[2017-07-26] MEDS: VITAMIN B COMPLEX/VIT C TAB PO SCH (10:11)
[2017-07-26] MEDS: CETIRIZINE HCL 10 MG TAB PO SCH (10:11)
[2017-07-26] MEDS: POLYSACCHARIDE IRON COMPLEX 150 MG CAP PO SCH (10:11)
[2017-07-26] MEDS: SODIUM CHLORIDE 0.9% FLUSH 10 ML FLUSH IV FLUSH SCH ×2 (10:12→20:57)
[2017-07-26] MEDS: ONDANSETRON ODT 4 MG TAB PO PRN ×2 (10:22→16:51)
[2017-07-26] MEDS: cefTRIAXone INJ 1,000 MG in SODIUM CHLORIDE 0.9% INJ 100 ML IV SCH (15:21)
[2017-07-26] MEDS: ATORVASTATIN 20 MG TAB PO SCH (20:52)
[2017-07-27] VITALS (8 sets, daily range): BP systolic 106–147; BP diastolic 61–75; PULSE 97–124; RESP 18–22; TEMP 96.1–98.8; O2SAT 91–94
[2017-07-27] MEDS: ALPRAZolam 0.25 MG TAB PO PRN ×3 (01:13→15:39)
[2017-07-27] MEDS: SODIUM CHLOR 0.9% 1000 ML INJ 1,000 ML IV SCH ×2 (02:19→13:05)
[2017-07-27] MEDS: metroNIDAZOLE 500 MG TAB PO SCH ×3 (05:03→20:39)
[2017-07-27] MEDS: SODIUM CHLORIDE 0.9% FLUSH 10 ML FLUSH IV FLUSH PRN (05:03)
[2017-07-27 06:24] LABS: AUTOMATED NEUTROPHIL # 12.9 TH/MM3 (1.8-7.7); BASOPHIL % 0.2 % (0.0-2.0); EOSINOPHIL % 0.2 % (0.0-4.0); HEMATOCRIT 37.7 % (35.0-46.0); HEMOGLOBIN 12.2 GM/DL (11.6-15.3); LYMPH % 7.4 % (9.0-44.0); LYMPHOCYTE # 1.1 TH/MM3 (1.0-4.8); MEAN CELL VOLUME 85.9 FL (80.0-100.0); MEAN CORPUSCULAR HEMOGLOBIN 27.8 PG (27.0-34.0); MEAN CORPUSCULAR HGB CONC 32.4 % (32.0-36.0); MEAN PLATELET VOLUME 8.4 FL (7.0-11.0); MONO % 7.4 % (0.0-8.0); MONOCYTE # 1.1 TH/MM3 (0-0.9); NEUT % 84.8 % (16.0-70.0); PLATELET COUNT 403 TH/MM3 (150-450); RED BLOOD COUNT 4.39 MIL/MM3 (4.00-5.30); RED CELL DISTRIBUTION WIDTH 21.2 % (11.6-17.2); WHITE BLOOD COUNT 15.2 TH/MM3 (4.0-11.0)
[2017-07-27 06:50] LABS: BICARBONATE 20.6 MEQ/L (21.0-32.0); CREATININE 0.5 MG/DL (0.50-1.00)
[2017-07-27 08:20] LABS: BANDS 19 % (0-6); BURR CELLS 1+ (NORMAL); LYMPHOCYTES 3 % (9-44); MONOCYTES 2 % (0-8); MYELOCYTES 2 % (0-0); NEUTROPHIL # MANUAL DIFF 14.4 TH/MM3 (1.8-7.7); OVALOCYTES 1+ (NORMAL); POLYS (SEG NEUTROPHILS) 74 % (16-70); TOXIC GRANULATION 1+ (NORMAL)
[2017-07-27] MEDS: CETIRIZINE HCL 10 MG TAB PO SCH (09:12)
[2017-07-27] MEDS: PANTOPRAZOLE SOD 40 MG DELAYED RELEASE TAB PO SCH (09:12)
[2017-07-27] MEDS: SERTRALINE HCL 50 MG TAB PO SCH (09:12)
[2017-07-27] MEDS: ACETAMINOPHEN 325 MG TAB PO PRN ×2 (09:13→15:39)
[2017-07-27] MEDS: SODIUM CHLORIDE 0.9% FLUSH 10 ML FLUSH IV FLUSH SCH ×2 (09:13→20:44)
[2017-07-27] MEDS: MULTIVITAMIN-OPHTHALMIC 1 TAB PO SCH (09:24)
[2017-07-27] MEDS: POTASSIUM CHLORIDE 20 MEQ CONTROLLED RELEASE TAB PO SCH (09:24)
[2017-07-27] MEDS: POLYSACCHARIDE IRON COMPLEX 150 MG CAP PO SCH (09:24)
[2017-07-27] MEDS: VITAMIN B COMPLEX/VIT C TAB PO SCH (09:24)
--- NOTE | 2017-07-27 10:57 | HHI.PR ---
Subjective Remarks Pt had two soft BMs yesterday No BMs overnight and none so far today Pt not passing much gas No nausea/vomiting but no appetite She did not eat anything off her breakfast tray. Pt did not sleep well last night and took a Xanax this morning and is rather lethargic at the time of examination Objective Vitals Vital Signs Date Time Temp Pulse Resp B/P (MAP) Pulse Ox O2 Delivery O2 Flow Rate FiO2 07/27/17 10:23 18 07/27/17 08:00 111 07/27/17 08:00 96.1 111 18 136/73 (94) 91 07/27/17 04:00 96.3 108 18 147/72 (97) 94 07/27/17 04:00 108 07/27/17 00:00 96.7 110 20 139/70 (93) 93 07/26/17 23:42 110 07/26/17 20:00 96.7 111 18 131/77 (95) 94 07/26/17 16:00 97.2 107 18 127/58 (81) 97 07/26/17 12:06 108 07/26/17 12:00 97.6 103 17 171/87 (115) 95 Result Diagram: 07/27/17 0600 07/27/17 0600 Other Results Laboratory Tests Test 07/26/17 04:20 07/27/17 06:00 Urine Color DARK-BROWN Urine Turbidity CLEAR Urine pH 6.0 Urine Specific [place] 1.030 Urine Protein 30 mg/dL Urine Glucose (UA) NEG mg/dL Urine Ketones 10 mg/dL Urine Occult Blood NEG Urine Nitrite NEG Urine Bilirubin NEG Urine Urobilinogen 2.0 MG/DL Urine Leukocyte Esterase MOD Urine RBC 1 /hpf Urine WBC 6 /hpf Urine Squamous Epithelial Cells 1 /hpf Urine Transitional Epithelial Cells 1 /hpf Urine Bacteria RARE /hpf Urine Hyaline Casts 4 /lpf Urine Mucus FEW /lpf Microscopic Urinalysis Comment CATH-CULTURE IND White Blood Count 15.2 TH/MM3 Red Blood Count 4.39 MIL/MM3 Hemoglobin 12.2 GM/DL Hematocrit 37.7 % Mean Corpuscular Volume 85.9 FL Mean Corpuscular Hemoglobin 27.8 PG Mean Corpuscular Hemoglobin Concent 32.4 % Red Cell Distribution Width 21.2 % Platelet Count 403 TH/MM3 Mean Platelet Volume 8.4 FL Neutrophils (%) (Auto) 84.8 % Lymphocytes (%) (Auto) 7.4 % Monocytes (%) (Auto) 7.4 % Eosinophils (%) (Auto) 0.2 % Basophils (%) (Auto) 0.2 % Neutrophils # (Auto) 12.9 TH/MM3 Lymphocytes # (Auto) 1.1 TH/MM3 Monocytes # (Auto) 1.1 TH/MM3 Eosinophils # (Auto) 0.0 TH/MM3 Basophils # (Auto) 0.0 TH/MM3 CBC Comment AUTO DIFF Differential Total Cells Counted 100 Neutrophils % (Manual) 74 % Band Neutrophils % 19 % Lymphocytes % 3 % Monocytes % 2 % Neutrophils # (Manual) 14.4 TH/MM3 Myelocytes 2 % Differential Comment FINAL DIFF MANUAL Toxic Granulation 1+ Platelet Estimate NORMAL Platelet Morphology Comment NORMAL Ovalocytes 1+ Daniela Cells 1+ Blood Urea Nitrogen 20 MG/DL Creatinine 0.50 MG/DL Random Glucose 91 MG/DL Calcium Level 8.0 MG/DL Sodium Level 133 MEQ/L Potassium Level 4.5 MEQ/L Chloride Level 102 MEQ/L Carbon Dioxide Level 20.6 MEQ/L Anion Gap 10 MEQ/L Estimat Glomerular Filtration Rate 117 ML/MIN Imaging Last Impressions Chest X-Ray 07/25/17 0000 Signed Impressions: Service Date/Time: Tuesday, July 25, 2017 09:33 - CONCLUSION: 1. Slightly progressed left lower lobe airspace disease and associated trace pleural effusion. Saul Fallon MD Abdomen/Pelvis CT [id number] Signed Impressions: Service Date/Time: Sunday, July 23, 2017 20:06 - CONCLUSION: 1. Diffuse colitis with slight inflammatory changes. There is also scattered diverticulosis. No perforation. 2. Minimal ascites. 3. Calcified gallstones. 4. Hepatic and right renal densities likely cysts Vel Gonzalez MD Last Impressions Chest X-Ray [id number] Signed Impressions: Service Date/Time: Sunday, July 23, 2017 21:52 - CONCLUSION: 1. Left basilar scarring. 2. No pneumonia. Vel Gonzalez MD Abdomen/Pelvis CT [id number] Signed Impressions: Service Date/Time: Sunday, July 23, 2017 20:06 - CONCLUSION: 1. Diffuse colitis with slight inflammatory changes. There is also scattered diverticulosis. No perforation. 2. Minimal ascites. 3. Calcified gallstones. 4. Hepatic and right renal densities likely cysts Vel Gonzalez MD Objective Remarks General: NAD, AAOx3, lethargic Chest: CTA Cardiac: Tachy, regular Abd: Minimal BS, soft, mildly distended, nontender Ext: No edema A/P Problem List: (1) C. difficile colitis ICD Codes: A04.72 - Enterocolitis due to Clostridium difficile, not specified as recurrent Plan: - Pt is an 87 y/o female who presented to the ED with complaints of multiple episodes of diarrhea for 4 days prior to admission associated with left sided abdominal pain. Patient describes the pain as a intermittent cramping sensation moderate in severity. No recent antibiotic use or evidence of bleeding in the stool. - CT of abdomen (07/23/17) --> Diffuse colitis with slight inflammatory changes. There is also scattered diverticulosis. No perforation. Mild ascites. Also had gallstones. Hepatic and right renal disease likely cyst. - Stool positive for C. difficile patient started on Flagyl 500mg po Q8H on 07/24 - Diarrhea improving - Monitor clinical status closely, consider KUB to assess for ileus - Supportive care - Physical therapy recommends rehab at time of DC (2) Hypokalemia ICD Codes: E87.6 - Hypokalemia Status: Resolved Plan: - Improved with replacement - Potassium 2.6 on admission -> 4.8 (07/24) -> 4.1 (07/25) --> 4.5 (07/27) - Magnesium 2.5 (07/24) (3) Dehydration ICD Codes: E86.0 - Dehydration Plan: - BUN 32, creatinine 0.91, estimated GFR 59 on admission - Dehydration likely secondary to diarrhea - Pt has been on IV fluids but she has CHF and need to monitor for ss of fluid overload - CXR requested (07/25) --> Slightly progressed left lower lobe airspace disease and associated trace pleural effusion. - Labs on 07/27 with BUn 20, Cr 0.50, GFR 117 - On 07/[address] in the 110s, likely secondary to dehydration - Pt is on gentle IVF as she is still not eating much of anything. - Continue to monitor telemetry (4) Possible urinary tract infection ICD Codes: R39.89 - Other symptoms and signs involving the genitourinary system Plan: - Urinalysis on 07/24 reviewed and reveals positive nitrates small amount of leukocyte esterase culture indicated and pending - Urine culture reveals: Citrobacter Amalonaticus sensitive to Rocephin. - Pt was started on Rocephin IV on 07/26 - Repeat urine culture is pending (5) Anxiety ICD Codes: F41.9 - Anxiety disorder, unspecified Status: Chronic Plan: - Continue patient's home Zoloft 150 mg by mouth daily next line - Also continue patient's home Xanax 0.25 mg by mouth 3 times a day as needed for anxiety (6) Aortic valve stenosis, severe ICD Codes: I35.0 - Nonrheumatic aortic (valve) stenosis Status: Acute Plan: - Previous admission from 02/18-02/21 for SOB and felt to have acute CHF symptoms related to severe AVS. - 2D echocardiogram (02/19/17) which noted severe aortic valve stenosis and she was initially decompensated. - She was seen by CTS who did the initial evaluation for TAVR vs traditional AVR but due to her issues with GIB this has been put on hold. - She is no longer on any anticoagulants - Patient appears compensated at this point (7) CHF (congestive heart failure) ICD Codes: I50.9 - Heart failure, unspecified Status: Acute Plan: - Patient is regularly on Lasix 20 mg by mouth daily but this was held secondary to dehydration - Once patient is hydrated and diarrhea is improved may need to resume - 2-D echocardiogram (02/19/2017) - Normal left ventricular size, Mild concentric left ventricular hypertrophy - Estimated ejection fraction 55-60% - Severe aortic valve stenosis - AV mean gradient 44.0 mmHg - Mild aortic valve regurgitation - Mild/moderate mitral valve regurgitation - Mitral annular calcification is present - Severe thickening of the aortic valve leaflets - There is mild tricuspid valve regurgitation - There's estimated pulmonary hypertension present range of 40-50 mmHg - Pulmonary valve is not well visualized. (8) Hyperlipidemia ICD Codes: E78.5 - Hyperlipidemia, unspecified Status: Chronic Plan: - Cont. patient's home atorvastatin 20mg daily at bedtime Assessment and Plan Patient examined. Assessment and plan formulated with Mariel De Luna PA-C. I agree with the above. c.diff colitis.. uti poor po. looks miserable start ppn. abx. supportive care. Mariel De Luna Jul 27, 2017 10:57 Selvin Juarez MD Jul 27, 2017 13:17
[2017-07-27] MEDS: cefTRIAXone INJ 1,000 MG in SODIUM CHLORIDE 0.9% INJ 100 ML IV SCH (12:01)
--- NOTE | 2017-07-27 14:34 | RADRPT ---
EXAM DATE/TIME: 07/27/2017 13:41 [facility] COMPARISON: CHEST SINGLE AP, July 25, 2017, 9:33. INDICATIONS : Short of breath. MEDICAL HISTORY : Cardiovascular disease. Congestive heart failure. Hypertension. SURGICAL HISTORY : Hysterectomy. ENCOUNTER: Subsequent ACUITY: 4 - 6 days PAIN SCORE: 0/10 LOCATION: Bilateral chest FINDINGS: Minimal bibasilar parenchymal changes are noted worse on the left than the right. Findings have prog ressed on the left. There is no congestive failure. There is no pleural effusion. CONCLUSION: Minimal progression of parenchymal changes left base.. Marquis Shields MD FACR on July 27, 2017 at 14:31 Board Certified Radiologist. This report was verified electronically.
--- NOTE | 2017-07-27 14:39 | RADRPT ---
EXAM DATE/TIME: 07/27/2017 13:44 [facility] COMPARISON: CT ABDOMEN & PELVIS W CONTRAST, July 23, 2017, 20:06. ABDOMEN KUB ONLY, March 24, 2016, 14:26 . INDICATIONS : Abdomen pain. MEDICAL HISTORY : Cardiovascular disease. Congestive heart failure. Hypertension. SURGICAL HISTORY : Hysterectomy. ENCOUNTER: Subsequent ACUITY: 4 - 6 days PAIN SCORE: 7/10 LOCATION: Bilateral Abdomen. FINDINGS: Calcified gallstones upper quadrant. Persistent dilatation of transverse colon to 8 cm. Moderate di stal small bowel gas is noted. The descending colon is gasless. CONCLUSION: Gaseous distention as described above. Descending colon is gasless. CT scan had shown colitis. Ther e is no free air. Marquis Shields MD FACR on July 27, 2017 at 14:35 Board Certified Radiologist. This report was verified electronically.
[2017-07-27] MEDS: ONDANSETRON ODT 4 MG TAB PO PRN (14:43)
[2017-07-27] MEDS ORDERED: ENALAPRILAT 1.25 MG/ML VIAL IV PUSH PRN (19:45)
[2017-07-27] MEDS: ATORVASTATIN 20 MG TAB PO SCH (20:39)
[2017-07-27] MEDS: CLINIMIX IV SCH ×9 (20:39)
[2017-07-27] MEDS: FAT EMULSION 20% INJ 250 ML (@10 mls/hr) IV SCH (20:45)
[2017-07-28] VITALS (9 sets, daily range): BP systolic 99–129; BP diastolic 53–73; PULSE 89–118; RESP 18–26; TEMP 96.5–99.8; O2SAT 93–95
[2017-07-28] MEDS: SODIUM CHLORIDE 0.9% FLUSH 10 ML FLUSH IV FLUSH PRN (03:38)
[2017-07-28] MEDS: metroNIDAZOLE 500 MG TAB PO SCH ×3 (03:38→22:46)
[2017-07-28] MEDS: ACETAMINOPHEN 325 MG TAB PO PRN ×3 (04:55→19:23)
[2017-07-28 06:37] LABS: AUTOMATED NEUTROPHIL # 20.6 TH/MM3 (1.8-7.7); BASOPHIL % 0.1 % (0.0-2.0); HEMATOCRIT 35.2 % (35.0-46.0); HEMOGLOBIN 11.6 GM/DL (11.6-15.3); LYMPH % 1.4 % (9.0-44.0); LYMPHOCYTE # 0.3 TH/MM3 (1.0-4.8); MEAN CELL VOLUME 85.5 FL (80.0-100.0); MEAN CORPUSCULAR HEMOGLOBIN 28.2 PG (27.0-34.0); MEAN PLATELET VOLUME 8.5 FL (7.0-11.0); MONO % 3.8 % (0.0-8.0); MONOCYTE # 0.8 TH/MM3 (0-0.9); NEUT % 94.7 % (16.0-70.0); PLATELET COUNT 358 TH/MM3 (150-450); RED BLOOD COUNT 4.12 MIL/MM3 (4.00-5.30); RED CELL DISTRIBUTION WIDTH 21.1 % (11.6-17.2); WHITE BLOOD COUNT 21.7 TH/MM3 (4.0-11.0)
[2017-07-28 07:29] LABS: BICARBONATE 21.6 MEQ/L (21.0-32.0); CALCIUM 7.3 MG/DL (8.5-10.1); CREATININE 0.85 MG/DL (0.50-1.00); MAGNESIUM 2.1 MG/DL (1.5-2.5)
[2017-07-28 08:03] LABS: CALCIUM-PROTEIN CORRECTED 8.3 MG/DL (8.5-10.1); TOTAL PROTEIN 5.3 GM/DL (6.4-8.2)
[2017-07-28 08:09] LABS: BANDS 36 % (0-6); BURR CELLS 1+ (NORMAL); METAMYELOCYTES 1 % (0-1); MONOCYTES 3 % (0-8); POLYS (SEG NEUTROPHILS) 60 % (16-70)
[2017-07-28 08:10] LABS: ACANTHOCYTES OCC (NORMAL); TOXIC VACUOLATION PRESENT (NONE SEEN)
[2017-07-28] MEDS: SODIUM CHLORIDE 0.9% FLUSH 10 ML FLUSH IV FLUSH SCH ×2 (09:00→21:00)
[2017-07-28] MEDS: POTASSIUM CHLORIDE 20 MEQ CONTROLLED RELEASE TAB PO SCH (09:28)
[2017-07-28] MEDS: MULTIVITAMIN-OPHTHALMIC 1 TAB PO SCH (09:28)
[2017-07-28] MEDS: PANTOPRAZOLE SOD 40 MG DELAYED RELEASE TAB PO SCH (09:28)
[2017-07-28] MEDS: POLYSACCHARIDE IRON COMPLEX 150 MG CAP PO SCH (09:28)
[2017-07-28] MEDS: CETIRIZINE HCL 10 MG TAB PO SCH (09:28)
[2017-07-28] MEDS: VITAMIN B COMPLEX/VIT C TAB PO SCH (09:28)
[2017-07-28] MEDS: SERTRALINE HCL 50 MG TAB PO SCH (09:29)
[2017-07-28] MEDS: ONDANSETRON ODT 4 MG TAB PO PRN (09:35)
--- NOTE | 2017-07-28 09:39 | HHI.PR ---
Subjective Remarks Pt lying in bed, eyes closed and doesn't want to talk much today She reportedly had two BMs last night but pt unable to tell me the consistency of the stools Her abdomen is slightly more distended today She had a low grade fever overnight, 99.8 Objective Vitals Vital Signs Date Time Temp Pulse Resp B/P (MAP) Pulse Ox O2 Delivery O2 Flow Rate FiO2 07/28/17 08:00 98.3 103 18 118/68 (85) 93 07/28/17 04:00 98.2 108 26 126/63 (84) 93 07/28/17 03:29 109 07/28/17 00:00 114 07/28/17 00:00 99.8 118 26 99/53 (68) 93 07/27/17 20:00 98.8 124 22 106/61 (76) 92 07/27/17 19:45 122 07/27/17 16:41 18 07/27/17 16:35 97 07/27/17 16:00 97.1 100 18 135/75 (95) 92 07/27/17 12:00 96.7 110 18 117/75 (89) 92 Result Diagram: 07/28/17 0600 07/28/17 0600 Other Results Laboratory Tests Test 07/27/17 06:00 07/28/17 06:00 White Blood Count 15.2 TH/MM3 21.7 TH/MM3 Red Blood Count 4.39 MIL/MM3 4.12 MIL/MM3 Hemoglobin 12.2 GM/DL 11.6 GM/DL Hematocrit 37.7 % 35.2 % Mean Corpuscular Volume 85.9 FL 85.5 FL Mean Corpuscular Hemoglobin 27.8 PG 28.2 PG Mean Corpuscular Hemoglobin Concent 32.4 % 33.0 % Red Cell Distribution Width 21.2 % 21.1 % Platelet Count 403 TH/MM3 358 TH/MM3 Mean Platelet Volume 8.4 FL 8.5 FL Neutrophils (%) (Auto) 84.8 % 94.7 % Lymphocytes (%) (Auto) 7.4 % 1.4 % Monocytes (%) (Auto) 7.4 % 3.8 % Eosinophils (%) (Auto) 0.2 % 0.0 % Basophils (%) (Auto) 0.2 % 0.1 % Neutrophils # (Auto) 12.9 TH/MM3 20.6 TH/MM3 Lymphocytes # (Auto) 1.1 TH/MM3 0.3 TH/MM3 Monocytes # (Auto) 1.1 TH/MM3 0.8 TH/MM3 Eosinophils # (Auto) 0.0 TH/MM3 0.0 TH/MM3 Basophils # (Auto) 0.0 TH/MM3 0.0 TH/MM3 CBC Comment AUTO DIFF AUTO DIFF Differential Total Cells Counted 100 100 Neutrophils % (Manual) 74 % 60 % Band Neutrophils % 19 % 36 % Lymphocytes % 3 % Monocytes % 2 % 3 % Neutrophils # (Manual) 14.4 TH/MM3 21.0 TH/MM3 Myelocytes 2 % Differential Comment FINAL DIFF MANUAL FINAL DIFF MANUAL Toxic Granulation 1+ Platelet Estimate NORMAL NORMAL Platelet Morphology Comment NORMAL NORMAL Ovalocytes 1+ Halliday Cells 1+ 1+ Blood Urea Nitrogen 20 MG/DL 26 MG/DL Creatinine 0.50 MG/DL 0.85 MG/DL Random Glucose 91 MG/DL 124 MG/DL Calcium Level 8.0 MG/DL 7.3 MG/DL Sodium Level 133 MEQ/L 134 MEQ/L Potassium Level 4.5 MEQ/L 4.7 MEQ/L Chloride Level 102 MEQ/L 103 MEQ/L Carbon Dioxide Level 20.6 MEQ/L 21.6 MEQ/L Anion Gap 10 MEQ/L 9 MEQ/L Estimat Glomerular Filtration Rate 117 ML/MIN 64 ML/MIN Metamyelocytes 1 % Toxic Vacuolation PRESENT Acanthocytes OCC Red Cell Morphology Comment Total Protein 5.3 GM/DL Magnesium Level 2.1 MG/DL Protein Corrected Calcium 8.3 MG/DL Imaging Last Impressions Chest X-Ray 07/27/17 0000 Signed Impressions: Service Date/Time: Thursday, July 27, 2017 13:41 - CONCLUSION: Minimal progression of parenchymal changes left base.. Marquis Shields MD FACR Abdomen X-Ray 07/27/17 0000 Signed Impressions: Service Date/Time: Thursday, July 27, 2017 13:44 - CONCLUSION: Gaseous distention as described above. Descending colon is gasless. CT scan had shown colitis. There is no free air. Marquis Shields MD FACR Abdomen/Pelvis CT 07/23/17 1840 Signed Impressions: Service Date/Time: Sunday, July 23, 2017 20:06 - CONCLUSION: 1. Diffuse colitis with slight inflammatory changes. There is also scattered diverticulosis. No perforation. 2. Minimal ascites. 3. Calcified gallstones. 4. Hepatic and right renal densities likely cysts Vel Gonzalez MD Last Impressions Chest X-Ray 07/25/17 0000 Signed Impressions: Service Date/Time: Tuesday, July 25, 2017 09:33 - CONCLUSION: 1. Slightly progressed left lower lobe airspace disease and associated trace pleural effusion. Saul Fallon MD Abdomen/Pelvis CT 07/23/17 1840 Signed Impressions: Service Date/Time: Sunday, July 23, 2017 20:06 - CONCLUSION: 1. Diffuse colitis with slight inflammatory changes. There is also scattered diverticulosis. No perforation. 2. Minimal ascites. 3. Calcified gallstones. 4. Hepatic and right renal densities likely cysts Vel Gonzalez MD Last Impressions Chest X-Ray 07/23/178 Signed Impressions: Service Date/Time: Sunday, July 23, 2017 21:52 - CONCLUSION: 1. Left basilar scarring. 2. No pneumonia. Vel Gonzalez MD Abdomen/Pelvis CT [id number]/[id number] Signed Impressions: Service Date/Time: Sunday, July 23, 2017 20:06 - CONCLUSION: 1. Diffuse colitis with slight inflammatory changes. There is also scattered diverticulosis. No perforation. 2. Minimal ascites. 3. Calcified gallstones. 4. Hepatic and right renal densities likely cysts Vel Gonzalez MD Objective Remarks General: NAD, lethargic, refuses to open her eyes to questioning but will answer some questions Chest: CTA Cardiac: Tachy, regular Abd: Minimal BS, soft, distended, nontender Ext: No edema A/P Problem List: (1) C. difficile colitis ICD Codes: A04.72 - Enterocolitis due to Clostridium difficile, not specified as recurrent Plan: - Pt is an 87 y/o female who presented to the ED with complaints of multiple episodes of diarrhea for 4 days prior to admission associated with left sided abdominal pain. Patient describes the pain as a intermittent cramping sensation moderate in severity. No recent antibiotic use or evidence of bleeding in the stool. - CT of abdomen (07/23/17) --> Diffuse colitis with slight inflammatory changes. There is also scattered diverticulosis. No perforation. Mild ascites. Also had gallstones. Hepatic and right renal disease likely cyst. - Stool positive for C. difficile patient started on Flagyl 500mg po Q8H on 07/24 - Diarrhea improving - KUB (07/27) --> Gaseous distention of the transverse colon to 8cm. Descending colon is gasless. CT scan had shown colitis. There is no free air. - Check noncontrasted CT Abd/pelvis today - Pt had low grade fever last night and WBC count increased to 21.7 with 36% bands - Supportive care - Physical therapy recommends rehab at time of DC (2) Hypokalemia ICD Codes: E87.6 - Hypokalemia Status: Resolved Plan: - Improved with replacement - Potassium 2.6 on admission -> 4.8 (07/24) -> 4.1 (07/25) --> 4.5 (07/27) --> 4.7 (07/28) - Magnesium 2.1 (07/28) (3) Dehydration ICD Codes: E86.0 - Dehydration Plan: - BUN 32, creatinine 0.91, estimated GFR 59 on admission - Dehydration likely secondary to diarrhea - Pt has been on IV fluids but she has CHF and need to monitor for ss of fluid overload - CXR requested (07/25) --> Slightly progressed left lower lobe airspace disease and associated trace pleural effusion. - Labs on 07/27 with BUn 20, Cr 0.50, GFR 117 - On 07/[address] in the 110s - Pt was started on PPN on 07/27 as she was not eating anything - Continue to monitor telemetry (4) Possible urinary tract infection ICD Codes: R39.89 - Other symptoms and signs involving the genitourinary system Plan: - Urinalysis on 07/24 reviewed and reveals positive nitrates small amount of leukocyte esterase culture indicated and pending - Urine culture reveals: Citrobacter Amalonaticus sensitive to Rocephin. - Pt was started on Rocephin IV on 07/26 - Repeat urine culture is pending (5) Anxiety ICD Codes: F41.9 - Anxiety disorder, unspecified Status: Chronic Plan: - Continue patient's home Zoloft 150 mg by mouth daily next line - Try to minimize Xanax 0.25 mg by mouth 3 times a day as needed for anxiety (6) Aortic valve stenosis, severe ICD Codes: I35.0 - Nonrheumatic aortic (valve) stenosis Status: Acute Plan: - Previous admission from 02/18-02/21 for SOB and felt to have acute CHF symptoms related to severe AVS. - 2D echocardiogram (02/19/17) which noted severe aortic valve stenosis and she was initially decompensated. - She was seen by CTS who did the initial evaluation for TAVR vs traditional AVR but due to her issues with GIB this has been put on hold. - She is no longer on any anticoagulants - Patient appears compensated at this point (7) CHF (congestive heart failure) ICD Codes: I50.9 - Heart failure, unspecified Status: Acute Plan: - Patient is regularly on Lasix 20 mg by mouth daily but this was held secondary to dehydration - Once patient is hydrated and diarrhea is improved may need to resume - 2-D echocardiogram (02/19/2017) - Normal left ventricular size, Mild concentric left ventricular hypertrophy - Estimated ejection fraction 55-60% - Severe aortic valve stenosis - AV mean gradient 44.0 mmHg - Mild aortic valve regurgitation - Mild/moderate mitral valve regurgitation - Mitral annular calcification is present - Severe thickening of the aortic valve leaflets - There is mild tricuspid valve regurgitation - There's estimated pulmonary hypertension present range of 40-50 mmHg - Pulmonary valve is not well visualized. (8) Hyperlipidemia ICD Codes: E78.5 - Hyperlipidemia, unspecified Status: Chronic Plan: - Cont. patient's home atorvastatin 20mg daily at bedtime Assessment and Plan Patient examined. Assessment and plan formulated with Mariel De Luna PA-C. I agree with the above. c.diff colitis. worsening wbc and colonic distension poor po intake and severe general weakness. moans and groans. still oriented and wants full code. add on vanco po .ask GI eval. cont iv ppn support. calll daughter for update. ADDENDUM: SPOKE TO SON SYDNEE IN [place] . UPDATED HER ON HER CONDITION AND LET HIM KNOW SHE COULD DECLINE FURTHER AND NEED ICU CARE. HE WILL MAKE PLANS TO COME DOWN,. HOME: [phone] CELL: [phone] Mariel De Luna Jul 28, 2017 09:39 Selvin Juarez MD Jul 28, 2017 13:31
--- NOTE | 2017-07-28 10:52 | RADRPT ---
EXAM DATE/TIME: 07/28/2017 10:25 [facility] COMPARISON: CT ABDOMEN & PELVIS W CONTRAST, July 23, 2017, 20:06. INDICATIONS : Abdominal pain, distention. ORAL CONTRAST: No oral contrast ingested. RADIATION DOSE: 12.56 CTDIvol (mGy) MEDICAL HISTORY : Congestive heart failure. Hypertension. Anemia SURGICAL HISTORY : Hysterectomy. ENCOUNTER: Initial ACUITY: 1 day PAIN SCALE: 7/10 LOCATION: Bilateral upper quadrant TECHNIQUE: Volumetric scanning of the abdomen and pelvis was performed. Using automated exposure control and ad justment of the mA and/or kV according to patient size, radiation dose was kept as low as reasonably achievable to obtain optimal diagnostic quality images. DICOM format image data is available electro nically for review and comparison. FINDINGS: Study is degraded by breathing motion artifact. LOWER LUNGS: Small bilateral pleural effusions. The left is larger than the right. Bibasilar atelectasis. This is new from the prior study. The heart is normal in size. Significant coronary artery and aortic valvula r calcifications. LIVER: A 2.3 cm low-density lesion is seen involving the left lobe of the liver. Calca units are 18. This is stable. The remaining liver is unremarkable on this unenhanced study. Multiple calcified gallstones are seen layering within the gallbladder. The gallbladder is well distended but no wall thickening or pericholecystic fluid observed. SPLEEN: Normal size without lesion. PANCREAS: Within normal limits. KIDNEYS: Normal in size and shape. There is no mass, stone, or hydronephrosis. A 6.7 cm cyst involving the up per pole the right kidney. ADRENAL GLANDS: Within normal limits. VASCULAR: There is no aortic aneurysm. BOWEL/MESENTERY: The colon is dilated. It is also fluid-filled. No significant wall thickening observed. Small volume ascites noted. No free air. The colonic distention is new from the prior study. Some fluid-filled loo ps of mildly distended small bowel are low within the pelvis. Stomach is decompressed. A small hiatal hernia is again seen. ABDOMINAL WALL: Within normal limits. RETROPERITONEUM: There is no lymphadenopathy. BLADDER: No wall thickening or mass. REPRODUCTIVE: Within normal limits. INGUINAL: There is no lymphadenopathy or hernia. MUSCULOSKELETAL: Within normal limits for patient age. CONCLUSION: 1. Worsening colonic distention. The colon is fluid filled. No significant inflammatory process is se en involving the colon, however, santos colitis could have this appearance. 2. Small volume ascites. 3. New small bilateral pleural effusions and bibasilar atelectasis. 4. Cholelithiasis. Roosevelt Berg Jr., MD on July 28, 2017 at 10:33 Board Certified Radiologist. This report was verified electronically.
[2017-07-28] MEDS: VANCOMYCIN 500 MG VIAL (FOR ORAL USE ONLY) PO SCH ×3 (13:45→22:46)
[2017-07-28] MEDS: SODIUM CHLOR 0.9% 1000 ML INJ 1,000 ML IV SCH (15:30)
--- NOTE | 2017-07-28 15:33 | PD.CONS ---
HPI History of Present Illness This is a 87 year old white female who came in on 07/23/17 with multiple episodes of diarrhea and left-sided abdominal pain to the record. Currently patient is drowsy and unable to give history, but does state that she continues to have diarrhea and bloating, with some nausea, but no vomiting now. Patient was given Xanax by mouth a short period of time ago but does rales to verbal stimuli. According to the record patient has had ongoing issues with anemia and GI bleed which has required some transfusions back in March 2017. She has also had significant cardiovascular disease and has been seen per the cardiothoracic surgeons and cardiology. On admission patient denied any fevers chills or shortness of breath Now is currently being maintained on hyperalimentation IV, PICC line, stool shows positive for C. difficile colitis. Currently patient is being treated with by mouth vancomycin, by mouth Flagyl, and Protonix 40 mg daily. Labs include current WBC count 21.7, hemoglobin stable at 11.6. (Theresa Parker) PFSH Past Medical History Garcia's esophagus Severe Diverticulosis Hypertension Hyperlipidemia Lumbar stenosis Macular degeneration Depression anxiety Severe aortic stenosis Iron deficiency anemia All of this information is per the record Past Surgical History Antegrade single balloon enteroscopy on 02/07/17 Capsule endoscopy 02/01/17 Small bowel enteroscopy 12/02/16 anoscopy December 2016 Knee arthroplasty KEILA (Theresa Parker) Coded Allergies: morphine (Unverified Allergy, Intermediate, 07/23/17) Medications Administered Medications Medications (Trade) Dose Ordered Sig/Brian Route PRN Reason Start Time Stop Time Status Last Admin Dose Admin Sodium Chloride (NS Flush) 2 ml UNSCH PRN IV FLUSH FLUSH AFTER USING IV ACCESS 07/23/17 21:30 07/28/17 03:38 Sodium Chloride (NS Flush) 2 ml BID IV FLUSH 07/24/17 09:00 07/27/17 20:44 Acetaminophen (Tylenol) 650 mg Q4H PRN PO TEMP > 100.4, pain 1-10 07/23/17 21:30 07/28/17 13:45 Metronidazole (Flagyl) 500 mg Q8HR PO 07/24/17 08:00 07/28/17 13:46 Alprazolam (Xanax) 0.25 mg TID PRN PO ANXIETY 07/23/17 21:30 07/27/17 15:39 Atorvastatin Calcium (Lipitor) 20 mg HS PO 07/24/17 21:00 07/27/17 20:39 Cetirizine HCl (ZyrTEC) 10 mg DAILY PO 07/24/17 09:00 07/28/17 09:28 Vit C/Vit E/Zinc/ Copper/Lutein (Ocuvite) 1 tab DAILY PO 07/24/17 09:00 07/28/17 09:28 Pantoprazole Sodium (Protonix) 40 mg DAILY PO 07/24/17 09:00 07/28/17 09:28 Polysaccharide Iron Complex (Nu-Iron) 150 mg DAILY PO 07/24/17 09:00 07/28/17 09:28 Potassium Chloride (KCl) 20 meq DAILY PO 07/24/17 09:00 07/28/17 09:28 Sertraline HCl (Zoloft) 150 mg DAILY PO 07/24/17 09:00 07/28/17 09:29 Vitamin B Complex/ Vitamin C (Allbee C) 1 tab DAILY PO 07/24/17 09:00 07/28/17 09:28 Ondansetron HCl 8 mg/Dextrose 54 ml @ 216 mls/hr Q6H PRN IV NAUSEA OR VOMITING 07/24/17 11:00 07/25/17 15:58 Sodium Chloride 1,000 ml @ 50 mls/hr Q20H IV 07/24/17 13:30 07/27/17 13:05 Ondansetron HCl (Zofran Odt) 4 mg Q6H PRN PO NAUSEA OR VOMITING 07/26/17 09:15 07/28/17 09:35 Sodium Chloride 11 meq/Sodium Acetate 59 meq/ Potassium Chloride 40 meq/ Sodium Phosphate 40 meq/Magnesium Chloride 10 meq/ Calcium Chloride 9 meq/ Multivitamins 10 ml/Folic Acid 1 mg/Amino Acids/ Dextrose 2,084.1437 ml @ 70 mls/hr Q24H IV 07/27/17 20:00 07/27/17 20:39 Fat Emulsion Intravenous 250 ml @ 10 mls/hr Q24H IV 07/27/17 20:00 07/27/17 20:45 Vancomycin HCl (VANCOMYCIN for oral use only) 125 mg QID PO 1/25/18 13:00 07/28/17 13:45 Social History See H&P (Theresa Parker) Review of Systems Gastrointestinal: COMPLAINS OF: Abdominal pain, Diarrhea, Nausea (Theresa Parker) GI Exam Vitals I&O Vital Signs Date Time Temp Pulse Resp B/P (MAP) Pulse Ox O2 Delivery O2 Flow Rate FiO2 07/28/17 12:00 96.5 99 18 129/73 (91) 95 07/28/17 08:00 98.3 103 18 118/68 (85) 93 07/28/17 04:00 98.2 108 26 126/63 (84) 93 07/28/17 03:29 109 07/28/17 00:00 114 07/28/17 00:00 99.8 118 26 99/53 (68) 93 07/27/17 20:00 98.8 124 22 106/61 (76) 92 07/27/17 19:45 122 07/27/17 16:41 18 07/27/17 16:35 97 07/27/17 16:00 97.1 100 18 135/75 (95) 92 I/O 07/27/17 07/27/17 07/27/17 07/28/17 07/28/17 07/28/17 07:00 15:00 23:00 07:00 15:00 23:00 Intake Total 771 ml 689 ml 510 ml 581 ml Balance 771 ml 689 ml 510 ml 581 ml Intake Oral 360 ml 340 ml 60 ml IV Total 411 ml 689 ml 170 ml 521 ml # Voids 5 4 1 # Bowel Movements 0 1 1 Imaging Last Impressions Abdomen/Pelvis CT 07/28/17 0000 Signed Impressions: Service Date/Time: July 10:25 - CONCLUSION: 1. Worsening colonic distention. The colon is fluid filled. No significant inflammatory process is seen involving the colon, however, santos colitis could have this appearance. 2. Small volume ascites. 3. New small bilateral pleural effusions and bibasilar atelectasis. 4. Cholelithiasis. Rooseevlt Berg Jr., MD Chest X-Ray 07/27/17 0000 Signed Impressions: Service Date/Time: Thursday, July 27, 2017 13:41 - CONCLUSION: Minimal progression of parenchymal changes left base.. Marquis Shields MD FACR Abdomen X-Ray 07/27/17 0000 Signed Impressions: Service Date/Time: Thursday, July 27, 2017 13:44 - CONCLUSION: Gaseous distention as described above. Descending colon is gasless. CT scan had shown colitis. There is no free air. Marquis Shields MD FACR Laboratory Test 07/28/17 06:00 White Blood Count 21.7 TH/MM3 Red Blood Count 4.12 MIL/MM3 Hemoglobin 11.6 GM/DL Hematocrit 35.2 % Mean Corpuscular Volume 85.5 FL Mean Corpuscular Hemoglobin 28.2 PG Mean Corpuscular Hemoglobin Concent 33.0 % Red Cell Distribution Width 21.1 % Platelet Count 358 TH/MM3 Mean Platelet Volume 8.5 FL Neutrophils (%) (Auto) 94.7 % Lymphocytes (%) (Auto) 1.4 % Monocytes (%) (Auto) 3.8 % Eosinophils (%) (Auto) 0.0 % Basophils (%) (Auto) 0.1 % Neutrophils # (Auto) 20.6 TH/MM3 Lymphocytes # (Auto) 0.3 TH/MM3 Monocytes # (Auto) 0.8 TH/MM3 Eosinophils # (Auto) 0.0 TH/MM3 Basophils # (Auto) 0.0 TH/MM3 CBC Comment AUTO DIFF Differential Total Cells Counted 100 Neutrophils % (Manual) 60 % Band Neutrophils % 36 % Monocytes % 3 % Neutrophils # (Manual) 21.0 TH/MM3 Metamyelocytes 1 % Differential Comment FINAL DIFF MANUAL Toxic Vacuolation PRESENT Platelet Estimate NORMAL Platelet Morphology Comment NORMAL [place] Cells 1+ Acanthocytes OCC Red Cell Morphology Comment Blood Urea Nitrogen 26 MG/DL Creatinine 0.85 MG/DL Random Glucose 124 MG/DL Total Protein 5.3 GM/DL Calcium Level 7.3 MG/DL Magnesium Level 2.1 MG/DL Sodium Level 134 MEQ/L Potassium Level 4.7 MEQ/L Chloride Level 103 MEQ/L Carbon Dioxide Level 21.6 MEQ/L Anion Gap 9 MEQ/L Estimat Glomerular Filtration Rate 64 ML/MIN Protein Corrected Calcium 8.3 MG/DL Date/Time Source Procedure Growth Status 07/23/17 21:45 Stool Stool - Final NO ENTERIC PATHOGENS DETECTED BY PCR... Complete 07/26/17 04:20 Urine Catheterized Urine Urine Culture - Final 50-100,000 CFU/ML MIXED GERRY... Complete Physical Examination HEENT: Pupils round and reactive to light; normocephalic; atraumatic; no jaundice. Throat is clear. NECK: Neck is supple, no JVD, no lymphadenopathy. CHEST: Chest is clear to auscultation and percussion. CARDIAC: Regular rate and rhythm with no murmur gallop or rubs. ABDOMEN: Soft, nondistended, nontender; no hepatosplenomegaly; bowel sounds are present in all four quadrants. EXTREMITIES: No clubbing, cyanosis, or edema. SKIN: Normal; no rash; no jaundice. [employer]: No focal deficits; alert and oriented times three. (Theresa Parker) Assessment and Plan Assessment: (1) C. difficile colitis ICD Codes: A04.72 - Enterocolitis due to Clostridium difficile, not specified as recurrent (2) Gastritis ICD Codes: K29.70 - Gastritis, unspecified, without bleeding Status: Acute (3) Esophagitis ICD Codes: K20.9 - Esophagitis, unspecified Status: Acute (4) Hiatal hernia ICD Codes: K44.9 - Diaphragmatic hernia without obstruction or gangrene Status: Acute Plan Initial CT done on 07-23 showed scattered diverticulosis, no perforation, colitis Repeat CT ABD/07-28 shows Worsening colonic distention. The colon is fluid filled. No significant inflammatory process is seen involving the colon, however , santos colitis could have this appearance. Small volume ascites. New small bilateral pleural effusions and bibasilar atelectasis. Cholelithiasis. Labs shows positive stool sample for C. difficile colitis Plan Flagyl 500 mg every 8 hours by mouth vancomycin 125 mg 4 times a day by mouth PPI Protonix 40 mg daily by mouth Monitor number of stools, intake and output Attempt to sit patient up in bed for some mild activity to keep her oriented Monitor for any acute bright red GI bleed Monitor for any rectal bleeding On at her labs which includes H&H Patient has been seen by myself and Dr. Turner, note was done on his behalf (Theresa Parker) Physician Comments Patient was seen and examined, agree with above-noted, patient is lethargic and not communicating well, she is on the appropriate treatment for C. difficile, we will monitor her improvement, her abdomen is mildly tender but not distended Further plan depends on how she do clinically in the next 24-48 hours (Chandler Carr MD) Theresa Parker Jul 28, 2017 15:33 Chandler Carr MD Jul 28, 2017 18:27
[2017-07-28] MEDS: ATORVASTATIN 20 MG TAB PO SCH (22:46)
[2017-07-28] MEDS: FAT EMULSION 20% INJ 250 ML (@10 mls/hr) IV SCH (22:50)
[2017-07-28] MEDS: CLINIMIX IV SCH ×9 (22:51)
[2017-07-29] VITALS: BP 127/70; PULSE 92; RESP 20; TEMP 97.2; O2SAT 95
[2017-07-29] MEDS: ACETAMINOPHEN 325 MG TAB PO PRN ×3 (02:12→16:15)
[2017-07-29 04:00] VITALS: BP 132/72; PULSE 83; RESP 20; TEMP 97.1; O2SAT 94
[2017-07-29 04:37] VITALS: PULSE 95
[2017-07-29] MEDS: metroNIDAZOLE 500 MG TAB PO SCH ×2 (05:04→12:52)
[2017-07-29] MEDS: SODIUM CHLOR 0.9% 1000 ML INJ 1,000 ML IV SCH (05:04)
[2017-07-29 05:40] LABS: AUTOMATED NEUTROPHIL # 10.4 TH/MM3 (1.8-7.7); BASOPHIL % 0.2 % (0.0-2.0); EOSINOPHIL # 0.1 TH/MM3 (0-0.4); EOSINOPHIL % 1.1 % (0.0-4.0); HEMATOCRIT 33.5 % (35.0-46.0); HEMOGLOBIN 11.2 GM/DL (11.6-15.3); LYMPH % 5.1 % (9.0-44.0); LYMPHOCYTE # 0.6 TH/MM3 (1.0-4.8); MEAN CELL VOLUME 84.3 FL (80.0-100.0); MEAN CORPUSCULAR HEMOGLOBIN 28.1 PG (27.0-34.0); MEAN CORPUSCULAR HGB CONC 33.3 % (32.0-36.0); MEAN PLATELET VOLUME 7.9 FL (7.0-11.0); MONO % 7.1 % (0.0-8.0); MONOCYTE # 0.8 TH/MM3 (0-0.9); NEUT % 86.5 % (16.0-70.0); PLATELET COUNT 288 TH/MM3 (150-450); RED BLOOD COUNT 3.97 MIL/MM3 (4.00-5.30); RED CELL DISTRIBUTION WIDTH 21.5 % (11.6-17.2)
[2017-07-29 06:08] LABS: BICARBONATE 22.6 MEQ/L (21.0-32.0); CREATININE 0.56 MG/DL (0.50-1.00)
[2017-07-29 06:50] LABS: CALCIUM-PROTEIN CORRECTED 8.3 MG/DL (8.5-10.1); TOTAL PROTEIN 4.7 GM/DL (6.4-8.2)
[2017-07-29 08:00] VITALS: BP 136/85; PULSE 95; RESP 17; TEMP 97.9; O2SAT 94
[2017-07-29 08:30] LABS: BANDS 34 % (0-6); BURR CELLS 1+ (NORMAL); LYMPHOCYTES 4 % (9-44); MONOCYTES 6 % (0-8); MYELOCYTES 2 % (0-0); NEUTROPHIL # MANUAL DIFF 10.8 TH/MM3 (1.8-7.7); OVALOCYTES 1+ (NORMAL); POLYS (SEG NEUTROPHILS) 54 % (16-70)
[2017-07-29 08:31] LABS: ACANTHOCYTES OCC (NORMAL); TOXIC GRANULATION 1+ (NORMAL)
[2017-07-29] MEDS: POLYSACCHARIDE IRON COMPLEX 150 MG CAP PO SCH (08:43)
[2017-07-29] MEDS: CETIRIZINE HCL 10 MG TAB PO SCH (08:43)
[2017-07-29] MEDS: POTASSIUM CHLORIDE 20 MEQ CONTROLLED RELEASE TAB PO SCH (08:43)
[2017-07-29] MEDS: MULTIVITAMIN-OPHTHALMIC 1 TAB PO SCH (08:43)
[2017-07-29] MEDS: VITAMIN B COMPLEX/VIT C TAB PO SCH (08:43)
[2017-07-29] MEDS: PANTOPRAZOLE SOD 40 MG DELAYED RELEASE TAB PO SCH (08:43)
[2017-07-29] MEDS: VANCOMYCIN 500 MG VIAL (FOR ORAL USE ONLY) PO SCH ×4 (08:44→22:01)
[2017-07-29] MEDS: SERTRALINE HCL 50 MG TAB PO SCH (08:44)
[2017-07-29] MEDS: SODIUM CHLORIDE 0.9% FLUSH 10 ML FLUSH IV FLUSH SCH ×2 (08:44→21:00)
--- NOTE | 2017-07-29 10:52 | HHI.PR ---
Subjective Remarks No BMs recorded overnight Pt still very lethargic and abdomen is still distended Pt states that she "just doesn't feel good" Nurse reports that pt does not want to sit up in bed or move much at all. She complains of spasm-like abdominal discomfort Objective Vitals Vital Signs Date Time Temp Pulse Resp B/P (MAP) Pulse Ox O2 Delivery O2 Flow Rate FiO2 07/29/17 08:00 97.9 95 17 136/85 (102) 94 07/29/17 04:37 95 07/29/17 04:00 97.1 83 20 132/72 (92) 94 07/29/17 00:00 97.2 92 20 127/70 (89) 95 07/28/17 23:53 89 07/28/17 20:02 97 07/28/17 20:02 97 07/28/17 20:00 97.1 98 20 128/71 (90) 95 07/28/17 16:00 96.6 100 20 121/67 (85) 93 07/28/17 12:00 96.5 99 18 129/73 (91) 95 Result Diagram: 07/29/17 0520 07/29/17 0520 Other Results Laboratory Tests Test 07/28/17 06:00 07/29/17 05:20 White Blood Count 21.7 TH/MM3 12.0 TH/MM3 Red Blood Count 4.12 MIL/MM3 3.97 MIL/MM3 Hemoglobin 11.6 GM/DL 11.2 GM/DL Hematocrit 35.2 % 33.5 % Mean Corpuscular Volume 85.5 FL 84.3 FL Mean Corpuscular Hemoglobin 28.2 PG 28.1 PG Mean Corpuscular Hemoglobin Concent 33.0 % 33.3 % Red Cell Distribution Width 21.1 % 21.5 % Platelet Count 358 TH/MM3 288 TH/MM3 Mean Platelet Volume 8.5 FL 7.9 FL Neutrophils (%) (Auto) 94.7 % 86.5 % Lymphocytes (%) (Auto) 1.4 % 5.1 % Monocytes (%) (Auto) 3.8 % 7.1 % Eosinophils (%) (Auto) 0.0 % 1.1 % Basophils (%) (Auto) 0.1 % 0.2 % Neutrophils # (Auto) 20.6 TH/MM3 10.4 TH/MM3 Lymphocytes # (Auto) 0.3 TH/MM3 0.6 TH/MM3 Monocytes # (Auto) 0.8 TH/MM3 0.8 TH/MM3 Eosinophils # (Auto) 0.0 TH/MM3 0.1 TH/MM3 Basophils # (Auto) 0.0 TH/MM3 0.0 TH/MM3 CBC Comment AUTO DIFF AUTO DIFF Differential Total Cells Counted 100 100 Neutrophils % (Manual) 60 % 54 % Band Neutrophils % 36 % 34 % Monocytes % 3 % 6 % Neutrophils # (Manual) 21.0 TH/MM3 10.8 TH/MM3 Metamyelocytes 1 % Differential Comment FINAL DIFF MANUAL FINAL DIFF MANUAL Toxic Vacuolation PRESENT Platelet Estimate NORMAL NORMAL Platelet Morphology Comment NORMAL NORMAL [place] Cells 1+ 1+ Acanthocytes OCC OCC Red Cell Morphology Comment Blood Urea Nitrogen 26 MG/DL 26 MG/DL Creatinine 0.85 MG/DL 0.56 MG/DL Random Glucose 124 MG/DL 123 MG/DL Total Protein 5.3 GM/DL 4.7 GM/DL Calcium Level 7.3 MG/DL 7.0 MG/DL Magnesium Level 2.1 MG/DL Sodium Level 134 MEQ/L 132 MEQ/L Potassium Level 4.7 MEQ/L 4.1 MEQ/L Chloride Level 103 MEQ/L 103 MEQ/L Carbon Dioxide Level 21.6 MEQ/L 22.6 MEQ/L Anion Gap 9 MEQ/L 6 MEQ/L Estimat Glomerular Filtration Rate 64 ML/MIN 103 ML/MIN Protein Corrected Calcium 8.3 MG/DL 8.3 MG/DL Lymphocytes % 4 % Myelocytes 2 % Toxic Granulation 1+ Ovalocytes 1+ Imaging Last Impressions Abdomen/Pelvis CT 07/28/17 0000 Signed Impressions: Service Date/Time: July 10:25 - CONCLUSION: 1. Worsening colonic distention. The colon is fluid filled. No significant inflammatory process is seen involving the colon, however, santos colitis could have this appearance. 2. Small volume ascites. 3. New small bilateral pleural effusions and bibasilar atelectasis. 4. Cholelithiasis. Roosevelt Berg Jr., MD Chest X-Ray 07/27/17 0000 Signed Impressions: Service Date/Time: Thursday, July 27, 2017 13:41 - CONCLUSION: Minimal progression of parenchymal changes left base.. Marquis Shields MD FACR Abdomen X-Ray 07/27/17 0000 Signed Impressions: Service Date/Time: Thursday, July 27, 2017 13:44 - CONCLUSION: Gaseous distention as described above. Descending colon is gasless. CT scan had shown colitis. There is no free air. Marquis Shields MD FACR Last Impressions Chest X-Ray 07/27/17 0000 Signed Impressions: Service Date/Time: Thursday, July 27, 2017 13:41 - CONCLUSION: Minimal progression of parenchymal changes left base.. Marquis Shields MD FACR Abdomen X-Ray 07/27/17 0000 Signed Impressions: Service Date/Time: Thursday, July 27, 2017 13:44 - CONCLUSION: Gaseous distention as described above. Descending colon is gasless. CT scan had shown colitis. There is no free air. Marquis Shields MD FACR Abdomen/Pelvis CT 07/23/17 184 Signed Impressions: Service Date/Time: Sunday, July 23, 2017 20:06 - CONCLUSION: 1. Diffuse colitis with slight inflammatory changes. There is also scattered diverticulosis. No perforation. 2. Minimal ascites. 3. Calcified gallstones. 4. Hepatic and right renal densities likely cysts Vel Gonzalez MD Last Impressions Chest X-Ray 07/25/17 0000 Signed Impressions: Service Date/Time: Tuesday, July 25, 2017 09:33 - CONCLUSION: 1. Slightly progressed left lower lobe airspace disease and associated trace pleural effusion. Saul Fallon MD Abdomen/Pelvis CT 07/23/17 1840 Signed Impressions: Service Date/Time: Sunday, July 23, 2017 20:06 - CONCLUSION: 1. Diffuse colitis with slight inflammatory changes. There is also scattered diverticulosis. No perforation. 2. Minimal ascites. 3. Calcified gallstones. 4. Hepatic and right renal densities likely cysts Vel Gonzalez MD Last Impressions Chest X-Ray [id number]/[id number] Signed Impressions: Service Date/Time: Sunday, July 23, 2017 21:52 - CONCLUSION: 1. Left basilar scarring. 2. No pneumonia. Vel Gonzalez MD Abdomen/Pelvis CT 07/23/17 1840 Signed Impressions: Service Date/Time: Sunday, July 23, 2017 20:06 - CONCLUSION: 1. Diffuse colitis with slight inflammatory changes. There is also scattered diverticulosis. No perforation. 2. Minimal ascites. 3. Calcified gallstones. 4. Hepatic and right renal densities likely cysts Vel Gonzalez MD Objective Remarks General: NAD, lethargic Chest: CTA Cardiac: Tachy, regular Abd: Minimal BS, soft, distended, nontender Ext: No edema A/P Problem List: (1) C. difficile colitis ICD Codes: A04.72 - Enterocolitis due to Clostridium difficile, not specified as recurrent Plan: - Pt is an 87 y/o female who presented to the ED with complaints of multiple episodes of diarrhea for 4 days prior to admission associated with left sided abdominal pain. Patient describes the pain as a intermittent cramping sensation moderate in severity. No recent antibiotic use or evidence of bleeding in the stool. - CT of abdomen (07/23/17) --> Diffuse colitis with slight inflammatory changes. There is also scattered diverticulosis. No perforation. Mild ascites. Also had gallstones. Hepatic and right renal disease likely cyst. - Stool positive for C. difficile patient started on Flagyl 500mg po Q8H on 07/24 - Diarrhea improving - KUB (07/27) --> Gaseous distention of the transverse colon to 8cm. Descending colon is gasless. CT scan had shown colitis. There is no free air. - Noncontrasted CT Abd/pelvis (07/28) --> Worsening colonic distention. The colon is fluid filled. No significant inflammatory process is seen involving the colon, however, santos colitis could have this appearance. Small volume ascites. New small bilateral pleural effusions and bibasilar atelectasis. Cholelithiasis. - Vancomycin was added on 07/28 - GI consulted - WBC count improved from 21.7 with 36% bands on 07/28 to 12.0 with 34% bands on 07/29 - The case was discussed with the pts son on 07/28 who is flying into town today - Pt is a full code per the pt at this time - Supportive care - Physical therapy recommends rehab at time of DC (2) Hypokalemia ICD Codes: E87.6 - Hypokalemia Status: Resolved Plan: - Improved with replacement - Potassium 2.6 on admission -> 4.8 (07/24) -> 4.1 (07/25) --> 4.5 (07/27) --> 4.7 (07/28) - Magnesium 2.1 (07/28) (3) Dehydration ICD Codes: E86.0 - Dehydration Plan: - BUN 32, creatinine 0.91, estimated GFR 59 on admission - Dehydration likely secondary to diarrhea - Pt has been on IV fluids but she has CHF and need to monitor for ss of fluid overload - CXR requested (07/25) --> Slightly progressed left lower lobe airspace disease and associated trace pleural effusion. - Labs on 07/27 with BUn 20, Cr 0.50, GFR 117 - On 07/[address] in the 110s - Pt was started on PPN on 07/27 as she has not been eating anything - Continue to monitor telemetry (4) Possible urinary tract infection ICD Codes: R39.89 - Other symptoms and signs involving the genitourinary system Plan: - Urinalysis on 07/24 reviewed and reveals positive nitrates small amount of leukocyte esterase culture indicated and pending - Urine culture reveals: Citrobacter Amalonaticus sensitive to Rocephin. - Pt was started on Rocephin IV on 07/26 - Repeat urine culture is pending (5) Anxiety ICD Codes: F41.9 - Anxiety disorder, unspecified Status: Chronic Plan: - Continue patient's home Zoloft 150 mg by mouth daily next line - Try to minimize Xanax 0.25 mg by mouth 3 times a day as needed for anxiety (6) Aortic valve stenosis, severe ICD Codes: I35.0 - Nonrheumatic aortic (valve) stenosis Status: Acute Plan: - Previous admission from 02/18-02/21 for SOB and felt to have acute CHF symptoms related to severe AVS. - 2D echocardiogram (02/19/17) which noted severe aortic valve stenosis and she was initially decompensated. - She was seen by CTS who did the initial evaluation for TAVR vs traditional AVR but due to her issues with GIB this has been put on hold. - She is no longer on any anticoagulants - Patient appears compensated at this point (7) CHF (congestive heart failure) ICD Codes: I50.9 - Heart failure, unspecified Status: Acute Plan: - Patient is regularly on Lasix 20 mg by mouth daily but this was held secondary to dehydration - Once patient is hydrated and diarrhea is improved may need to resume - 2-D echocardiogram (02/19/2017) - Normal left ventricular size, Mild concentric left ventricular hypertrophy - Estimated ejection fraction 55-60% - Severe aortic valve stenosis - AV mean gradient 44.0 mmHg - Mild aortic valve regurgitation - Mild/moderate mitral valve regurgitation - Mitral annular calcification is present - Severe thickening of the aortic valve leaflets - There is mild tricuspid valve regurgitation - There's estimated pulmonary hypertension present range of 40-50 mmHg - Pulmonary valve is not well visualized. (8) Hyperlipidemia ICD Codes: E78.5 - Hyperlipidemia, unspecified Status: Chronic Plan: - Cont. patient's home atorvastatin 20mg daily at bedtime Assessment and Plan Patient examined. Assessment and plan formulated with Mariel De Luna PA-C. I agree with the above. c.diff colitis colonic ileus poor po intake/general weakness cont flagyl/vanco gi following follow colon diameter. updated son at bedside guarded. could deteriorate. but full code. Mariel De Luna Jul 29, 2017 10:52 Selvin Juarez MD Jul 29, 2017 16:02
[2017-07-29 12:00] VITALS: BP 131/77; PULSE 99; RESP 17; TEMP 96.8; O2SAT 93
--- NOTE | 2017-07-29 14:53 | HHI.GIFU ---
Subjective Remarks Pt resting in bed. Reports not feeling well today. Has not had a BM since yesterday. Continued abdominal pain and distension. (Matilde Monroy) Objective Vitals I&O Vital Signs Date Time Temp Pulse Resp B/P (MAP) Pulse Ox O2 Delivery O2 Flow Rate FiO2 07/29/17 12:00 96.8 99 17 131/77 (95) 93 07/29/17 08:00 97.9 95 17 136/85 (102) 94 07/29/17 04:37 95 07/29/17 04:00 97.1 83 20 132/72 (92) 94 07/29/17 00:00 97.2 92 20 127/70 (89) 95 07/28/17 23:53 89 07/28/17 20:02 97 07/28/17 20:02 97 07/28/17 20:00 97.1 98 20 128/71 (90) 95 07/28/17 16:00 96.6 100 20 121/67 (85) 93 I/O 07/28/17 07/28/17 07/28/17 07/29/17 07/29/17 07/29/17 07:00 15:00 23:00 07:00 15:00 23:00 Intake Total 581 ml 1830 ml 120 ml Output Total 1180 ml Balance 581 ml 1830 ml -1060 ml Intake Oral 60 ml 240 ml 120 ml IV Total 521 ml 1590 ml Output Urine Total 1180 ml # Voids 1 3 # Bowel Movements 1 0 0 Laboratory Laboratory Tests Test 07/29/17 05:20 White Blood Count 12.0 Red Blood Count 3.97 Hemoglobin 11.2 Hematocrit 33.5 Mean Corpuscular Volume 84.3 Mean Corpuscular Hemoglobin 28.1 Mean Corpuscular Hemoglobin Concent 33.3 Red Cell Distribution Width 21.5 Platelet Count 288 Mean Platelet Volume 7.9 Neutrophils (%) (Auto) 86.5 Lymphocytes (%) (Auto) 5.1 Monocytes (%) (Auto) 7.1 Eosinophils (%) (Auto) 1.1 Basophils (%) (Auto) 0.2 Neutrophils # (Auto) 10.4 Lymphocytes # (Auto) 0.6 Monocytes # (Auto) 0.8 Eosinophils # (Auto) 0.1 Basophils # (Auto) 0.0 CBC Comment AUTO DIFF Differential Total Cells Counted 100 Neutrophils % (Manual) 54 Band Neutrophils % 34 Lymphocytes % 4 Monocytes % 6 Neutrophils # (Manual) 10.8 Myelocytes 2 Differential Comment FINAL DIFF MANUAL Toxic Granulation 1+ Platelet Estimate NORMAL Platelet Morphology Comment NORMAL Ovalocytes 1+ Ettrick Cells 1+ Acanthocytes OCC Blood Urea Nitrogen 26 Creatinine 0.56 Random Glucose 123 Total Protein 4.7 Calcium Level 7.0 Sodium Level 132 Potassium Level 4.1 Chloride Level 103 Carbon Dioxide Level 22.6 Anion Gap 6 Estimat Glomerular Filtration Rate 103 Protein Corrected Calcium 8.3 Date/Time Source Procedure Growth Status 07/23/17 21:45 Stool Stool - Final NO ENTERIC PATHOGENS DETECTED BY PCR... Complete 07/26/17 04:20 Urine Catheterized Urine Urine Culture - Final 50-100,000 CFU/ML MIXED GERRY... Complete Imaging Last Impressions Abdomen/Pelvis CT 07/28/17 0000 Signed Impressions: Service Date/Time: July 10:25 - CONCLUSION: 1. Worsening colonic distention. The colon is fluid filled. No significant inflammatory process is seen involving the colon, however, santos colitis could have this appearance. 2. Small volume ascites. 3. New small bilateral pleural effusions and bibasilar atelectasis. 4. Cholelithiasis. Roosevelt Berg Jr., MD Chest X-Ray 07/27/17 0000 Signed Impressions: Service Date/Time: Thursday, July 27, 2017 13:41 - CONCLUSION: Minimal progression of parenchymal changes left base.. Marquis Shields MD FACR Abdomen X-Ray 07/27/17 0000 Signed Impressions: Service Date/Time: Thursday, July 27, 2017 13:44 - CONCLUSION: Gaseous distention as described above. Descending colon is gasless. CT scan had shown colitis. There is no free air. Marquis Shields MD FACR Physical Exam HEENT: Normocephalic; atraumatic CHEST: Tachypneic CARDIAC: RRR ABDOMEN: Distended, firm, diffuse TTP, bowel sounds active SKIN: Diaphoretic LOGISTICS SYSTEM ENGINEER: No focal deficits; alert and oriented times three. (Matilde Monroy) Assessment and Plan Assessment: (1) C. difficile colitis ICD Codes: A04.72 - Enterocolitis due to Clostridium difficile, not specified as recurrent (2) Gastritis ICD Codes: K29.70 - Gastritis, unspecified, without bleeding Status: Acute (3) Esophagitis ICD Codes: K20.9 - Esophagitis, unspecified Status: Acute (4) Hiatal hernia ICD Codes: K44.9 - Diaphragmatic hernia without obstruction or gangrene Status: Acute Plan Assessment: - Colitis likely secondary to C. Diff infection- pt reports this is her first occurrence of C. Diff. C diff toxin positive. Epid negative. WBCs improving, now 12. Pt is currently on oral Vanco and Flagyl. Denies any BM today, spoke with nurse who confirms. Afebrile overnight. Pt remains with significant abdominal distention and tenderness. If no improvement with Vanco and Flagyl can consider Dificid. Pt currently on PPN. Lunch tray at bedside, she has not eaten anything off of it. CT abdomen and pelvis with contrast (07/23) --> Worsening colonic distention. The colon is fluid filled. No significant inflammatory process is seen involving the colon, however, santos colitis could have this appearance. Small volume ascites. Cholelithiasis. Plan: - DC PO Flagyl and start PO Flagyl - Continue PO Vanco - Monitor stool count - Repeat KUB - Monitor labs - Further recommendations to follow Pt has been seen and examined by myself and Dr. Carr and this note is written on his behalf (Matilde Monroy) Plan Patient was seen and examined, agree with the above noted, we will start IV Flagyl instead of by mouth, I discuss patient with primary team since she has some wheezing they will evaluate her respiratory status, we will follow up on the KUB (Chandler Carr MD) Matilde Monroy Jul 29, 2017 14:53 Chandler Carr MD Jul 29, 2017 17:42
--- NOTE | 2017-07-29 15:54 | RADRPT ---
EXAM DATE/TIME: 07/29/2017 15:13 [facility] COMPARISON: ABDOMEN KUB ONLY, July 27, 2017, 13:44. INDICATIONS : Abdominal pain for six days. MEDICAL HISTORY : Congestive heart failure. Hypertension. Anemia SURGICAL HISTORY : Hysterectomy. ENCOUNTER: Initial ACUITY: 4 - 6 days PAIN SCORE: 8/10 LOCATION: Bilateral lower quadrant FINDINGS: 2 supine views the abdomen show persistent dilatation of the transverse colon and ascending colon as well as multiple small bowel loops. Descending colon is nondilated. The transverse colon reaches a ma ximum diameter of 7 cm. Overall the appearance is similar to the prior study. A scoliotic and degener ative spine noted. 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 CONCLUSION: Largely unchanged dilatation of the colon and small bowel. Roosevelt Berg Jr., MD on July 29, 2017 at 15:50 Board Certified Radiologist. This report was verified electronically.
[2017-07-29] MEDS ORDERED: ACETAMINOPHEN 1000 MG/100 ML VIAL IV PRN (16:00)
[2017-07-29] MEDS: ALPRAZolam 0.25 MG TAB PO PRN (17:24)
[2017-07-29 20:00] VITALS: BP 116/69; PULSE 107; RESP 18; TEMP 97.2; O2SAT 93
[2017-07-29] MEDS: ATORVASTATIN 20 MG TAB PO SCH (21:00)
[2017-07-29] MEDS: metroNIDAZOLE 500 MG INJ 100 ML IV SCH (22:07)
[2017-07-29] MEDS: FAT EMULSION 20% INJ 250 ML (@10 mls/hr) IV SCH (22:09)
[2017-07-29] MEDS: CLINIMIX IV SCH ×9 (22:09)
[2017-07-30 00:10] VITALS: BP 107/59; PULSE 97; RESP 18; TEMP 97.5; O2SAT 92
[2017-07-30 04:45] VITALS: BP 129/70; PULSE 97; RESP 18; TEMP 96.9; O2SAT 92
[2017-07-30] MEDS: ACETAMINOPHEN 325 MG TAB PO PRN (06:06)
[2017-07-30] MEDS: metroNIDAZOLE 500 MG INJ 100 ML IV SCH ×2 (06:16→11:37)
[2017-07-30] MEDS: ALPRAZolam 0.25 MG TAB PO PRN (06:27)
--- NOTE | 2017-07-30 06:27 | RADRPT ---
EXAM DATE/TIME: 07/30/2017 05:10 [facility] COMPARISON: ABDOMEN KUB ONLY, July 29, 2017, 15:13. INDICATIONS : Ileus. MEDICAL HISTORY : Congestive heart failure. Hypertension. Anemia SURGICAL HISTORY : Hysterectomy. ENCOUNTER: Subsequent ACUITY: 1 week PAIN SCORE: 8/10 LOCATION: inferior abdomen FINDINGS: Supine view of the abdomen was performed. There is air seen within distended small bowel throughout the abdomen. Air seen within distended ascending and transverse colon. Significant air is not seen wi thin the descending colon or rectum. Free air is not seen. There is degenerative change in the lumbar spine. CONCLUSION: Distended bowel representing either ileus or distal obstruction. Delgado Hernandez MD on July 30, 2017 at 6:23 Board Certified Radiologist. This report was verified electronically.
[2017-07-30 07:48] LABS: AUTOMATED NEUTROPHIL # 4.6 TH/MM3 (1.8-7.7); BASOPHIL % 0.2 % (0.0-2.0); EOSINOPHIL % 0.1 % (0.0-4.0); HEMATOCRIT 41.7 % (35.0-46.0); HEMOGLOBIN 13.9 GM/DL (11.6-15.3); LYMPH % 12.7 % (9.0-44.0); LYMPHOCYTE # 0.7 TH/MM3 (1.0-4.8); MEAN CORPUSCULAR HEMOGLOBIN 27.9 PG (27.0-34.0); MEAN CORPUSCULAR HGB CONC 33.2 % (32.0-36.0); MEAN PLATELET VOLUME 8.3 FL (7.0-11.0); MONO % 1.7 % (0.0-8.0); MONOCYTE # 0.1 TH/MM3 (0-0.9); NEUT % 85.3 % (16.0-70.0); PLATELET COUNT 344 TH/MM3 (150-450); RED BLOOD COUNT 4.96 MIL/MM3 (4.00-5.30); RED CELL DISTRIBUTION WIDTH 21.3 % (11.6-17.2); WHITE BLOOD COUNT 5.4 TH/MM3 (4.0-11.0)
[2017-07-30 08:00] VITALS: BP 97/57; PULSE 120; RESP 20; TEMP 95.4; O2SAT 94
[2017-07-30 08:44] LABS: BANDS 32 % (0-6); LYMPHOCYTES 4 % (9-44); METAMYELOCYTES 2 % (0-1); MONOCYTES 6 % (0-8); MYELOCYTES 1 % (0-0); NEUTROPHIL # MANUAL DIFF 4.8 TH/MM3 (1.8-7.7); OVALOCYTES 1+ (NORMAL); POLYS (SEG NEUTROPHILS) 54 % (16-70); TOXIC GRANULATION 2+ (NORMAL)
[2017-07-30 08:45] LABS: TEARDROP RBCS 1+ (NORMAL)
[2017-07-30] MEDS: SODIUM CHLORIDE 0.9% FLUSH 10 ML FLUSH IV FLUSH SCH (09:00)
[2017-07-30] MEDS: ONDANSETRON ODT 4 MG TAB PO PRN (09:06)
[2017-07-30] MEDS: MULTIVITAMIN-OPHTHALMIC 1 TAB PO SCH (09:07)
[2017-07-30] MEDS: POTASSIUM CHLORIDE 20 MEQ CONTROLLED RELEASE TAB PO SCH (09:07)
[2017-07-30] MEDS: CETIRIZINE HCL 10 MG TAB PO SCH (09:07)
[2017-07-30] MEDS: VANCOMYCIN 500 MG VIAL (FOR ORAL USE ONLY) PO SCH ×2 (09:07→11:36)
[2017-07-30] MEDS: SERTRALINE HCL 50 MG TAB PO SCH (09:07)
[2017-07-30] MEDS: PANTOPRAZOLE SOD 40 MG DELAYED RELEASE TAB PO SCH (09:07)
[2017-07-30] MEDS: VITAMIN B COMPLEX/VIT C TAB PO SCH (09:07)
[2017-07-30] MEDS: POLYSACCHARIDE IRON COMPLEX 150 MG CAP PO SCH (09:07)
[2017-07-30] MEDS ORDERED: ALPRAZolam 0.25 MG TAB PO ONE (09:30)
[2017-07-30] MEDS ORDERED: SIMETHICONE 125 MG CHEWABLE TAB PO ONE (09:30)
--- NOTE | 2017-07-30 09:30 | HHI.PR ---
Subjective Remarks Pt having increased abd pain today Pt much more anxious this morning She has not had any BMs in 2 days, no flatus Pt feels nauseated and feels SOB but O2 sats are stable Objective Vitals Vital Signs Date Time Temp Pulse Resp B/P (MAP) Pulse Ox O2 Delivery O2 Flow Rate FiO2 07/30/17 08:00 95.4 120 20 97/57 (70) 94 07/30/17 04:45 96.9 97 18 129/70 (89) 92 07/30/17 00:10 97.5 97 18 107/59 (75) 92 07/29/17 20:00 97.2 107 18 116/69 (85) 93 07/29/17 12:00 96.8 99 17 131/77 (95) 93 Result Diagram: 07/30/17 0735 07/29/17 0520 Other Results Laboratory Tests Test 07/29/17 05:20 07/30/17 07:35 White Blood Count 12.0 TH/MM3 5.4 TH/MM3 Red Blood Count 3.97 MIL/MM3 4.96 MIL/MM3 Hemoglobin 11.2 GM/DL 13.9 GM/DL Hematocrit 33.5 % 41.7 % Mean Corpuscular Volume 84.3 FL 84.0 FL Mean Corpuscular Hemoglobin 28.1 PG 27.9 PG Mean Corpuscular Hemoglobin Concent 33.3 % 33.2 % Red Cell Distribution Width 21.5 % 21.3 % Platelet Count 288 TH/MM3 344 TH/MM3 Mean Platelet Volume 7.9 FL 8.3 FL Neutrophils (%) (Auto) 86.5 % 85.3 % Lymphocytes (%) (Auto) 5.1 % 12.7 % Monocytes (%) (Auto) 7.1 % 1.7 % Eosinophils (%) (Auto) 1.1 % 0.1 % Basophils (%) (Auto) 0.2 % 0.2 % Neutrophils # (Auto) 10.4 TH/MM3 4.6 TH/MM3 Lymphocytes # (Auto) 0.6 TH/MM3 0.7 TH/MM3 Monocytes # (Auto) 0.8 TH/MM3 0.1 TH/MM3 Eosinophils # (Auto) 0.1 TH/MM3 0.0 TH/MM3 Basophils # (Auto) 0.0 TH/MM3 0.0 TH/MM3 CBC Comment AUTO DIFF AUTO DIFF Differential Total Cells Counted 100 100 Neutrophils % (Manual) 54 % 54 % Band Neutrophils % 34 % 32 % Lymphocytes % 4 % 4 % Monocytes % 6 % 6 % Neutrophils # (Manual) 10.8 TH/MM3 4.8 TH/MM3 Myelocytes 2 % 1 % Differential Comment FINAL DIFF MANUAL FINAL DIFF MANUAL Toxic Granulation 1+ 2+ Platelet Estimate NORMAL NORMAL Platelet Morphology Comment NORMAL NORMAL Ovalocytes 1+ 1+ [place]ier Cells 1+ Acanthocytes OCC Blood Urea Nitrogen 26 MG/DL Creatinine 0.56 MG/DL Random Glucose 123 MG/DL Total Protein 4.7 GM/DL Calcium Level 7.0 MG/DL Sodium Level 132 MEQ/L Potassium Level 4.1 MEQ/L Chloride Level 103 MEQ/L Carbon Dioxide Level 22.6 MEQ/L Anion Gap 6 MEQ/L Estimat Glomerular Filtration Rate 103 ML/MIN Protein Corrected Calcium 8.3 MG/DL Eosinophils % 1 % Metamyelocytes 2 % Tear Drop Cells 1+ Imaging Last Impressions Abdomen X-Ray 07/30/17 0600 Signed Impressions: Service Date/Time: Sunday, July 30, 2017 05:10 - CONCLUSION: Distended bowel representing either ileus or distal obstruction. Delgado Hernandez MD Abdomen/Pelvis CT 07/28/17 0000 Signed Impressions: Service Date/Time: July 10:25 - CONCLUSION: 1. Worsening colonic distention. The colon is fluid filled. No significant inflammatory process is seen involving the colon, however, santos colitis could have this appearance. 2. Small volume ascites. 3. New small bilateral pleural effusions and bibasilar atelectasis. 4. Cholelithiasis. Roosevelt Berg Jr., MD Chest X-Ray 07/27/17 0000 Signed Impressions: Service Date/Time: Thursday, July 27, 2017 13:41 - CONCLUSION: Minimal progression of parenchymal changes left base.. Marquis Shields MD FACR Last Impressions Abdomen/Pelvis CT 07/28/17 0000 Signed Impressions: Service Date/Time: July 10:25 - CONCLUSION: 1. Worsening colonic distention. The colon is fluid filled. No significant inflammatory process is seen involving the colon, however, santos colitis could have this appearance. 2. Small volume ascites. 3. New small bilateral pleural effusions and bibasilar atelectasis. 4. Cholelithiasis. Roosevelt Berg Jr., MD Chest X-Ray 07/27/17 0000 Signed Impressions: Service Date/Time: Thursday, July 27, 2017 13:41 - CONCLUSION: Minimal progression of parenchymal changes left base.. Marquis Shields MD FACR Abdomen X-Ray 07/27/17 0000 Signed Impressions: Service Date/Time: Thursday, July 27, 2017 13:44 - CONCLUSION: Gaseous distention as described above. Descending colon is gasless. CT scan had shown colitis. There is no free air. Marquis Shields MD FACR Last Impressions Chest X-Ray 07/27/17 0000 Signed Impressions: Service Date/Time: Thursday, July 27, 2017 13:41 - CONCLUSION: Minimal progression of parenchymal changes left base.. Marquis Shields MD FACR Abdomen X-Ray 07/27/17 0000 Signed Impressions: Service Date/Time: Thursday, July 27, 2017 13:44 - CONCLUSION: Gaseous distention as described above. Descending colon is gasless. CT scan had shown colitis. There is no free air. Marquis Shields MD FACR Abdomen/Pelvis CT [id number] Signed Impressions: Service Date/Time: Sunday, July 23, 2017 20:06 - CONCLUSION: 1. Diffuse colitis with slight inflammatory changes. There is also scattered diverticulosis. No perforation. 2. Minimal ascites. 3. Calcified gallstones. 4. Hepatic and right renal densities likely cysts Vel Gonzalez MD Last Impressions Chest X-Ray 07/25/17 0000 Signed Impressions: Service Date/Time: Tuesday, July 25, 2017 09:33 - CONCLUSION: 1. Slightly progressed left lower lobe airspace disease and associated trace pleural effusion. Saul Fallon MD Abdomen/Pelvis CT [id number] Signed Impressions: Service Date/Time: Sunday, July 23, 2017 20:06 - CONCLUSION: 1. Diffuse colitis with slight inflammatory changes. There is also scattered diverticulosis. No perforation. 2. Minimal ascites. 3. Calcified gallstones. 4. Hepatic and right renal densities likely cysts Vel Gonzalez MD Last Impressions Chest X-Ray [id number] Signed Impressions: Service Date/Time: Sunday, July 23, 2017 21:52 - CONCLUSION: 1. Left basilar scarring. 2. No pneumonia. Vel Gonzalez MD Abdomen/Pelvis CT 07/23/17 1840 Signed Impressions: Service Date/Time: Sunday, July 23, 2017 20:06 - CONCLUSION: 1. Diffuse colitis with slight inflammatory changes. There is also scattered diverticulosis. No perforation. 2. Minimal ascites. 3. Calcified gallstones. 4. Hepatic and right renal densities likely cysts Vel Gonzalez MD Objective Remarks General: Anxious appearing female Chest: CTA Cardiac: Tachy, regular Abd: Absent BS, semi-firm, distended Ext: Mild LE edema A/P Problem List: (1) C. difficile colitis ICD Codes: A04.72 - Enterocolitis due to Clostridium difficile, not specified as recurrent Plan: - Pt is an 87 y/o female who presented to the ED with complaints of multiple episodes of diarrhea for 4 days prior to admission associated with left sided abdominal pain. Patient describes the pain as a intermittent cramping sensation moderate in severity. No recent antibiotic use or evidence of bleeding in the stool. - CT of abdomen (07/23/17) --> Diffuse colitis with slight inflammatory changes. There is also scattered diverticulosis. No perforation. Mild ascites. Also had gallstones. Hepatic and right renal disease likely cyst. - Stool positive for C. difficile patient started on Flagyl 500mg po Q8H on 07/24 - Diarrhea improving - KUB (07/27) --> Gaseous distention of the transverse colon to 8cm. Descending colon is gasless. CT scan had shown colitis. There is no free air. - Noncontrasted CT Abd/pelvis (07/28) --> Worsening colonic distention. The colon is fluid filled. No significant inflammatory process is seen involving the colon, however, santos colitis could have this appearance. Small volume ascites. New small bilateral pleural effusions and bibasilar atelectasis. Cholelithiasis. - Vancomycin was added on 07/28 - GI following - WBC count improved from 21.7 with 36% bands on 07/28 to 5.2 with 32% bands on - KUB (07/30) --> Distended bowel representing either ileus or distal obstruction. - Pt is very anxious today and abd is more painful and distended - I spoke with Dr. Carr this morning regarding the pts status and he is requesting repeat CT scan of the abd/pelvis to r/o perforation and requesting General Surgery consultation as well. - Add on Simethicone - Her vitals are somewhat concerning this morning with hypotension, tachycardia and low temp - Will repeat evaluation following CT scan today - Pt is a full code per the pt at this time, may need to consider transfer to ICU. Will re-evaluate in a few hours - Supportive care - Physical therapy recommends rehab at time of DC ADDENDUM: - Pt re-evaluated at 10:30AM and she is more painful and having increased work of breathing. - Discussed with the pt and son transfer to ICU and the possibility of needing to be placed on mechanical ventilator. - Pt states that she DOES NOT want to be placed on mechanical vent and just wants pain relief and comfort measures. - Pt asked several times about continued aggressive measures and code status and pt wants DNR and comfort care - We will give Lasix 40mg IV x one dose and Duoneb - We will continue antibiotics - Increase pain control with Dilaudid PRN and Ativan PRN and explained that this may worsen her ileus and the pt and son understand this. - Hold PPN for now - We will reassess later today (2) Hypokalemia ICD Codes: E87.6 - Hypokalemia Status: Resolved Plan: - Improved with replacement - Potassium 2.6 on admission -> 4.8 (07/24) -> 4.1 (07/25) --> 4.5 (07/27) --> 4.7 (07/28) - Magnesium 2.1 (07/28) (3) Dehydration ICD Codes: E86.0 - Dehydration Plan: - BUN 32, creatinine 0.91, estimated GFR 59 on admission - Dehydration likely secondary to diarrhea - Pt has been on IV fluids but she has CHF and need to monitor for ss of fluid overload - CXR requested (07/25) --> Slightly progressed left lower lobe airspace disease and associated trace pleural effusion. - Labs on 07/27 with BUn 20, Cr 0.50, GFR 117 - On 07/[address] in the 110s - Pt was started on PPN on 07/27 as she has not been eating anything - Continue to monitor telemetry (4) Possible urinary tract infection ICD Codes: R39.89 - Other symptoms and signs involving the genitourinary system Plan: - Urinalysis on 07/24 reviewed and reveals positive nitrates small amount of leukocyte esterase culture indicated and pending - Urine culture reveals: Citrobacter Amalonaticus sensitive to Rocephin. - Pt was started on Rocephin IV on 07/26 - Repeat urine culture is pending (5) Anxiety ICD Codes: F41.9 - Anxiety disorder, unspecified Status: Chronic Plan: - Continue patient's home Zoloft 150 mg by mouth daily next line - Increase her Xanax to 0.5 mg by mouth 3 times a day as needed for anxiety (6) Aortic valve stenosis, severe ICD Codes: I35.0 - Nonrheumatic aortic (valve) stenosis Status: Acute Plan: - Previous admission from 02/18-02/21 for SOB and felt to have acute CHF symptoms related to severe AVS. - 2D echocardiogram (02/19/17) which noted severe aortic valve stenosis and she was initially decompensated. - She was seen by CTS who did the initial evaluation for TAVR vs traditional AVR but due to her issues with GIB this has been put on hold. - She is no longer on any anticoagulants (7) CHF (congestive heart failure) ICD Codes: I50.9 - Heart failure, unspecified Status: Acute Plan: - Patient is regularly on Lasix 20 mg by mouth daily but this was held secondary to dehydration - Once patient is hydrated and diarrhea is improved may need to resume - On 07/30 pt noted that her edmar is increasing likely related to IVF and PPN will get a CXR today - 2-D echocardiogram (02/19/2017) - Normal left ventricular size, Mild concentric left ventricular hypertrophy - Estimated ejection fraction 55-60% - Severe aortic valve stenosis - AV mean gradient 44.0 mmHg - Mild aortic valve regurgitation - Mild/moderate mitral valve regurgitation - Mitral annular calcification is present - Severe thickening of the aortic valve leaflets - There is mild tricuspid valve regurgitation - There's estimated pulmonary hypertension present range of 40-50 mmHg - Pulmonary valve is not well visualized. (8) Hyperlipidemia ICD Codes: E78.5 - Hyperlipidemia, unspecified Status: Chronic Plan: - Cont. patient's home atorvastatin 20mg daily at bedtime Assessment and Plan Patient examined. Assessment and plan formulated with Mariel De Luna PA-C. I agree with the above. Arrived at bedside pt in respiratory distress. wheeze/rhonci abdomen breathing. She is oriented. son is present. nurses and Erika MEYER present. Pt was asked about moving to ICU and life support machine if she continues to deteriorate. She quickly answered "NO"...I asked her at least 5 more times and she clearly only wants comfort medications at this point and is ready to . I informed her that she will likely without further intervention and she understood. will order comfort meds plus nebs/lasix. son reports sister on way and in flight from [place]. Mariel De Luna Jul 30, 2017 09:30 Selvin Juarez MD Jul 30, 2017 11:00
[2017-07-30] MEDS ORDERED: ALPRAZolam 0.5 MG TAB PO PRN (10:00)
--- NOTE | 2017-07-30 10:10 | RADRPT ---
EXAM DATE/TIME: 07/30/2017 09:23 [facility] COMPARISON: CHEST SINGLE AP, July 27, 2017, 13:41. INDICATIONS : Shortness of breath and chest pain. MEDICAL HISTORY : Congestive heart failure. Hypertension. Anemia SURGICAL HISTORY : Hysterectomy. ENCOUNTER: Subsequent ACUITY: 1 week PAIN SCORE: 5/10 LOCATION: Bilateral chest FINDINGS: Single AP semiupright portable view of the chest demonstrates obscuration of the left hemidiaphragm, stable consistent with left lower lobe atelectasis versus consolidation or fluid. The lungs are other storey clear. Heart size is normal with atherosclerosis within the aortic arch. Pulmonary vessels are n ormal in caliber. There is a lucency underlying the right hemidiaphragm consistent with overlying bow el. CONCLUSION: Persistent left lower lobe atelectasis versus consolidation. No new abnormality seen. Vivi Kilpatrick MD on July 30, 2017 at 10:07 Board Certified Radiologist. This report was verified electronically.
[2017-07-30] MEDS ORDERED: HYDROmorphone HCL PF 2 MG/ML VIAL IV PUSH ONE (10:45)
[2017-07-30] MEDS ORDERED: LORazepam 2 MG/ML VIAL IV PUSH PRN (10:45)
[2017-07-30] MEDS ORDERED: HYDROmorphone HCL PF 2 MG/ML VIAL IV PUSH PRN (10:45)
[2017-07-30] MEDS ORDERED: HYDROmorphone HCL PF 1 MG/ML VIAL IV PUSH PRN ×2 (10:45→13:45)
[2017-07-30] MEDS ORDERED: RESP: ALBUTEROL 2.5 MG/IPRATROPIUM 0.5 MG NEB (PRN) NEB STA (11:08)
--- NOTE | 2017-07-30 11:16 | HHI.GIFU ---
Subjective Remarks skin color pale, mild diaphoretic, pale 100% Non rebreather on Son in . Patient responds very minimal (Theresa Parker) Objective Vitals I&O Vital Signs Date Time Temp Pulse Resp B/P (MAP) Pulse Ox O2 Delivery O2 Flow Rate FiO2 07/30/17 08:00 95.4 120 20 97/57 (70) 94 07/30/17 04:45 96.9 97 18 129/70 (89) 92 07/30/17 00:10 97.5 97 18 107/59 (75) 92 07/29/17 20:00 97.2 107 18 116/69 (85) 93 07/29/17 12:00 96.8 99 17 131/77 (95) 93 I/O 07/29/17 07/29/17 07/29/17 07/30/17 07/30/17 07/30/17 07:00 15:00 23:00 07:00 15:00 23:00 Intake Total 120 ml 4242 ml Output Total 1180 ml 600 ml 500 ml Balance -1060 ml 3642 ml -500 ml Intake Oral 120 ml 240 ml IV Total 4002 ml Output Urine Total 1180 ml 600 ml 500 ml # Bowel Movements 0 0 Laboratory Laboratory Tests Test 07/30/17 07:35 White Blood Count 5.4 Red Blood Count 4.96 Hemoglobin 13.9 Hematocrit 41.7 Mean Corpuscular Volume 84.0 Mean Corpuscular Hemoglobin 27.9 Mean Corpuscular Hemoglobin Concent 33.2 Red Cell Distribution Width 21.3 Platelet Count 344 Mean Platelet Volume 8.3 Neutrophils (%) (Auto) 85.3 Lymphocytes (%) (Auto) 12.7 Monocytes (%) (Auto) 1.7 Eosinophils (%) (Auto) 0.1 Basophils (%) (Auto) 0.2 Neutrophils # (Auto) 4.6 Lymphocytes # (Auto) 0.7 Monocytes # (Auto) 0.1 Eosinophils # (Auto) 0.0 Basophils # (Auto) 0.0 CBC Comment AUTO DIFF Differential Total Cells Counted 100 Neutrophils % (Manual) 54 Band Neutrophils % 32 Lymphocytes % 4 Monocytes % 6 Eosinophils % 1 Neutrophils # (Manual) 4.8 Metamyelocytes 2 Myelocytes 1 Differential Comment FINAL DIFF MANUAL Toxic Granulation 2+ Platelet Estimate NORMAL Platelet Morphology Comment NORMAL Tear Drop Cells 1+ Ovalocytes 1+ Date/Time Source Procedure Growth Status 07/23/17 21:45 Stool Stool - Final NO ENTERIC PATHOGENS DETECTED BY PCR... Complete 07/26/17 04:20 Urine Catheterized Urine Urine Culture - Final 50-100,000 CFU/ML MIXED GERRY... 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 difficile colitis ICD Codes: A04.72 - Enterocolitis due to Clostridium difficile, not specified as recurrent (2) Gastritis ICD Codes: K29.70 - Gastritis, unspecified, without bleeding Status: Acute (3) Esophagitis ICD Codes: K20.9 - Esophagitis, unspecified Status: Acute (4) Hiatal hernia ICD Codes: K44.9 - Diaphragmatic hernia without obstruction or gangrene Status: Acute Plan C. difficile colitis, continues to progress into a multisystem critical state Gastritis Abdominal distention worsening, minimal bowel sounds, abdomen taut semifirm Tachypnea respirations around 40 a minute, O2 100% nonrebreather mask Son is here and is requesting patient to be DO NOT RESUSCITATE, no code. Initially we were ready for Gen. surgery consult and further testing that he states D escalate care His sister he is flying in this a.m.. At this time he wants her comfort to be the main focus. Plan GI has offered supportive care, but will no longer be needed on this case. Spoke to son and offered any assistance that he request today if needed Patient is being seen by myself and Dr. Carr, it was written on his behalf (Theresa Parker) Plan Agree with above-noted, patient is deteriorating, she and her son would like to proceed with comfort care only and no more procedures, continue supportive care , consider palliative care, we will sign off at this time (Chandler Carr MD) Theresa Parker Jul 30, 2017 11:16 Chandler Carr MD Jul 30, 2017 16:41
[2017-07-30] MEDS ORDERED: FUROSEMIDE 40 MG/4 ML VIAL IV PUSH ONE (11:30)
[2017-07-30 12:00] VITALS: BP 128/48; PULSE 106; RESP 36; TEMP 97.1; O2SAT 85
[2017-07-30] MEDS ORDERED: RESP: ALBUTEROL 2.5 MG/IPRATROPIUM 0.5 MG NEB (PRN) NEB (13:45)
[2017-07-30] MEDS ORDERED: SIMETHICONE 125 MG CHEWABLE TAB PO SCH (14:00)
== END 2017-07-30 17:04 | disposition expired | DRG 372 ==
LOC: NEPE 18:03 → NEDA 21:31 → N06A 22:41 → N07A 07-24 05:19
PROVIDERS: ADMIT Hospitalist; ATTEND Hospitalist
DX: A04.72 Enterocolitis due to Clostridium difficile, not specified as recurrent (principal); R18.8 Other ascites; I95.9 Hypotension, unspecified; I11.0 Hypertensive heart disease with heart failure; I27.20 Pulmonary hypertension, unspecified; I50.9 Heart failure, unspecified; K56.7 Ileus, unspecified; N39.0 Urinary tract infection, site not specified; J98.11 Atelectasis; Z51.5 Encounter for palliative care; I08.3 Combined rheumatic disorders of mitral, aortic and tricuspid valves; E86.0 Dehydration; E87.6 Hypokalemia; K80.20 Calculus of gallbladder without cholecystitis without obstruction; E78.5 Hyperlipidemia, unspecified; K22.70 Barrett's esophagus without dysplasia; D50.9 Iron deficiency anemia, unspecified; K57.30 Diverticulosis of large intestine without perforation or abscess without bleeding; K44.9 Diaphragmatic hernia without obstruction or gangrene; K21.0 Gastro-esophageal reflux disease with esophagitis; I25.10 Atherosclerotic heart disease of native coronary artery without angina pectoris; R06.03 Acute respiratory distress; R06.2 Wheezing; M48.061 Spinal stenosis, lumbar region without neurogenic claudication; B96.89 Other specified bacterial agents as the cause of diseases classified elsewhere; H35.30 Unspecified macular degeneration; K29.70 Gastritis, unspecified, without bleeding; N28.1 Cyst of kidney, acquired; K76.89 Other specified diseases of liver; M19.90 Unspecified osteoarthritis, unspecified site; H91.90 Unspecified hearing loss, unspecified ear; R00.0 Tachycardia, unspecified; F41.9 Anxiety disorder, unspecified; Z16.24 Resistance to multiple antibiotics; Z66 Do not resuscitate; Z87.891 Personal history of nicotine dependence; Z88.5 Allergy status to narcotic agent; Z96.653 Presence of artificial knee joint, bilateral
CPT/HCPCS: 71045; 74018; 74176; 74177; 80048; 80053; 81001; 82948; 83605; 83735; 84155; 85007; 85025; 85027; 85610; 85730; 87077; 87086; 87186; 87493; 87506; 93005; 94664; 96374; J0131; J0696; J1170; J1940; J2405; J3480; J7030; J7040; Q9967